=== PATIENT | male | born 1970 | race African-American/Black ===

== ENCOUNTER 2017-04-17 11:46 | Emergency (ER) | payer MEDICAID, OTHER ==
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
[2017-04-17 12:26] LABS: ABSOLUTE BASOPHILS # (AUTO) 0.1 10^3/uL (0.0-0.2); ABSOLUTE EOSINOPHILS # (AUTO) 0.2 10^3/uL (0.0-0.6); ABSOLUTE LYMPHOCYTES (AUTO) 2.5 10^3/uL (0.5-4.7); ABSOLUTE MONOCYTES (AUTO) 0.9 10^3/uL (0.1-1.4); ABSOLUTE NEUT (AUTO) 6.4 10^3/uL (1.7-8.2); BASOPHILS % (AUTO) 0.9 % (0-2); EOSINOPHILS % (AUTO) 2.3 % (0-6); HEMATOCRIT 43.9 % (37.9-51.0); HEMOGLOBIN 14.8 g/dL (13.5-17.0); HGB HCT DIFFERENCE 0.5; LYMPHOCYTES % (AUTO) 24.9 % (13-45); MEAN CORPUSCULAR HEMOGLOBIN 27.3 pg (27.0-33.4); MEAN CORPUSCULAR HGB CONC 33.6 g/dL (32.0-36.0); MEAN CORPUSCULAR VOLUME 81 fl (80-97); MONOCYTES % (AUTO) 9.3 % (3-13); RED BLOOD COUNT 5.41 10^6/uL (4.35-5.55); RED CELL DISTRIBUTION WIDTH 15.1 % (11.5-14.0); SEGMENTED NEUTROPHILS % (AUTO) 62.6 % (42-78); WHITE BLOOD COUNT 10.2 10^3/uL (4.0-10.5)
[2017-04-17 12:33] LABS: APPEARANCE,URINE CLEAR; BILIRUBIN,URINE NEGATIVE (NEGATIVE); GLUCOSE, URINE NEGATIVE (NEGATIVE); KETONES,URINE NEGATIVE (NEGATIVE); LEUKOCYTE ESTERASE,URINE NEGATIVE (NEGATIVE); NITRITE,URINE NEGATIVE (NEGATIVE); PROTEIN,URINE NEGATIVE (NEGATIVE); URINE SPECIFIC GRAVITY 1.011
[2017-04-17 12:46] LABS: ALANINE AMINOTRANSFERASE 36 U/L (21-72); ALBUMIN 3.9 g/dL (3.5-5.0); ALKALINE PHOSPHATASE 76 U/L (38-126); ANION GAP 12 (5-19); ASPARTATE AMINO TRANSFERASE 27 U/L (17-59); BILIRUBIN,DIRECT 0.3 mg/dL (0.0-0.4); BILIRUBIN,TOTAL 0.6 mg/dL (0.2-1.3); BLOOD UREA NITROGEN 9 mg/dL (7-20); CALCIUM 9.4 mg/dL (8.4-10.2); CARBON DIOXIDE 31 mmol/L (22-30); CHLORIDE 101 mmol/L (98-107); CREATININE RESULT 0.87 mg/dL (0.52-1.25); GLUCOSE 116 mg/dL (75-110); POTASSIUM 3.8 mmol/L (3.6-5.0); TOTAL PROTEIN 7.4 g/dL (6.3-8.2)
[2017-04-17] MEDS ORDERED: LIDOCAINE 2% VISCOUS SOLN 20 ML UDCUP PO ONE (13:08)
[2017-04-17] MEDS ORDERED: MAG HYDROX/AL HYDROX/SIMETH SUSP 30 ML UDCUP PO ONE (13:08)
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
[2017-04-17 14:25] VITALS: BP 151/100
== END 2017-04-17 14:25 | disposition home or self-care (01) ==
LOC: ER 11:46
DX: K59.00 Constipation, unspecified (principal); R10.13 Epigastric pain; R14.2 Eructation; R10.12 Left upper quadrant pain; I10 Essential (primary) hypertension; Z87.19 Personal history of other diseases of the digestive system
CPT/HCPCS: 99284; 36415; 83690; 85025; 80053; 81001; J3490

== ENCOUNTER 2017-08-11 09:48 | Emergency (ER) | payer SELFPAY ==
[2017-08-11] MEDS ORDERED: ACETAMINOPHEN 325 MG TABLET PO ONE (11:46)
[2017-08-11 12:00] LABS: A TYPE INFLUENZA AG NEGATIVE (NEGATIVE); B INFLUENZA AG NEGATIVE (NEGATIVE)
[2017-08-11] MEDS ORDERED: NORMAL SALINE 1000 ML 1,000 ML IV ONE (12:06)
--- NOTE | 2017-08-11 12:06 | RADIOLOGY REPORT (SQ) ---
EXAM DESCRIPTION: CHEST PA/LAT COMPLETED DATE/TIME: 08/11/2017 11:38 am REASON FOR STUDY: cough congestion COMPARISON: Chest films 11/01/2012, 06/29/2011 EXAM PARAMETERS: NUMBER OF VIEWS: two views TECHNIQUE: Digital Frontal and Lateral radiographic views of the chest acquired. RADIATION DOSE: NA LIMITATIONS: none FINDINGS: LUNGS AND PLEURA: No opacities, masses or pneumothorax. No pleural effusion. MEDIASTINUM AND HILAR STRUCTURES: No masses or contour abnormalities. HEART AND VASCULAR STRUCTURES: Heart normal size. No evidence for failure. BONES: No acute findings. HARDWARE: None in the chest. OTHER: No other significant finding. IMPRESSION: NO SIGNIFICANT RADIOGRAPHIC FINDING IN THE CHEST. TECHNICAL DOCUMENTATION: JOB ID: [id number] [employer]- All Rights Reserved
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
[2017-08-11 12:49] LABS: ABSOLUTE BASOPHILS # (AUTO) 0.1 10^3/uL (0.0-0.2); ABSOLUTE EOSINOPHILS # (AUTO) 0.3 10^3/uL (0.0-0.6); ABSOLUTE MONOCYTES (AUTO) 1.3 10^3/uL (0.1-1.4); ABSOLUTE NEUT (AUTO) 5.7 10^3/uL (1.7-8.2); BASOPHILS % (AUTO) 0.7 % (0-2); EOSINOPHILS % (AUTO) 3.7 % (0-6); HEMOGLOBIN 14.4 g/dL (13.5-17.0); LYMPHOCYTES % (AUTO) 11.8 % (13-45); MEAN CORPUSCULAR HGB CONC 33.6 g/dL (32.0-36.0); MEAN CORPUSCULAR VOLUME 80 fl (80-97); MONOCYTES % (AUTO) 15.3 % (3-13); PLATELET COUNT 465 10^3/uL (150-450); RED BLOOD COUNT 5.35 10^6/uL (4.35-5.55); RED CELL DISTRIBUTION WIDTH 15.4 % (11.5-14.0); SEGMENTED NEUTROPHILS % (AUTO) 68.5 % (42-78); TOTAL CELLS COUNTED % (AUTO) 100 %; WHITE BLOOD COUNT 8.3 10^3/uL (4.0-10.5)
[2017-08-11 13:12] LABS: ALANINE AMINOTRANSFERASE 47 U/L (21-72); ALBUMIN 4.3 g/dL (3.5-5.0); ALKALINE PHOSPHATASE 82 U/L (38-126); ANION GAP 12 (5-19); ASPARTATE AMINO TRANSFERASE 41 U/L (17-59); BILIRUBIN,DIRECT 0.3 mg/dL (0.0-0.4); BILIRUBIN,TOTAL 0.5 mg/dL (0.2-1.3); BLOOD UREA NITROGEN 10 mg/dL (7-20); CALCIUM 9.6 mg/dL (8.4-10.2); CARBON DIOXIDE 33 mmol/L (22-30); CHLORIDE 99 mmol/L (98-107); GLUCOSE 133 mg/dL (75-110); POTASSIUM 3.3 mmol/L (3.6-5.0); TOTAL PROTEIN 7.8 g/dL (6.3-8.2)
[2017-08-11 13:52] LABS: APPEARANCE,URINE CLEAR; BILIRUBIN,URINE NEGATIVE (NEGATIVE); COLOR,URINE YELLOW; GLUCOSE, URINE NEGATIVE (NEGATIVE); KETONES,URINE NEGATIVE (NEGATIVE); LEUKOCYTE ESTERASE,URINE NEGATIVE (NEGATIVE); NITRITE,URINE NEGATIVE (NEGATIVE); PROTEIN,URINE 30 mg/dL (NEGATIVE)
[2017-08-11] MEDS ORDERED: BENZONATATE 100 MG CAPSULE PO ONE (13:54)
[2017-08-11 15:39] VITALS: BP 125/96
== END 2017-08-11 15:39 | disposition home or self-care (01) ==
LOC: ER 09:48
DX: B34.9 Viral infection, unspecified (principal); R05 Cough; R50.9 Fever, unspecified; M79.1 Myalgia; R07.0 Pain in throat; R09.82 Postnasal drip; R06.02 Shortness of breath; J34.89 Other specified disorders of nose and nasal sinuses; I10 Essential (primary) hypertension; E10.9 Type 1 diabetes mellitus without complications
CPT/HCPCS: 99283; 96360; 36415; 87040; 85025; 80053; 81001; 83605; 87804; 71046; J7030

== ENCOUNTER 2019-04-26 01:53 | Emergency (ER) | payer BC ==
[2019-04-26] MEDS ORDERED: ASPIRIN 81 MG TABLET, CHEWABLE PO ONE (01:56)
[2019-04-26 02:37] LABS: ABSOLUTE BASOPHILS # (AUTO) 0.1 10^3/uL (0.0-0.2); ABSOLUTE EOSINOPHILS # (AUTO) 0.4 10^3/uL (0.0-0.6); ABSOLUTE LYMPHOCYTES (AUTO) 3.1 10^3/uL (0.5-4.7); ABSOLUTE MONOCYTES (AUTO) 0.9 10^3/uL (0.1-1.4); ABSOLUTE NEUT (AUTO) 5.2 10^3/uL (1.7-8.2); BASOPHILS % (AUTO) 0.8 % (0-2); EOSINOPHILS % (AUTO) 3.7 % (0-6); HEMATOCRIT 43.6 % (37.9-51.0); HEMOGLOBIN 14.6 g/dL (13.5-17.0); LYMPHOCYTES % (AUTO) 32.3 % (13-45); MEAN CORPUSCULAR HEMOGLOBIN 27.6 pg (27.0-33.4); MEAN CORPUSCULAR HGB CONC 33.5 g/dL (32.0-36.0); MEAN CORPUSCULAR VOLUME 83 fl (80-97); MONOCYTES % (AUTO) 9.5 % (3-13); PLATELET COUNT 486 10^3/uL (150-450); RED BLOOD COUNT 5.29 10^6/uL (4.35-5.55); RED CELL DISTRIBUTION WIDTH 14.9 % (11.5-14.0); SEGMENTED NEUTROPHILS % (AUTO) 53.7 % (42-78); TOTAL CELLS COUNTED % (AUTO) 100 %; WHITE BLOOD COUNT 9.7 10^3/uL (4.0-10.5)
[2019-04-26 02:50] LABS: ALBUMIN 4.1 g/dL (3.5-5.0); ALKALINE PHOSPHATASE 94 U/L (38-126); ANION GAP 9 (5-19); ASPARTATE AMINO TRANSFERASE 31 U/L (17-59); BILIRUBIN,DIRECT 0.2 mg/dL (0.0-0.4); BILIRUBIN,TOTAL 0.2 mg/dL (0.2-1.3); BLOOD UREA NITROGEN 10 mg/dL (7-20); CALCIUM 9.5 mg/dL (8.4-10.2); CARBON DIOXIDE 29 mmol/L (22-30); CHLORIDE 102 mmol/L (98-107); CREATINE KINASE 287 U/L (55-170); GLUCOSE 108 mg/dL (75-110); POTASSIUM 3.2 mmol/L (3.6-5.0); TOTAL PROTEIN 7.5 g/dL (6.3-8.2)
[2019-04-26 03:02] LABS: CREATINE KINASE MB 2.24 ng/mL (<4.55); TROPONIN I < 0.012 ng/mL
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
[2019-04-26 03:04] LABS: APPEARANCE,URINE CLEAR; BILIRUBIN,URINE NEGATIVE (NEGATIVE); COLOR,URINE YELLOW; GLUCOSE, URINE NEGATIVE (NEGATIVE); KETONES,URINE NEGATIVE (NEGATIVE); LEUKOCYTE ESTERASE,URINE NEGATIVE (NEGATIVE); NITRITE,URINE NEGATIVE (NEGATIVE); PROTEIN,URINE NEGATIVE (NEGATIVE); UROBILINOGEN,URINE NEGATIVE mg/dL (<2.0)
--- NOTE | 2019-04-26 04:30 | RADIOLOGY REPORT (SQ) ---
EXAM DESCRIPTION: XR CHEST 2 VIEWS COMPLETED DATE/TME: 04/26/2019 00:00 CLINICAL HISTORY: 48 years, Male, CP COMPARISON: 08/11/2017 chest NUMBER OF VIEWS: 2 TECHNIQUE: 2 view chest LIMITATIONS: None. FINDINGS: Heart size normal. Lungs clear. No pneumothorax IMPRESSION: Negative chest copyright 2010 [email or web address]- All Rights Reserved
[2019-04-26 10:54] VITALS: BP 137/89
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
[2019-04-26] MEDS ORDERED: INFLUENZA QUAD (6MOS+) 2019-20 VAC 0.5 ML SYR IM ONE (12:45)
--- NOTE | 2019-04-26 20:53 | EKG REPORT ---
SEVERITY:- NORMAL ECG - SINUS RHYTHM : Confirmed by: Faith Anne MD 26-Apr-2019 20:52:46
--- NOTE | 2019-04-26 20:54 | EKG REPORT ---
SEVERITY:- ABNORMAL ECG - SINUS RHYTHM DIFFUSE ST-T CHAGES.CONSIDER ISCHEMIA : Confirmed by: Faith Anne MD 26-Apr-2019 20:53:52
[2019-04-27] MEDS ORDERED: INFLUENZA QUAD (6MOS+) 2019-20 VAC 0.5 ML SYR IM ONE (08:00)
== END 2019-04-26 13:27 | disposition home or self-care (01) ==
LOC: ER 01:53 → EH 06:33 → UNDOADMIN 06:33 → EH 10:10 → 3W 10:10 → UNDODISIN 13:27 → ER 13:27
DX: R07.89 Other chest pain (principal); I10 Essential (primary) hypertension; E10.9 Type 1 diabetes mellitus without complications
CPT/HCPCS: 36415; 71046; 80053; 81001; 82550; 82553; 84484; 85025; 87086; 90686; 93005; 93010

== ENCOUNTER 2019-10-17 14:38 | Emergency (ER) | payer BC ==
[2019-10-17] MEDS ORDERED: ASPIRIN 81 MG TABLET, CHEWABLE PO ONE (14:58)
[2019-10-17] MEDS ORDERED: SIMETHICONE 80 MG TAB.CHEW PO ONE (14:59)
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
--- NOTE | 2019-10-17 15:21 | RADIOLOGY REPORT (SQ) ---
EXAM DESCRIPTION: CHEST 2 VIEWS COMPLETED DATE/TIME: 10/17/2019 3:12 pm REASON FOR STUDY: cp COMPARISON: 04/26/2019 TECHNIQUE: Frontal and lateral radiographic views of the chest acquired. NUMBER OF VIEWS: Two view. LIMITATIONS: None. FINDINGS: LUNGS AND PLEURA: No pneumothorax. Small amount of linear subsegmental atelectasis in the left lung base. No consolidation or pleural effusion. MEDIASTINUM AND HILAR STRUCTURES: Stable. HEART AND VASCULAR STRUCTURES: Stable. BONES: No acute findings. HARDWARE: None in the chest. OTHER: No other significant finding. IMPRESSION: Small amount of linear subsegmental atelectasis in the left lung base. No consolidatio n or pleural effusion. TECHNICAL DOCUMENTATION: JOB ID: [id number] [id number] 2010 [email or web address]- All Rights Reserved Reading location - IP/workstation name: [email or web address]
[2019-10-17 15:41] LABS: ALBUMIN 3.9 g/dL (3.5-5.0); ALKALINE PHOSPHATASE 85 U/L (38-126); ANION GAP 6 (5-19); ASPARTATE AMINO TRANSFERASE 25 U/L (17-59); BILIRUBIN,DIRECT 0.3 mg/dL (0.0-0.4); BILIRUBIN,TOTAL 0.3 mg/dL (0.2-1.3); BLOOD UREA NITROGEN 10 mg/dL (7-20); CALCIUM 9.4 mg/dL (8.4-10.2); CARBON DIOXIDE 36 mmol/L (22-30); CHLORIDE 97 mmol/L (98-107); GLUCOSE 116 mg/dL (75-110); POTASSIUM 3.4 mmol/L (3.6-5.0); TOTAL PROTEIN 7.9 g/dL (6.3-8.2)
[2019-10-17 15:44] LABS: ABSOLUTE BASOPHILS # (AUTO) 0.1 10^3/uL (0.0-0.2); ABSOLUTE EOSINOPHILS # (AUTO) 0.4 10^3/uL (0.0-0.6); ABSOLUTE LYMPHOCYTES (AUTO) 2.6 10^3/uL (0.5-4.7); ABSOLUTE MONOCYTES (AUTO) 0.7 10^3/uL (0.1-1.4); ABSOLUTE NEUT (AUTO) 3.6 10^3/uL (1.7-8.2); BASOPHILS % (AUTO) 1.1 % (0-2); EOSINOPHILS % (AUTO) 5.4 % (0-6); HEMOGLOBIN 14.6 g/dL (13.5-17.0); LYMPHOCYTES % (AUTO) 34.8 % (13-45); MEAN CORPUSCULAR HEMOGLOBIN 27.5 pg (27.0-33.4); MEAN CORPUSCULAR VOLUME 81 fl (80-97); MONOCYTES % (AUTO) 9.4 % (3-13); PLATELET COUNT 526 10^3/uL (150-450); RED BLOOD COUNT 5.33 10^6/uL (4.35-5.55); RED CELL DISTRIBUTION WIDTH 14.3 % (11.5-14.0); SEGMENTED NEUTROPHILS % (AUTO) 49.3 % (42-78); TOTAL CELLS COUNTED % (AUTO) 100 %; WHITE BLOOD COUNT 7.4 10^3/uL (4.0-10.5)
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
[2019-10-17 17:06] VITALS: BP 163/104
== END 2019-10-17 17:06 | disposition home or self-care (01) ==
LOC: ER 14:38
DX: R07.9 Chest pain, unspecified (principal); R10.9 Unspecified abdominal pain; I10 Essential (primary) hypertension; R10.13 Epigastric pain; R06.02 Shortness of breath; E78.00 Pure hypercholesterolemia, unspecified; E10.9 Type 1 diabetes mellitus without complications
CPT/HCPCS: 36415; 71046; 80053; 83735; 84484; 85025; 99284

== ENCOUNTER → 2020-03-13 | Outpatient (CLI) | payer BC ==
[2020-03-13 15:03] LABS: ABSOLUTE EOSINOPHILS # (AUTO) 0.1 10^3/uL (0.0-0.6); ABSOLUTE LYMPHOCYTES (AUTO) 2.7 10^3/uL (0.5-4.7); ABSOLUTE MONOCYTES (AUTO) 0.7 10^3/uL (0.1-1.4); ABSOLUTE NEUT (AUTO) 4.8 10^3/uL (1.7-8.2); BASOPHILS % (AUTO) 0.3 % (0-2); EOSINOPHILS % (AUTO) 1.8 % (0-6); HEMATOCRIT 43.4 % (37.9-51.0); HEMOGLOBIN 14.7 g/dL (13.5-17.0); MEAN CORPUSCULAR HEMOGLOBIN 27.5 pg (27.0-33.4); MEAN CORPUSCULAR HGB CONC 33.9 g/dL (32.0-36.0); MEAN CORPUSCULAR VOLUME 81 fl (80-97); MONOCYTES % (AUTO) 8.6 % (3-13); PLATELET COUNT 563 10^3/uL (150-450); RED BLOOD COUNT 5.34 10^6/uL (4.35-5.55); RED CELL DISTRIBUTION WIDTH 15.4 % (11.5-14.0); SEGMENTED NEUTROPHILS % (AUTO) 57.3 % (42-78); TOTAL CELLS COUNTED % (AUTO) 100 %; WHITE BLOOD COUNT 8.4 10^3/uL (4.0-10.5)
[2020-03-13 15:15] LABS: APPEARANCE,URINE CLEAR; BILIRUBIN,URINE NEGATIVE (NEGATIVE); COLOR,URINE YELLOW; GLUCOSE, URINE NEGATIVE (NEGATIVE); KETONES,URINE NEGATIVE (NEGATIVE); LEUKOCYTE ESTERASE,URINE NEGATIVE (NEGATIVE); NITRITE,URINE NEGATIVE (NEGATIVE); PROTEIN,URINE NEGATIVE (NEGATIVE); URINE SPECIFIC GRAVITY 1.014
[2020-03-13 15:29] LABS: ANION GAP 9 (5-19); BLOOD UREA NITROGEN 12 mg/dL (7-20); CALCIUM 9.2 mg/dL (8.4-10.2); CARBON DIOXIDE 31 mmol/L (22-30); CHLORIDE 98 mmol/L (98-107); GLUCOSE 129 mg/dL (75-110); POTASSIUM 3.4 mmol/L (3.6-5.0)
--- NOTE | 2020-03-13 16:13 | RADIOLOGY REPORT (SQ) ---
EXAM DESCRIPTION: CHEST PA/LATERAL IMAGES COMPLETED DATE/TIME: 03/13/2020 2:24 pm REASON FOR STUDY: PRE-OP COMPARISON: 10/17/2019 EXAM PARAMETERS: NUMBER OF VIEWS: two views TECHNIQUE: Digital Frontal and Lateral radiographic views of the chest acquired. RADIATION DOSE: NA LIMITATIONS: none FINDINGS: LUNGS AND PLEURA: No opacities, masses or pneumothorax. No pleural effusion. MEDIASTINUM AND HILAR STRUCTURES: No masses or contour abnormalities. HEART AND VASCULAR STRUCTURES: Heart normal size. No evidence for failure. BONES: No acute findings. HARDWARE: None in the chest. OTHER: No other significant finding. IMPRESSION: NO SIGNIFICANT RADIOGRAPHIC FINDING IN THE CHEST. TECHNICAL DOCUMENTATION: JOB ID: [id number] 2010 [employer]- All Rights Reserved Reading location - IP/workstation name: [email or web address]
--- NOTE | 2020-03-13 19:31 | EKG REPORT ---
SEVERITY:- NORMAL ECG - SINUS RHYTHM LVH : Confirmed by: Charles Pike 13-Mar-2020 19:30:38
== END ==
LOC: OD 13:45
PROVIDERS: ATTEND Orthopaedic Surgery
DX: Z01.812 Encounter for preprocedural laboratory examination (principal); Z01.810 Encounter for preprocedural cardiovascular examination; Z01.811 Encounter for preprocedural respiratory examination; M17.11 Unilateral primary osteoarthritis, right knee; E11.9 Type 2 diabetes mellitus without complications
CPT/HCPCS: 36415; 71046; 80048; 81001; 83036; 85025; 93005; 93010

== ENCOUNTER 2020-03-26 10:29 | Day surgery (SDC) | payer BC ==
[~2020-03-26 10:29] MED LIST: BUPIVACAINE INJ/PF LIPOSOME/PF 266 MG/20 ML SDV INJ PRN; CEFAZOLIN 1 GM/D5W RTU 1 GM/50 ML RTUPB IV ONE; CEFAZOLIN INJ 1 GM VIAL IV PRN; DIPHENHYDRAMINE HCL 50 MG/ML VIAL IV PRN; EPHEDRINE SULFATE INJ 50 MG/1 ML AMPULE ONE; FENTANYL CITRATE INJ/PF 100 MCG/2 ML AMPUL IV PRN; FENTANYL CITRATE INJ/PF 100 MCG/2 ML AMPUL ONE; IBUPROFEN 800 MG in NORMAL SALINE 250 ML IV PRN; MAG HYDROX/AL HYDROX/SIMETH SUSP 30 ML UDCUP PO PRN; MEPERIDINE HCL/PF INJ 25 MG/1 ML DISP.SYRIN IV PRN; MIDAZOLAM 2 MG/2 ML INJ ONE; MORPHINE SULFATE 10 MG/ML INJ IV PRN; ONDANSETRON HCL INJ/PF 4 MG/2 ML SDV ONE; OXYCODONE HCL IR 5 MG TABLET PO PRN; OXYCODONE HCL SR 10 MG TABLET PO ONE; OXYCODONE HCL SR 10 MG TABLET PO PRN; PANTOPRAZOLE SODIUM 20 MG TABLET.DR PO ONE; PANTOPRAZOLE SODIUM 20 MG TABLET.DR PO PRN; PROMETHAZINE HCL INJ 25 MG/1 ML VIAL IV PRN; PROPOFOL INJ 200 MG/20 ML VIAL IV ONE; RINGERS SOLUTION,LACTATED 1,000 ML IV PRN; ROPIVACAINE HCL 0.2% INJ/PF (2 MG/ML) 20 ML SDV ONE; TRANEXAMIC ACID INJ/PF 1,000 MG/10 ML SDV ONE; VANCOMYCIN HCL 1,000 MG in DEXTROSE 5%-WATER 250 ML IV PRN
--- NOTE | 2020-03-26 10:35 | Operative Report ---
Operative Report DATE OF SURGERY: 03/26/20 PREOPERATIVE DIAGNOSIS: Right knee arthritis OPERATION: Right knee arthroplasty SURGEON: MARYJANE SCHULTZ ANESTHESIA: Spinal TISSUE REMOVED OR ALTERED: Bone to pathology ESTIMATED BLOOD LOSS: 75 PROCEDURE: Implants used: Femur: [place] triathlon size 6 CR uncemented femur Tibia: 6 uncemented tibia Tibial liner: 9 meter CS insert Patella: 38 oval patella Procedure with the patient supine on the operating table the right the limb is prepped and draped in a sterile fashion. The limb was elevated for exsanguination and the tourniquet inflated to 280 torr. A standard midline median parapatellar approach the knee is taken. Access is gained to the femoral canal through the intercondylar notch. Intramedullary alignment instrumentation used to resect 10 mm of distal femur in 5 of valgus. Sizing guide indicated a size 6 femur. Appropriate cutting jig is then used to fashion anterior posterior and chamfer cuts. A trial reduction femurs performed and this is judged to be adequate. Attention was next turned to the tibia. Using an extra medullary alignment system 9 millimeters was resected off the lateral tibial plateau. This is sized to a size 6 tibia. A trial reduction was now performed with a X femur and a 6 tibia using a 9 millimeters spacer. It is full extension and central patellofemoral tracking. The articular surface the patella was next resected using an oscillating saw. All trial implants were removed. Above implants are impacted into position. The tourniquet was deflated hemostasis obtained the wound is then closed in layers using interrupted Vicryl followed by jasmyne. A sterile compressive dressing was applied and the patient returned to recovery room in satisfactory condition.
[2020-03-26] MEDS ORDERED: PROPOFOL INJ 200 MG/20 ML VIAL IV ONE (10:57)
--- NOTE | 2020-03-26 11:43 | RADIOLOGY REPORT (SQ) ---
EXAM DESCRIPTION: KNEE RIGHT 2 VIEWS IMAGES COMPLETED DATE/TIME: 03/26/2020 11:26 am REASON FOR STUDY: Post OP -Long Cassette in PACU M17.11 UNILATERAL PRIMARY OSTEOARTHRITIS, RIGHT KN EE COMPARISON: None. NUMBER OF VIEWS: Two view(s). TECHNIQUE: Digital radiographic images of the right knee post-procedure. LIMITATIONS: None. FINDINGS: BONES: No worrisome or unexpected findings post-procedure. DEVICE: Total knee arthroplasty. SOFT TISSUES: No worrisome findings. Expected postoperative soft tissue changes. IMPRESSION: SATISFACTORY POSTOPERATIVE RIGHT KNEE. TECHNICAL DOCUMENTATION: JOB ID: [id number] 2010 [employer]- All Rights Reserved Reading location - IP/workstation name: [email or web address]
[2020-03-26] MEDS ORDERED: DEXTROSE 50%-WATER SYRINGE 25 GM/50 ML DOSE IV PRN (12:30)
[2020-03-26] MEDS ORDERED: DEXTROSE 40% GEL 15 GM TUBE X 2 PO PRN (12:30)
[2020-03-26] MEDS ORDERED: DEXTROSE 40% GEL 15 GM TUBE PO PRN (12:30)
[2020-03-26] MEDS ORDERED: DEXTROSE 50%-WATER SYRINGE 12.5 GM/25 ML DOSE IV PRN (12:30)
[2020-03-26] MEDS ORDERED: GLUCAGON,HUMAN RECOMB 1 MG INJ IM PRN (12:30)
[2020-03-26] MEDS ORDERED: TRANEXAMIC ACID INJ/PF 1,000 MG/10 ML SDV IV ONE (12:45)
[2020-03-26] MEDS: ONDANSETRON 4 MG TAB.RAPDIS PO PRN (13:38)
[2020-03-26] MEDS: IBUPROFEN 800 MG in NORMAL SALINE 250 ML IV SCH ×2 (15:06→23:14)
[2020-03-26] MEDS: INSULIN LISPRO 100 UNIT/ML 3 ML VIAL SUBCUT SCH (17:09)
[2020-03-26] MEDS: METFORMIN HCL 500 MG TABLET PO SCH (17:33)
[2020-03-26] MEDS: SENNOSIDES/DOCUSATE 8.6-50 MG 1 EACH TABLET PO SCH (17:34)
[2020-03-26] MEDS ORDERED: ATORVASTATIN CALCIUM 10 MG TABLET PO SCH (22:00)
[2020-03-26] MEDS ORDERED: (PENDING PHARMACY ID) (Lisinopril/Hydrochlorothiazide [Lisinopril-Hctz 20-12.5 Mg Tab] 1 E PO SCH (22:00)
[2020-03-26] MEDS ORDERED: (PENDING PHARMACY ID) (Pravastatin Sodium [Pravastatin Sodium] 40 MG) PO SCH (22:00)
[2020-03-26] MEDS ORDERED: VANCOMYCIN HCL 1,000 MG in DEXTROSE 5%-WATER 250 ML IV ONE (22:30)
[2020-03-26] MEDS ORDERED: ZOLPIDEM TARTRATE 5 MG TABLET PO ONE (22:30)
[2020-03-26] MEDS: HYDROCHLOROTHIAZIDE 12.5 MG TABLET PO SCH (23:14)
[2020-03-26] MEDS: PREGABALIN 75 MG CAPSULE PO SCH (23:15)
[2020-03-26] MEDS: LISINOPRIL 10 MG TABLET PO SCH (23:15)
[2020-03-26] MEDS: OXYCODONE HCL SR 10 MG TABLET PO SCH (23:16)
[2020-03-27] MEDS: INSULIN LISPRO 100 UNIT/ML 3 ML VIAL SUBCUT SCH ×3 (00:46→11:18)
[2020-03-27] MEDS: IBUPROFEN 800 MG in NORMAL SALINE 250 ML IV SCH (05:53)
[2020-03-27] MEDS ORDERED: PANTOPRAZOLE SODIUM 40 MG TABLET.DR PO SCH (06:00)
[2020-03-27 06:06] LABS: HEMATOCRIT 37.9 % (37.9-51.0); HEMOGLOBIN 12.7 g/dL (13.5-17.0); MEAN CORPUSCULAR HEMOGLOBIN 27.3 pg (27.0-33.4); MEAN CORPUSCULAR HGB CONC 33.5 g/dL (32.0-36.0); MEAN CORPUSCULAR VOLUME 81 fl (80-97); PLATELET COUNT 428 10^3/uL (150-450); RED BLOOD COUNT 4.65 10^6/uL (4.35-5.55); RED CELL DISTRIBUTION WIDTH 14.7 % (11.5-14.0); WHITE BLOOD COUNT 11.2 10^3/uL (4.0-10.5)
[2020-03-27 06:29] LABS: ANION GAP 6 (5-19); BLOOD UREA NITROGEN 8 mg/dL (7-20); CALCIUM 8.5 mg/dL (8.4-10.2); CARBON DIOXIDE 34 mmol/L (22-30); CHLORIDE 97 mmol/L (98-107); GLUCOSE 107 mg/dL (75-110)
--- NOTE | 2020-03-27 06:34 | PDOC DISCHARGE SUMMARY ---
Impression - Admit/DC Date/PCP Admission Date/Primary Care Provider: 03/26/20 07:48 CIRILO OCASIO-Maryanne Discharge Date: 03/27/20 - Discharge Diagnosis (1) Arthritis of right knee Is this a current diagnosis for this admission?: Yes - Additional Information Resuscitation Status: Full Code Discharge Activity: Balance Activity w/Rest, No tub bath Referrals: MARYJANE SCHULTZ MD [ACTIVE STAFF] - 04/10/20 8:45 am Home Medications: Amlodipine Besylate [Norvasc 10 mg Tablet] 10 mg PO DAILY 03/22/20 Lansoprazole [Prevacid 15 Mg Odt Tablet] 15 mg PO DAILY 03/22/20 Lisinopril/Hydrochlorothiazide [Lisinopril-Hctz 20-12.5 mg Tab] 1 each PO Q12 03/22/20 Metformin HCl 500 mg PO BID 03/22/20 Pravastatin Sodium 40 mg PO QHS 03/22/20 Oxycodone HCl [Oxy-Ir 5 mg Tablet] 5 mg PO QIDP PRN 03/26/20 History of Present Illiness History of Present Illness: BRETT SIDDIQI is a 49 year old male Patient is a 49-year-old black male with progressive right knee pain and function disability second osteoarthritis. Patient admitted for elective right knee arthroplasty. Hospital Course Hospital Course: Patient is admitted through the operating where he undergoes uncomplicated right knee arthroplasty. Is returned to the floor in satisfactory addition. He makes some progress with physical therapy on the day of surgery. Compressive dressing is removed on the first postoperative morning. Underlying OpSite dressing is clean dry and intact. Physical Exam Vital Signs: Temp Pulse Resp BP Pulse Ox 37.1 C 92 16 114/53 L 96 03/27/20 00:57 03/26/20 23:12 03/26/20 23:12 03/26/20 23:12 03/26/20 23:12 Intake & Output 03/25/20 03/26/20 03/27/20 06:59 06:59 06:59 Intake Total 7579 Output Total 375 Balance 7204 Weight 133.6 kg General appearance: PRESENT: no acute distress Head exam: PRESENT: normocephalic Respiratory exam: PRESENT: unlabored Cardiovascular exam: PRESENT: RRR Pulses: PRESENT: +1 pedal pulses bilateral Vascular exam: PRESENT: normal capillary refill GI/Abdominal exam: PRESENT: soft Rectal exam: PRESENT: deferred Musculoskeletal exam: PRESENT: other - Right knee OpSite dressing is clean dry and intact. Minimal pedal edema. Distal neurovascular examination is intact. Results Laboratory Results: WBC 11.2 10^3/uL (4.0-10.5) H 03/27/20 05:47 RBC 4.65 10^6/uL (4.35-5.55) 03/27/20 05:47 Hgb 12.7 g/dL (13.5-17.0) L 03/27/20 05:47 Hct 37.9 % (37.9-51.0) 03/27/20 05:47 MCV 81 fl (80-97) 03/27/20 05:47 MCH 27.3 pg (27.0-33.4) 03/27/20 05:47 MCHC 33.5 g/dL (32.0-36.0) 03/27/20 05:47 RDW 14.7 % (11.5-14.0) H 03/27/20 05:47 Plt Count 428 10^3/uL (150-450) 03/27/20 05:47 Potassium 3.3 mmol/L (3.6-5.0) L 03/26/20 08:49 POC Glucose 120 mg/dL (70-110) H 03/26/20 22:18 COVID-19 Source NASOPHARYNGEAL 03/22/20 08:19 COVID-19 (JOSE LUIS) NOT DETECTED 03/22/20 08:19 Impressions: Knee X-Ray 03/26/20 10:32 IMPRESSION: SATISFACTORY POSTOPERATIVE RIGHT KNEE. Plan Plan of Treatment: Patient to be discharged home in a weightbearing as tolerated amatory basis. Social work for DME and home health services. Follow-up with Dr. Schultz and [facility] for surgery in 2 weeks for staple removal. Time Spent: Less than 30 Minutes Stroke Is this a Stroke Patient?: No Stroke Pt being discharged on Anti-thrombolytic therapy?: Yes Acute Heart Failure - Is this a Heart Failure Patient?: No
[2020-03-27] MEDS ORDERED: POTASSIUM CHLORIDE 10 MEQ TABLET.ER PO ONE (07:00)
[2020-03-27] MEDS: ONDANSETRON 4 MG TAB.RAPDIS PO PRN (08:27)
[2020-03-27 09:41] VITALS: BP 102/61
[2020-03-27] MEDS ORDERED: PRENATAL VITAMIN W DHA CAPSULE PO SCH (10:00)
[2020-03-27] MEDS ORDERED: AMLODIPINE BESYLATE 10 MG TABLET PO SCH (10:00)
[2020-03-27] MEDS ORDERED: LANSOPRAZOLE 15 MG PO SCH (10:00)
[2020-03-27] MEDS ORDERED: ASPIRIN 81 MG TABLET, ENT COATED PO SCH (10:00)
[2020-03-27] MEDS: PREGABALIN 75 MG CAPSULE PO SCH (11:14)
[2020-03-27] MEDS: OXYCODONE HCL SR 10 MG TABLET PO SCH (11:14)
[2020-03-27] MEDS: SENNOSIDES/DOCUSATE 8.6-50 MG 1 EACH TABLET PO SCH (11:14)
[2020-03-27] MEDS: METFORMIN HCL 500 MG TABLET PO SCH (11:16)
[2020-03-27] MEDS: LISINOPRIL 10 MG TABLET PO SCH (11:16)
[2020-03-27] MEDS: HYDROCHLOROTHIAZIDE 12.5 MG TABLET PO SCH (11:16)
== END 2020-03-27 11:41 | disposition home or self-care (01) ==
LOC: OROUT 10:29 → 4W 11:53 → INOR 11:53 → UNDODISIN 03-27 11:41 → OROUT 03-27 11:41
PROVIDERS: ATTEND Orthopaedic Surgery
DX: M17.11 Unilateral primary osteoarthritis, right knee (principal); E11.9 Type 2 diabetes mellitus without complications; I10 Essential (primary) hypertension; K21.9 Gastro-esophageal reflux disease without esophagitis; E78.00 Pure hypercholesterolemia, unspecified; E66.9 Obesity, unspecified; Z79.84 Long term (current) use of oral hypoglycemic drugs; Z79.899 Other long term (current) drug therapy; Z03.818 Encounter for observation for suspected exposure to other biological agents ruled out
CPT/HCPCS: 36415 ×2; 82962 ×2; 84132; 85027; 80048; 88305 ×2; 88311; 73560; 94799; 97530 ×2; 97110 ×2; 97116; 97163; 97535 ×2; 97166; 01402; 27447; C1776 ×4; U0003; J2250; J0690; S0119 ×2; J3490 ×5; J2405; J7060 ×2; J7050 ×2; J2704; J3370 ×2; J1741 ×2; J2795; C9803; 87635; J3010

== ENCOUNTER 2020-07-08 12:45 | Emergency (ER) | payer BC ==
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
--- NOTE | 2020-07-08 15:57 | RADIOLOGY REPORT (SQ) ---
EXAM DESCRIPTION: CHEST SINGLE VIEW IMAGES COMPLETED DATE/TIME: 07/08/2020 3:09 pm REASON FOR STUDY: Short of breath, cough congestion COMPARISON: Chest radiographs 03/13/2020. EXAM PARAMETERS: NUMBER OF VIEWS: One view. TECHNIQUE: Single frontal radiographic view of the chest acquired. RADIATION DOSE: NA LIMITATIONS: None. FINDINGS: LUNGS AND PLEURA: No opacities, masses or pneumothorax. No pleural effusion. MEDIASTINUM AND HILAR STRUCTURES: No masses. Contour normal. HEART AND VASCULAR STRUCTURES: Heart normal in size. Normal vasculature. BONES: No acute findings. HARDWARE: None in the chest. OTHER: No other significant finding. IMPRESSION: No acute pulmonary findings. TECHNICAL DOCUMENTATION: JOB ID: [id number] 2010 [employer]- All Rights Reserved Reading location - IP/workstation name: [email or web address]
[2020-07-08 16:27] VITALS: BP 145/96
== END 2020-07-08 16:13 | disposition home or self-care (01) ==
LOC: ER 12:45
DX: U07.1 COVID-19 (principal); J06.9 Acute upper respiratory infection, unspecified; R43.8 Other disturbances of smell and taste; E78.00 Pure hypercholesterolemia, unspecified; I10 Essential (primary) hypertension; E11.9 Type 2 diabetes mellitus without complications
CPT/HCPCS: 99284; 71045; U0003; C9803; 87635

== ENCOUNTER 2020-07-12 22:59 | Emergency (ER) | payer BC ==
[2020-07-13 00:02] LABS: VENOUS BLOOD BASE EXCESS 6.9 mmol/L; VENOUS BLOOD HCO3 30.7 mmol/L (20-32); VENOUS BLOOD PCO2 40.7 mmHg (35-63); VENOUS BLOOD PH 7.5 (7.30-7.42)
[2020-07-13 00:21] LABS: ALBUMIN 3.8 g/dL (3.5-5.0); ALKALINE PHOSPHATASE 75 U/L (38-126); ANION GAP 7 (5-19); ASPARTATE AMINO TRANSFERASE 63 U/L (17-59); BILIRUBIN,DIRECT 0.2 mg/dL (0.0-0.4); BILIRUBIN,TOTAL 0.3 mg/dL (0.2-1.3); BLOOD UREA NITROGEN 9 mg/dL (7-20); CARBON DIOXIDE 33 mmol/L (22-30); CHLORIDE 94 mmol/L (98-107); GLUCOSE 115 mg/dL (75-110); TOTAL PROTEIN 7.6 g/dL (6.3-8.2)
[2020-07-13 00:23] LABS: POTASSIUM 2.8 mmol/L (3.6-5.0)
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
[2020-07-13 00:28] LABS: ABSOLUTE LYMPHOCYTES (AUTO) 1.8 10^3/uL (0.5-4.7); ABSOLUTE MONOCYTES (AUTO) 0.4 10^3/uL (0.1-1.4); ABSOLUTE NEUT (AUTO) 2.2 10^3/uL (1.7-8.2); BASOPHILS % (AUTO) 0.3 % (0-2); EOSINOPHILS % (AUTO) 0.3 % (0-6); HEMATOCRIT 44.4 % (37.9-51.0); LYMPHOCYTES % (AUTO) 40.1 % (13-45); MEAN CORPUSCULAR HEMOGLOBIN 26.9 pg (27.0-33.4); MEAN CORPUSCULAR HGB CONC 33.8 g/dL (32.0-36.0); MEAN CORPUSCULAR VOLUME 80 fl (80-97); PLATELET COUNT 351 10^3/uL (150-450); RED BLOOD COUNT 5.58 10^6/uL (4.35-5.55); RED CELL DISTRIBUTION WIDTH 15.5 % (11.5-14.0); SEGMENTED NEUTROPHILS % (AUTO) 50.3 % (42-78); TOTAL CELLS COUNTED % (AUTO) 100 %; WHITE BLOOD COUNT 4.4 10^3/uL (4.0-10.5)
[2020-07-13] MEDS ORDERED: POTASSIUM CHLORIDE 20 MEQ PACKET PO ONE (00:28)
[2020-07-13] MEDS ORDERED: NORMAL SALINE 1000 ML 1,000 ML IV ONE (00:28)
[2020-07-13] MEDS ORDERED: LOPERAMIDE HCL 2 MG CAPSULE PO ONE (00:29)
--- NOTE | 2020-07-13 01:08 | RADIOLOGY REPORT (SQ) ---
EXAM DESCRIPTION: Site: CHEST SINGLE VIEW RP: XR CHEST 1 VIEW CLINICAL HISTORY: 49 years Male; COVID SOB; COMPARISON: 07/08/2020 FINDINGS: Lungs: There are new patchy groundglass densities in the right upper lobe and left lower lobe. No pneumothorax or pleural effusion. Mediastinum: Mediastinum is within normal limits for this positioning. Bones: Bony structures are unremarkable. IMPRESSION: 1. Development of bilateral groundglass densities, suspicious for an atypical viral pneumonia.
[2020-07-13] MEDS ORDERED: DEXAMETHASONE 4 MG TABLET PO ONE (01:36)
[2020-07-13] MEDS ORDERED: AZITHROMYCIN 250 MG TABLET PO ONE (01:37)
[2020-07-13 02:35] VITALS: BP 145/79
== END 2020-07-13 02:35 | disposition home or self-care (01) ==
LOC: ER 22:59
DX: U07.1 COVID-19 (principal); J12.89 Other viral pneumonia; R06.02 Shortness of breath; R09.02 Hypoxemia; I10 Essential (primary) hypertension; E11.9 Type 2 diabetes mellitus without complications; E87.6 Hypokalemia; E86.0 Dehydration; R19.7 Diarrhea, unspecified; E78.5 Hyperlipidemia, unspecified; E78.00 Pure hypercholesterolemia, unspecified; Z79.899 Other long term (current) drug therapy; Z79.84 Long term (current) use of oral hypoglycemic drugs
CPT/HCPCS: 99284; 96360; 96361; 36415; 85025; 80053; 82803; 71045; J8540; J7030; J3490

== ENCOUNTER 2020-07-16 05:56 | Inpatient (IN) | payer BC ==
[2020-07-16] MEDS ORDERED: ACETAMINOPHEN 325 MG TABLET PO ONE (06:05)
[2020-07-16] MEDS ORDERED: ACETAMINOPHEN 325 MG TABLET ONE (06:06)
[2020-07-16 06:28] LABS: ALBUMIN 3.6 g/dL (3.5-5.0); ALKALINE PHOSPHATASE 65 U/L (38-126); ANION GAP 10 (5-19); ASPARTATE AMINO TRANSFERASE 58 U/L (17-59); BILIRUBIN,DIRECT 0.2 mg/dL (0.0-0.4); BILIRUBIN,TOTAL 0.5 mg/dL (0.2-1.3); BLOOD UREA NITROGEN 13 mg/dL (7-20); CALCIUM 8.8 mg/dL (8.4-10.2); CARBON DIOXIDE 28 mmol/L (22-30); CHLORIDE 101 mmol/L (98-107); GLUCOSE 116 mg/dL (75-110); POTASSIUM 3.3 mmol/L (3.6-5.0); TOTAL PROTEIN 7.1 g/dL (6.3-8.2)
[2020-07-16 06:33] LABS: ABSOLUTE LYMPHOCYTES (AUTO) 1.4 10^3/uL (0.5-4.7); ABSOLUTE MONOCYTES (AUTO) 0.8 10^3/uL (0.1-1.4); ABSOLUTE NEUT (AUTO) 8.5 10^3/uL (1.7-8.2); BASOPHILS % (AUTO) 0.1 % (0-2); HEMATOCRIT 44.3 % (37.9-51.0); HEMOGLOBIN 14.7 g/dL (13.5-17.0); LYMPHOCYTES % (AUTO) 13.4 % (13-45); MEAN CORPUSCULAR HEMOGLOBIN 26.3 pg (27.0-33.4); MEAN CORPUSCULAR HGB CONC 33.3 g/dL (32.0-36.0); MEAN CORPUSCULAR VOLUME 79 fl (80-97); MONOCYTES % (AUTO) 7.3 % (3-13); PLATELET COUNT 490 10^3/uL (150-450); RED BLOOD COUNT 5.59 10^6/uL (4.35-5.55); RED CELL DISTRIBUTION WIDTH 15.1 % (11.5-14.0); SEGMENTED NEUTROPHILS % (AUTO) 79.2 % (42-78); TOTAL CELLS COUNTED % (AUTO) 100 %; WHITE BLOOD COUNT 10.7 10^3/uL (4.0-10.5)
--- NOTE | 2020-07-16 07:09 | RADIOLOGY REPORT (SQ) ---
EXAM DESCRIPTION: XR CHEST 1 VIEW COMPLETED DATE/TME: 07/16/2020 06:33 CLINICAL HISTORY: 49 years Male, SOB COMPARISON: 3 days prior. NUMBER OF VIEWS/TECHNIQUE: 1/AP FINDINGS: Moderate to severe mixed airspace and interstitial opacity extensively of both lung ortiz. Interval worsening. Normal cardiac silhouette size. No pneumothorax. Stable bony thorax. Limitation: Leads/hardware/artifact. IMPRESSION: Moderate to severe mixed airspace and interstitial opacity extensively of both lung ortiz. Interval worsening.
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
--- NOTE | 2020-07-16 07:53 | EKG REPORT ---
SEVERITY:- ABNORMAL ECG - SINUS RHYTHM VENTRICULAR PREMATURE COMPLEX NONSPECIFIC REPOL ABNORMALITY, DIFFUSE LEADS : Confirmed by: Salomón Barroso MD 16-Jul-2020 07:53:31
[2020-07-16] MEDS ORDERED: PIPERACILLIN/TAZOBACTAM 3.375 GM VIAL IV ONE (08:10)
[2020-07-16] MEDS ORDERED: DEXAMETHASONE SOD PHOS INJ 10 MG/1 ML VIAL IV ONE (08:11)
[2020-07-16] MEDS ORDERED: AZITHROMYCIN INJ 500 MG VIAL IV ONE (08:11)
[2020-07-16] MEDS ORDERED: NORMAL SALINE 1000 ML 1,000 ML IV ONE (08:52)
[2020-07-16] MEDS ORDERED: POTASSI CL 20 MEQ/50 ML RIDER 20 MEQ/50 ML RTUPB IV ONE (08:53)
[2020-07-16 09:46] LABS: ARTERIAL BLOOD BASE EXCESS 5.9 mmol/L; ARTERIAL BLOOD HCO3 28.9 mmol/L (20-24); ARTERIAL BLOOD O2 SATURATION 90.4 % (94-98); ARTERIAL BLOOD PCO2 36.4 mmHg (35-45); ARTERIAL BLOOD PH 7.52 (7.35-7.45); ARTERIAL BLOOD PO2 52.3 mmHg (80-100)
[2020-07-16 09:47] LABS: ARTERIAL BLOOD FIO2 45%
[2020-07-16] MEDS ORDERED: IPRATROPIUM/ALBUTEROL 0.5-2.5 MG/3 ML AMPUL NEB PRN (11:22)
[2020-07-16] MEDS ORDERED: ONDANSETRON HCL INJ/PF 4 MG/2 ML SDV IV PRN (11:22)
[2020-07-16] MEDS ORDERED: DEXTROSE 40% GEL 15 GM TUBE PO PRN ×2 (11:32)
[2020-07-16] MEDS ORDERED: GLUCAGON,HUMAN RECOMB 1 MG INJ IM PRN (11:32)
[2020-07-16] MEDS ORDERED: DEXTROSE 50%-WATER 25 GM/50 ML DISP.SYRIN IV PRN ×2 (11:32)
--- NOTE | 2020-07-16 12:41 | PDOC H&P ---
History of Present Illness Admission Date/PCP: 07/16/20 10:44 DAVID OCASIO Patient complains of: shortness of breath History of Present Illness: BRETT HUNT is a 49 year old male, PMH of DM, HTN, HLD, DORA, who came in the ED via EMS due to shortness of breath. His symptoms started about 10 days prior to admission when he developed cough, and shortness of breath. He consulted [place] ED, chest x-ray done was negative he was tested for Covid then and it was positive. He came back to the ED about 5 days after the previous visit due to worsening shortness of breath. Repeat chest x-ray showed development of bilateral groundglass densities suspicious for an atypical viral pneumonia. Patient was not requiring any oxygen support hence he was discharged on antibiotics and oral dexamethasone. He came today due to worsening cough and shortness of breath. Repeat chest x-ray showed progression of pneumonia. Per EMS he was saturating 88% on room air. In the ED blood pressure 138/88, heart rate 91, respiratory rate 23, O2 sat 93% on high flow nasal cannula 45 L, 50% FiO2. WBC count 10.7 hemoglobin 14.7, platelet count 490. CMP showed sodium 138, potassium 3.3. He was started on high flow nasal cannula and was given Zosyn and azithromycin. Hospitalist service was called for further evaluation and management. Past Medical History Cardiac Medical History: Reports: Hyperlipidema, Hypertension Denies: Atrial Fibrillation, Congestive Heart Failure, Coronary Artery Disease, Myocardial Infarction, Peripheral Vascular Disease, Pulmonary Embolism, Heart Murmur Pulmonary Medical History: Reports: Sleep Apnea Denies: Asthma, Bronchitis, Chronic Obstructive Pulmonary Disease (COPD), Pneumonia, Respiratory Failure, Tuberculosis Neurological Medical History: Denies: Seizures Endocrine Medical History: Reports: Diabetes Mellitus Type 2 Denies: Hyperthyroidism, Hypothyroidism Renal/ Medical History: Denies: End Stage Renal Disease Malignancy Medical History: Denies: Leukemia, Lung Cancer GI Medical History: Reports: Gastroesophageal Reflux Disease Denies: Crohn's Disease, Hiatal Hernia Musculoskeltal Medical History: Reports: Arthritis Denies: Fibromyalgia Skin Medical History: Reports: Psoriasis Psychiatric Medical History: Reports: Bipolar Disorder Denies: Dementia, Depression, Post Traumatic Stress Disorder Hematology: Denies: Anemia, Hemophilia, Sickle Cell Disease Infectious Medical History: Denies: HIV Past Surgical History Past Surgical History: Reports: Orthopedic Surgery - Right knee, Other - Knee surgery is scheduled. Denies: Appendectomy, Cholecystectomy, Colostomy, Coronary Artery Bypass Graft, Gastric Bypass Surgery, Herniorrhaphy, Pacemaker, Tonsillectomy Social History Lives with: Family Smoking Status: Never Smoker Frequency of Alcohol Use: Occasional Hx Recreational Drug Use: Yes - quit 29 years ago Drugs: None Hx Prescription Drug Abuse: No - Advance Directive Resuscitation Status: Full Code Surrogate healthcare decision maker:: Confirmed full CODE STATUS with the patient, he also named his mother Ayesha Hunt as his healthcare power of associate attorney. Family History Family History: Arthritis, CVA, DM, Hyperlipidemia, Hypertension Parental Family History Reviewed: Yes Children Family History Reviewed: Yes Sibling(s) Family History Reviewed.: Yes Medication/Allergy Home Medications: Amlodipine Besylate [Norvasc 10 mg Tablet] 10 mg PO DAILY 03/22/20 Lansoprazole [Prevacid 15 Mg Odt Tablet] 15 mg PO DAILY 03/22/20 Lisinopril/Hydrochlorothiazide [Lisinopril-Hctz 20-12.5 mg Tab] 1 each PO Q12 03/22/20 Metformin HCl 500 mg PO BID 03/22/20 Pravastatin Sodium 40 mg PO DAILY 03/22/20 Azithromycin 250 mg PO QAM 4 Days #4 tablet 07/13/20 Dexamethasone [Decadron] 12 mg PO QAM 3 Days #9 tablet 07/13/20 Loperamide HCl [Loperamide] 2 mg PO TID PRN #15 tablet 07/13/20 Potassium Chloride 20 meq PO QAM 3 Days #3 tablet.er 07/13/20 Aspirin [Ecotrin 81 mg EC Tablet] 81 mg PO DAILY 07/16/20 Allergies/Adverse Reactions: No Known Allergies Allergy (Verified 10/17/19 14:51) Review of Systems Constitutional: PRESENT: fatigue, fever(s), headache(s), weakness Eyes: ABSENT: visual disturbances Ears: ABSENT: hearing changes Nose, Mouth, and Throat: ABSENT: mouth pain, sore throat Breasts: ABSENT: other Cardiovascular: ABSENT: edema, orthropnea, palpitations Respiratory: ABSENT: dyspnea Gastrointestinal: PRESENT: diarrhea. ABSENT: hematemesis, hematochezia Genitourinary: ABSENT: dysuria, hematuria Integumentary: ABSENT: diaphoresis, erythema Neurological: ABSENT: abnormal movements, abnormal speech, focal weakness Physical Exam Vital Signs: Temp Pulse Resp BP Pulse Ox 98.8 F 99 23 H 138/88 H 95 07/16/20 08:02 07/16/20 06:02 07/16/20 10:02 07/16/20 10:02 07/16/20 10:02 Intake & Output 07/15/20 07/16/20 07/17/20 06:59 06:59 06:59 Intake Total 1050 Output Total 250 Balance 800 Weight 132.7 kg General appearance: PRESENT: cooperative, mild distress, obese Head exam: PRESENT: atraumatic, normocephalic Eye exam: PRESENT: EOMI, PERRLA Mouth exam: PRESENT: moist Neck exam: PRESENT: full ROM Respiratory exam: PRESENT: rales, symmetrical, unlabored Cardiovascular exam: PRESENT: RRR, +S1, +S2 Pulses: PRESENT: +2 pedal pulses bilateral GI/Abdominal exam: PRESENT: normal bowel sounds, soft. ABSENT: rebound, tenderness Extremities exam: PRESENT: full ROM Musculoskeletal exam: PRESENT: full ROM Neurological exam: PRESENT: alert, awake, oriented to person, oriented to place, oriented to time, oriented to situation Psychiatric exam: PRESENT: normal mood Skin exam: PRESENT: normal color Results Laboratory Results: 07/16/20 06:02 07/16/20 06:02 07/16/20 07/16/20 07/16/20 06:02 06:02 06:02 WBC 10.7 H RBC 5.59 H Hgb 14.7 Hct 44.3 MCV 79 L MCH 26.3 L MCHC 33.3 RDW 15.1 H Plt Count 490 H Seg Neutrophils % 79.2 H Carbonic Acid HCO3/H2CO3 Ratio ABG pH ABG pCO2 ABG pO2 ABG HCO3 ABG O2 Saturation ABG Base Excess FiO2 Sodium 138.5 Potassium 3.3 L Chloride 101 Carbon Dioxide 28 Anion Gap 10 BUN 13 Creatinine 0.59 Est GFR ( Amer) > 60 Glucose 116 H Calcium 8.8 Magnesium 2.1 Total Bilirubin 0.5 AST 58 Alkaline Phosphatase 65 Total Protein 7.1 Albumin 3.6 07/16/20 09:30 WBC RBC Hgb Hct MCV MCH MCHC RDW Plt Count Seg Neutrophils % Carbonic Acid 1.10 HCO3/H2CO3 Ratio 26:1 ABG pH 7.52 H ABG pCO2 36.4 ABG pO2 52.3 L ABG HCO3 28.9 H ABG O2 Saturation 90.4 L ABG Base Excess 5.9 FiO2 45% Sodium Potassium Chloride Carbon Dioxide Anion Gap BUN Creatinine Est GFR ( Amer) Glucose Calcium Magnesium Total Bilirubin AST Alkaline Phosphatase Total Protein Albumin Impressions: Chest X-Ray 07/16/20 06:04 IMPRESSION: Moderate to severe mixed airspace and interstitial opacity extensively of both lung ortiz. Interval worsening. Assessment and Plan - Diagnosis (1) Acute respiratory failure with hypoxia Is this a current diagnosis for this admission?: Yes Plan: -Per EMS patient was saturating 88% on room air -IMProved to 95% on high flow nasal cannula 45 L 50% FiO2 -Chest x-ray showed moderate to severe mixed airspace and interstitial opacities extensively of both lung ortiz with interval worsening from previous chest x-ray. -Covid positive -Continue O2 support via high flow nasal cannula. titrate down as needed (2) Pneumonia due to COVID-19 virus Is this a current diagnosis for this admission?: Yes Plan: -Tested positive for Covid 10 days prior -X-ray as above - Ferritin, CRP and d-dimer pending - started on dexamethasone 6 mg Iv daily - ordered convalescent plasma - started on Ivermectin 150 mcg/kg x 2 dose 48 hrs apart - O2 support a needed - started Vitamin C, D, Zinc, melatonin - On lovenox 40 mg daily - empiric abx started - awaiting blood culture (3) Diarrhea Qualifiers: Diarrhea type: unspecified type Qualified Code(s): R19.7 - Diarrhea, unspecified Is this a current diagnosis for this admission?: Yes Plan: - 2/2 COVID - will continue to monitor for now. Will hold off on IV fluids unless he becomes dehydrated. (4) Hypertension Qualifiers: Hypertension type: essential hypertension Qualified Code(s): I10 - Essential (primary) hypertension Is this a current diagnosis for this admission?: Yes Plan: - resumed amlodipine and Lisinopril/HCTZ (5) Hyperlipidemia Qualifiers: Hyperlipidemia type: unspecified Qualified Code(s): E78.5 - Hyperlipidemia, unspecified Is this a current diagnosis for this admission?: Yes Plan: - resumed statin (6) Type 2 diabetes mellitus Qualifiers: Diabetes mellitus correction insulin use: without termite control representative use Diabetes mellitus complication status: without complication Qualified Code(s): E11.9 - Type 2 diabetes mellitus without complications Is this a current diagnosis for this admission?: Yes Plan: - hold metformin - will start SSI, accucheck - hypoglycemia protocol (7) Obesity (BMI 30-39.9) Is this a current diagnosis for this admission?: Yes Plan: - BMI 38.6 - poor prognostic factor in terms of COVID - advised diet and lifestyle modification - Time Time Spent with patient: 25-34 minutes Medications reviewed and adjusted accordingly: Yes Anticipated Discharge Disposition: Home, Self Care Anticipated Discharge Timeframe: TBD - Inpatient Certification Based on my medical assessment, after consideration of the patient's comorbidities, presenting symptoms, or acuity I expect that the services needed warrant INPATIENT care.: Yes I certify that my determination is in accordance with my understanding of Medicare's requirements for reasonable and necessary INPATIENT services [42 CFR 412.3e].: Yes Medical Necessity: Risk of Complication if Not Cared For in Hospital
[2020-07-16] MEDS ORDERED: POTASSIUM CHLORIDE 20 MEQ PACKET PO ONE (13:00)
[2020-07-16] MEDS ORDERED: IVERMECTIN 3 MG TABLET PO ONE (13:00)
[2020-07-16 13:06] LABS: C-REACTIVE PROTEIN 59.6 mg/L (<10.0)
[2020-07-16] MEDS: INSULIN LISPRO 100 UNIT/ML 3 ML VIAL SUBCUT SCH ×2 (17:48→22:15)
[2020-07-16] MEDS: HYDROCHLOROTHIAZIDE 12.5 MG TABLET PO SCH (18:52)
[2020-07-16] MEDS: ASCORBIC ACID 500 MG TABLET PO SCH (18:53)
[2020-07-16] MEDS: LISINOPRIL 10 MG TABLET PO SCH (18:53)
[2020-07-16] MEDS ORDERED: (PENDING PHARMACY ID) (Lisinopril/Hydrochlorothiazide [Lisinopril-Hctz 20-12.5 Mg Tab] 1 E PO SCH (22:00)
[2020-07-17] MEDS ORDERED: LORAZEPAM INJ 2 MG/1 ML VIAL IV ONE (04:00)
[2020-07-17] MEDS: LISINOPRIL 10 MG TABLET PO SCH ×2 (05:43→17:31)
[2020-07-17] MEDS: PANTOPRAZOLE SODIUM 20 MG TABLET.DR PO SCH (05:43)
[2020-07-17] MEDS: HYDROCHLOROTHIAZIDE 12.5 MG TABLET PO SCH ×2 (05:43→17:31)
[2020-07-17 06:46] LABS: ABSOLUTE LYMPHOCYTES (AUTO) 1.2 10^3/uL (0.5-4.7); ABSOLUTE MONOCYTES (AUTO) 0.5 10^3/uL (0.1-1.4); BASOPHILS % (AUTO) 0.1 % (0-2); HEMATOCRIT 44.4 % (37.9-51.0); HEMOGLOBIN 14.9 g/dL (13.5-17.0); LYMPHOCYTES % (AUTO) 11.4 % (13-45); MEAN CORPUSCULAR HEMOGLOBIN 26.4 pg (27.0-33.4); MEAN CORPUSCULAR HGB CONC 33.4 g/dL (32.0-36.0); MEAN CORPUSCULAR VOLUME 79 fl (80-97); MONOCYTES % (AUTO) 4.8 % (3-13); PLATELET COUNT 491 10^3/uL (150-450); RED BLOOD COUNT 5.62 10^6/uL (4.35-5.55); SEGMENTED NEUTROPHILS % (AUTO) 83.7 % (42-78); TOTAL CELLS COUNTED % (AUTO) 100 %; WHITE BLOOD COUNT 10.7 10^3/uL (4.0-10.5)
[2020-07-17 07:25] LABS: ALBUMIN 3.3 g/dL (3.5-5.0); ALKALINE PHOSPHATASE 72 U/L (38-126); ANION GAP 13 (5-19); ASPARTATE AMINO TRANSFERASE 52 U/L (17-59); BILIRUBIN,DIRECT 0.3 mg/dL (0.0-0.4); BILIRUBIN,TOTAL 0.6 mg/dL (0.2-1.3); BLOOD UREA NITROGEN 12 mg/dL (7-20); CALCIUM 8.4 mg/dL (8.4-10.2); CARBON DIOXIDE 28 mmol/L (22-30); CHLORIDE 98 mmol/L (98-107); GLUCOSE 92 mg/dL (75-110); POTASSIUM 3.4 mmol/L (3.6-5.0); TOTAL PROTEIN 6.5 g/dL (6.3-8.2)
[2020-07-17] MEDS ORDERED: (PENDING PHARMACY ID) (Potassium Chloride [Potassium Chloride] 20 MEQ Tablet.Er) PO SCH (08:00)
[2020-07-17] MEDS: INSULIN LISPRO 100 UNIT/ML 3 ML VIAL SUBCUT SCH ×4 (08:47→23:14)
[2020-07-17] MEDS: ASCORBIC ACID 500 MG TABLET PO SCH ×2 (09:21→17:31)
[2020-07-17] MEDS: ACETAMINOPHEN 325 MG TABLET PO PRN (09:22)
[2020-07-17] MEDS: CHOLECALCIFEROL (D3) 1,000 UNIT (25 MCG) TABLET PO SCH (09:22)
[2020-07-17] MEDS: AMLODIPINE BESYLATE 10 MG TABLET PO SCH (09:22)
[2020-07-17] MEDS: ASPIRIN 81 MG TABLET, ENT COATED PO SCH (09:22)
[2020-07-17] MEDS: DEXAMETHASONE SOD PHOS INJ 10 MG/1 ML VIAL IV SCH (09:23)
[2020-07-17] MEDS: ENOXAPARIN SODIUM INJ 40 MG/0.4 ML DISP.SYRIN SUBCUT SCH (09:23)
[2020-07-17] MEDS: POTASSIUM CHLORIDE 10 MEQ TABLET.ER PO SCH (09:23)
[2020-07-17] MEDS: ZINC SULFATE 220 MG CAPSULE PO SCH (09:24)
[2020-07-17] MEDS ORDERED: LANSOPRAZOLE 15 MG PO SCH (10:00)
[2020-07-17] MEDS ORDERED: (PENDING PHARMACY ID) (Pravastatin Sodium [Pravastatin Sodium] 40 MG Tablet) PO SCH (10:00)
[2020-07-17] MEDS: MORPHINE SULFATE 10 MG/ML INJ IV PRN ×4 (10:12→23:13)
[2020-07-17 10:42] LABS: APPEARANCE,URINE CLEAR; BILIRUBIN,URINE NEGATIVE (NEGATIVE); COLOR,URINE YELLOW; GLUCOSE, URINE NEGATIVE (NEGATIVE); KETONES,URINE 20 mg/dL (NEGATIVE); LEUKOCYTE ESTERASE,URINE NEGATIVE (NEGATIVE); NITRITE,URINE NEGATIVE (NEGATIVE); PROTEIN,URINE NEGATIVE (NEGATIVE); URINE SPECIFIC GRAVITY 1.015; UROBILINOGEN,URINE NEGATIVE mg/dL (<2.0)
[2020-07-17] MEDS ORDERED: IVERMECTIN 3 MG TABLET PO ONE (15:00)
--- NOTE | 2020-07-17 15:44 | PDOC PROGRESS REPORT ---
Subjective Date:: 07/17/20 Subjective:: BRETT SIDDIQI is a 49 year old male, PMH of DM, HTN, HLD, DORA, who came in the E D via EMS due to shortness of breath. His symptoms started about 10 days prior to admission when he developed cough, and shortness of breath. He consulted [place] [facility], chest x-ray done was negative he was tested for Covid then and it was positive. He came back to the ED about 5 days after the previous visit due to worsening shortness of breath. Repeat chest x-ray showed development of bilateral groundglass densities suspicious for an atypical viral pneumonia. Patient was not requiring any oxygen support hence he was discharged on antibiotics and oral dexamethasone. He came today due to worsening cough and shortness of breath. Repeat chest x-ray showed progression of pneumonia. Per EMS he was saturating 88% on room air. In the ED blood pressure 138/88, heart rate 91, respiratory rate 23, O2 sat 93% on high flow nasal cannula 45 L, 50% FiO2. WBC count 10.7 hemoglobin 14.7, platelet count 490. CMP showed sodium 138, potassium 3.3. He was started on high flow nasal cannula and was given Zosyn and azithromycin. Hospitalist service was called for further evaluation and management. D2 hospital stay 07/17/20. The patient was seen and examined at bedside. He is still on 50L, 100% FIO2 HFNC saturating 95%. He reports that he is less SOB but still has dyspnea on exertion. He feels overall anxious with his dyspnea, I have started him on low dose morphine. I was able to update his mom over the speaker phone when I was in the room with him. Reason For Visit: ACUTE HYPOXIC RESP FAILURE 2/2 COVID 19 PNEUMONIA Physical Exam Vital Signs: Temp Pulse Resp BP Pulse Ox 99.0 F 97 19 125/74 94 07/17/20 11:57 07/17/20 14:00 07/17/20 11:57 07/17/20 11:57 07/17/20 11:57 Intake & Output 07/16/20 07/17/20 07/18/20 06:59 06:59 06:59 Intake Total 2 Output Total 1900 Balance 142 Weight 132.7 kg 128.6 kg General appearance: PRESENT: other - moderate distress Head exam: PRESENT: atraumatic, normocephalic Eye exam: PRESENT: EOMI, PERRLA Mouth exam: PRESENT: moist Neck exam: PRESENT: full ROM Respiratory exam: PRESENT: rhonchi, symmetrical. ABSENT: wheezes Cardiovascular exam: PRESENT: RRR, +S1, +S2 Pulses: PRESENT: +2 pedal pulses bilateral GI/Abdominal exam: PRESENT: normal bowel sounds, soft. ABSENT: rebound, tenderness Extremities exam: PRESENT: full ROM Musculoskeletal exam: PRESENT: full ROM Neurological exam: PRESENT: alert, awake, oriented to person, oriented to time, oriented to situation Psychiatric exam: PRESENT: normal mood Skin exam: PRESENT: normal color Results Laboratory Results: 07/17/20 05:21 07/17/20 05:21 07/17/20 07/17/20 07/17/20 05:21 05:21 10:27 WBC 10.7 H RBC 5.62 H Hgb 14.9 Hct 44.4 MCV 79 L MCH 26.4 L MCHC 33.4 RDW 15.0 H Plt Count 491 H Seg Neutrophils % 83.7 H Sodium 139.0 Potassium 3.4 L Chloride 98 Carbon Dioxide 28 Anion Gap 13 BUN 12 Creatinine 0.64 Est GFR ( Amer) > 60 Glucose 92 Calcium 8.4 Total Bilirubin 0.6 AST 52 Alkaline Phosphatase 72 Total Protein 6.5 Albumin 3.3 L Urine Color YELLOW Urine Appearance CLEAR Urine pH 6.0 Ur Specific [place] 1.015 Urine Protein NEGATIVE Urine Glucose (UA) NEGATIVE Urine Ketones 20 H Urine Blood SMALL H Urine Nitrite NEGATIVE Ur Leukocyte Esterase NEGATIVE Urine WBC (Auto) 1 Urine RBC (Auto) 0 07/16/20 07:06 Blood Blood Culture (PCR) - Final Impressions: Chest X-Ray 07/16/20 06:04 IMPRESSION: Moderate to severe mixed airspace and interstitial opacity extensively of both lung ortiz. Interval worsening. Assessment and Plan - Diagnosis (1) Acute respiratory failure with hypoxia Is this a current diagnosis for this admission?: Yes Plan: -Per EMS patient was saturating 88% on room air -IMProved to 95% on high flow nasal cannula 45 L 100% FiO2 -Chest x-ray showed moderate to severe mixed airspace and interstitial opacities extensively of both lung ortiz with interval worsening from previous chest x- ray. -Covid positive -Continue O2 support via high flow nasal cannula. titrate down as needed (2) Pneumonia due to COVID-19 virus Is this a current diagnosis for this admission?: Yes Plan: -Tested positive for Covid 10 days prior -X-ray as above - Ferritin, CRP and d-dimer pending - started on dexamethasone 6 mg Iv daily - ordered convalescent plasma - started on Ivermectin 150 mcg/kg x 2 dose 48 hrs apart - O2 support a needed - started Vitamin C, D, Zinc, melatonin - On lovenox 40 mg daily - empiric abx started - blood culture negative x 24 hrs. Will stop abx tomorrow if still negative (3) Diarrhea Qualifiers: Diarrhea type: unspecified type Qualified Code(s): R19.7 - Diarrhea, unspecified Is this a current diagnosis for this admission?: Yes Plan: - 2/2 COVID - will continue to monitor for now. Will hold off on IV fluids unless he becomes dehydrated. (4) Hypertension Qualifiers: Hypertension type: essential hypertension Qualified Code(s): I10 - Essential (primary) hypertension Is this a current diagnosis for this admission?: Yes Plan: - resumed amlodipine and Lisinopril/HCTZ (5) Hyperlipidemia Qualifiers: Hyperlipidemia type: unspecified Qualified Code(s): E78.5 - Hyperlipidemia, unspecified Is this a current diagnosis for this admission?: Yes Plan: - resumed statin (6) Type 2 diabetes mellitus Qualifiers: Diabetes mellitus longterm insulin use: without longterm use Diabetes mellitus complication status: without complication Qualified Code(s): E11.9 - Type 2 diabetes mellitus without complications Is this a current diagnosis for this admission?: Yes Plan: - hold metformin - will start SSI, accucheck - hypoglycemia protocol (7) Obesity (BMI 30-39.9) Is this a current diagnosis for this admission?: Yes Plan: - BMI 38.6 - poor prognostic factor in terms of COVID - advised diet and lifestyle modification - Time Time Spent with patient: 25-34 minutes Medications reviewed and adjusted accordingly: Yes Anticipated Discharge Disposition: Home, Self Care Anticipated Discharge Timeframe: tbd
[2020-07-17] MEDS: ATORVASTATIN CALCIUM 10 MG TABLET PO SCH (23:13)
[2020-07-18] MEDS: MORPHINE SULFATE 10 MG/ML INJ IV PRN ×5 (04:05→23:56)
[2020-07-18] MEDS: PANTOPRAZOLE SODIUM 20 MG TABLET.DR PO SCH (06:14)
[2020-07-18] MEDS: LISINOPRIL 10 MG TABLET PO SCH ×2 (06:14→18:18)
[2020-07-18] MEDS: HYDROCHLOROTHIAZIDE 12.5 MG TABLET PO SCH ×2 (06:15→18:19)
[2020-07-18 06:33] LABS: ABSOLUTE LYMPHOCYTES (AUTO) 1.4 10^3/uL (0.5-4.7); ABSOLUTE MONOCYTES (AUTO) 0.6 10^3/uL (0.1-1.4); BASOPHILS % (AUTO) 0.2 % (0-2); HEMATOCRIT 45.8 % (37.9-51.0); HEMOGLOBIN 15.4 g/dL (13.5-17.0); LYMPHOCYTES % (AUTO) 13.9 % (13-45); MEAN CORPUSCULAR HEMOGLOBIN 26.4 pg (27.0-33.4); MEAN CORPUSCULAR HGB CONC 33.6 g/dL (32.0-36.0); MEAN CORPUSCULAR VOLUME 79 fl (80-97); MONOCYTES % (AUTO) 5.7 % (3-13); PLATELET COUNT 580 10^3/uL (150-450); RED BLOOD COUNT 5.81 10^6/uL (4.35-5.55); RED CELL DISTRIBUTION WIDTH 14.8 % (11.5-14.0); SEGMENTED NEUTROPHILS % (AUTO) 80.2 % (42-78); TOTAL CELLS COUNTED % (AUTO) 100 %
[2020-07-18 06:54] LABS: ALBUMIN 3.1 g/dL (3.5-5.0); ALKALINE PHOSPHATASE 77 U/L (38-126); ANION GAP 6 (5-19); ASPARTATE AMINO TRANSFERASE 51 U/L (17-59); BILIRUBIN,DIRECT 0.3 mg/dL (0.0-0.4); BILIRUBIN,TOTAL 0.6 mg/dL (0.2-1.3); BLOOD UREA NITROGEN 16 mg/dL (7-20); CALCIUM 8.7 mg/dL (8.4-10.2); CARBON DIOXIDE 32 mmol/L (22-30); CHLORIDE 97 mmol/L (98-107); GLUCOSE 95 mg/dL (75-110); POTASSIUM 3.7 mmol/L (3.6-5.0); TOTAL PROTEIN 6.6 g/dL (6.3-8.2)
[2020-07-18] MEDS: INSULIN LISPRO 100 UNIT/ML 3 ML VIAL SUBCUT SCH ×4 (09:04→22:01)
[2020-07-18] MEDS: POTASSIUM CHLORIDE 10 MEQ TABLET.ER PO SCH (09:16)
[2020-07-18] MEDS: AMLODIPINE BESYLATE 10 MG TABLET PO SCH (09:16)
[2020-07-18] MEDS: CHOLECALCIFEROL (D3) 1,000 UNIT (25 MCG) TABLET PO SCH (09:16)
[2020-07-18] MEDS: ASCORBIC ACID 500 MG TABLET PO SCH ×2 (09:16→18:19)
[2020-07-18] MEDS: ASPIRIN 81 MG TABLET, ENT COATED PO SCH (09:16)
[2020-07-18] MEDS: ZINC SULFATE 220 MG CAPSULE PO SCH (09:16)
[2020-07-18] MEDS: DEXAMETHASONE SOD PHOS INJ 10 MG/1 ML VIAL IV SCH (09:16)
[2020-07-18] MEDS: ENOXAPARIN SODIUM INJ 40 MG/0.4 ML DISP.SYRIN SUBCUT SCH (09:17)
[2020-07-18] MEDS ORDERED: REMDESIVIR 200 MG in NORMAL SALINE 250 ML IV ONE (12:00)
--- NOTE | 2020-07-18 14:28 | PDOC PROGRESS REPORT ---
Subjective Date:: 07/18/20 Subjective:: BRETT SIDDIQI is a 49 year old male, PMH of DM, HTN, HLD, DORA, who came in the E D via EMS due to shortness of breath. His symptoms started about 10 days prior to admission when he developed cough, and shortness of breath. He consulted [place] [facility], chest x-ray done was negative he was tested for Covid then and it was positive. He came back to the ED about 5 days after the previous visit due to worsening shortness of breath. Repeat chest x-ray showed development of bilateral groundglass densities suspicious for an atypical viral pneumonia. Patient was not requiring any oxygen support hence he was discharged on antibiotics and oral dexamethasone. He came today due to worsening cough and shortness of breath. Repeat chest x-ray showed progression of pneumonia. Per EMS he was saturating 88% on room air. In the ED blood pressure 138/88, heart rate 91, respiratory rate 23, O2 sat 93% on high flow nasal cannula 45 L, 50% FiO2. WBC count 10.7 hemoglobin 14.7, platelet count 490. CMP showed sodium 138, potassium 3.3. He was started on high flow nasal cannula and was given Zosyn and azithromycin. Hospitalist service was called for further evaluation and management. D2 hospital stay 07/17/20. The patient was seen and examined at bedside. He is still on 50L, 100% FIO2 HFNC saturating 95%. He reports that he is less SOB but still has dyspnea on exertion. He feels overall anxious with his dyspnea, I have started him on low dose morphine. I was able to update his mom over the speaker phone when I was in the room with him. D3 hospital stay 07/18/20. The patient was seen and examined at bedside. He reports that he is less SOB. He is saturating 95% on 100% FIO2 of HFNC. Morphine has helped with his dyspnea related anxiety. I have asked guido to titrate h is fio2 down if he can tolerate it. He was started on remdesivir today. Reason For Visit: ACUTE HYPOXIC RESP FAILURE 2/2 COVID 19 PNEUMONIA Physical Exam Vital Signs: Temp Pulse Resp BP Pulse Ox 99.2 F 70 20 137/85 H 96 07/18/20 11:40 07/18/20 13:00 07/18/20 13:00 07/18/20 11:40 07/18/20 13:00 Intake & Output 07/17/20 07/18/20 07/19/20 06:59 06:59 06:59 Intake Total 2042 1350 300 Output Total 1900 1425 400 Balance 142 -75 -100 Weight 128.6 kg 130 kg General appearance: PRESENT: cooperative, mild distress Head exam: PRESENT: atraumatic, normocephalic Eye exam: PRESENT: EOMI, PERRLA Mouth exam: PRESENT: moist Neck exam: PRESENT: full ROM Respiratory exam: PRESENT: rhonchi, symmetrical, unlabored Cardiovascular exam: PRESENT: RRR, +S1, +S2 Pulses: PRESENT: +2 pedal pulses bilateral GI/Abdominal exam: PRESENT: normal bowel sounds, soft. ABSENT: rebound, tenderness Extremities exam: PRESENT: full ROM Musculoskeletal exam: PRESENT: full ROM Neurological exam: PRESENT: alert, awake, oriented to person, oriented to place, oriented to time Psychiatric exam: PRESENT: normal mood Skin exam: PRESENT: normal color Results Laboratory Results: 07/18/20 05:36 07/18/20 05:36 07/18/20 07/18/20 05:36 05:36 WBC 10.0 RBC 5.81 H Hgb 15.4 Hct 45.8 MCV 79 L MCH 26.4 L MCHC 33.6 RDW 14.8 H Plt Count 580 H Seg Neutrophils % 80.2 H Sodium 135.3 L Potassium 3.7 Chloride 97 L Carbon Dioxide 32 H Anion Gap 6 BUN 16 Creatinine 0.64 Est GFR ( Amer) > 60 Glucose 95 Calcium 8.7 Total Bilirubin 0.6 AST 51 Alkaline Phosphatase 77 Total Protein 6.6 Albumin 3.1 L 07/16/20 07:06 Blood Blood Culture (PCR) - Final Impressions: Chest X-Ray 07/16/20 06:04 IMPRESSION: Moderate to severe mixed airspace and interstitial opacity extensively of both lung ortiz. Interval worsening. Assessment and Plan - Diagnosis (1) Acute respiratory failure with hypoxia Is this a current diagnosis for this admission?: Yes Plan: -Per EMS patient was saturating 88% on room air -IMProved to 95% on high flow nasal cannula 45 L 100% FiO2 -Chest x-ray showed moderate to severe mixed airspace and interstitial opacities extensively of both lung ortiz with interval worsening from previous chest x- ray. -Covid positive -Continue O2 support via high flow nasal cannula. titrate down as needed to maintain sats >90% (2) Pneumonia due to COVID-19 virus Is this a current diagnosis for this admission?: Yes Plan: -Tested positive for Covid 10 days prior -X-ray as above - Ferritin, CRP and d-dimer pending - started on dexamethasone 6 mg Iv daily - received convalescent plasma - completed Ivermectin 150 mcg/kg x 2 dose 48 hrs apart - started on remdesivir - O2 support a needed - started Vitamin C, D, Zinc, melatonin - On lovenox 40 mg daily - received empiric abx. Blood culture negative. Will stop abx today (3) Diarrhea Qualifiers: Diarrhea type: unspecified type Qualified Code(s): R19.7 - Diarrhea, unspecified Is this a current diagnosis for this admission?: Yes Plan: - 2/2 COVID - resolved (4) Hypertension Qualifiers: Hypertension type: essential hypertension Qualified Code(s): I10 - Essential (primary) hypertension Is this a current diagnosis for this admission?: Yes Plan: - resumed amlodipine and Lisinopril/HCTZ (5) Hyperlipidemia Qualifiers: Hyperlipidemia type: unspecified Qualified Code(s): E78.5 - Hyperlipidemia, unspecified Is this a current diagnosis for this admission?: Yes Plan: - resumed statin (6) Type 2 diabetes mellitus Qualifiers: Diabetes mellitus nursing home insulin use: without nursing home use Diabetes mellitus complication status: without complication Qualified Code(s): E11.9 - Type 2 diabetes mellitus without complications Is this a current diagnosis for this admission?: Yes Plan: - hold metformin - will start SSI, accucheck - hypoglycemia protocol (7) Obesity (BMI 30-39.9) Is this a current diagnosis for this admission?: Yes Plan: - BMI 38.6 - poor prognostic factor in terms of COVID - advised diet and lifestyle modification - Time Time Spent with patient: 25-34 minutes Medications reviewed and adjusted accordingly: Yes Anticipated Discharge Disposition: Home, Self Care Anticipated Discharge Timeframe: TBD
[2020-07-18] MEDS: ATORVASTATIN CALCIUM 10 MG TABLET PO SCH (22:01)
[2020-07-19] MEDS: MORPHINE SULFATE 10 MG/ML INJ IV PRN ×3 (04:18→11:00)
[2020-07-19 06:18] LABS: HEMATOCRIT 45.3 % (37.9-51.0); HEMOGLOBIN 15.5 g/dL (13.5-17.0); MEAN CORPUSCULAR HEMOGLOBIN 26.6 pg (27.0-33.4); MEAN CORPUSCULAR HGB CONC 34.1 g/dL (32.0-36.0); MEAN CORPUSCULAR VOLUME 78 fl (80-97); PLATELET COUNT 702 10^3/uL (150-450); RED BLOOD COUNT 5.81 10^6/uL (4.35-5.55); RED CELL DISTRIBUTION WIDTH 15.1 % (11.5-14.0); WHITE BLOOD COUNT 9.8 10^3/uL (4.0-10.5)
[2020-07-19 06:40] LABS: ALKALINE PHOSPHATASE 94 U/L (38-126); ANION GAP 7 (5-19); ASPARTATE AMINO TRANSFERASE 59 U/L (17-59); BILIRUBIN,DIRECT 0.2 mg/dL (0.0-0.4); BILIRUBIN,TOTAL 0.5 mg/dL (0.2-1.3); BLOOD UREA NITROGEN 19 mg/dL (7-20); CALCIUM 8.7 mg/dL (8.4-10.2); CARBON DIOXIDE 32 mmol/L (22-30); CHLORIDE 97 mmol/L (98-107); GLUCOSE 96 mg/dL (75-110); POTASSIUM 3.7 mmol/L (3.6-5.0); TOTAL PROTEIN 6.5 g/dL (6.3-8.2)
[2020-07-19] MEDS: LISINOPRIL 10 MG TABLET PO SCH ×2 (06:40→17:44)
[2020-07-19] MEDS: HYDROCHLOROTHIAZIDE 12.5 MG TABLET PO SCH ×2 (06:40→17:43)
[2020-07-19] MEDS: PANTOPRAZOLE SODIUM 20 MG TABLET.DR PO SCH (06:40)
[2020-07-19 07:03] LABS: ABSOLUTE LYMPHOCYTES# (MANUAL) 1.4 10^3/uL (0.5-4.7); ABSOLUTE MONOCYTES # (MANUAL) 0.6 10^3/uL (0.1-1.4); BAND NEUTROPHILS % (MANUAL) 3 % (3-5); BASOPHILS % (MANUAL) 0 % (0-2); EOSINOPHILS % (MANUAL) 0 % (0-6); LYMPHOCYTES % (MANUAL) 14 % (13-45); MONOCYTES % (MANUAL) 6 % (3-13); SEGMENTED NEUTROPHILS % (MAN) 77 % (42-78); TOTAL CELLS COUNTED 100
[2020-07-19 07:05] LABS: HYPOCHROMASIA SLIGHT; POLYCHROMASIA SLIGHT; TOXIC GRANULATION 1+; TOXIC VACUOLATION PRESENT
[2020-07-19 07:06] LABS: ANISOCYTOSIS SLIGHT; PLATELET COMMENT INCREASED; PLATELET LARGE PRESENT; ROULEAUX SLIGHT; SCHISTOCYTES SLIGHT; TEAR DROP CELLS SLIGHT
[2020-07-19] MEDS: INSULIN LISPRO 100 UNIT/ML 3 ML VIAL SUBCUT SCH ×4 (08:32→21:25)
[2020-07-19] MEDS: DEXAMETHASONE SOD PHOS INJ 10 MG/1 ML VIAL IV SCH (10:58)
[2020-07-19] MEDS: CHOLECALCIFEROL (D3) 1,000 UNIT (25 MCG) TABLET PO SCH (11:01)
[2020-07-19] MEDS: ASPIRIN 81 MG TABLET, ENT COATED PO SCH (11:01)
[2020-07-19] MEDS: AMLODIPINE BESYLATE 10 MG TABLET PO SCH (11:01)
[2020-07-19] MEDS: ASCORBIC ACID 500 MG TABLET PO SCH ×2 (11:01→18:20)
[2020-07-19] MEDS: POTASSIUM CHLORIDE 10 MEQ TABLET.ER PO SCH (11:01)
[2020-07-19] MEDS: ZINC SULFATE 220 MG CAPSULE PO SCH (11:01)
[2020-07-19] MEDS: ENOXAPARIN SODIUM INJ 40 MG/0.4 ML DISP.SYRIN SUBCUT SCH (11:02)
[2020-07-19] MEDS: REMDESIVIR 100 MG in NORMAL SALINE 250 ML IV SCH (11:02)
--- NOTE | 2020-07-19 13:38 | PDOC PROGRESS REPORT ---
Subjective Date:: 07/19/20 Subjective:: BRETT SIDDIQI is a 49 year old male, PMH of DM, HTN, HLD, DORA, who came in the E D via EMS due to shortness of breath. His symptoms started about 10 days prior to admission when he developed cough, and shortness of breath. He consulted [place] [facility], chest x-ray done was negative he was tested for Covid then and it was positive. He came back to the ED about 5 days after the previous visit due to worsening shortness of breath. Repeat chest x-ray showed development of bilateral groundglass densities suspicious for an atypical viral pneumonia. Patient was not requiring any oxygen support hence he was discharged on antibiotics and oral dexamethasone. He came today due to worsening cough and shortness of breath. Repeat chest x-ray showed progression of pneumonia. Per EMS he was saturating 88% on room air. In the ED blood pressure 138/88, heart rate 91, respiratory rate 23, O2 sat 93% on high flow nasal cannula 45 L, 50% FiO2. WBC count 10.7 hemoglobin 14.7, platelet count 490. CMP showed sodium 138, potassium 3.3. He was started on high flow nasal cannula and was given Zosyn and azithromycin. Hospitalist service was called for further evaluation and management. D2 hospital stay 07/17/20. The patient was seen and examined at bedside. He is still on 50L, 100% FIO2 HFNC saturating 95%. He reports that he is less SOB but still has dyspnea on exertion. He feels overall anxious with his dyspnea, I have started him on low dose morphine. I was able to update his mom over the speaker phone when I was in the room with him. D3 hospital stay 07/18/20. The patient was seen and examined at bedside. He reports that he is less SOB. He is saturating 95% on 100% FIO2 of HFNC. Morphine has helped with his dyspnea related anxiety. I have asked guido to titrate h is fio2 down if he can tolerate it. He was started on remdesivir today. D4 hospital stay 07/19/20. The patient was seen and examined at bedside. Overall feels better, no new complains. He is dwon to 95% FIO2 on HFNC. Patient has apparently been asking for morphine every 4 hrs to help with his anxiety. Morphine was ordered PRN for dyspnea but i am worried he might be developing a craving for it. I have decreased his PRN morphine to q6 PRN and have started him on buspar to help with anxiety. Reason For Visit: ACUTE HYPOXIC RESP FAILURE 2/2 COVID 19 PNEUMONIA Physical Exam Vital Signs: Temp Pulse Resp BP Pulse Ox 98.8 F 99 24 H 161/85 H 84 L 07/19/20 11:39 07/19/20 11:39 07/19/20 11:39 07/19/20 11:39 07/19/20 13:11 Intake & Output 07/18/20 07/19/20 07/20/20 06:59 06:59 06:59 Intake Total 1350 1130 Output Total 1425 975 Balance -75 155 Weight 130 kg 128.7 kg General appearance: PRESENT: mild distress, obese Head exam: PRESENT: atraumatic, normocephalic Eye exam: PRESENT: EOMI, PERRLA Mouth exam: PRESENT: moist Neck exam: PRESENT: full ROM Respiratory exam: PRESENT: rhonchi, symmetrical. ABSENT: wheezes Cardiovascular exam: PRESENT: RRR, +S1, +S2 GI/Abdominal exam: PRESENT: normal bowel sounds, soft. ABSENT: rebound, tenderness Extremities exam: PRESENT: full ROM Musculoskeletal exam: PRESENT: full ROM Neurological exam: PRESENT: alert, awake, oriented to person, oriented to place, oriented to time, oriented to situation Psychiatric exam: PRESENT: normal mood Skin exam: PRESENT: normal color Results Laboratory Results: 07/19/20 05:44 07/19/20 05:44 07/19/20 07/19/20 05:44 05:44 WBC 9.8 RBC 5.81 H Hgb 15.5 Hct 45.3 MCV 78 L MCH 26.6 L MCHC 34.1 RDW 15.1 H Plt Count 702 H Seg Neutrophils % Not Reportable Sodium 136.3 L Potassium 3.7 Chloride 97 L Carbon Dioxide 32 H Anion Gap 7 BUN 19 Creatinine 0.64 Est GFR ( Amer) > 60 Glucose 96 Calcium 8.7 Total Bilirubin 0.5 AST 59 Alkaline Phosphatase 94 Total Protein 6.5 Albumin 3.0 L 07/16/20 07:06 Blood Blood Culture (PCR) - Final 07/16/20 07:06 Blood Blood Culture - Final Peptoniphilus Species Corynebacterium Species Impressions: Chest X-Ray 07/16/20 06:04 IMPRESSION: Moderate to severe mixed airspace and interstitial opacity extensively of both lung ortiz. Interval worsening. Assessment and Plan - Diagnosis (1) Acute respiratory failure with hypoxia Is this a current diagnosis for this admission?: Yes Plan: -Per EMS patient was saturating 88% on room air -IMProved to 95% on high flow nasal cannula 45 L 100% FiO2 -Chest x-ray showed moderate to severe mixed airspace and interstitial opacities extensively of both lung ortiz with interval worsening from previous chest x- ray. -Covid positive -Continue O2 support via high flow nasal cannula. titrate down as needed to maintain sats >90% (2) Pneumonia due to COVID-19 virus Is this a current diagnosis for this admission?: Yes Plan: -Tested positive for Covid 10 days prior -X-ray as above - Ferritin, CRP and d-dimer pending - on dexamethasone 6 mg Iv daily - received convalescent plasma - completed Ivermectin 150 mcg/kg x 2 dose 48 hrs apart - started on remdesivir - O2 support a needed - started Vitamin C, D, Zinc, melatonin - received empiric abx. Blood culture negative. Will stop abx today (3) Diarrhea Qualifiers: Diarrhea type: unspecified type Qualified Code(s): R19.7 - Diarrhea, unspecified Is this a current diagnosis for this admission?: Yes Plan: - 2/2 COVID - resolved (4) Hypertension Qualifiers: Hypertension type: essential hypertension Qualified Code(s): I10 - Essential (primary) hypertension Is this a current diagnosis for this admission?: Yes Plan: - resumed amlodipine and Lisinopril/HCTZ (5) Hyperlipidemia Qualifiers: Hyperlipidemia type: unspecified Qualified Code(s): E78.5 - Hyperlipidemia, unspecified Is this a current diagnosis for this admission?: Yes Plan: - resumed statin (6) Type 2 diabetes mellitus Qualifiers: Diabetes mellitus long lines operator insulin use: without fdc use Diabetes mellitus complication status: without complication Qualified Code(s): E11.9 - Type 2 diabetes mellitus without complications Is this a current diagnosis for this admission?: Yes Plan: - hold metformin - will start SSI, accucheck - hypoglycemia protocol (7) Obesity (BMI 30-39.9) Is this a current diagnosis for this admission?: Yes Plan: - BMI 38.6 - poor prognostic factor in terms of COVID - advised diet and lifestyle modification - Time Time Spent with patient: 25-34 minutes Medications reviewed and adjusted accordingly: Yes Anticipated Discharge Disposition: Home, Self Care Anticipated Discharge Timeframe: TBD
[2020-07-19] MEDS ORDERED: SODIUM CHLORIDE NASAL SPRAY 44 ML NASL PRN (14:48)
[2020-07-19] MEDS: BUSPIRONE HCL 10 MG TABLET PO SCH (21:06)
[2020-07-19] MEDS: ATORVASTATIN CALCIUM 10 MG TABLET PO SCH (21:06)
[2020-07-19] MEDS ORDERED: MORPHINE SULFATE 10 MG/ML INJ ONE (21:17)
[2020-07-19] MEDS ORDERED: MORPHINE SULFATE 10 MG/ML INJ IV ONE (22:00)
[2020-07-20] MEDS: MORPHINE SULFATE 10 MG/ML INJ IV PRN ×4 (00:16→23:41)
[2020-07-20] MEDS: HYDROCHLOROTHIAZIDE 12.5 MG TABLET PO SCH ×2 (05:40→17:08)
[2020-07-20] MEDS: LISINOPRIL 10 MG TABLET PO SCH ×2 (05:41→17:08)
[2020-07-20] MEDS: PANTOPRAZOLE SODIUM 20 MG TABLET.DR PO SCH (05:41)
[2020-07-20] MEDS: ENOXAPARIN SODIUM INJ 40 MG/0.4 ML DISP.SYRIN SUBCUT SCH (10:12)
[2020-07-20] MEDS: INSULIN LISPRO 100 UNIT/ML 3 ML VIAL SUBCUT SCH ×4 (10:14→22:51)
[2020-07-20] MEDS: ASCORBIC ACID 500 MG TABLET PO SCH ×2 (10:16→17:09)
[2020-07-20] MEDS: AMLODIPINE BESYLATE 10 MG TABLET PO SCH (10:16)
[2020-07-20] MEDS: POTASSIUM CHLORIDE 10 MEQ TABLET.ER PO SCH (10:16)
[2020-07-20] MEDS: BUSPIRONE HCL 10 MG TABLET PO SCH ×2 (10:16→21:29)
[2020-07-20] MEDS: DEXAMETHASONE SOD PHOS INJ 10 MG/1 ML VIAL IV SCH (10:16)
[2020-07-20] MEDS: ASPIRIN 81 MG TABLET, ENT COATED PO SCH (10:17)
[2020-07-20] MEDS: ZINC SULFATE 220 MG CAPSULE PO SCH (10:17)
[2020-07-20] MEDS: CHOLECALCIFEROL (D3) 1,000 UNIT (25 MCG) TABLET PO SCH (10:17)
[2020-07-20] MEDS: REMDESIVIR 100 MG in NORMAL SALINE 250 ML IV SCH (11:03)
--- NOTE | 2020-07-20 14:48 | PDOC PROGRESS REPORT ---
Subjective Date:: 07/20/20 Subjective:: BRETT SIDDIQI is a 49 year old male, PMH of DM, HTN, HLD, DORA, who came in the E D via EMS due to shortness of breath. His symptoms started about 10 days prior to admission when he developed cough, and shortness of breath. He consulted [place] ED, chest x-ray done was negative he was tested for Covid then and it was positive. He came back to the ED about 5 days after the previous visit due to worsening shortness of breath. Repeat chest x-ray showed development of bilateral groundglass densities suspicious for an atypical viral pneumonia. Patient was not requiring any oxygen support hence he was discharged on antibiotics and oral dexamethasone. He came today due to worsening cough and shortness of breath. Repeat chest x-ray showed progression of pneumonia. Per EMS he was saturating 88% on room air. In the ED blood pressure 138/88, heart rate 91, respiratory rate 23, O2 sat 93% on high flow nasal cannula 45 L, 50% FiO2. WBC count 10.7 hemoglobin 14.7, platelet count 490. CMP showed sodium 138, potassium 3.3. He was started on high flow nasal cannula and was given Zosyn and azithromycin. Hospitalist service was called for further evaluation and management. D2 hospital stay 07/17/20. The patient was seen and examined at bedside. He is still on 50L, 100% FIO2 HFNC saturating 95%. He reports that he is less SOB but still has dyspnea on exertion. He feels overall anxious with his dyspnea, I have started him on low dose morphine. I was able to update his mom over the speaker phone when I was in the room with him. D3 hospital stay 07/18/20. The patient was seen and examined at bedside. He reports that he is less SOB. He is saturating 95% on 100% FIO2 of HFNC. Morphine has helped with his dyspnea related anxiety. I have asked guido to titrate h is fio2 down if he can tolerate it. He was started on remdesivir today. D4 hospital stay 07/19/20. The patient was seen and examined at bedside. Overall feels better, no new complains. He is dwon to 95% FIO2 on HFNC. Patient has apparently been asking for morphine every 4 hrs to help with his anxiety. Morphine was ordered PRN for dyspnea but i am worried he might be developing a craving for it. I have decreased his PRN morphine to q6 PRN and have started him on buspar to help with anxiety. D5 hospital stay 07/20/20 The patient was seen and examined at bedside. He was very anxious and tachypneic saturating low 80s. Saturation improved after receiving morphine. He is receiving remdesivir and dexa for COVID. He has also received 2 doses of ivermectin. Reason For Visit: ACUTE HYPOXIC RESP FAILURE 2/2 COVID 19 PNEUMONIA Physical Exam Vital Signs: Temp Pulse Resp BP Pulse Ox 98.8 F 97 38 H 125/63 87 L 07/20/20 11:51 07/20/20 11:51 07/20/20 13:10 07/20/20 11:51 07/20/20 13:10 Intake & Output 07/19/20 07/20/20 07/21/20 06:59 06:59 06:59 Intake Total 1130 1937 Output Total 975 1475 Balance 155 462 Weight 128.7 kg 127.9 kg General appearance: PRESENT: morbidly obese, other - moderate distress Head exam: PRESENT: atraumatic, normocephalic Eye exam: PRESENT: EOMI, PERRLA Mouth exam: PRESENT: moist Neck exam: PRESENT: full ROM Respiratory exam: PRESENT: rhonchi, symmetrical, tachypnea Cardiovascular exam: PRESENT: RRR, +S1, +S2 Pulses: PRESENT: +2 pedal pulses bilateral GI/Abdominal exam: PRESENT: normal bowel sounds, soft. ABSENT: rebound, tenderness Extremities exam: PRESENT: full ROM Musculoskeletal exam: PRESENT: full ROM Neurological exam: PRESENT: alert, awake, oriented to person, oriented to place, oriented to time, oriented to situation Psychiatric exam: PRESENT: normal mood Skin exam: PRESENT: normal color Results Laboratory Results: 07/19/20 05:44 07/19/20 05:44 Impressions: Chest X-Ray 07/16/20 06:04 IMPRESSION: Moderate to severe mixed airspace and interstitial opacity extensively of both lung ortiz. Interval worsening. Assessment and Plan - Diagnosis (1) Acute respiratory failure with hypoxia Is this a current diagnosis for this admission?: Yes Plan: -Per EMS patient was saturating 88% on room air -IMProved to 95% on high flow nasal cannula 45 L 100% FiO2 -Chest x-ray showed moderate to severe mixed airspace and interstitial opacities extensively of both lung ortiz with interval worsening from previous chest x- ray. -Covid positive -Continue O2 support via high flow nasal cannula. titrate down as needed to maintain sats >90% (2) Pneumonia due to COVID-19 virus Is this a current diagnosis for this admission?: Yes Plan: -Tested positive for Covid 10 days prior -X-ray as above - Ferritin, CRP and d-dimer pending - on dexamethasone 6 mg Iv daily - received convalescent plasma - completed Ivermectin 150 mcg/kg x 2 dose 48 hrs apart - started on remdesivir - O2 support a needed - started Vitamin C, D, Zinc, melatonin - received empiric abx. Blood culture negative. Abx stopped (3) Diarrhea Qualifiers: Diarrhea type: unspecified type Qualified Code(s): R19.7 - Diarrhea, unspecified Is this a current diagnosis for this admission?: Yes Plan: - 2/2 COVID - resolved (4) Hypertension Qualifiers: Hypertension type: essential hypertension Qualified Code(s): I10 - Essential (primary) hypertension Is this a current diagnosis for this admission?: Yes Plan: - resumed amlodipine and Lisinopril/HCTZ (5) Hyperlipidemia Qualifiers: Hyperlipidemia type: unspecified Qualified Code(s): E78.5 - Hyperlipidemia, unspecified Is this a current diagnosis for this admission?: Yes Plan: - resumed statin (6) Type 2 diabetes mellitus Qualifiers: Diabetes mellitus superintendent container terminal insulin use: without superintendent container terminal use Diabetes mellitus complication status: without complication Qualified Code(s): E11.9 - Type 2 diabetes mellitus without complications Is this a current diagnosis for this admission?: Yes Plan: - hold metformin - will start SSI, accucheck - hypoglycemia protocol (7) Obesity (BMI 30-39.9) Is this a current diagnosis for this admission?: Yes Plan: - BMI 38.6 - poor prognostic factor in terms of COVID - advised diet and lifestyle modification - Time Time Spent with patient: 25-34 minutes Medications reviewed and adjusted accordingly: Yes Anticipated Discharge Disposition: Home, Self Care Anticipated Discharge Timeframe: TBD
[2020-07-20] MEDS ORDERED: MORPHINE SULFATE 10 MG/ML INJ IV ONE (14:49)
[2020-07-20] MEDS: ATORVASTATIN CALCIUM 10 MG TABLET PO SCH (21:29)
[2020-07-21] MEDS: LISINOPRIL 10 MG TABLET PO SCH ×2 (05:18→18:06)
[2020-07-21] MEDS: PANTOPRAZOLE SODIUM 20 MG TABLET.DR PO SCH (05:18)
[2020-07-21] MEDS: HYDROCHLOROTHIAZIDE 12.5 MG TABLET PO SCH ×2 (05:18→18:06)
[2020-07-21] MEDS: ZINC SULFATE 220 MG CAPSULE PO SCH (09:08)
[2020-07-21] MEDS: POTASSIUM CHLORIDE 10 MEQ TABLET.ER PO SCH (09:08)
[2020-07-21] MEDS: BUSPIRONE HCL 10 MG TABLET PO SCH ×2 (09:08→22:32)
[2020-07-21] MEDS: AMLODIPINE BESYLATE 10 MG TABLET PO SCH (09:08)
[2020-07-21] MEDS: CHOLECALCIFEROL (D3) 1,000 UNIT (25 MCG) TABLET PO SCH (09:08)
[2020-07-21] MEDS: ASPIRIN 81 MG TABLET, ENT COATED PO SCH (09:08)
[2020-07-21] MEDS: MORPHINE SULFATE 10 MG/ML INJ IV PRN ×2 (09:09→18:07)
[2020-07-21] MEDS: ASCORBIC ACID 500 MG TABLET PO SCH ×2 (09:10→18:06)
[2020-07-21] MEDS: DEXAMETHASONE SOD PHOS INJ 10 MG/1 ML VIAL IV SCH (09:10)
[2020-07-21] MEDS: ENOXAPARIN SODIUM INJ 40 MG/0.4 ML DISP.SYRIN SUBCUT SCH (09:11)
[2020-07-21] MEDS: INSULIN LISPRO 100 UNIT/ML 3 ML VIAL SUBCUT SCH ×4 (09:13→22:33)
--- NOTE | 2020-07-21 10:44 | RADIOLOGY REPORT (SQ) ---
June EXAM DESCRIPTION: CHEST SINGLE VIEW IMAGES COMPLETED DATE/TIME: 07/21/2020 9:41 am REASON FOR STUDY: covid COMPARISON: 07/16/2020 EXAM PARAMETERS: NUMBER OF VIEWS: One view. TECHNIQUE: Single frontal radiographic view of the chest acquired. RADIATION DOSE: NA LIMITATIONS: None. FINDINGS: LUNGS AND PLEURA: Re- demonstration of multifocal mixed interstitial and airspace opacitie s noting slight interval increase involving the right lung base. No pleural effusion or pneumothorax . MEDIASTINUM AND HILAR STRUCTURES: No masses. Contour normal. HEART AND VASCULAR STRUCTURES: Heart normal in size. Normal vasculature. BONES: No acute findings. HARDWARE: None in the chest. OTHER: No other significant finding. IMPRESSION: Slight interval progression in the appearance of multifocal mixed interstitial and airsp kelton opacities. TECHNICAL DOCUMENTATION: JOB ID: [id number] 2010 [employer] All Rights Reserved Reading location - IP/workstation name: [email or web address]
[2020-07-21] MEDS ORDERED: FUROSEMIDE INJ/PF 40 MG/4 ML SDV IV ONE (12:02)
[2020-07-21 12:39] LABS: ALKALINE PHOSPHATASE 114 U/L (38-126); ANION GAP 5 (5-19); ASPARTATE AMINO TRANSFERASE 57 U/L (17-59); BILIRUBIN,DIRECT 0.3 mg/dL (0.0-0.4); BILIRUBIN,TOTAL 0.7 mg/dL (0.2-1.3); BLOOD UREA NITROGEN 20 mg/dL (7-20); CALCIUM 8.8 mg/dL (8.4-10.2); CARBON DIOXIDE 30 mmol/L (22-30); CHLORIDE 99 mmol/L (98-107); GLUCOSE 224 mg/dL (75-110); TOTAL PROTEIN 6.5 g/dL (6.3-8.2)
--- NOTE | 2020-07-21 12:49 | PDOC PROGRESS REPORT ---
Subjective Date:: 07/21/20 Subjective:: BRETT SIDDIQI is a 49 year old male, PMH of DM, HTN, HLD, DORA, who came in the E D via EMS due to shortness of breath. His symptoms started about 10 days prior to admission when he developed cough, and shortness of breath. He consulted [place] [facility], chest x-ray done was negative he was tested for Covid then and it was positive. He came back to the ED about 5 days after the previous visit due to worsening shortness of breath. Repeat chest x-ray showed development of bilateral groundglass densities suspicious for an atypical viral pneumonia. Patient was not requiring any oxygen support hence he was discharged on antibiotics and oral dexamethasone. He came today due to worsening cough and shortness of breath. Repeat chest x-ray showed progression of pneumonia. Per EMS he was saturating 88% on room air. In the ED blood pressure 138/88, heart rate 91, respiratory rate 23, O2 sat 93% on high flow nasal cannula 45 L, 50% FiO2. WBC count 10.7 hemoglobin 14.7, platelet count 490. CMP showed sodium 138, potassium 3.3. He was started on high flow nasal cannula and was given Zosyn and azithromycin. Hospitalist service was called for further evaluation and management. D2 hospital stay 07/17/20. The patient was seen and examined at bedside. He is still on 50L, 100% FIO2 HFNC saturating 95%. He reports that he is less SOB but still has dyspnea on exertion. He feels overall anxious with his dyspnea, I have started him on low dose morphine. I was able to update his mom over the speaker phone when I was in the room with him. D3 hospital stay 07/18/20. The patient was seen and examined at bedside. He reports that he is less SOB. He is saturating 95% on 100% FIO2 of HFNC. Morphine has helped with his dyspnea related anxiety. I have asked guido to titrate his fio2 down if he can tolerate it. He was started on remdesivir today. D4 hospital stay 07/19/20. The patient was seen and examined at bedside. Overall feels better, no new complains. He is dwon to 95% FIO2 on HFNC. Patient has apparently been asking for morphine every 4 hrs to help with his anxiety. Morphine was ordered PRN for dyspnea but i am worried he might be developing a craving for it. I have decreased his PRN morphine to q6 PRN and have started him on buspar to help with anxiety. D5 hospital stay 07/20/20 The patient was seen and examined at bedside. He was very anxious and tachypneic saturating low 80s. Saturation improved after receiving morphine. He is receiving remdesivir and dexa for COVID. He has also received 2 doses of ivermectin. D6 hospital stay 07/21/20 The patient was seen and examined at bedside. Per nurse his O2 needs has increased overnight he is now back to 100% FIO2 50L flow rate saturating 89-90%. Repeat CXR showed slight interval progression in the appearance of multifocal mixed interstitial and airspace opacities. I have told him to try and prone himself to improve his oxygenation but with his size and obesity I doubt if. he will be able to tolerate this. Reason For Visit: ACUTE HYPOXIC RESP FAILURE / COVID 19 PNEUMONIA Physical Exam Vital Signs: Temp Pulse Resp BP Pulse Ox 97.7 F 107 H 34 H 158/82 H 88 L 07/21/20 08:33 07/21/20 08:33 07/21/20 08:33 07/21/20 08:33 07/21/20 08:33 Intake & Output 07/20/20 07/21/20 07/22/20 06:59 06:59 06:59 Intake Total 1937 714 250 Output Total 1475 950 Balance 462 -236 250 Weight 127.9 kg 128.6 kg General appearance: PRESENT: no acute distress, morbidly obese, other - moderate distress Head exam: PRESENT: atraumatic, normocephalic Eye exam: PRESENT: EOMI, PERRLA Mouth exam: PRESENT: moist Neck exam: PRESENT: full ROM Respiratory exam: PRESENT: rhonchi, symmetrical, tachypnea Cardiovascular exam: PRESENT: RRR, +S1, +S2 Pulses: PRESENT: +2 pedal pulses bilateral GI/Abdominal exam: PRESENT: normal bowel sounds, soft. ABSENT: rebound, tenderness Extremities exam: PRESENT: full ROM Musculoskeletal exam: PRESENT: full ROM Neurological exam: PRESENT: alert, awake, oriented to person, oriented to place, oriented to time, oriented to situation Psychiatric exam: PRESENT: normal mood Skin exam: PRESENT: normal color Results Laboratory Results: 07/16/20 07:47 Blood Blood Culture - Final NO GROWTH IN 5 DAYS Impressions: Chest X-Ray 07/21/20 09:19 IMPRESSION: Slight interval progression in the appearance of multifocal mixed interstitial and airspace opacities. Assessment and Plan - Diagnosis (1) Acute respiratory failure with hypoxia Is this a current diagnosis for this admission?: Yes Plan: -Per EMS patient was saturating 88% on room air -IMProved to 95% on high flow nasal cannula 45 L 100% FiO2 -Chest x-ray showed moderate to severe mixed airspace and interstitial opacities extensively of both lung ortiz with interval worsening from previous chest x-r ay. - repeat CXR 07/21/20 slight interval progression in the appearance of multifocal mixed interstitial and airspace opacities. -Covid positive -Continue O2 support via high flow nasal cannula. titrate down as needed to maintain sats >90% (2) Hypertension Qualifiers: Hypertension type: essential hypertension Qualified Code(s): I10 - Essential (primary) hypertension Is this a current diagnosis for this admission?: Yes Plan: - resumed amlodipine and Lisinopril/HCTZ (3) Hyperlipidemia Qualifiers: Hyperlipidemia type: unspecified Qualified Code(s): E78.5 - Hyperlipidemia, unspecified Is this a current diagnosis for this admission?: Yes Plan: - resumed statin (4) Type 2 diabetes mellitus Qualifiers: Diabetes mellitus care home insulin use: without termite control service representative use Diabetes mellitus complication status: without complication Qualified Code(s): E11.9 - Type 2 diabetes mellitus without complications Is this a current diagnosis for this admission?: Yes Plan: - hold metformin - will start SSI, accucheck - hypoglycemia protocol (5) Obesity (BMI 30-39.9) Is this a current diagnosis for this admission?: Yes Plan: - BMI 38.6 - poor prognostic factor in terms of COVID - advised diet and lifestyle modification - Time Time Spent with patient: 25-34 minutes Medications reviewed and adjusted accordingly: Yes Anticipated Discharge Disposition: Home, Self Care Anticipated Discharge Timeframe: tbd
[2020-07-21 12:50] LABS: MEAN CORPUSCULAR HEMOGLOBIN 26.8 pg (27.0-33.4); MEAN CORPUSCULAR VOLUME 79 fl (80-97); RED BLOOD COUNT 5.98 10^6/uL (4.35-5.55)
[2020-07-21 12:51] LABS: WHITE BLOOD COUNT 11.9 10^3/uL (4.0-10.5)
[2020-07-21 12:52] LABS: PLATELET COUNT 921 10^3/uL (150-450)
[2020-07-21 12:54] LABS: ABSOLUTE LYMPHOCYTES# (MANUAL) 1.1 10^3/uL (0.5-4.7); ABSOLUTE MONOCYTES # (MANUAL) 0.8 10^3/uL (0.1-1.4); BASOPHILS % (MANUAL) 0 % (0-2); EOSINOPHILS % (MANUAL) 0 % (0-6); LYMPHOCYTES % (MANUAL) 9 % (13-45); MONOCYTES % (MANUAL) 7 % (3-13); SEGMENTED NEUTROPHILS % (MAN) 84 % (42-78); TOTAL CELLS COUNTED 100
[2020-07-21 12:55] LABS: ANISOCYTOSIS SLIGHT; HYPOCHROMASIA SLIGHT; PLATELET COMMENT INCREASED
[2020-07-21] MEDS: IPRATROPIUM/ALBUTEROL 0.5-2.5 MG/3 ML AMPUL NEB SCH ×2 (13:58→19:40)
[2020-07-21] MEDS: ATORVASTATIN CALCIUM 10 MG TABLET PO SCH (22:32)
[2020-07-22] MEDS: MORPHINE SULFATE 10 MG/ML INJ IV PRN (01:02)
[2020-07-22] MEDS: PANTOPRAZOLE SODIUM 20 MG TABLET.DR PO SCH (05:31)
[2020-07-22] MEDS: LISINOPRIL 10 MG TABLET PO SCH ×2 (05:31→17:25)
[2020-07-22] MEDS: HYDROCHLOROTHIAZIDE 12.5 MG TABLET PO SCH ×2 (05:31→17:25)
[2020-07-22] MEDS: INSULIN LISPRO 100 UNIT/ML 3 ML VIAL SUBCUT SCH ×4 (08:18→22:35)
[2020-07-22] MEDS: IPRATROPIUM/ALBUTEROL 0.5-2.5 MG/3 ML AMPUL NEB SCH ×3 (08:21→13:59)
[2020-07-22] MEDS: DEXAMETHASONE SOD PHOS INJ 10 MG/1 ML VIAL IV SCH (10:29)
[2020-07-22] MEDS: BUSPIRONE HCL 10 MG TABLET PO SCH ×2 (10:29→21:46)
[2020-07-22] MEDS: AMLODIPINE BESYLATE 10 MG TABLET PO SCH (10:30)
[2020-07-22] MEDS: ZINC SULFATE 220 MG CAPSULE PO SCH (10:30)
[2020-07-22] MEDS: ASCORBIC ACID 500 MG TABLET PO SCH ×2 (10:30→17:25)
[2020-07-22] MEDS: ENOXAPARIN SODIUM INJ 40 MG/0.4 ML DISP.SYRIN SUBCUT SCH (10:30)
[2020-07-22] MEDS: ASPIRIN 81 MG TABLET, ENT COATED PO SCH (10:30)
[2020-07-22] MEDS: POTASSIUM CHLORIDE 10 MEQ TABLET.ER PO SCH (10:30)
[2020-07-22] MEDS: CHOLECALCIFEROL (D3) 1,000 UNIT (25 MCG) TABLET PO SCH (10:30)
[2020-07-22 12:26] LABS: HEMATOCRIT 46.7 % (37.9-51.0); HEMOGLOBIN 15.9 g/dL (13.5-17.0); MEAN CORPUSCULAR HEMOGLOBIN 26.8 pg (27.0-33.4); MEAN CORPUSCULAR HGB CONC 34.1 g/dL (32.0-36.0); MEAN CORPUSCULAR VOLUME 78 fl (80-97); PLATELET COUNT 992 10^3/uL (150-450); RED BLOOD COUNT 5.95 10^6/uL (4.35-5.55); RED CELL DISTRIBUTION WIDTH 15.2 % (11.5-14.0); WHITE BLOOD COUNT 15.3 10^3/uL (4.0-10.5)
[2020-07-22 13:06] LABS: ABSOLUTE LYMPHOCYTES# (MANUAL) 2.1 10^3/uL (0.5-4.7); ABSOLUTE MONOCYTES # (MANUAL) 0.9 10^3/uL (0.1-1.4); BASOPHILS % (MANUAL) 0 % (0-2); EOSINOPHILS % (MANUAL) 0 % (0-6); LYMPHOCYTES % (MANUAL) 12 % (13-45); MONOCYTES % (MANUAL) 6 % (3-13); SEGMENTED NEUTROPHILS % (MAN) 80 % (42-78); TOTAL CELLS COUNTED 100
[2020-07-22 13:07] LABS: ANISOCYTOSIS SLIGHT; HYPOCHROMASIA SLIGHT; PLATELET COMMENT INCREASED; PLATELET LARGE PRESENT
--- NOTE | 2020-07-22 14:33 | PDOC PROGRESS REPORT ---
Subjective Date:: 07/22/20 Subjective:: BRETT SIDDIQI is a 49 year old male, PMH of DM, HTN, HLD, DORA, who came in the E D via EMS due to shortness of breath. His symptoms started about 10 days prior to admission when he developed cough, and shortness of breath. He consulted [place], chest x-ray done was negative he was tested for Covid then and it was positive. He came back to the ED about 5 days after the previous visit due to worsening shortness of breath. Repeat chest x-ray showed development of bilateral groundglass densities suspicious for an atypical viral pneumonia. Patient was not requiring any oxygen support hence he was discharged on antibiotics and oral dexamethasone. He came today due to worsening cough and shortness of breath. Repeat chest x-ray showed progression of pneumonia. Per EMS he was saturating 88% on room air. In the ED blood pressure 138/88, heart rate 91, respiratory rate 23, O2 sat 93% on high flow nasal cannula 45 L, 50% FiO2. WBC count 10.7 hemoglobin 14.7, platelet count 490. CMP showed sodium 138, potassium 3.3. He was started on high flow nasal cannula and was given Zosyn and azithromycin. Hospitalist service was called for further evaluation and management. D2 hospital stay 07/17/20. The patient was seen and examined at bedside. He is still on 50L, 100% FIO2 HFNC saturating 95%. He reports that he is less SOB but still has dyspnea on exertion. He feels overall anxious with his dyspnea, I have started him on low dose morphine. I was able to update his mom over the speaker phone when I was in the room with him. D3 hospital stay 07/18/20. The patient was seen and examined at bedside. He reports that he is less SOB. He is saturating 95% on 100% FIO2 of HFNC. Morphine has helped with his dyspnea related anxiety. I have asked guido to titrate h is fio2 down if he can tolerate it. He was started on remdesivir today. D4 hospital stay 07/19/20. The patient was seen and examined at bedside. Overall feels better, no new complains. He is dwon to 95% FIO2 on HFNC. Patient has apparently been asking for morphine every 4 hrs to help with his anxiety. Morphine was ordered PRN for dyspnea but i am worried he might be developing a craving for it. I have decreased his PRN morphine to q6 PRN and have started him on buspar to help with anxiety. D5 hospital stay 07/20/20 The patient was seen and examined at bedside. He was very anxious and tachypneic saturating low 80s. Saturation improved after receiving morphine. He is receiving remdesivir and dexa for COVID. He has also received 2 doses of ivermectin. D6 hospital stay 07/21/20 The patient was seen and examined at bedside. Per nurse his O2 needs has increased overnight he is now back to 100% FIO2 50L flow rate saturating 89-90%. Repeat CXR showed slight interval progression in the ap pearance of multifocal mixed interstitial and airspace opacities. I have told him to try and prone himself to improve his oxygenation but with his size and obesity I doubt if. he will be able to tolerate this. D7 hospital stay 07/22/20. The patient was seen and examined at bedside. He was on the chair and denies any worsening SOB. He is still on 100% FIO2 50L O2 flow. Appetite is good, no diarrhea, no chest pain. Afebrile. Medications reviewed and I noted that remdesivir was not given yesterday and today, I have not discontinued the order. I talked to pharmacy and they would resume the rem desivir to complete his treatment, Reason For Visit: ACUTE HYPOXIC RESP FAILURE 2/2 COVID 19 PNEUMONIA Physical Exam Vital Signs: Temp Pulse Resp BP Pulse Ox 97.7 F 104 H 32 H 119/72 89 L 07/22/20 11:48 07/22/20 11:48 07/22/20 11:48 07/22/20 11:48 07/22/20 11:48 Intake & Output 07/21/20 07/22/20 07/23/20 06:59 06:59 06:59 Intake Total 714 1740 Output Total 950 1600 Balance -236 140 Weight 128.6 kg 127.7 kg General appearance: PRESENT: cooperative, mild distress, morbidly obese Head exam: PRESENT: atraumatic, normocephalic Eye exam: PRESENT: EOMI, PERRLA Mouth exam: PRESENT: moist Neck exam: PRESENT: full ROM Respiratory exam: PRESENT: rales, symmetrical, unlabored Cardiovascular exam: PRESENT: RRR, +S1, +S2 Pulses: PRESENT: +2 pedal pulses bilateral GI/Abdominal exam: PRESENT: normal bowel sounds, soft. ABSENT: rebound, ten derness Extremities exam: PRESENT: full ROM Musculoskeletal exam: PRESENT: full ROM Neurological exam: PRESENT: alert, awake, oriented to person, oriented to place, oriented to time, oriented to situation Psychiatric exam: PRESENT: normal mood Skin exam: PRESENT: normal color Results Laboratory Results: 07/22/20 11:37 07/22/20 11:37 07/22/20 07/22/20 11:37 11:37 WBC 15.3 H RBC 5.95 H Hgb 15.9 Hct 46.7 MCV 78 L MCH 26.8 L MCHC 34.1 RDW 15.2 H Plt Count 992 H Seg Neutrophils % Not Reportable Sodium Cancelled Potassium Cancelled Chloride Cancelled Carbon Dioxide Cancelled Anion Gap Cancelled BUN Cancelled Creatinine Cancelled Est GFR ( Amer) Cancelled Est GFR (Non-Af Amer) Cancelled Glucose Cancelled Calcium Cancelled Ferritin Cancelled Total Bilirubin Cancelled AST Cancelled Alkaline Phosphatase Cancelled C-Reactive Protein Cancelled Total Protein Cancelled Albumin Cancelled Impressions: Chest X-Ray 07/21/20 09:19 IMPRESSION: Slight interval progression in the appearance of multifocal mixed interstitial and airspace opacities. Assessment and Plan - Diagnosis (1) Acute respiratory failure with hypoxia Is this a current diagnosis for this admission?: Yes Plan: -Per EMS patient was saturating 88% on room air -IMProved to 95% on high flow nasal cannula 45 L 100% FiO2 -Chest x-ray showed moderate to severe mixed airspace and interstitial opacities extensively of both lung ortiz with interval worsening from previous chest x-ra y. - repeat CXR 07/21/20 slight interval progression in the appearance of multifocal mixed interstitial and airspace opacities. -Covid positive -Continue O2 support via high flow nasal cannula. titrate down as needed to maintain sats >90% (2) Pneumonia due to COVID-19 virus Is this a current diagnosis for this admission?: Yes Plan: - Tested positive for Covid 10 days prior -X-ray as above - Ferritin nomral, CRP elevated and d-dimer normal - on dexamethasone 6 mg Iv daily - received convalescent plasma - completed Ivermectin 150 mcg/kg x 2 dose 48 hrs apart - on remdesivir - O2 support a needed - started Vitamin C, D, Zinc, melatonin - abx resumed due to rising WBC (3) Hypertension Qualifiers: Hypertension type: essential hypertension Qualified Code(s): I10 - Essential (primary) hypertension Is this a current diagnosis for this admission?: Yes Plan: - resumed amlodipine and Lisinopril/HCTZ (4) Hyperlipidemia Qualifiers: Hyperlipidemia type: unspecified Qualified Code(s): E78.5 - Hyperlipidemia, unspecified Is this a current diagnosis for this admission?: Yes Plan: - resumed statin (5) Type 2 diabetes mellitus Qualifiers: Diabetes mellitus residential insulin use: without truck striker use Diabetes mellitus complication status: without complication Qualified Code(s): E11.9 - Type 2 diabetes mellitus without complications Is this a current diagnosis for this admission?: Yes Plan: - hold metformin - will start SSI, accucheck - hypoglycemia protocol (6) Obesity (BMI 30-39.9) Is this a current diagnosis for this admission?: Yes Plan: - BMI 38.6 - poor prognostic factor in terms of COVID - advised diet and lifestyle modification - Time Time Spent with patient: 25-34 minutes Medications reviewed and adjusted accordingly: Yes Anticipated Discharge Disposition: Home, Self Care Anticipated Discharge Timeframe: tbd
[2020-07-22] MEDS ORDERED: AZITHROMYCIN INJ 500 MG VIAL IV SCH (15:00)
[2020-07-22] MEDS: CEFTRIAXONE 2 GM/D5W RTU 2 GM/50 ML RTUPB IV SCH (16:04)
[2020-07-22] MEDS: REMDESIVIR 100 MG in NORMAL SALINE 250 ML IV SCH (17:25)
[2020-07-22] MEDS: AZITHROMYCIN 500 MG in DEXTROSE 5%-WATER 250 ML IV SCH (20:51)
[2020-07-22] MEDS: ATORVASTATIN CALCIUM 10 MG TABLET PO SCH (21:46)
[2020-07-23] MEDS: MORPHINE SULFATE 10 MG/ML INJ IV PRN ×2 (00:59→08:46)
[2020-07-23] MEDS: PANTOPRAZOLE SODIUM 20 MG TABLET.DR PO SCH (05:57)
[2020-07-23] MEDS: HYDROCHLOROTHIAZIDE 12.5 MG TABLET PO SCH ×2 (05:57→17:45)
[2020-07-23] MEDS: LISINOPRIL 10 MG TABLET PO SCH ×2 (05:58→17:45)
[2020-07-23 06:37] LABS: ALBUMIN 2.9 g/dL (3.5-5.0); ALKALINE PHOSPHATASE 111 U/L (38-126); ANION GAP 11 (5-19); ASPARTATE AMINO TRANSFERASE 60 U/L (17-59); BILIRUBIN,DIRECT 0.2 mg/dL (0.0-0.4); BILIRUBIN,TOTAL 0.6 mg/dL (0.2-1.3); BLOOD UREA NITROGEN 20 mg/dL (7-20); C-REACTIVE PROTEIN 83.6 mg/L (<10.0); CALCIUM 8.9 mg/dL (8.4-10.2); CARBON DIOXIDE 31 mmol/L (22-30); CHLORIDE 96 mmol/L (98-107); GLUCOSE 98 mg/dL (75-110); TOTAL PROTEIN 6.5 g/dL (6.3-8.2)
[2020-07-23] MEDS: INSULIN LISPRO 100 UNIT/ML 3 ML VIAL SUBCUT SCH ×4 (08:21→22:36)
[2020-07-23] MEDS: ZINC SULFATE 220 MG CAPSULE PO SCH (09:33)
[2020-07-23] MEDS: ASPIRIN 81 MG TABLET, ENT COATED PO SCH (09:33)
[2020-07-23] MEDS: AMLODIPINE BESYLATE 10 MG TABLET PO SCH (09:33)
[2020-07-23] MEDS: BUSPIRONE HCL 10 MG TABLET PO SCH ×2 (09:33→21:13)
[2020-07-23] MEDS: POTASSIUM CHLORIDE 10 MEQ TABLET.ER PO SCH (09:33)
[2020-07-23] MEDS: ASCORBIC ACID 500 MG TABLET PO SCH ×2 (09:34→17:45)
[2020-07-23] MEDS: DEXAMETHASONE SOD PHOS INJ 10 MG/1 ML VIAL IV SCH (09:34)
[2020-07-23] MEDS: CEFTRIAXONE 2 GM/D5W RTU 2 GM/50 ML RTUPB IV SCH (09:34)
[2020-07-23] MEDS: CHOLECALCIFEROL (D3) 1,000 UNIT (25 MCG) TABLET PO SCH (09:34)
[2020-07-23] MEDS: ENOXAPARIN SODIUM INJ 40 MG/0.4 ML DISP.SYRIN SUBCUT SCH (09:34)
[2020-07-23] MEDS: REMDESIVIR 100 MG in NORMAL SALINE 250 ML IV SCH (10:54)
[2020-07-23] MEDS ORDERED: FUROSEMIDE INJ/PF 40 MG/4 ML SDV ONE (11:34)
[2020-07-23] MEDS ORDERED: FUROSEMIDE INJ/PF 40 MG/4 ML SDV IV ONE (12:30)
--- NOTE | 2020-07-23 14:35 | PDOC PROGRESS REPORT ---
Subjective Date:: 07/23/20 Subjective:: BRETT SIDDIQI is a 49 year old male, PMH of DM, HTN, HLD, DORA, who came in the E D via EMS due to shortness of breath. His symptoms started about 10 days prior to admission when he developed cough, and shortness of breath. He consulted [facility], chest x-ray done was negative he was tested for Covid then and it was positive. He came back to the ED about 5 days after the previous visit due to worsening shortness of breath. Repeat chest x-ray showed development of bilateral groundglass densities suspicious for an atypical viral pneumonia. Patient was not requiring any oxygen support hence he was discharged on antibiotics and oral dexamethasone. He came today due to worsening cough and shortness of breath. Repeat chest x-ray showed progression of pneumonia. Per EMS he was saturating 88% on room air. In the ED blood pressure 138/88, heart rate 91, respiratory rate 23, O2 sat 93% on high flow nasal cannula 45 L, 50% FiO2. WBC count 10.7 hemoglobin 14.7, platelet count 490. CMP showed sodium 138, potassium 3.3. He was started on high flow nasal cannula and was given Zosyn and azithromycin. Hospitalist service was called for further evaluation and management. D2 hospital stay 07/17/20. The patient was seen and examined at bedside. He is still on 50L, 100% FIO2 HFNC saturating 95%. He reports that he is less SOB but still has dyspnea on exertion. He feels overall anxious with his dyspnea, I have started him on low dose morphine. I was able to update his mom over the speaker phone when I was in the room with him. D3 hospital stay 07/18/20. The patient was seen and examined at bedside. He reports that he is less SOB. He is saturating 95% on 100% FIO2 of HFNC. Morphine has helped with his dyspnea related anxiety. I have asked guido to titrate h is fio2 down if he can tolerate it. He was started on remdesivir today. D4 hospital stay 07/19/20. The patient was seen and examined at bedside. Overall feels better, no new complains. He is dwon to 95% FIO2 on HFNC. Patient has apparently been asking for morphine every 4 hrs to help with his anxiety. Morphine was ordered PRN for dyspnea but i am worried he might be developing a craving for it. I have decreased his PRN morphine to q6 PRN and have started him on buspar to help with anxiety. D5 hospital stay 07/20/20 The patient was seen and examined at bedside. He was very anxious and tachypneic saturating low 80s. Saturation improved after receiving morphine. He is receiving remdesivir and dexa for COVID. He has also received 2 doses of ivermectin. D6 hospital stay 07/21/20 The patient was seen and examined at bedside. Per nurse his O2 needs has increased overnight he is now back to 100% FIO2 50L flow rate saturating 89-90%. Repeat CXR showed slight interval progression in the ap pearance of multifocal mixed interstitial and airspace opacities. I have told him to try and prone himself to improve his oxygenation but with his size and obesity I doubt if. he will be able to tolerate this. D7 hospital stay 07/22/20. The patient was seen and examined at bedside. He was on the chair and denies any worsening SOB. He is still on 100% FIO2 50L O2 flow. Appetite is good, no diarrhea, no chest pain. Afebrile. Medications reviewed and I noted that remdesivir was not given yesterday and today, I have not discontinued the order. I talked to pharmacy and they would resume the rem desivir to complete his treatment. D8 Hospital stay 07/23/20. The patient was seen and examined at bedside. He reports that his breathing is better however he seems to be desaturating at 85% on HFNC 100% FIO2 on top of a non rebreather. He was switched over to CPAP. Today is his last day of Remdesivir and he has completed ivermectin and convalescent plasma as well. I was able to update his mother Ayesha over the phone and all questions were answered. Reason For Visit: ACUTE HYPOXIC RESP FAILURE 2/2 COVID 19 PNEUMONIA Physical Exam Vital Signs: Temp Pulse Resp BP Pulse Ox 97.9 F 113 H 28 H 117/72 91 L 07/23/20 11:15 07/23/20 11:15 07/23/20 12:10 07/23/20 11:15 07/23/20 12:10 Intake & Output 07/22/20 07/23/20 07/24/20 06:59 06:59 06:59 Intake Total 1740 2154 Output Total 1600 2125 Balance 140 29 Weight 127.7 kg 128.3 kg General appearance: PRESENT: other - moderate distress Head exam: PRESENT: atraumatic, normocephalic Eye exam: PRESENT: EOMI, PERRLA Mouth exam: PRESENT: moist Neck exam: PRESENT: full ROM Respiratory exam: PRESENT: rhonchi, symmetrical, tachypnea. ABSENT: wheezes Cardiovascular exam: PRESENT: RRR, +S1, +S2 Pulses: PRESENT: +2 pedal pulses bilateral GI/Abdominal exam: PRESENT: normal bowel sounds, soft. ABSENT: rebound, tenderness Extremities exam: PRESENT: full ROM Musculoskeletal exam: PRESENT: full ROM Neurological exam: PRESENT: alert, awake, oriented to person, oriented to place, oriented to time, oriented to situation Psychiatric exam: PRESENT: normal mood Skin exam: PRESENT: normal color Results Laboratory Results: 07/22/20 11:37 07/23/20 05:47 07/22/20 07/23/20 14:20 05:47 Sodium Cancelled 137.8 Potassium Cancelled 4.0 Chloride Cancelled 96 L Carbon Dioxide Cancelled 31 H Anion Gap Cancelled 11 BUN Cancelled 20 Creatinine Cancelled 0.59 Est GFR ( Amer) Cancelled > 60 Est GFR (Non-Af Amer) Cancelled Glucose Cancelled 98 Calcium Cancelled 8.9 Ferritin Cancelled 266.00 Total Bilirubin Cancelled 0.6 AST Cancelled 60 H Alkaline Phosphatase Cancelled 111 C-Reactive Protein Cancelled 83.6 H Total Protein Cancelled 6.5 Albumin Cancelled 2.9 L Impressions: Chest X-Ray 07/21/20 09:19 IMPRESSION: Slight interval progression in the appearance of multifocal mixed interstitial and airspace opacities. Assessment and Plan - Diagnosis (1) Acute respiratory failure with hypoxia Is this a current diagnosis for this admission?: Yes Plan: -Per EMS patient was saturating 88% on room air -IMProved to 95% on high flow nasal cannula 45 L 100% FiO2 -Chest x-ray showed moderate to severe mixed airspace and interstitial opacities extensively of both lung ortiz with interval worsening from previous chest x- ray. - repeat CXR 07/21/20 slight interval progression in the appearance of multifocal mixed interstitial and airspace opacities. -Covid positive -Continue O2 support via CPAP (2) Pneumonia due to COVID-19 virus Is this a current diagnosis for this admission?: Yes Plan: - Tested positive for Covid 10 days prior -X-ray as above - Ferritin nomral, CRP elevated and d-dimer normal - on dexamethasone 6 mg Iv daily - received convalescent plasma - completed Ivermectin 150 mcg/kg x 2 dose 48 hrs apart - on remdesivir D5 - CPAP support as needed - started Vitamin C, D, Zinc, melatonin - abx resumed due to rising WBC and worsening pneumonia (3) Hypertension Qualifiers: Hypertension type: essential hypertension Qualified Code(s): I10 - Essential (primary) hypertension Is this a current diagnosis for this admission?: Yes Plan: - resumed amlodipine and Lisinopril/HCTZ (4) Hyperlipidemia Qualifiers: Hyperlipidemia type: unspecified Qualified Code(s): E78.5 - Hyperlipidemia, unspecified Is this a current diagnosis for this admission?: Yes Plan: - resumed statin (5) Type 2 diabetes mellitus Qualifiers: 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 Diabetes mellitus complication status: without complication Qualified Code(s): E11.9 - Type 2 diabetes mellitus without complications Is this a current diagnosis for this admission?: Yes Plan: - hold metformin - will start SSI, accucheck - hypoglycemia protocol (6) Obesity (BMI 30-39.9) Is this a current diagnosis for this admission?: Yes Plan: - BMI 38.6 - poor prognostic factor in terms of COVID - advised diet and lifestyle modification - Time Time Spent with patient: 25-34 minutes Medications reviewed and adjusted accordingly: Yes Anticipated Discharge Disposition: Home, Self Care Anticipated Discharge Timeframe: tbd
[2020-07-23] MEDS: AZITHROMYCIN 500 MG in DEXTROSE 5%-WATER 250 ML IV SCH (17:45)
[2020-07-23] MEDS: ATORVASTATIN CALCIUM 10 MG TABLET PO SCH (21:13)
[2020-07-23] MEDS: MELATONIN 5 MG TABLET PO SCH (21:13)
[2020-07-24] MEDS: PANTOPRAZOLE SODIUM 20 MG TABLET.DR PO SCH (06:51)
[2020-07-24] MEDS: LISINOPRIL 10 MG TABLET PO SCH ×2 (07:57→17:23)
[2020-07-24] MEDS: HYDROCHLOROTHIAZIDE 12.5 MG TABLET PO SCH ×2 (07:57→17:23)
[2020-07-24] MEDS: INSULIN LISPRO 100 UNIT/ML 3 ML VIAL SUBCUT SCH ×4 (08:44→21:32)
[2020-07-24] MEDS: BUSPIRONE HCL 10 MG TABLET PO SCH ×2 (11:16→21:34)
[2020-07-24] MEDS: DEXAMETHASONE SOD PHOS INJ 10 MG/1 ML VIAL IV SCH (11:16)
[2020-07-24] MEDS: ASCORBIC ACID 500 MG TABLET PO SCH ×2 (11:16→17:24)
[2020-07-24] MEDS: ENOXAPARIN SODIUM INJ 40 MG/0.4 ML DISP.SYRIN SUBCUT SCH (11:16)
[2020-07-24] MEDS: AMLODIPINE BESYLATE 10 MG TABLET PO SCH (11:17)
[2020-07-24] MEDS: CHOLECALCIFEROL (D3) 1,000 UNIT (25 MCG) TABLET PO SCH (11:17)
[2020-07-24] MEDS: ASPIRIN 81 MG TABLET, ENT COATED PO SCH (11:17)
[2020-07-24] MEDS: CEFTRIAXONE 2 GM/D5W RTU 2 GM/50 ML RTUPB IV SCH (11:18)
[2020-07-24] MEDS: ZINC SULFATE 220 MG CAPSULE PO SCH (11:19)
[2020-07-24] MEDS: POTASSIUM CHLORIDE 10 MEQ TABLET.ER PO SCH (11:36)
--- NOTE | 2020-07-24 11:36 | PDOC PROGRESS REPORT ---
Subjective Date:: 07/24/20 Subjective:: 49 year old male, PMH of DM, HTN, HLD, DORA, who came in the ED via EMS due to sh ortness of breath. His symptoms started about 10 days prior to admission when he developed cough, and shortness of breath. He consulted [facility], chest x- ray done was negative he was tested for Covid then and it was positive. He came back to the ED about 5 days after the previous visit due to worsening shortness of breath. Repeat chest x-ray showed development of bilateral groundglass densities suspicious for an atypical viral pneumonia. Patient was not requiring any oxygen support hence he was discharged on antibiotics and oral dexamethasone. He came today due to worsening cough and shortness of breath. Repeat chest x-ray showed progression of pneumonia. Per EMS he was saturating 8 8% on room air. In the ED blood pressure 138/88, heart rate 91, respiratory rate 23, O2 sat 93% on high flow nasal cannula 45 L, 50% FiO2. WBC count 10.7 hemoglobin 14.7, platelet count 490. CMP showed sodium 138, potassium 3.3. He was started on high flow nasal cannula and was given Zosyn and azithromycin. Hospitalist service was called for further evaluation and management. D2 hospital stay 07/17/20. The patient was seen and examined at bedside. He is still on 50L, 100% FIO2 HFNC saturating 95%. He reports that he is less SOB but still has dyspnea on exertion. He feels overall anxious with his dyspnea, I have started him on low dose morphine. I was able to update his mom over the speaker phone when I was in the room with him. D3 hospital stay 07/18/20. The patient was seen and examined at bedside. He reports that he is less SOB. He is saturating 95% on 100% FIO2 of HFNC. Morphine has helped with his dyspnea related anxiety. I have asked guido to titrate his fio2 down if he can tolerate it. He was started on remdesivir today. D4 hospital stay 07/19/20. The patient was seen and examined at bedside. Overall feels better, no new complains. He is dwon to 95% FIO2 on HFNC. Patient has apparently been asking for morphine every 4 hrs to help with his anxiety. Morphine was ordered PRN for dyspnea but i am worried he might be developing a craving for it. I have decreased his PRN morphine to q6 PRN and have started him on buspar to help with anxiety. D5 hospital stay 07/20/20 The patient was seen and examined at bedside. He was very anxious and tachypneic saturating low 80s. Saturation improved after receiving morphine. He is receiving remdesivir and dexa for COVID. He has also received 2 doses of ivermectin. D6 hospital stay 07/21/20 The patient was seen and examined at bedside. Per nurse his O2 needs has increased overnight he is now back to 100% FIO2 50L flow rate saturating 89-90%. Repeat CXR showed slight interval progression in the appearance of multifocal mixed interstitial and airspace opacities. I have told him to try and prone himself to improve his oxygenation but with his size and obesity I doubt if. he will be able to tolerate this. D7 hospital stay 07/22/20. The patient was seen and examined at bedside. He was on the chair and denies any worsening SOB. He is still on 100% FIO2 50L O2 flow. Appetite is good, no diarrhea, no chest pain. Afebrile. Medications reviewed and I noted that remdesivir was not given yesterday and today, I have not discontinued the order. I talked to pharmacy and they would resume the remdesivir to complete his treatment. D8 Hospital stay 07/23/20. The patient was seen and examined at bedside. He reports that his breathing is better however he seems to be desaturating at 85% on HFNC 100% FIO2 on top of a non rebreather. He was switched over to CPAP. Today is his last day of Remdesivir and he has completed ivermectin and convalescent plasma as well. I was able to update his mother Ayesha over the phone and all questions were answered. 07/24/2020-patient is still on CPAP. Unable to come off the CPAP. Pulse ox is 96% on 100% oxygen. Patient is receiving dexamethasone, azithromycin, Rocephin, Lovenox 40 mg subcu daily. No acute events in the last 24 hours. Afebrile. Reason For Visit: ACUTE HYPOXIC RESP FAILURE 2/2 COVID 19 PNEUMONIA Physical Exam Vital Signs: Temp Pulse Resp BP Pulse Ox 98.6 F 108 H 35 H 120/67 96 07/24/20 08:11 07/24/20 08:11 07/24/20 08:47 07/24/20 08:11 07/24/20 08:47 Intake & Output 07/23/20 07/24/20 07/25/20 06:59 06:59 06:59 Intake Total 2154 1160 Output Total 212 1725 Balance 29 -565 Weight 128.3 kg 128.3 kg 129.9 kg General appearance: PRESENT: cooperative, mild distress, well-developed Head exam: PRESENT: atraumatic Eye exam: PRESENT: PERRLA Ear exam: PRESENT: normal external ear exam Teeth exam: PRESENT: poor dentation Neck exam: ABSENT: carotid bruit, JVD, lymphadenopathy, thyromegaly Respiratory exam: PRESENT: decreased breath sounds Cardiovascular exam: PRESENT: RRR. ABSENT: diastolic murmur, rubs, systolic murmur GI/Abdominal exam: PRESENT: normal bowel sounds, soft. ABSENT: distended, guarding, mass, organolmegaly, rebound, tenderness Rectal exam: PRESENT: deferred Extremities exam: PRESENT: full ROM. ABSENT: calf tenderness, clubbing, pedal edema Neurological exam: PRESENT: alert, awake, oriented to person, oriented to place, oriented to time, oriented to situation, CN II-XII grossly intact. ABSENT: motor sensory deficit Psychiatric exam: PRESENT: appropriate affect, normal mood. ABSENT: homicidal ideation, suicidal ideation Results Laboratory Results: 07/22/20 11:37 07/23/20 05:47 Impressions: Chest X-Ray 07/21/20 09:19 IMPRESSION: Slight interval progression in the appearance of multifocal mixed interstitial and airspace opacities. Assessment and Plan - Diagnosis (1) Acute respiratory failure with hypoxia Is this a current diagnosis for this admission?: Yes Plan: -Per EMS patient was saturating 88% on room air -IMProved to 95% on high flow nasal cannula 45 L 100% FiO2 -Chest x-ray showed moderate to severe mixed airspace and interstitial opacities extensively of both lung ortiz with interval worsening from previous chest x- ray. - repeat CXR 07/21/20 slight interval progression in the appearance of multifocal mixed interstitial and airspace opacities. -Covid positive -Continue O2 support via CPAP 07/24/2020-patient is still on CPAP and 100% oxygen. Pulse ox is around 96%. Recent chest x-ray positive for multifocal airspace opacifications and COVID-19 positive. To continue azithromycin, Rocephin, dexamethasone, Lovenox 40 mg subcu daily. (2) Pneumonia due to COVID-19 virus Is this a current diagnosis for this admission?: Yes Plan: - Tested positive for Covid 10 days prior -X-ray as above - Ferritin nomral, CRP elevated and d-dimer normal - on dexamethasone 6 mg Iv daily - received convalescent plasma - completed Ivermectin 150 mcg/kg x 2 dose 48 hrs apart - on remdesivir D5 - CPAP support as needed - started Vitamin C, D, Zinc, melatonin - abx resumed due to rising WBC and worsening pneumonia 07/24/2020-WBC count is 15,000. Patient is on dexamethasone. Labs were requested for today. To continue dexamethasone 6 mg IV daily, patient received convalescent plasma, ivermectin. Received 5 days of remdesivir. To continue with zinc, vitamin C, vitamin D and IV Rocephin and Zithromax along with dexamethasone. (3) Hypertension Qualifiers: Hypertension type: essential hypertension Qualified Code(s): I10 - Ess ential (primary) hypertension Is this a current diagnosis for this admission?: No Plan: - resumed amlodipine and Lisinopril/HCTZ 07/23/2020-blood pressure today is 120/67. Stable. To continue amlodipine, lisinopril, hydrochlorothiazide. (4) Obesity (BMI 30-39.9) Is this a current diagnosis for this admission?: No Plan: - BMI 38.6 - poor prognostic factor in terms of COVID - advised diet and lifestyle modification (5) Type 2 diabetes mellitus Qualifiers: Diabetes mellitus lobsterman insulin use: without lobsterman use Diabetes mellitus complication status: without complication Qualified Code(s): E11.9 - Type 2 diabetes mellitus without complications Is this a current diagnosis for this admission?: No Plan: - hold metformin - will start SSI, accucheck - hypoglycemia protocol 07/18/2020-latest blood sugar is he. Started on diabetic diet today. To continue insulin sliding scale at this time. Hypoglycemia protocol in place. - Time Anticipated Discharge Disposition: Home, Self Care Anticipated Discharge Timeframe: within 72 hours
[2020-07-24 13:24] LABS: HEMATOCRIT 46.6 % (37.9-51.0); HEMOGLOBIN 15.8 g/dL (13.5-17.0); MEAN CORPUSCULAR HEMOGLOBIN 26.4 pg (27.0-33.4); MEAN CORPUSCULAR HGB CONC 33.9 g/dL (32.0-36.0); MEAN CORPUSCULAR VOLUME 78 fl (80-97); PLATELET COUNT 813 10^3/uL (150-450); RED BLOOD COUNT 5.98 10^6/uL (4.35-5.55); RED CELL DISTRIBUTION WIDTH 15.1 % (11.5-14.0); WHITE BLOOD COUNT 18.4 10^3/uL (4.0-10.5)
[2020-07-24 13:41] LABS: ALBUMIN 2.7 g/dL (3.5-5.0); ALKALINE PHOSPHATASE 115 U/L (38-126); ANION GAP 7 (5-19); ASPARTATE AMINO TRANSFERASE 64 U/L (17-59); BILIRUBIN,DIRECT 0.2 mg/dL (0.0-0.4); BILIRUBIN,TOTAL 0.5 mg/dL (0.2-1.3); BLOOD UREA NITROGEN 24 mg/dL (7-20); CALCIUM 8.4 mg/dL (8.4-10.2); CARBON DIOXIDE 34 mmol/L (22-30); CHLORIDE 95 mmol/L (98-107); GLUCOSE 136 mg/dL (75-110); POTASSIUM 3.7 mmol/L (3.6-5.0); TOTAL PROTEIN 6.1 g/dL (6.3-8.2)
[2020-07-24 14:03] LABS: ABSOLUTE LYMPHOCYTES# (MANUAL) 1.1 10^3/uL (0.5-4.7); BASOPHILS % (MANUAL) 0 % (0-2); EOSINOPHILS % (MANUAL) 1 % (0-6); LYMPHOCYTES % (MANUAL) 3 % (13-45); MONOCYTES % (MANUAL) 0 % (3-13); SEGMENTED NEUTROPHILS % (MAN) 93 % (42-78); TOTAL CELLS COUNTED 100
[2020-07-24 14:04] LABS: ANISOCYTOSIS SLIGHT; PLATELET COMMENT INCREASED; POLYCHROMASIA SLIGHT
[2020-07-24 14:05] LABS: HYPOCHROMASIA SLIGHT
[2020-07-24] MEDS: AZITHROMYCIN 500 MG in DEXTROSE 5%-WATER 250 ML IV SCH (19:00)
[2020-07-24] MEDS: ATORVASTATIN CALCIUM 10 MG TABLET PO SCH (21:34)
[2020-07-24] MEDS: MELATONIN 5 MG TABLET PO SCH (21:34)
[2020-07-25] MEDS: HYDROCHLOROTHIAZIDE 12.5 MG TABLET PO SCH ×2 (05:39→19:33)
[2020-07-25] MEDS: LISINOPRIL 10 MG TABLET PO SCH ×2 (05:40→19:33)
[2020-07-25] MEDS: PANTOPRAZOLE SODIUM 20 MG TABLET.DR PO SCH (05:44)
[2020-07-25 06:30] LABS: ALBUMIN 2.6 g/dL (3.5-5.0); ALKALINE PHOSPHATASE 110 U/L (38-126); ANION GAP 8 (5-19); ASPARTATE AMINO TRANSFERASE 61 U/L (17-59); BILIRUBIN,DIRECT 0.2 mg/dL (0.0-0.4); BILIRUBIN,TOTAL 0.6 mg/dL (0.2-1.3); BLOOD UREA NITROGEN 26 mg/dL (7-20); CALCIUM 8.8 mg/dL (8.4-10.2); CARBON DIOXIDE 32 mmol/L (22-30); CHLORIDE 97 mmol/L (98-107); GLUCOSE 104 mg/dL (75-110); POTASSIUM 4.6 mmol/L (3.6-5.0); TOTAL PROTEIN 5.9 g/dL (6.3-8.2)
--- NOTE | 2020-07-25 08:16 | RADIOLOGY REPORT (SQ) ---
EXAM DESCRIPTION: CHEST SINGLE VIEW IMAGES COMPLETED DATE/TIME: 07/25/2020 7:41 am REASON FOR STUDY: covid COMPARISON: 07/21/2020 EXAM PARAMETERS: NUMBER OF VIEWS: One view. TECHNIQUE: Single frontal radiographic view of the chest acquired. RADIATION DOSE: NA LIMITATIONS: None. FINDINGS: LUNGS AND PLEURA: Increasing bilateral airspace disease. MEDIASTINUM AND HILAR STRUCTURES: No masses. Contour normal. HEART AND VASCULAR STRUCTURES: Stable. BONES: No acute findings. HARDWARE: None in the chest. OTHER: No other significant finding. IMPRESSION: Increasing diffuse bilateral airspace disease. TECHNICAL DOCUMENTATION: JOB ID: [id number] [employer]- All Rights Reserved Reading location - IP/workstation name: [email or web address]
[2020-07-25] MEDS: INSULIN LISPRO 100 UNIT/ML 3 ML VIAL SUBCUT SCH ×4 (08:59→22:00)
--- NOTE | 2020-07-25 09:33 | PDOC PROGRESS REPORT ---
Subjective Date:: 07/25/20 Subjective:: 49 year old male, PMH of DM, HTN, HLD, DORA, who came in the ED via EMS due to sh ortness of breath. His symptoms started about 10 days prior to admission when he developed cough, and shortness of breath. He consulted [facility], chest x- ray done was negative he was tested for Covid then and it was positive. He came back to the ED about 5 days after the previous visit due to worsening shortness of breath. Repeat chest x-ray showed development of bilateral groundglass densities suspicious for an atypical viral pneumonia. Patient was not requiring any oxygen support hence he was discharged on antibiotics and oral dexamethasone. He came today due to worsening cough and shortness of breath. Repeat chest x-ray showed progression of pneumonia. Per EMS he was saturating 8 8% on room air. In the ED blood pressure 138/88, heart rate 91, respiratory rate 23, O2 sat 93% on high flow nasal cannula 45 L, 50% FiO2. WBC count 10.7 hemoglobin 14.7, platelet count 490. CMP showed sodium 138, potassium 3.3. He was started on high flow nasal cannula and was given Zosyn and azithromycin. Hospitalist service was called for further evaluation and management. D2 hospital stay 07/17/20. The patient was seen and examined at bedside. He is still on 50L, 100% FIO2 HFNC saturating 95%. He reports that he is less SOB but still has dyspnea on exertion. He feels overall anxious with his dyspnea, I have started him on low dose morphine. I was able to update his mom over the speaker phone when I was in the room with him. D3 hospital stay 07/18/20. The patient was seen and examined at bedside. He reports that he is less SOB. He is saturating 95% on 100% FIO2 of HFNC. Morphine has helped with his dyspnea related anxiety. I have asked guido to titrate his fio2 down if he can tolerate it. He was started on remdesivir today. D4 hospital stay 07/19/20. The patient was seen and examined at bedside. Overall feels better, no new complains. He is dwon to 95% FIO2 on HFNC. Patient has apparently been asking for morphine every 4 hrs to help with his anxiety. Morphine was ordered PRN for dyspnea but i am worried he might be developing a craving for it. I have decreased his PRN morphine to q6 PRN and have started him on buspar to help with anxiety. D5 hospital stay 07/20/20 The patient was seen and examined at bedside. He was very anxious and tachypneic saturating low 80s. Saturation improved after receiving morphine. He is receiving remdesivir and dexa for COVID. He has also received 2 doses of ivermectin. D6 hospital stay 07/21/20 The patient was seen and examined at bedside. Per nurse his O2 needs has increased overnight he is now back to 100% FIO2 50L flow rate saturating 89-90%. Repeat CXR showed slight interval progression in the appearance of multifocal mixed interstitial and airspace opacities. I have told him to try and prone himself to improve his oxygenation but with his size and obesity I doubt if. he will be able to tolerate this. D7 hospital stay 07/22/20. The patient was seen and examined at bedside. He was on the chair and denies any worsening SOB. He is still on 100% FIO2 50L O2 flow. Appetite is good, no diarrhea, no chest pain. Afebrile. Medications reviewed and I noted that remdesivir was not given yesterday and today, I have not discontinued the order. I talked to pharmacy and they would resume the remdesivir to complete his treatment. D8 Hospital stay 07/23/20. The patient was seen and examined at bedside. He reports that his breathing is better however he seems to be desaturating at 85% on HFNC 100% FIO2 on top of a non rebreather. He was switched over to CPAP. Today is his last day of Remdesivir and he has completed ivermectin and convalescent plasma as well. I was able to update his mother Ayesha over the phone and all questions were answered. 07/24/2020-patient is still on CPAP. Unable to come off the CPAP. Pulse ox is 96% on 100% oxygen. Patient is receiving dexamethasone, azithromycin, Rocephin, Lovenox 40 mg subcu daily. No acute events in the last 24 hours. Afebrile. 07/25/2020-patient is still on BiPAP. Receiving 100% oxygen saturation is around 95%. Receiving IV Rocephin, dexamethasone, IV Zithromax, Lovenox 40 mg subcu daily. Chest x-ray done today indicate of worsening bilateral i nfiltrates. Patient received plasma, ivermectin, remdesivir. To change dexamethasone to IV Solu-Medrol to see if it is going to help. Reason For Visit: ACUTE HYPOXIC RESP FAILURE 2/2 COVID 19 PNEUMONIA Physical Exam Vital Signs: Temp Pulse Resp BP Pulse Ox 97.5 F 94 34 H 104/57 L 95 07/25/20 03:34 07/25/20 03:34 07/25/20 04:38 07/25/20 03:34 07/25/20 04:38 Intake & Output 07/24/20 07/25/20 07/26/20 06:59 06:59 06:59 Intake Total 1160 1314 Output Total 1725 2075 Balance -565 -761 Weight 128.3 kg 129.9 kg General appearance: PRESENT: no acute distress, cooperative, well-developed Head exam: PRESENT: atraumatic Eye exam: PRESENT: PERRLA Mouth exam: PRESENT: moist, tongue midline Teeth exam: PRESENT: poor dentation Neck exam: ABSENT: carotid bruit, JVD, lymphadenopathy, thyromegaly Respiratory exam: PRESENT: decreased breath sounds, other - Patient is still 100% oxygen on BiPAP. Cardiovascular exam: PRESENT: RRR. ABSENT: diastolic murmur, rubs, systolic murmur GI/Abdominal exam: PRESENT: normal bowel sounds, soft. ABSENT: distended, guarding, mass, organolmegaly, rebound, tenderness Rectal exam: PRESENT: deferred Extremities exam: PRESENT: full ROM. ABSENT: calf tenderness, clubbing, pedal edema Neurological exam: PRESENT: alert, awake, oriented to person, oriented to place, oriented to time, oriented to situation, CN II-XII grossly intact. ABSENT: motor sensory deficit Psychiatric exam: PRESENT: appropriate affect, normal mood. ABSENT: homicidal ideation, suicidal ideation Results Laboratory Results: 07/24/20 12:50 07/25/20 05:33 07/24/20 07/24/20 07/25/20 12:50 12:50 05:33 WBC 18.4 H RBC 5.98 H Hgb 15.8 Hct 46.6 MCV 78 L MCH 26.4 L MCHC 33.9 RDW 15.1 H Plt Count 813 H Seg Neutrophils % Not Reportable Sodium 135.7 L 136.6 L Potassium 3.7 4.6 Chloride 95 L 97 L Carbon Dioxide 34 H 32 H Anion Gap 7 8 BUN 24 H 26 H Creatinine 0.70 0.61 Est GFR ( Amer) > 60 > 60 Glucose 136 H 104 Calcium 8.4 8.8 Magnesium 2.4 H 2.5 H Ferritin 297.00 Total Bilirubin 0.5 0.6 AST 64 H 61 H Alkaline Phosphatase 115 110 Total Protein 6.1 L 5.9 L Albumin 2.7 L 2.6 L Impressions: Chest X-Ray 07/25/20 06:00 IMPRESSION: Increasing diffuse bilateral airspace disease. Assessment and Plan - Diagnosis (1) Acute respiratory failure with hypoxia Is this a current diagnosis for this admission?: Yes Plan: -Per EMS patient was saturating 88% on room air -IMProved to 95% on high flow nasal cannula 45 L 100% FiO2 -Chest x-ray showed moderate to severe mixed airspace and interstitial opacities extensively of both lung ortiz with interval worsening from previous chest x-ra y. - repeat CXR 07/21/20 slight interval progression in the appearance of multifocal mixed interstitial and airspace opacities. -Covid positive -Continue O2 support via CPAP 07/24/2020-patient is still on CPAP and 100% oxygen. Pulse ox is around 96%. Recent chest x-ray positive for multifocal airspace opacifications and COVID-19 positive. To continue azithromycin, Rocephin, dexamethasone, Lovenox 40 mg subcu daily. 07/25/[id number]-soyb-old male admitted with COVID-19 pneumonia causing acute hypoxic restaurant failure.still on bipap at 100% plan is to do the CT chest without contrast tomorrow. Chest x-ray done today indicated above worsening bilateral infiltrates. Patient is on IV Rocephin, Zithromax. To discontinue dexamethasone and to start him on Medrol 40 mg every 8 hours. (2) Pneumonia due to COVID-19 virus Is this a current diagnosis for this admission?: Yes Plan: - Tested positive for Covid 10 days prior -X-ray as above - Ferritin nomral, CRP elevated and d-dimer normal - on dexamethasone 6 mg Iv daily - received convalescent plasma - completed Ivermectin 150 mcg/kg x 2 dose 48 hrs apart - on remdesivir D5 - CPAP support as needed - started Vitamin C, D, Zinc, melatonin - abx resumed due to rising WBC and worsening pneumonia 07/24/2020-WBC count is 15,000. Patient is on dexamethasone. Labs were requested for today. To continue dexamethasone 6 mg IV daily, patient received convalescent plasma, ivermectin. Received 5 days of remdesivir. To continue with zinc, vitamin C, vitamin D and IV Rocephin and Zithromax along with dexamethasone. 3020-patient received ivermectin, plasma, remdesivir. Presently on vitamin supplementations, IV Rocephin, Zithromax, dexamethasone. Plan is to start on Solu-Medrol 40 mg every [address] chest without contrast was requested for tomorrow. Chest x-ray this morning indicated of worsening bilateral infiltrates. (3) Hypertension Qualifiers: Hypertension type: essential hypertension Qualified Code(s): I10 - Essential (primary) hypertension Is this a current diagnosis for this admission?: No Plan: - resumed amlodipine and Lisinopril/HCTZ 07/23/2020-blood pressure today is 120/67. Stable. To continue amlodipine, lisinopril, hydrochlorothiazide. 07/25/2020-blood pressure today is 104/57. Stable. (4) Obesity (BMI 30-39.9) Is this a current diagnosis for this admission?: No (5) Type 2 diabetes mellitus Qualifiers: Diabetes mellitus ad terminal makeup operator insulin use: without ad terminal makeup operator use Diabetes mellitus complication status: without complication Qualified Code(s): E11.9 - Type 2 diabetes mellitus without complications Is this a current diagnosis for this admission?: No Plan: - hold metformin - will start SSI, accucheck - hypoglycemia protocol 07/24/2020-latest blood sugar is he. Started on diabetic diet today. To continue insulin sliding scale at this time. Hypoglycemia protocol in place. 07/25/2020-blood sugar this morning is 104. To continue with insulin sliding scale before meals and at bedtime. - Time Anticipated Discharge Disposition: Home, Self Care Anticipated Discharge Timeframe: within 72 hours
[2020-07-25] MEDS: POTASSIUM CHLORIDE 10 MEQ TABLET.ER PO SCH (09:40)
[2020-07-25] MEDS: CEFTRIAXONE 2 GM/D5W RTU 2 GM/50 ML RTUPB IV SCH (09:48)
[2020-07-25] MEDS: ASPIRIN 81 MG TABLET, ENT COATED PO SCH (09:48)
[2020-07-25] MEDS: ENOXAPARIN SODIUM INJ 40 MG/0.4 ML DISP.SYRIN SUBCUT SCH (09:48)
[2020-07-25] MEDS: CHOLECALCIFEROL (D3) 1,000 UNIT (25 MCG) TABLET PO SCH (09:48)
[2020-07-25] MEDS: BUSPIRONE HCL 10 MG TABLET PO SCH ×2 (09:48→22:00)
[2020-07-25] MEDS: ASCORBIC ACID 500 MG TABLET PO SCH ×2 (09:48→19:34)
[2020-07-25] MEDS: ZINC SULFATE 220 MG CAPSULE PO SCH (09:48)
[2020-07-25] MEDS: AMLODIPINE BESYLATE 10 MG TABLET PO SCH (09:50)
[2020-07-25] MEDS: METHYLPREDNISOLONE INJ 40 MG/1 ML SDV IV SCH ×2 (13:37→22:00)
[2020-07-25] MEDS: AZITHROMYCIN 500 MG in DEXTROSE 5%-WATER 250 ML IV SCH (19:34)
[2020-07-25] MEDS: ATORVASTATIN CALCIUM 10 MG TABLET PO SCH (22:00)
[2020-07-25] MEDS: MELATONIN 5 MG TABLET PO SCH (22:00)
[2020-07-26] MEDS: HYDROCHLOROTHIAZIDE 12.5 MG TABLET PO SCH ×2 (06:19→17:12)
[2020-07-26] MEDS: PANTOPRAZOLE SODIUM 20 MG TABLET.DR PO SCH (06:19)
[2020-07-26] MEDS: LISINOPRIL 10 MG TABLET PO SCH ×2 (06:19→17:11)
[2020-07-26] MEDS: METHYLPREDNISOLONE INJ 40 MG/1 ML SDV IV SCH ×3 (06:20→22:47)
[2020-07-26] MEDS: IPRATROPIUM/ALBUTEROL 0.5-2.5 MG/3 ML AMPUL NEB PRN (06:29)
[2020-07-26 06:50] LABS: ALBUMIN 2.7 g/dL (3.5-5.0); ALKALINE PHOSPHATASE 112 U/L (38-126); ANION GAP 6 (5-19); ASPARTATE AMINO TRANSFERASE 65 U/L (17-59); BILIRUBIN,DIRECT 0.4 mg/dL (0.0-0.4); BILIRUBIN,TOTAL 0.7 mg/dL (0.2-1.3); BLOOD UREA NITROGEN 28 mg/dL (7-20); CALCIUM 8.5 mg/dL (8.4-10.2); CARBON DIOXIDE 33 mmol/L (22-30); CHLORIDE 98 mmol/L (98-107); GLUCOSE 129 mg/dL (75-110); POTASSIUM 4.5 mmol/L (3.6-5.0); TOTAL PROTEIN 6.1 g/dL (6.3-8.2)
[2020-07-26 06:54] LABS: HEMATOCRIT 46.1 % (37.9-51.0); HEMOGLOBIN 15.6 g/dL (13.5-17.0); MEAN CORPUSCULAR HEMOGLOBIN 26.8 pg (27.0-33.4); MEAN CORPUSCULAR HGB CONC 33.9 g/dL (32.0-36.0); MEAN CORPUSCULAR VOLUME 79 fl (80-97); PLATELET COUNT 831 10^3/uL (150-450); RED BLOOD COUNT 5.83 10^6/uL (4.35-5.55); RED CELL DISTRIBUTION WIDTH 15.2 % (11.5-14.0); WHITE BLOOD COUNT 17.7 10^3/uL (4.0-10.5)
[2020-07-26 07:20] LABS: ABSOLUTE LYMPHOCYTES# (MANUAL) 1.4 10^3/uL (0.5-4.7); ABSOLUTE MONOCYTES # (MANUAL) 1.2 10^3/uL (0.1-1.4); BASOPHILS % (MANUAL) 0 % (0-2); EOSINOPHILS % (MANUAL) 0 % (0-6); LYMPHOCYTES % (MANUAL) 8 % (13-45); MONOCYTES % (MANUAL) 7 % (3-13); SEGMENTED NEUTROPHILS % (MAN) 85 % (42-78); TOTAL CELLS COUNTED 100
[2020-07-26 07:21] LABS: ANISOCYTOSIS SLIGHT; HYPOCHROMASIA SLIGHT; TOXIC GRANULATION SLIGHT; TOXIC VACUOLATION PRESENT
[2020-07-26 07:22] LABS: OVALOCYTES SLIGHT; PLATELET CLUMPS PRESENT; PLATELET COMMENT INCREASED
[2020-07-26 08:47] LABS: ARTERIAL BLOOD BASE EXCESS 6.1 mmol/L; ARTERIAL BLOOD H2CO3 1.19 mmol/L (1.05-1.35); ARTERIAL BLOOD HCO3 29.8 mmol/L (20-24); ARTERIAL BLOOD O2 SATURATION 87.6 % (94-98); ARTERIAL BLOOD PCO2 39.7 mmHg (35-45); ARTERIAL BLOOD PH 7.49 (7.35-7.45); ARTERIAL BLOOD PO2 48.9 mmHg (80-100)
[2020-07-26 08:48] LABS: ARTERIAL BLOOD FIO2 80%
[2020-07-26] MEDS: INSULIN LISPRO 100 UNIT/ML 3 ML VIAL SUBCUT SCH ×4 (09:29→22:46)
[2020-07-26] MEDS: POTASSIUM CHLORIDE 10 MEQ TABLET.ER PO SCH (09:31)
[2020-07-26] MEDS: ENOXAPARIN SODIUM INJ 40 MG/0.4 ML DISP.SYRIN SUBCUT SCH (09:31)
[2020-07-26] MEDS: CHOLECALCIFEROL (D3) 1,000 UNIT (25 MCG) TABLET PO SCH (09:31)
[2020-07-26] MEDS: CEFTRIAXONE 2 GM/D5W RTU 2 GM/50 ML RTUPB IV SCH (09:31)
[2020-07-26] MEDS: ZINC SULFATE 220 MG CAPSULE PO SCH (09:32)
[2020-07-26] MEDS: ASCORBIC ACID 500 MG TABLET PO SCH ×2 (09:32→17:06)
[2020-07-26] MEDS: AMLODIPINE BESYLATE 10 MG TABLET PO SCH (09:32)
[2020-07-26] MEDS: BUSPIRONE HCL 10 MG TABLET PO SCH ×2 (09:32→22:47)
[2020-07-26] MEDS: MORPHINE SULFATE 10 MG/ML INJ IV PRN (09:32)
[2020-07-26] MEDS: ASPIRIN 81 MG TABLET, ENT COATED PO SCH (09:32)
[2020-07-26] MEDS ORDERED: MORPHINE SULFATE 10 MG/ML INJ IV PRN (09:49)
[2020-07-26] MEDS ORDERED: LORAZEPAM INJ 2 MG/1 ML VIAL IV PRN (09:57)
--- NOTE | 2020-07-26 10:00 | PDOC PROGRESS REPORT ---
Subjective Date:: 07/26/20 Subjective:: 49 year old male, PMH of DM, HTN, HLD, DORA, who came in the ED via EMS due to sh ortness of breath. His symptoms started about 10 days prior to admission when he developed cough, and shortness of breath. He consulted [facility], chest x- ray done was negative he was tested for Covid then and it was positive. He came back to the ED about 5 days after the previous visit due to worsening shortness of breath. Repeat chest x-ray showed development of bilateral groundglass densities suspicious for an atypical viral pneumonia. Patient was not requiring any oxygen support hence he was discharged on antibiotics and oral dexamethasone. He came today due to worsening cough and shortness of breath. Repeat chest x-ray showed progression of pneumonia. Per EMS he was saturating 8 8% on room air. In the ED blood pressure 138/88, heart rate 91, respiratory rate 23, O2 sat 93% on high flow nasal cannula 45 L, 50% FiO2. WBC count 10.7 hemoglobin 14.7, platelet count 490. CMP showed sodium 138, potassium 3.3. He was started on high flow nasal cannula and was given Zosyn and azithromycin. Hospitalist service was called for further evaluation and management. D2 hospital stay 07/17/20. The patient was seen and examined at bedside. He is still on 50L, 100% FIO2 HFNC saturating 95%. He reports that he is less SOB but still has dyspnea on exertion. He feels overall anxious with his dyspnea, I have started him on low dose morphine. I was able to update his mom over the speaker phone when I was in the room with him. D3 hospital stay 07/18/20. The patient was seen and examined at bedside. He reports that he is less SOB. He is saturating 95% on 100% FIO2 of HFNC. Morphine has helped with his dyspnea related anxiety. I have asked guido to titrate his fio2 down if he can tolerate it. He was started on remdesivir today. D4 hospital stay 07/19/20. The patient was seen and examined at bedside. Overall feels better, no new complains. He is dwon to 95% FIO2 on HFNC. Patient has apparently been asking for morphine every 4 hrs to help with his anxiety. Morphine was ordered PRN for dyspnea but i am worried he might be developing a craving for it. I have decreased his PRN morphine to q6 PRN and have started him on buspar to help with anxiety. D5 hospital stay 07/20/20 The patient was seen and examined at bedside. He was very anxious and tachypneic saturating low 80s. Saturation improved after receiving morphine. He is receiving remdesivir and dexa for COVID. He has also received 2 doses of ivermectin. D6 hospital stay 07/21/20 The patient was seen and examined at bedside. Per nurse his O2 needs has increased overnight he is now back to 100% FIO2 50L flow rate saturating 89-90%. Repeat CXR showed slight interval progression in the appearance of multifocal mixed interstitial and airspace opacities. I have told him to try and prone himself to improve his oxygenation but with his size and obesity I doubt if. he will be able to tolerate this. D7 hospital stay 07/22/20. The patient was seen and examined at bedside. He was on the chair and denies any worsening SOB. He is still on 100% FIO2 50L O2 flow. Appetite is good, no diarrhea, no chest pain. Afebrile. Medications reviewed and I noted that remdesivir was not given yesterday and today, I have not discontinued the order. I talked to pharmacy and they would resume the remdesivir to complete his treatment. D8 Hospital stay 07/23/20. The patient was seen and examined at bedside. He reports that his breathing is better however he seems to be desaturating at 85% on HFNC 100% FIO2 on top of a non rebreather. He was switched over to CPAP. Today is his last day of Remdesivir and he has completed ivermectin and convalescent plasma as well. I was able to update his mother Ayesha over the phone and all questions were answered. 07/24/2020-patient is still on CPAP. Unable to come off the CPAP. Pulse ox is 96% on 100% oxygen. Patient is receiving dexamethasone, azithromycin, Rocephin, Lovenox 40 mg subcu daily. No acute events in the last 24 hours. Afebrile. 07/25/2020-patient is still on BiPAP. Receiving 100% oxygen saturation is around 95%. Receiving IV Rocephin, dexamethasone, IV Zithromax, Lovenox 40 mg subcu daily. Chest x-ray done today indicate of worsening bilateral i nfiltrates. Patient received plasma, ivermectin, remdesivir. To change dexamethasone to IV Solu-Medrol to see if it is going to help. 07/26/2020-patient is still on CPAP at 80%. ABG was done this morning pH is 7.49/PCO2 39/PO2 49/bicarb 31%/oxygen saturation is 87.6%. Plan to keep him in prone position to improve the oxygenation. Chest x-ray done yesterday indicated above increased infiltrates. Patient is receiving IV Rocephin, Zithromax, dexamethasone, IV Solu-Medrol. He received plasma, ivermectin, remdesivir. Requesting something for anxiety. Reason For Visit: ACUTE HYPOXIC RESP FAILURE / COVID 19 PNEUMONIA Physical Exam Vital Signs: Temp Pulse Resp BP Pulse Ox 98.0 F 98 18 129/76 H 88 L 07/26/20 03:53 07/26/20 08:29 07/26/20 08:29 07/26/20 08:29 07/26/20 08:29 Intake & Output 07/25/20 07/26/20 07/27/20 06:59 06:59 06:59 Intake Total 1314 737 Output Total 0785 1775 Balance -761 -1038 Weight 129.9 kg 124.2 kg General appearance: PRESENT: well-developed, other - In moderate distress. CPAP. Head exam: PRESENT: atraumatic Eye exam: PRESENT: PERRLA Mouth exam: PRESENT: moist, tongue midline Teeth exam: PRESENT: poor dentation Neck exam: ABSENT: carotid bruit, JVD, lymphadenopathy, thyromegaly Respiratory exam: PRESENT: decreased breath sounds, other - On CPAP at the time of my examination. Cardiovascular exam: PRESENT: RRR. ABSENT: diastolic murmur, rubs, systolic murmur GI/Abdominal exam: PRESENT: normal bowel sounds, soft. ABSENT: distended, guarding, mass, organolmegaly, rebound, tenderness Rectal exam: PRESENT: deferred Extremities exam: PRESENT: full ROM. ABSENT: calf tenderness, clubbing, pedal edema Neurological exam: PRESENT: alert, awake, oriented to person, oriented to place, oriented to time, oriented to situation, CN II-XII grossly intact. ABSENT: motor sensory deficit Psychiatric exam: PRESENT: appropriate affect, normal mood. ABSENT: homicidal ideation, suicidal ideation Skin exam: PRESENT: dry, intact, warm. ABSENT: cyanosis, rash Results Laboratory Results: 07/26/20 05:37 07/26/20 05:37 07/26/20 07/26/20 07/26/20 05:37 05:37 08:10 WBC 17.7 H RBC 5.83 H Hgb 15.6 Hct 46.1 MCV 79 L MCH 26.8 L MCHC 33.9 RDW 15.2 H Plt Count 831 H Seg Neutrophils % Not Reportable Carbonic Acid 1.19 HCO3/H2CO3 Ratio 25:1 ABG pH 7.49 H ABG pCO2 39.7 ABG pO2 48.9 L ABG HCO3 29.8 H ABG O2 Saturation 87.6 L ABG Base Excess 6.1 FiO2 80% Sodium 136.8 L Potassium 4.5 Chloride 98 Carbon Dioxide 33 H Anion Gap 6 BUN 28 H Creatinine 0.56 Est GFR ( Amer) > 60 Glucose 129 H Calcium 8.5 Magnesium 2.5 H Total Bilirubin 0.7 AST 65 H Alkaline Phosphatase 112 Total Protein 6.1 L Albumin 2.7 L Impressions: Chest X-Ray 07/25/20 06:00 IMPRESSION: Increasing diffuse bilateral airspace disease. Assessment and Plan - Diagnosis (1) Acute respiratory failure with hypoxia Is this a current diagnosis for this admission?: Yes Plan: -Per EMS patient was saturating 88% on room air -IMProved to 95% on high flow nasal cannula 45 L 100% FiO2 -Chest x-ray showed moderate to severe mixed airspace and interstitial opacities extensively of both lung ortiz with interval worsening from previous chest x- ray. - repeat CXR 07/21/20 slight interval progression in the appearance of multifoc al mixed interstitial and airspace opacities. -Covid positive -Continue O2 support via CPAP 07/24/2020-patient is still on CPAP and 100% oxygen. Pulse ox is around 96%. Recent chest x-ray positive for multifocal airspace opacifications and COVID-19 positive. To continue azithromycin, Rocephin, dexamethasone, Lovenox 40 mg subcu daily. 07/25/[id number]-etgo-old male admitted with COVID-19 pneumonia causing acute hypoxic respiratory failure.still on bipap at 100% plan is to do the CT chest without contrast tomorrow. Chest x-ray done today indicated above worsening bilateral infiltrates. Patient is on IV Rocephin, Zithromax. To discontinue dexamethasone and to start him on Medrol 40 mg every 8 hours. 07/26/2088-89-yllk-old male admitted with COVID-19 pneumonia and acute hypoxic respiratory failure. Patient is still on CPAP and on 80% oxygen. ABG is pH is 7.49/PCO2 30/PO2 50/bicarb is 31 with oxygen saturation of 87%. To continue IV antibiotic therapy, IV steroids and to provide oxygen supplementation. To change Lovenox to treatment dose from today. (2) Pneumonia due to COVID-19 virus Is this a current diagnosis for this admission?: Yes Plan: - Tested positive for Covid 10 days prior -X-ray as above - Ferritin nomral, CRP elevated and d-dimer normal - on dexamethasone 6 mg Iv daily - received convalescent plasma - completed Ivermectin 150 mcg/kg x 2 dose 48 hrs apart - on remdesivir D5 - CPAP support as needed - started Vitamin C, D, Zinc, melatonin - abx resumed due to rising WBC and worsening pneumonia 07/24/2020-WBC count is 15,000. Patient is on dexamethasone. Labs were requested for today. To continue dexamethasone 6 mg IV daily, patient received convalescent plasma, ivermectin. Received 5 days of remdesivir. To continue with zinc, vitamin C, vitamin D and IV Rocephin and Zithromax along with dexamethasone. 07/25/20-patient received ivermectin, plasma, remdesivir. Presently on vitamin supplementations, IV Rocephin, Zithromax, dexamethasone. Plan is to start on Solu-Medrol 40 mg every [address] chest without contrast was requested for tomorrow. Chest x-ray this morning indicated of worsening bilateral infiltrates. 07/26/2020-chest x-ray indicative of worsening infiltrates. Presently on IV Rocephin, Zithromax. Receiving IV Solu-Medrol. Tube placement treatment dose of Lovenox. Blood cultures are negative. Plan is to continue the present management at this time. (3) Hypertension Qualifiers: Hypertension type: essential hypertension Qualified Code(s): I10 - Essential (primary) hypertension Is this a current diagnosis for this admission?: No Plan: - resumed amlodipine and Lisinopril/HCTZ 07/23/2020-blood pressure today is 120/67. Stable. To continue amlodipine, lisinopril, hydrochlorothiazide. 07/25/2020-blood pressure today is 104/57. Stable. (4) Obesity (BMI 30-39.9) Is this a current diagnosis for this admission?: No Plan: - BMI 38.6 - poor prognostic factor in terms of COVID - advised diet and lifestyle modification (5) Type 2 diabetes mellitus Qualifiers: Diabetes mellitus intermediate insulin use: without intermediate use Diabetes mellitus complication status: without complication Qualified Code(s): E11.9 - Type 2 diabetes mellitus without complications Is this a current diagnosis for this admission?: No Plan: - hold metformin - will start SSI, accucheck - hypoglycemia protocol 07/24/2020-latest blood sugar is he. Started on diabetic diet today. To continue insulin sliding scale at this time. Hypoglycemia protocol in place. 07/25/2020-blood sugar this morning is 104. To continue with insulin sliding scale before meals and at bedtime. - Time Anticipated Discharge Disposition: Home, Self Care Anticipated Discharge Timeframe: within 72 hours
--- NOTE | 2020-07-26 15:05 | RADIOLOGY REPORT (SQ) ---
EXAM DESCRIPTION: CT CHEST WITHOUT IMAGES COMPLETED DATE/TIME: 07/26/2020 1:43 pm REASON FOR STUDY: covid COMPARISON: None. TECHNIQUE: CT scan performed of the chest without intravenous contrast. Images reviewed with lung, soft tissue and bone windows. Reconstructed coronal and sagittal MPR images reviewed. All images st ored on PACS. All CT scanners at this facility use dose modulation, iterative reconstruction, and/or weight based d osing when appropriate to reduce radiation dose to as low as reasonably achievable (ALARA). [facility]: Dose Right [facility]: CareDose [facility]: Dose Right [facility]: Teradose 4D [facility]: Smart [employer] RADIATION DOSE: CT Rad equipment meets quality standard of care and radiation dose reduction techniq ues were employed. CTDIvol: 19.3 mGy. DLP: 867 mGy-cm. mGy. LIMITATIONS: No technical limitations. FINDINGS: LUNGS AND PLEURA: Fairly diffuse ground-glass infiltrates. No focal dense consolidation. No pleural effusion. HILAR AND MEDIASTINAL STRUCTURES: No identified masses or abnormal nodes. No obvious aneurysm. HEART AND VASCULAR STRUCTURES: No aneurysm. No pericardial effusion. UPPER ABDOMEN: There are scattered small low-density lesions in the liver that may represent cysts. THYROID AND OTHER SOFT TISSUES: No masses. No adenopathy. BONES: No significant finding. HARDWARE: None in the chest. OTHER: No other significant findings. IMPRESSION: Extensive ground-glass infiltrates. Consistent with COVID-19 pneumonia. Findings as de scribed. TECHNICAL DOCUMENTATION: JOB ID: [id number] Quality ID # [id number]: Final reports with documentation of one or more dose reduction techniques (e.g., Au tomated exposure control, adjustment of the mA and/or kV according to patient size, use of iterative reconstruction technique) 2010 [employer]- All Rights Reserved Reading location - IP/workstation name: [email or web address]
[2020-07-26] MEDS: AZITHROMYCIN 500 MG in DEXTROSE 5%-WATER 250 ML IV SCH (17:12)
[2020-07-26] MEDS: MELATONIN 5 MG TABLET PO SCH (22:46)
[2020-07-26] MEDS: ATORVASTATIN CALCIUM 10 MG TABLET PO SCH (22:47)
[2020-07-26] MEDS: ENOXAPARIN SODIUM INJ 150 MG/1 ML DISP.SYRIN SUBCUT SCH (22:47)
[2020-07-27 05:42] LABS: HEMATOCRIT 44.3 % (37.9-51.0); HEMOGLOBIN 14.7 g/dL (13.5-17.0); MEAN CORPUSCULAR HEMOGLOBIN 26.3 pg (27.0-33.4); MEAN CORPUSCULAR HGB CONC 33.3 g/dL (32.0-36.0); MEAN CORPUSCULAR VOLUME 79 fl (80-97); PLATELET COUNT 854 10^3/uL (150-450); RED BLOOD COUNT 5.59 10^6/uL (4.35-5.55); RED CELL DISTRIBUTION WIDTH 15.1 % (11.5-14.0); WHITE BLOOD COUNT 19.8 10^3/uL (4.0-10.5)
[2020-07-27] MEDS: METHYLPREDNISOLONE INJ 40 MG/1 ML SDV IV SCH ×3 (05:51→22:26)
[2020-07-27] MEDS: PANTOPRAZOLE SODIUM 20 MG TABLET.DR PO SCH (05:52)
[2020-07-27] MEDS: HYDROCHLOROTHIAZIDE 12.5 MG TABLET PO SCH ×2 (05:52→17:25)
[2020-07-27] MEDS: LISINOPRIL 10 MG TABLET PO SCH ×2 (05:53→17:24)
[2020-07-27 06:03] LABS: ALBUMIN 2.7 g/dL (3.5-5.0); ALKALINE PHOSPHATASE 113 U/L (38-126); ASPARTATE AMINO TRANSFERASE 58 U/L (17-59); BILIRUBIN,DIRECT 0.2 mg/dL (0.0-0.4); BILIRUBIN,TOTAL 0.4 mg/dL (0.2-1.3); BLOOD UREA NITROGEN 36 mg/dL (7-20); CALCIUM 8.8 mg/dL (8.4-10.2); CARBON DIOXIDE 35 mmol/L (22-30); CHLORIDE 96 mmol/L (98-107); GLUCOSE 144 mg/dL (75-110); POTASSIUM 4.4 mmol/L (3.6-5.0); TOTAL PROTEIN 6.1 g/dL (6.3-8.2)
[2020-07-27 06:05] LABS: ABSOLUTE MONOCYTES # (MANUAL) 1.2 10^3/uL (0.1-1.4); BASOPHILS % (MANUAL) 0 % (0-2); EOSINOPHILS % (MANUAL) 0 % (0-6); LYMPHOCYTES % (MANUAL) 5 % (13-45); MONOCYTES % (MANUAL) 6 % (3-13); SEGMENTED NEUTROPHILS % (MAN) 89 % (42-78); TOTAL CELLS COUNTED 100
[2020-07-27 06:06] LABS: ANISOCYTOSIS SLIGHT; PLATELET COMMENT INCREASED; POIKILOCYTOSIS SLIGHT; TARGET CELLS SLIGHT
[2020-07-27 06:27] LABS: ANION GAP 4 (5-19)
[2020-07-27 07:20] LABS: APPEARANCE,URINE SLIGHTLY-CLOUDY; BILIRUBIN,URINE NEGATIVE (NEGATIVE); COLOR,URINE YELLOW; GLUCOSE, URINE NEGATIVE (NEGATIVE); KETONES,URINE NEGATIVE (NEGATIVE); LEUKOCYTE ESTERASE,URINE NEGATIVE (NEGATIVE); NITRITE,URINE NEGATIVE (NEGATIVE); PROTEIN,URINE NEGATIVE (NEGATIVE); URINE SPECIFIC GRAVITY 1.028; UROBILINOGEN,URINE NEGATIVE mg/dL (<2.0)
[2020-07-27] MEDS: INSULIN LISPRO 100 UNIT/ML 3 ML VIAL SUBCUT SCH ×4 (09:36→22:21)
[2020-07-27] MEDS: ZINC SULFATE 220 MG CAPSULE PO SCH (09:46)
[2020-07-27] MEDS: POTASSIUM CHLORIDE 10 MEQ TABLET.ER PO SCH (09:46)
[2020-07-27] MEDS: CEFTRIAXONE 2 GM/D5W RTU 2 GM/50 ML RTUPB IV SCH (09:46)
[2020-07-27] MEDS: BUSPIRONE HCL 10 MG TABLET PO SCH ×2 (09:46→22:26)
[2020-07-27] MEDS: AMLODIPINE BESYLATE 10 MG TABLET PO SCH (09:46)
[2020-07-27] MEDS: ASCORBIC ACID 500 MG TABLET PO SCH ×2 (09:47→17:25)
[2020-07-27] MEDS: ASPIRIN 81 MG TABLET, ENT COATED PO SCH (09:47)
[2020-07-27] MEDS: ENOXAPARIN SODIUM INJ 150 MG/1 ML DISP.SYRIN SUBCUT SCH ×2 (09:47→22:26)
[2020-07-27] MEDS: CHOLECALCIFEROL (D3) 1,000 UNIT (25 MCG) TABLET PO SCH (09:47)
--- NOTE | 2020-07-27 10:53 | PDOC PROGRESS REPORT ---
Subjective Date:: 07/27/19 Subjective:: 49 year old male, PMH of DM, HTN, HLD, DORA, who came in the ED via EMS due to sh ortness of breath. His symptoms started about 10 days prior to admission when he developed cough, and shortness of breath. He consulted [facility], chest x- ray done was negative he was tested for Covid then and it was positive. He came back to the ED about 5 days after the previous visit due to worsening shortness of breath. Repeat chest x-ray showed development of bilateral groundglass densities suspicious for an atypical viral pneumonia. Patient was not requiring any oxygen support hence he was discharged on antibiotics and oral dexamethasone. He came today due to worsening cough and shortness of breath. Repeat chest x-ray showed progression of pneumonia. Per EMS he was saturating 8 8% on room air. In the ED blood pressure 138/88, heart rate 91, respiratory rate 23, O2 sat 93% on high flow nasal cannula 45 L, 50% FiO2. WBC count 10.7 hemoglobin 14.7, platelet count 490. CMP showed sodium 138, potassium 3.3. He was started on high flow nasal cannula and was given Zosyn and azithromycin. Hospitalist service was called for further evaluation and management. D2 hospital stay 07/17/20. The patient was seen and examined at bedside. He is still on 50L, 100% FIO2 HFNC saturating 95%. He reports that he is less SOB but still has dyspnea on exertion. He feels overall anxious with his dyspnea, I have started him on low dose morphine. I was able to update his mom over the speaker phone when I was in the room with him. D3 hospital stay 07/18/20. The patient was seen and examined at bedside. He reports that he is less SOB. He is saturating 95% on 100% FIO2 of HFNC. Morphine has helped with his dyspnea related anxiety. I have asked guido to titrate his fio2 down if he can tolerate it. He was started on remdesivir today. D4 hospital stay 07/19/20. The patient was seen and examined at bedside. Overall feels better, no new complains. He is dwon to 95% FIO2 on HFNC. Patient has apparently been asking for morphine every 4 hrs to help with his anxiety. Morphine was ordered PRN for dyspnea but i am worried he might be developing a craving for it. I have decreased his PRN morphine to q6 PRN and have started him on buspar to help with anxiety. D5 hospital stay 07/20/20 The patient was seen and examined at bedside. He was very anxious and tachypneic saturating low 80s. Saturation improved after receiving morphine. He is receiving remdesivir and dexa for COVID. He has also received 2 doses of ivermectin. D6 hospital stay 07/21/20 The patient was seen and examined at bedside. Per nurse his O2 needs has increased overnight he is now back to 100% FIO2 50L flow rate saturating 89-90%. Repeat CXR showed slight interval progression in the appearance of multifocal mixed interstitial and airspace opacities. I have told him to try and prone himself to improve his oxygenation but with his size and obesity I doubt if. he will be able to tolerate this. D7 hospital stay 07/22/20. The patient was seen and examined at bedside. He was on the chair and denies any worsening SOB. He is still on 100% FIO2 50L O2 flow. Appetite is good, no diarrhea, no chest pain. Afebrile. Medications reviewed and I noted that remdesivir was not given yesterday and today, I have not discontinued the order. I talked to pharmacy and they would resume the remdesivir to complete his treatment. D8 Hospital stay 07/23/20. The patient was seen and examined at bedside. He reports that his breathing is better however he seems to be desaturating at 85% on HFNC 100% FIO2 on top of a non rebreather. He was switched over to CPAP. Today is his last day of Remdesivir and he has completed ivermectin and convalescent plasma as well. I was able to update his mother Ayesha over the phone and all questions were answered. 07/24/2020-patient is still on CPAP. Unable to come off the CPAP. Pulse ox is 96% on 100% oxygen. Patient is receiving dexamethasone, azithromycin, Rocephin, Lovenox 40 mg subcu daily. No acute events in the last 24 hours. Afebrile. 07/25/2020-patient is still on BiPAP. Receiving 100% oxygen saturation is around 95%. Receiving IV Rocephin, dexamethasone, IV Zithromax, Lovenox 40 mg subcu daily. Chest x-ray done today indicate of worsening bilateral i nfiltrates. Patient received plasma, ivermectin, remdesivir. To change dexamethasone to IV Solu-Medrol to see if it is going to help. 07/26/2020-patient is still on CPAP at 80%. ABG was done this morning pH is 7.49/PCO2 39/PO2 49/bicarb 31%/oxygen saturation is 87.6%. Plan to keep him in prone position to improve the oxygenation. Chest x-ray done yesterday indicated above increased infiltrates. Patient is receiving IV Rocephin, Zithromax, dexamethasone, IV Solu-Medrol. He received plasma, ivermectin, remdesivir. Requesting something for anxiety. 07/[id number]-wguf-old male admitted with COVID-19 pneumonia. Patient is on CPAP 12 L/min. On examination bilateral wheezing is present. CT of the chest indicate you have extensive infiltrates. Reason For Visit: ACUTE HYPOXIC RESP FAILURE 2/2 COVID 19 PNEUMONIA Physical Exam Vital Signs: Temp Pulse Resp BP Pulse Ox 98.6 F 92 30 H 122/84 96 07/27/20 08:10 07/27/20 07:45 07/27/20 09:01 07/27/20 07:45 07/27/20 09:01 Intake & Output 07/26/20 07/27/20 07/28/20 06:59 06:59 06:59 Intake Total 737 300 Output Total 1775 1325 Balance -1038 -1025 Weight 124.2 kg 127 kg General appearance: PRESENT: no acute distress, well-developed Head exam: PRESENT: atraumatic Eye exam: PRESENT: PERRLA Mouth exam: PRESENT: moist, tongue midline Teeth exam: PRESENT: poor dentation Neck exam: ABSENT: carotid bruit, JVD, lymphadenopathy, thyromegaly Respiratory exam: PRESENT: decreased breath sounds, other - Patient is on CPAP. Cardiovascular exam: PRESENT: RRR. ABSENT: diastolic murmur, rubs, systolic murmur GI/Abdominal exam: PRESENT: normal bowel sounds, soft. ABSENT: distended, gua rding, mass, organolmegaly, rebound, tenderness Rectal exam: PRESENT: deferred Extremities exam: PRESENT: full ROM. ABSENT: calf tenderness, clubbing, pedal edema Neurological exam: PRESENT: alert, awake, oriented to person, oriented to place, oriented to time, oriented to situation, CN II-XII grossly intact. ABSENT: tima r sensory deficit Psychiatric exam: PRESENT: appropriate affect, normal mood. ABSENT: homicidal ideation, suicidal ideation Skin exam: PRESENT: dry, intact, warm. ABSENT: cyanosis, rash Results Laboratory Results: 07/27/20 05:18 07/27/20 05:18 07/27/20 07/27/20 07/27/20 05:18 05:18 05:56 WBC 19.8 H RBC 5.59 H Hgb 14.7 Hct 44.3 MCV 79 L MCH 26.3 L MCHC 33.3 RDW 15.1 H Plt Count 854 H Seg Neutrophils % Not Reportable Sodium 135.4 L Potassium 4.4 Chloride 96 L Carbon Dioxide 35 H Anion Gap 4 L BUN 36 H Creatinine 0.71 Est GFR ( Amer) > 60 Glucose 144 H Calcium 8.8 Total Bilirubin 0.4 AST 58 Alkaline Phosphatase 113 Total Protein 6.1 L Albumin 2.7 L Urine Color YELLOW Urine Appearance SLIGHTLY-CLOUDY Urine pH 5.0 Ur Specific [place] 1.028 Urine Protein NEGATIVE Urine Glucose (UA) NEGATIVE Urine Ketones NEGATIVE Urine Blood NEGATIVE Urine Nitrite NEGATIVE Ur Leukocyte Esterase NEGATIVE Urine WBC (Auto) 0 Urine RBC (Auto) 0 Impressions: Chest X-Ray 07/25/20 06:00 IMPRESSION: Increasing diffuse bilateral airspace disease. Chest CT 07/26/20 06:00 IMPRESSION: Extensive ground-glass infiltrates. Consistent with COVID-19 pneumonia. Findings as described. Assessment and Plan - Diagnosis (1) Acute respiratory failure with hypoxia Is this a current diagnosis for this admission?: Yes Plan: -Per EMS patient was saturating 88% on room air -IMProved to 95% on high flow nasal cannula 45 L 100% FiO2 -Chest x-ray showed moderate to severe mixed airspace and interstitial opacities extensively of both lung ortiz with interval worsening from previous chest x- ray. - repeat CXR 07/21/20 slight interval progression in the appearance of multifocal mixed interstitial and airspace opacities. -Covid positive -Continue O2 support via CPAP 07/24/2020-patient is still on CPAP and 100% oxygen. Pulse ox is around 96%. Recent chest x-ray positive for multifocal airspace opacifications and COVID-19 positive. To continue azithromycin, Rocephin, dexamethasone, Lovenox 40 mg subcu daily. 07/25/[id number]-old male admitted with COVID-19 pneumonia causing acute hypoxic respiratory failure.still on bipap at 100% plan is to do the CT chest without contrast tomorrow. Chest x-ray done today indicated above worsening bilateral infiltrates. Patient is on IV Rocephin, Zithromax. To discontinue dexamethasone and to start him on Medrol 40 mg every 8 hours. 07/26/2079-87-atsu-old male admitted with COVID-19 pneumonia and acute hypoxic respiratory failure. Patient is still on CPAP and on 80% oxygen. ABG is pH is 7.49/PCO2 30/PO2 50/bicarb is 31 with oxygen saturation of 87%. To continue IV antibiotic therapy, IV steroids and to provide oxygen supplementation. To change Lovenox to treatment dose from today. 07/27/2014-46-itpg-old male admitted with acute hypoxic respiratory failure secondary to COVID-19 pneumonia. Patient still on CPAP at 4 L/min. Plan is to continue IV Solu-Medrol, IV antibiotic therapy, treatment dose of Lovenox. CT scan of the chest shows extensive infiltrates. To continue IV antibiotic therapy at this time. (2) Pneumonia due to COVID-19 virus Is this a current diagnosis for this admission?: Yes Plan: - Tested positive for Covid 10 days prior -X-ray as above - Ferritin nomral, CRP elevated and d-dimer normal - on dexamethasone 6 mg Iv daily - received convalescent plasma - completed Ivermectin 150 mcg/kg x 2 dose 48 hrs apart - on remdesivir D5 - CPAP support as needed - started Vitamin C, D, Zinc, melatonin - abx resumed due to rising WBC and worsening pneumonia 07/24/2020-WBC count is 15,000. Patient is on dexamethasone. Labs were requested for today. To continue dexamethasone 6 mg IV daily, patient received convalescent plasma, ivermectin. Received 5 days of remdesivir. To continue wi th zinc, vitamin C, vitamin D and IV Rocephin and Zithromax along with dexamethasone. 07/25/20-patient received ivermectin, plasma, remdesivir. Presently on vitamin supplementations, IV Rocephin, Zithromax, dexamethasone. Plan is to start on Solu-Medrol 40 mg every [address] chest without contrast was requested for tomorrow. Chest x-ray this morning indicated of worsening bilateral in filtrates. 07/26/2020-chest x-ray indicative of worsening infiltrates. Presently on IV Rocephin, Zithromax. Receiving IV Solu-Medrol. treatment dose of Lovenox. Blood cultures are negative. Plan is to continue the present management at this time. 07/27/2019-chest x-ray indicative of extensive infiltrates. Patient is on IV Rocephin, Zithromax. To continue to provide IV Solu-Medrol. Treatment dose of Lovenox. (3) Hypertension Qualifiers: Hypertension type: essential hypertension Qualified Code(s): I10 - Essential (primary) hypertension Is this a current diagnosis for this admission?: No Plan: - resumed amlodipine and Lisinopril/HCTZ 07/23/2020-blood pressure today is 120/67. Stable. To continue amlodipine, lisinopril, hydrochlorothiazide. 07/25/2020-blood pressure today is 104/57. Stable. 06/26/2020-blood pressure today is 108/76. Stable. 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 Started on diabetic diet today. To continue insulin sliding scale at this time. Hypoglycemia protocol in place. 07/25/2020-blood sugar this morning is 104. To continue with insulin sliding scale before meals and at bedtime. 07/27/2020-blood sugar this morning is 144. To continue insulin sliding scale before meals and at bedtime. Patient is on IV Solu-Medrol. - Time Anticipated Discharge Disposition: Home, Self Care Anticipated Discharge Timeframe: within 72 hours
[2020-07-27 17:16] LABS: APPEARANCE,URINE SLIGHTLY-CLOUDY; BILIRUBIN,URINE NEGATIVE (NEGATIVE); COLOR,URINE YELLOW; GLUCOSE, URINE NEGATIVE (NEGATIVE); KETONES,URINE NEGATIVE (NEGATIVE); LEUKOCYTE ESTERASE,URINE NEGATIVE (NEGATIVE); NITRITE,URINE NEGATIVE (NEGATIVE); PROTEIN,URINE NEGATIVE (NEGATIVE); URINE SPECIFIC GRAVITY 1.027; UROBILINOGEN,URINE NEGATIVE mg/dL (<2.0)
[2020-07-27] MEDS: AZITHROMYCIN 500 MG in DEXTROSE 5%-WATER 250 ML IV SCH (17:25)
[2020-07-27] MEDS: IPRATROPIUM/ALBUTEROL 0.5-2.5 MG/3 ML AMPUL NEB PRN (20:52)
[2020-07-27] MEDS: ATORVASTATIN CALCIUM 10 MG TABLET PO SCH (22:26)
[2020-07-27] MEDS: MELATONIN 5 MG TABLET PO SCH (22:26)
[2020-07-28 05:33] LABS: ABSOLUTE BASOPHILS # (AUTO) 0.1 10^3/uL (0.0-0.2); ABSOLUTE MONOCYTES (AUTO) 0.9 10^3/uL (0.1-1.4); ABSOLUTE NEUT (AUTO) 15.5 10^3/uL (1.7-8.2); BASOPHILS % (AUTO) 0.3 % (0-2); HEMATOCRIT 45.7 % (37.9-51.0); HEMOGLOBIN 15.5 g/dL (13.5-17.0); LYMPHOCYTES % (AUTO) 5.8 % (13-45); MEAN CORPUSCULAR HEMOGLOBIN 26.6 pg (27.0-33.4); MEAN CORPUSCULAR HGB CONC 33.9 g/dL (32.0-36.0); MEAN CORPUSCULAR VOLUME 79 fl (80-97); MONOCYTES % (AUTO) 5.3 % (3-13); PLATELET COUNT 835 10^3/uL (150-450); RED BLOOD COUNT 5.83 10^6/uL (4.35-5.55); SEGMENTED NEUTROPHILS % (AUTO) 88.6 % (42-78); TOTAL CELLS COUNTED % (AUTO) 100 %; WHITE BLOOD COUNT 17.5 10^3/uL (4.0-10.5)
[2020-07-28] MEDS: HYDROCHLOROTHIAZIDE 12.5 MG TABLET PO SCH ×2 (05:50→17:26)
[2020-07-28] MEDS: LISINOPRIL 10 MG TABLET PO SCH ×2 (05:51→17:26)
[2020-07-28] MEDS: PANTOPRAZOLE SODIUM 20 MG TABLET.DR PO SCH (05:51)
[2020-07-28 06:00] LABS: ALBUMIN 2.9 g/dL (3.5-5.0); ALKALINE PHOSPHATASE 108 U/L (38-126); ANION GAP 5 (5-19); ASPARTATE AMINO TRANSFERASE 63 U/L (17-59); BILIRUBIN,DIRECT 0.2 mg/dL (0.0-0.4); BILIRUBIN,TOTAL 0.5 mg/dL (0.2-1.3); BLOOD UREA NITROGEN 33 mg/dL (7-20); CALCIUM 8.6 mg/dL (8.4-10.2); CARBON DIOXIDE 34 mmol/L (22-30); CHLORIDE 98 mmol/L (98-107); GLUCOSE 159 mg/dL (75-110); POTASSIUM 4.3 mmol/L (3.6-5.0); TOTAL PROTEIN 6.4 g/dL (6.3-8.2)
[2020-07-28] MEDS: INSULIN LISPRO 100 UNIT/ML 3 ML VIAL SUBCUT SCH ×4 (08:43→22:07)
[2020-07-28] MEDS: CEFTRIAXONE 2 GM/D5W RTU 2 GM/50 ML RTUPB IV SCH (10:26)
[2020-07-28] MEDS: ENOXAPARIN SODIUM INJ 150 MG/1 ML DISP.SYRIN SUBCUT SCH ×2 (10:26→22:30)
[2020-07-28] MEDS: METHYLPREDNISOLONE INJ 40 MG/1 ML SDV IV SCH ×2 (10:27→22:30)
[2020-07-28] MEDS: POTASSIUM CHLORIDE 10 MEQ TABLET.ER PO SCH (10:27)
[2020-07-28] MEDS: ZINC SULFATE 220 MG CAPSULE PO SCH (10:27)
[2020-07-28] MEDS: ASCORBIC ACID 500 MG TABLET PO SCH ×2 (10:27→17:26)
[2020-07-28] MEDS: BUSPIRONE HCL 10 MG TABLET PO SCH ×2 (10:27→22:30)
[2020-07-28] MEDS: AMLODIPINE BESYLATE 10 MG TABLET PO SCH (10:27)
[2020-07-28] MEDS: CHOLECALCIFEROL (D3) 1,000 UNIT (25 MCG) TABLET PO SCH (10:27)
[2020-07-28] MEDS: ASPIRIN 81 MG TABLET, ENT COATED PO SCH (10:27)
[2020-07-28] MEDS: AZITHROMYCIN 500 MG in DEXTROSE 5%-WATER 250 ML IV SCH (17:26)
--- NOTE | 2020-07-28 17:38 | PDOC PROGRESS REPORT ---
Subjective Date:: 07/28/20 Subjective:: No adverse events overnight. No new complaints. He is on the high flow nasal c annula at a flow rate of 50 L/min at 100% FiO2 and his SPO2 is 92%. He looks comfortable sitting up in the chair. No fevers. He has been able to eat a little bit. He says he can sleep well enough. Reason For Visit: ACUTE HYPOXIC RESP FAILURE 2/2 COVID 19 PNEUMONIA Physical Exam Vital Signs: Temp Pulse Resp BP Pulse Ox 97.4 F 95 30 H 102/62 92 07/28/20 15:58 07/28/20 15:58 07/28/20 16:54 07/28/20 15:58 07/28/20 16:54 Intake & Output 07/27/20 07/28/20 07/29/20 06:59 06:59 06:59 Intake Total 300 524 300 Output Total 1325 1350 Balance -1025 -826 300 Weight 127 kg 124.5 kg General appearance: PRESENT: no acute distress, well-developed Respiratory exam: PRESENT: decreased breath sounds Cardiovascular exam: PRESENT: RRR. ABSENT: diastolic murmur, rubs, systolic murmur GI/Abdominal exam: PRESENT: normal bowel sounds, soft. ABSENT: distended, guarding, mass, organolmegaly, rebound, tenderness Extremities exam: PRESENT: full ROM. ABSENT: calf tenderness, clubbing, pedal edema Neurological exam: PRESENT: alert, awake, oriented to person, oriented to place, oriented to time, oriented to situation Psychiatric exam: PRESENT: appropriate affect, normal mood. Skin exam: PRESENT: dry, intact, warm. ABSENT: cyanosis, rash Results Laboratory Results: 07/28/20 04:48 07/28/20 04:48 07/28/20 07/28/20 04:48 04:48 WBC 17.5 H RBC 5.83 H Hgb 15.5 Hct 45.7 MCV 79 L MCH 26.6 L MCHC 33.9 RDW 15.0 H Plt Count 835 H Seg Neutrophils % 88.6 H Sodium 136.6 L Potassium 4.3 Chloride 98 Carbon Dioxide 34 H Anion Gap 5 BUN 33 H Creatinine 0.71 Est GFR ( Amer) > 60 Glucose 159 H Calcium 8.6 Magnesium 2.6 H Total Bilirubin 0.5 AST 63 H Alkaline Phosphatase 108 Total Protein 6.4 Albumin 2.9 L Impressions: Chest X-Ray 07/25/20 06:00 IMPRESSION: Increasing diffuse bilateral airspace disease. Chest CT 07/26/20 06:00 IMPRESSION: Extensive ground-glass infiltrates. Consistent with COVID-19 pneumonia. Findings as described. Assessment and Plan - Diagnosis (1) Acute respiratory failure with hypoxia Is this a current diagnosis for this admission?: Yes (2) Pneumonia due to COVID-19 virus Is this a current diagnosis for this admission?: Yes (3) Obesity (BMI 30-39.9) Is this a current diagnosis for this admission?: Yes (4) Type 2 diabetes mellitus Qualifiers: Diabetes mellitus [facility] insulin use: without [facility] use Diabetes mellitus complication status: without complication Qualified Code(s): E11.9 - Type 2 diabetes mellitus without complications Is this a current diagnosis for this admission?: Yes (5) Hyperlipidemia Qualifiers: Hyperlipidemia type: unspecified Qualified Code(s): E78.5 - Hyperlipidemia, unspecified Is this a current diagnosis for this admission?: Yes (6) Hypertension Qualifiers: Hypertension type: essential hypertension Qualified Code(s): I10 - Essential (primary) hypertension Is this a current diagnosis for this admission?: Yes - Plan Summary Summary: He has completed remdesivir and ivermectin. He was changed to IV Solu-Medrol just a few days ago. Today he is on the high flow nasal cannula, which is an improvement considering he has been on BiPAP or CPAP most of the time that he has been here. We will continue with IV steroids, will escalate if his respiratory status deteriorates. We will continue with recommended vitamin supplementation. Monitoring his blood sugars for worsening secondary to steroid therapy. - Time Time Spent with patient: 15-24 minutes Anticipated Discharge Disposition: Unknown Anticipated Discharge Timeframe: Unknown
[2020-07-28] MEDS: MELATONIN 5 MG TABLET PO SCH (22:30)
[2020-07-28] MEDS: ATORVASTATIN CALCIUM 10 MG TABLET PO SCH (22:30)
[2020-07-28] MEDS: IPRATROPIUM/ALBUTEROL 0.5-2.5 MG/3 ML AMPUL NEB PRN (23:28)
[2020-07-29] MEDS: IPRATROPIUM/ALBUTEROL 0.5-2.5 MG/3 ML AMPUL NEB PRN ×2 (04:17→16:24)
[2020-07-29] MEDS: HYDROCHLOROTHIAZIDE 12.5 MG TABLET PO SCH ×2 (05:32→17:23)
[2020-07-29] MEDS: LISINOPRIL 10 MG TABLET PO SCH ×2 (05:32→17:23)
[2020-07-29] MEDS: PANTOPRAZOLE SODIUM 20 MG TABLET.DR PO SCH (05:32)
[2020-07-29] MEDS: INSULIN LISPRO 100 UNIT/ML 3 ML VIAL SUBCUT SCH ×4 (08:18→21:32)
[2020-07-29] MEDS: ZINC SULFATE 220 MG CAPSULE PO SCH (11:22)
[2020-07-29] MEDS: METHYLPREDNISOLONE INJ 40 MG/1 ML SDV IV SCH ×2 (11:22→21:56)
[2020-07-29] MEDS: POTASSIUM CHLORIDE 10 MEQ TABLET.ER PO SCH (11:22)
[2020-07-29] MEDS: CHOLECALCIFEROL (D3) 1,000 UNIT (25 MCG) TABLET PO SCH (11:22)
[2020-07-29] MEDS: ASCORBIC ACID 500 MG TABLET PO SCH ×2 (11:22→17:23)
[2020-07-29] MEDS: AMLODIPINE BESYLATE 10 MG TABLET PO SCH (11:22)
[2020-07-29] MEDS: ASPIRIN 81 MG TABLET, ENT COATED PO SCH (11:23)
[2020-07-29] MEDS: ENOXAPARIN SODIUM INJ 150 MG/1 ML DISP.SYRIN SUBCUT SCH ×2 (11:23→21:56)
[2020-07-29] MEDS: BUSPIRONE HCL 10 MG TABLET PO SCH ×2 (11:23→21:56)
[2020-07-29] MEDS: CEFTRIAXONE 2 GM/D5W RTU 2 GM/50 ML RTUPB IV SCH (11:24)
--- NOTE | 2020-07-29 16:19 | PDOC PROGRESS REPORT ---
Subjective Date:: 07/29/20 Subjective:: No adverse events overnight. No new complaints. Vital signs have been stable. He was still on CPAP this morning waiting to get back on the high flow nasal cannula. He is back on the high flow now, at 50 L and 100%, with an SPO2 in the low 90s. He says he feels pretty good. His appetite has been good. He has been able to rest comfortably. Reason For Visit: ACUTE HYPOXIC RESP FAILURE 2/2 COVID 19 PNEUMONIA Physical Exam Vital Signs: Temp Pulse Resp BP Pulse Ox 97.0 F 94 28 H 108/59 L 97 07/29/20 15:29 07/29/20 15:29 07/29/20 15:29 07/29/20 15:29 07/29/20 15:29 Intake & Output 07/28/20 07/29/20 07/30/20 06:59 06:59 06:59 Intake Total 524 2014 300 Output Total 1350 1575 Balance -826 439 300 Weight 124.5 kg 125.7 kg General appearance: PRESENT: no acute distress, well-developed Respiratory exam: PRESENT: decreased breath sounds Cardiovascular exam: PRESENT: RRR. ABSENT: diastolic murmur, rubs, systolic murmur GI/Abdominal exam: PRESENT: normal bowel sounds, soft. ABSENT: distended, guarding, mass, organolmegaly, rebound, tenderness Extremities exam: PRESENT: full ROM. ABSENT: calf tenderness, clubbing, pedal edema Neurological exam: PRESENT: alert, awake, oriented to person, oriented to place, oriented to time, oriented to situation Psychiatric exam: PRESENT: appropriate affect, normal mood. Skin exam: PRESENT: dry, intact, warm. ABSENT: cyanosis, rash Results Laboratory Results: 07/28/20 04:48 07/28/20 04:48 Impressions: Chest X-Ray 07/25/20 06:00 IMPRESSION: Increasing diffuse bilateral airspace disease. Chest CT 07/26/20 06:00 IMPRESSION: Extensive ground-glass infiltrates. Consistent with COVID-19 pneumonia. Findings as described. Assessment and Plan - Diagnosis (1) Acute respiratory failure with hypoxia Is this a current diagnosis for this admission?: Yes (2) Pneumonia due to COVID-19 virus Is this a current diagnosis for this admission?: Yes (3) Obesity (BMI 30-39.9) Is this a current diagnosis for this admission?: Yes (4) Type 2 diabetes mellitus Qualifiers: Diabetes mellitus manager terminal insulin use: without manager terminal use Diabetes mellitus complication status: without complication Qualified Code(s): E11.9 - Type 2 diabetes mellitus without complications Is this a current diagnosis for this admission?: Yes (5) Hyperlipidemia Qualifiers: Hyperlipidemia type: unspecified Qualified Code(s): E78.5 - Hyperlipidemia, unspecified Is this a current diagnosis for this admission?: Yes (6) Hypertension Qualifiers: Hypertension type: essential hypertension Qualified Code(s): I10 - Essential (primary) hypertension Is this a current diagnosis for this admission?: Yes - Plan Summary Summary: He has completed remdesivir and ivermectin. He was changed to IV Solu-Medrol just a few days ago. He continues on the high flow nasal cannula. We will continue with IV steroids, will escalate if his respiratory status deteriorates. We will continue with recommended vitamin supplementation. Monitoring his blood sugars for worsening secondary to steroid therapy. - Time Time Spent with patient: 15-24 minutes Anticipated Discharge Disposition: Unknown Anticipated Discharge Timeframe: Unknown
[2020-07-29] MEDS: ATORVASTATIN CALCIUM 10 MG TABLET PO SCH (21:56)
[2020-07-29] MEDS: MELATONIN 5 MG TABLET PO SCH (21:56)
[2020-07-30 04:54] LABS: HEMATOCRIT 44.5 % (37.9-51.0); HEMOGLOBIN 14.3 g/dL (13.5-17.0); MEAN CORPUSCULAR HEMOGLOBIN 25.7 pg (27.0-33.4); MEAN CORPUSCULAR HGB CONC 32.1 g/dL (32.0-36.0); MEAN CORPUSCULAR VOLUME 80 fl (80-97); PLATELET COUNT 806 10^3/uL (150-450); RED BLOOD COUNT 5.57 10^6/uL (4.35-5.55); WHITE BLOOD COUNT 15.6 10^3/uL (4.0-10.5)
[2020-07-30] MEDS: LISINOPRIL 10 MG TABLET PO SCH ×2 (05:28→17:16)
[2020-07-30] MEDS: HYDROCHLOROTHIAZIDE 12.5 MG TABLET PO SCH ×2 (05:28→17:16)
[2020-07-30] MEDS: PANTOPRAZOLE SODIUM 20 MG TABLET.DR PO SCH (05:28)
[2020-07-30] MEDS: INSULIN LISPRO 100 UNIT/ML 3 ML VIAL SUBCUT SCH ×4 (08:49→22:34)
[2020-07-30] MEDS: ASPIRIN 81 MG TABLET, ENT COATED PO SCH (09:38)
[2020-07-30] MEDS: CHOLECALCIFEROL (D3) 1,000 UNIT (25 MCG) TABLET PO SCH (09:38)
[2020-07-30] MEDS: METHYLPREDNISOLONE INJ 125 MG/2 ML SDV IV SCH ×2 (09:38→22:34)
[2020-07-30] MEDS: ASCORBIC ACID 500 MG TABLET PO SCH ×2 (09:38→17:16)
[2020-07-30] MEDS: BUSPIRONE HCL 10 MG TABLET PO SCH ×2 (09:39→22:34)
[2020-07-30] MEDS: AMLODIPINE BESYLATE 10 MG TABLET PO SCH (09:39)
[2020-07-30] MEDS: ENOXAPARIN SODIUM INJ 150 MG/1 ML DISP.SYRIN SUBCUT SCH ×2 (09:39→22:32)
[2020-07-30] MEDS: ZINC SULFATE 220 MG CAPSULE PO SCH (09:39)
[2020-07-30] MEDS: POTASSIUM CHLORIDE 10 MEQ TABLET.ER PO SCH (09:39)
[2020-07-30 10:50] LABS: APPEARANCE,URINE CLEAR; BILIRUBIN,URINE NEGATIVE (NEGATIVE); COLOR,URINE YELLOW; GLUCOSE, URINE NEGATIVE (NEGATIVE); KETONES,URINE NEGATIVE (NEGATIVE); LEUKOCYTE ESTERASE,URINE NEGATIVE (NEGATIVE); NITRITE,URINE NEGATIVE (NEGATIVE); PROTEIN,URINE NEGATIVE (NEGATIVE); URINE SPECIFIC GRAVITY 1.027; UROBILINOGEN,URINE NEGATIVE mg/dL (<2.0)
--- NOTE | 2020-07-30 16:03 | PDOC PROGRESS REPORT ---
Subjective Date:: 07/30/20 Subjective:: No adverse events overnight. No new complaints. He has been able to sleep well on CPAP and during the day he is on the high flow nasal cannula. He still on 40 to 50 L of flow at 100% FiO2. His saturations are in the low 90s. Reason For Visit: ACUTE HYPOXIC RESP FAILURE 2/2 COVID 19 PNEUMONIA Physical Exam Vital Signs: Temp Pulse Resp BP Pulse Ox 97.8 F 96 32 H 107/66 90 L 07/30/20 11:37 07/30/20 14:00 07/30/20 12:00 07/30/20 11:37 07/30/20 12:00 Intake & Output 07/29/20 07/30/20 07/31/20 06:59 06:59 06:59 Intake Total 2013 1488 Output Total 1575 2100 Balance 439 -612 Weight 125.7 kg 126.6 kg General appearance: PRESENT: no acute distress, well-developed Respiratory exam: PRESENT: decreased breath sounds Cardiovascular exam: PRESENT: RRR. ABSENT: diastolic murmur, rubs, systolic murmur GI/Abdominal exam: PRESENT: normal bowel sounds, soft. ABSENT: distended, guarding, mass, organolmegaly, rebound, tenderness Extremities exam: PRESENT: full ROM. ABSENT: calf tenderness, clubbing, pedal edema Neurological exam: PRESENT: alert, awake, oriented to person, oriented to place, oriented to time, oriented to situation Psychiatric exam: PRESENT: appropriate affect, normal mood. Skin exam: PRESENT: dry, intact, warm. ABSENT: cyanosis, rash Results Laboratory Results: 07/30/20 04:27 07/28/20 04:48 07/30/20 07/30/20 04:27 09:25 WBC 15.6 H RBC 5.57 H Hgb 14.3 Hct 44.5 MCV 80 MCH 25.7 L MCHC 32.1 RDW 15.0 H Plt Count 806 H Urine Color YELLOW Urine Appearance CLEAR Urine pH 6.0 Ur Specific [place] 1.027 Urine Protein NEGATIVE Urine Glucose (UA) NEGATIVE Urine Ketones NEGATIVE Urine Blood NEGATIVE Urine Nitrite NEGATIVE Ur Leukocyte Esterase NEGATIVE Urine WBC (Auto) 1 Urine RBC (Auto) 1 Impressions: Chest X-Ray 07/25/20 06:00 IMPRESSION: Increasing diffuse bilateral airspace disease. Chest CT 07/26/20 06:00 IMPRESSION: Extensive ground-glass infiltrates. Consistent with COVID-19 pneumonia. Findings as described. Assessment and Plan - Diagnosis (1) Acute respiratory failure with hypoxia Is this a current diagnosis for this admission?: Yes (2) Pneumonia due to COVID-19 virus Is this a current diagnosis for this admission?: Yes (3) Obesity (BMI 30-39.9) Is this a current diagnosis for this admission?: Yes (4) Type 2 diabetes mellitus Qualifiers: Diabetes mellitus continuous churn buttermaker insulin use: without continuous churn buttermaker use Diabetes mellitus complication status: without complication Qualified Code(s): E11.9 - Type 2 diabetes mellitus without complications Is this a current diagnosis for this admission?: Yes (5) Hyperlipidemia Qualifiers: Hyperlipidemia type: unspecified Qualified Code(s): E78.5 - Hyperlipidemia, unspecified Is this a current diagnosis for this admission?: Yes (6) Hypertension Qualifiers: Hypertension type: essential hypertension Qualified Code(s): I10 - Essential (primary) hypertension Is this a current diagnosis for this admission?: Yes - Plan Summary Summary: He has completed remdesivir and ivermectin. He was changed to IV Solu-Medrol just a few days ago. He continues on the high flow nasal cannula. His oxygen requirement has been stagnant for several days, so we increased his Solu-Medrol today. We will continue with recommended vitamin supplementation. Monitoring his blood sugars for worsening secondary to steroid therapy. - Time Time Spent with patient: 15-24 minutes Anticipated Discharge Disposition: Unknown Anticipated Discharge Timeframe: Unknown
[2020-07-30] MEDS: ATORVASTATIN CALCIUM 10 MG TABLET PO SCH (22:34)
[2020-07-30] MEDS: MELATONIN 5 MG TABLET PO SCH (22:34)
[2020-07-30] MEDS ORDERED: GUAIFENESIN SYRP 200 MG/10 ML UDC PO PRN (23:31)
[2020-07-31] MEDS: PANTOPRAZOLE SODIUM 20 MG TABLET.DR PO SCH (05:24)
[2020-07-31] MEDS: HYDROCHLOROTHIAZIDE 12.5 MG TABLET PO SCH ×2 (05:24→17:36)
[2020-07-31] MEDS: LISINOPRIL 10 MG TABLET PO SCH ×2 (05:25→17:36)
[2020-07-31] MEDS: ASPIRIN 81 MG TABLET, ENT COATED PO SCH (09:38)
[2020-07-31] MEDS: METHYLPREDNISOLONE INJ 125 MG/2 ML SDV IV SCH ×2 (09:38→21:43)
[2020-07-31] MEDS: ENOXAPARIN SODIUM INJ 150 MG/1 ML DISP.SYRIN SUBCUT SCH ×2 (09:38→21:43)
[2020-07-31] MEDS: INSULIN LISPRO 100 UNIT/ML 3 ML VIAL SUBCUT SCH ×4 (09:39→21:43)
[2020-07-31] MEDS: CHOLECALCIFEROL (D3) 1,000 UNIT (25 MCG) TABLET PO SCH (09:39)
[2020-07-31] MEDS: AMLODIPINE BESYLATE 10 MG TABLET PO SCH (09:39)
[2020-07-31] MEDS: BUSPIRONE HCL 10 MG TABLET PO SCH ×2 (09:39→21:42)
[2020-07-31] MEDS: POTASSIUM CHLORIDE 10 MEQ TABLET.ER PO SCH (09:39)
[2020-07-31] MEDS: ASCORBIC ACID 500 MG TABLET PO SCH ×2 (09:39→17:36)
[2020-07-31] MEDS: ZINC SULFATE 220 MG CAPSULE PO SCH (09:40)
--- NOTE | 2020-07-31 16:16 | PDOC PROGRESS REPORT ---
Subjective Date:: 07/31/20 Subjective:: No adverse events overnight. No new complaints. Still on 40 L/min and 100% FiO 2 on the high flow nasal cannula. He is able to rest comfortably. He is able to eat and drink without difficulty. Reason For Visit: ACUTE HYPOXIC RESP FAILURE 2/2 COVID 19 PNEUMONIA Physical Exam Vital Signs: Temp Pulse Resp BP Pulse Ox 98.0 F 93 30 H 119/57 L 90 L 07/31/20 08:20 07/31/20 14:00 07/31/20 12:41 07/31/20 07:57 07/31/20 12:41 Intake & Output 07/30/20 07/31/20 08/01/20 06:59 06:59 06:59 Intake Total 1488 1601 Output Total 2100 3100 Balance -612 -1499 Weight 126.6 kg 126.8 kg General appearance: PRESENT: no acute distress, well-developed Respiratory exam: PRESENT: decreased breath sounds Cardiovascular exam: PRESENT: RRR. ABSENT: diastolic murmur, rubs, systolic mur mur GI/Abdominal exam: PRESENT: normal bowel sounds, soft. ABSENT: distended, guarding, mass, organolmegaly, rebound, tenderness Extremities exam: PRESENT: full ROM. ABSENT: calf tenderness, clubbing, pedal edema Neurological exam: PRESENT: alert, awake, oriented to person, oriented to place, oriented to time, oriented to situation Psychiatric exam: PRESENT: appropriate affect, normal mood. Skin exam: PRESENT: dry, intact, warm. ABSENT: cyanosis, rash Results Laboratory Results: 07/30/20 04:27 07/28/20 04:48 Impressions: Chest X-Ray 07/25/20 06:00 IMPRESSION: Increasing diffuse bilateral airspace disease. Chest CT 07/26/20 06:00 IMPRESSION: Extensive ground-glass infiltrates. Consistent with COVID-19 pneumonia. Findings as described. Assessment and Plan - Diagnosis (1) Acute respiratory failure with hypoxia Is this a current diagnosis for this admission?: Yes (2) Pneumonia due to COVID-19 virus Is this a current diagnosis for this admission?: Yes (3) Obesity (BMI 30-39.9) Is this a current diagnosis for this admission?: Yes (4) Type 2 diabetes mellitus Qualifiers: Diabetes mellitus long-term insulin use: without long-term use Diabetes mellitus complication status: without complication Qualified Code(s): E11.9 - Type 2 diabetes mellitus without complications Is this a current diagnosis for this admission?: Yes (5) Hyperlipidemia Qualifiers: Hyperlipidemia type: unspecified Qualified Code(s): E78.5 - Hyperlipidemia, unspecified Is this a current diagnosis for this admission?: Yes (6) Hypertension Qualifiers: Hypertension type: essential hypertension Qualified Code(s): I10 - Essenti al (primary) hypertension Is this a current diagnosis for this admission?: Yes - Plan Summary Summary: He has completed remdesivir and ivermectin. He was changed to IV Solu-Medrol just a few days ago. He continues on the high flow nasal cannula. His oxygen requirement has been stagnant for several days, so we increased his Solu-Medrol. We will watch him on this increased dose for a few days to see if he needs a further increase. We will continue with recommended vitamin supplementation. Monitoring his blood sugars for worsening secondary to steroid therapy. - Time Time Spent with patient: 15-24 minutes Anticipated Discharge Disposition: Unknown Anticipated Discharge Timeframe: Unknown
[2020-07-31] MEDS: ATORVASTATIN CALCIUM 10 MG TABLET PO SCH (21:42)
[2020-07-31] MEDS: MELATONIN 5 MG TABLET PO SCH (21:42)
[2020-08-01] MEDS: PANTOPRAZOLE SODIUM 20 MG TABLET.DR PO SCH (05:30)
[2020-08-01] MEDS: LISINOPRIL 10 MG TABLET PO SCH ×2 (05:30→17:30)
[2020-08-01] MEDS: HYDROCHLOROTHIAZIDE 12.5 MG TABLET PO SCH ×2 (05:30→17:30)
[2020-08-01 07:07] LABS: HEMATOCRIT 44.2 % (37.9-51.0); HEMOGLOBIN 14.5 g/dL (13.5-17.0); MEAN CORPUSCULAR HGB CONC 32.8 g/dL (32.0-36.0); MEAN CORPUSCULAR VOLUME 79 fl (80-97); PLATELET COUNT 728 10^3/uL (150-450); RED BLOOD COUNT 5.59 10^6/uL (4.35-5.55); RED CELL DISTRIBUTION WIDTH 14.8 % (11.5-14.0); WHITE BLOOD COUNT 15.5 10^3/uL (4.0-10.5)
[2020-08-01] MEDS: INSULIN LISPRO 100 UNIT/ML 3 ML VIAL SUBCUT SCH ×7 (09:00→21:39)
[2020-08-01] MEDS: METHYLPREDNISOLONE INJ 125 MG/2 ML SDV IV SCH ×2 (10:45→21:34)
[2020-08-01] MEDS: AMLODIPINE BESYLATE 10 MG TABLET PO SCH (10:47)
[2020-08-01] MEDS: POTASSIUM CHLORIDE 10 MEQ TABLET.ER PO SCH (10:48)
[2020-08-01] MEDS: BUSPIRONE HCL 10 MG TABLET PO SCH ×2 (10:49→21:34)
[2020-08-01] MEDS: ASPIRIN 81 MG TABLET, ENT COATED PO SCH (10:49)
[2020-08-01] MEDS: ASCORBIC ACID 500 MG TABLET PO SCH ×2 (10:49→17:29)
[2020-08-01] MEDS: CHOLECALCIFEROL (D3) 1,000 UNIT (25 MCG) TABLET PO SCH (10:49)
[2020-08-01] MEDS: ENOXAPARIN SODIUM INJ 150 MG/1 ML DISP.SYRIN SUBCUT SCH ×2 (10:50→21:34)
[2020-08-01 12:58] LABS: APPEARANCE,URINE CLEAR; BILIRUBIN,URINE NEGATIVE (NEGATIVE); COLOR,URINE YELLOW; GLUCOSE, URINE NEGATIVE (NEGATIVE); KETONES,URINE NEGATIVE (NEGATIVE); LEUKOCYTE ESTERASE,URINE NEGATIVE (NEGATIVE); NITRITE,URINE NEGATIVE (NEGATIVE); PROTEIN,URINE NEGATIVE (NEGATIVE); URINE SPECIFIC GRAVITY 1.021; UROBILINOGEN,URINE NEGATIVE mg/dL (<2.0)
[2020-08-01] MEDS: ZINC SULFATE 220 MG CAPSULE PO SCH (13:26)
--- NOTE | 2020-08-01 16:05 | PDOC PROGRESS REPORT ---
Subjective Date:: 08/01/20 Subjective:: No adverse events overnight. Vital signs been stable. He is on 35 L of flow on the high flow nasal cannula still in 100% FiO2, his SPO2 is in the mid to upper 90s. We are going to start weaning the level of oxygen support. Reason For Visit: ACUTE HYPOXIC RESP FAILURE 2/2 COVID 19 PNEUMONIA Physical Exam Vital Signs: Temp Pulse Resp BP Pulse Ox 97.4 F 96 16 111/59 L 95 08/01/20 10:56 08/01/20 14:00 08/01/20 11:43 08/01/20 10:56 08/01/20 11:43 Intake & Output 07/31/20 08/01/20 08/02/20 06:59 06:59 06:59 Intake Total 1601 1374 Output Total 3100 4800 Balance -1499 -3426 Weight 126.8 kg 128.1 kg General appearance: PRESENT: no acute distress, well-developed Respiratory exam: PRESENT: decreased breath sounds Cardiovascular exam: PRESENT: RRR. ABSENT: diastolic murmur, rubs, systolic murmur GI/Abdominal exam: PRESENT: normal bowel sounds, soft. ABSENT: distended, guarding, mass, organolmegaly, rebound, tenderness Extremities exam: PRESENT: full ROM. ABSENT: calf tenderness, clubbing, pedal edema Neurological exam: PRESENT: alert, awake, oriented to person, oriented to place, oriented to time, oriented to situation Psychiatric exam: PRESENT: appropriate affect, normal mood. Skin exam: PRESENT: dry, intact, warm. ABSENT: cyanosis, rash Results Laboratory Results: 08/01/20 06:26 07/28/20 04:48 08/01/20 08/01/20 06:26 10:58 WBC 15.5 H RBC 5.59 H Hgb 14.5 Hct 44.2 MCV 79 L MCH 26.0 L MCHC 32.8 RDW 14.8 H Plt Count 728 H Urine Color YELLOW Urine Appearance CLEAR Urine pH 6.0 Ur Specific [place] 1.021 Urine Protein NEGATIVE Urine Glucose (UA) NEGATIVE Urine Ketones NEGATIVE Urine Blood NEGATIVE Urine Nitrite NEGATIVE Ur Leukocyte Esterase NEGATIVE Urine WBC (Auto) 1 Urine RBC (Auto) 1 Impressions: Chest X-Ray 07/25/20 06:00 IMPRESSION: Increasing diffuse bilateral airspace disease. Chest CT 07/26/20 06:00 IMPRESSION: Extensive ground-glass infiltrates. Consistent with COVID-19 pneumonia. Findings as described. Assessment and Plan - Diagnosis (1) Acute respiratory failure with hypoxia Is this a current diagnosis for this admission?: Yes (2) Pneumonia due to COVID-19 virus Is this a current diagnosis for this admission?: Yes (3) Obesity (BMI 30-39.9) Is this a current diagnosis for this admission?: Yes (4) Type 2 diabetes mellitus Qualifiers: Diabetes mellitus director long term care insulin use: without director long term care use Diabetes mellitus complication status: without complication Qualified Code(s): E11.9 - Type 2 diabetes mellitus without complications Is this a current diagnosis for this admission?: Yes (5) Hyperlipidemia Qualifiers: Hyperlipidemia type: unspecified Qualified Code(s): E78.5 - Hyperlipidemia, unspecified Is this a current diagnosis for this admission?: Yes (6) Hypertension Qualifiers: Hypertension type: essential hypertension Qualified Code(s): I10 - Essential (primary) hypertension Is this a current diagnosis for this admission?: Yes - Plan Summary Summary: He has completed remdesivir and ivermectin. He was changed to IV Solu-Medrol just a few days ago. He continues on the high flow nasal cannula. His oxygen requirement has been stagnant for several days, so we increased his Solu-Medrol. We will watch him on this increased dose for a few days to see if he needs a further increase. We will continue with recommended vitamin supplementation. His saturations are better today so were going to wean his FiO2. We talked to him about the possibility of going to an LTAC and he was agreeable. - Time Time Spent with patient: 15-24 minutes Anticipated Discharge Disposition: LTAC Anticipated Discharge Timeframe: Unknown
[2020-08-01] MEDS: MELATONIN 5 MG TABLET PO SCH (21:34)
[2020-08-01] MEDS: ATORVASTATIN CALCIUM 10 MG TABLET PO SCH (21:34)
[2020-08-01] MEDS: ACETAMINOPHEN 325 MG TABLET PO PRN (22:38)
[2020-08-02] MEDS: ACETAMINOPHEN 325 MG TABLET PO PRN ×2 (04:12→22:04)
[2020-08-02] MEDS: LISINOPRIL 10 MG TABLET PO SCH ×2 (05:26→18:52)
[2020-08-02] MEDS: HYDROCHLOROTHIAZIDE 12.5 MG TABLET PO SCH ×2 (05:26→18:53)
[2020-08-02] MEDS: PANTOPRAZOLE SODIUM 20 MG TABLET.DR PO SCH (05:26)
[2020-08-02] MEDS: METHYLPREDNISOLONE INJ 125 MG/2 ML SDV IV SCH ×2 (10:08→21:49)
[2020-08-02] MEDS: ENOXAPARIN SODIUM INJ 150 MG/1 ML DISP.SYRIN SUBCUT SCH ×2 (10:09→21:50)
[2020-08-02] MEDS: ASPIRIN 81 MG TABLET, ENT COATED PO SCH (10:09)
[2020-08-02] MEDS: AMLODIPINE BESYLATE 10 MG TABLET PO SCH (10:09)
[2020-08-02] MEDS: CHOLECALCIFEROL (D3) 1,000 UNIT (25 MCG) TABLET PO SCH (10:09)
[2020-08-02] MEDS: POTASSIUM CHLORIDE 10 MEQ TABLET.ER PO SCH (10:10)
[2020-08-02] MEDS: INSULIN LISPRO 100 UNIT/ML 3 ML VIAL SUBCUT SCH ×7 (10:10→21:49)
[2020-08-02] MEDS: BUSPIRONE HCL 10 MG TABLET PO SCH ×2 (10:10→21:49)
[2020-08-02] MEDS: ASCORBIC ACID 500 MG TABLET PO SCH ×2 (10:10→18:53)
[2020-08-02] MEDS: ZINC SULFATE 220 MG CAPSULE PO SCH (10:12)
--- NOTE | 2020-08-02 17:20 | PDOC PROGRESS REPORT ---
Subjective Date:: 08/02/20 Subjective:: No adverse events overnight. No new complaints. He is on 50 L flow on the high flow nasal cannula and his FiO2 is down to 54% and he seems to be tolerating that fairly well with an SPO2 in the low 90s. Eating and drinking without difficulty. Reason For Visit: ACUTE HYPOXIC RESP FAILURE 2/2 COVID 19 PNEUMONIA Physical Exam Vital Signs: Temp Pulse Resp BP Pulse Ox 98.0 F 95 18 101/59 L 94 08/02/20 13:02 08/02/20 14:00 08/02/20 16:07 08/02/20 13:02 08/02/20 16:07 Intake & Output 08/01/20 08/02/20 08/03/20 06:59 06:59 06:59 Intake Total 1374 1880 2006 Output Total 4800 3375 1000 Balance -9139 -7401 1007 Weight 128.1 kg 128.5 kg General appearance: PRESENT: no acute distress, well-developed Respiratory exam: PRESENT: decreased breath sounds Cardiovascular exam: PRESENT: RRR. ABSENT: diastolic murmur, rubs, systolic murmur GI/Abdominal exam: PRESENT: normal bowel sounds, soft. ABSENT: distended, guarding, mass, organolmegaly, rebound, tenderness Extremities exam: PRESENT: full ROM. ABSENT: calf tenderness, clubbing, pedal edema Neurological exam: PRESENT: alert, awake, oriented to person, oriented to place, oriented to time, oriented to situation Psychiatric exam: PRESENT: appropriate affect, normal mood. Skin exam: PRESENT: dry, intact, warm. ABSENT: cyanosis, rash Results Laboratory Results: 08/01/20 06:26 07/28/20 04:48 Impressions: Chest X-Ray 07/25/20 06:00 IMPRESSION: Increasing diffuse bilateral airspace disease. Chest CT 07/26/20 06:00 IMPRESSION: Extensive ground-glass infiltrates. Consistent with COVID-19 pneumonia. Findings as described. Assessment and Plan - Diagnosis (1) Acute respiratory failure with hypoxia Is this a current diagnosis for this admission?: Yes (2) Pneumonia due to COVID-19 virus Is this a current diagnosis for this admission?: Yes (3) Obesity (BMI 30-39.9) Is this a current diagnosis for this admission?: Yes (4) Type 2 diabetes mellitus Qualifiers: Diabetes mellitus jail insulin use: without terminal clerk use Diabetes mellitus complication status: without complication Qualified Code(s): E11.9 - Type 2 diabetes mellitus without complications Is this a current diagnosis for this admission?: Yes (5) Hyperlipidemia Qualifiers: Hyperlipidemia type: unspecified Qualified Code(s): E78.5 - Hyperlipidemia, unspecified Is this a current diagnosis for this admission?: Yes (6) Hypertension Qualifiers: Hypertension type: essential hypertension Qualified Code(s): I10 - Essential (primary) hypertension Is this a current diagnosis for this admission?: Yes - Plan Summary Summary: He has completed remdesivir and ivermectin. He continues on the high flow nasal cannula. He has only been on Solu-Medrol for about 5 days. We have finally been able to reduce his level of oxygen support for the first time in several days, down to 50% FiO2 but still with a flow rate of 50 L. We will continue with recommended vitamin supplementation. We will continue to wean FiO2 as tolerated. We talked to him about the possibility of going to an LTAC and he was agreeable. If he does not continue to improve, this is probably a good choice for him. - Time Time Spent with patient: 15-24 minutes Anticipated Discharge Disposition: LTAC Anticipated Discharge Timeframe: Unknown
[2020-08-02] MEDS: ATORVASTATIN CALCIUM 10 MG TABLET PO SCH (21:49)
[2020-08-02] MEDS: MELATONIN 5 MG TABLET PO SCH (21:49)
[2020-08-03] MEDS: ACETAMINOPHEN 325 MG TABLET PO PRN ×2 (04:30→09:52)
[2020-08-03] MEDS: LISINOPRIL 10 MG TABLET PO SCH ×2 (05:41→17:23)
[2020-08-03] MEDS: PANTOPRAZOLE SODIUM 20 MG TABLET.DR PO SCH (05:41)
[2020-08-03] MEDS: HYDROCHLOROTHIAZIDE 12.5 MG TABLET PO SCH ×2 (05:41→17:24)
[2020-08-03 06:10] LABS: HEMATOCRIT 38.1 % (37.9-51.0); HEMOGLOBIN 12.5 g/dL (13.5-17.0); MEAN CORPUSCULAR VOLUME 79 fl (80-97); PLATELET COUNT 599 10^3/uL (150-450); RED BLOOD COUNT 4.83 10^6/uL (4.35-5.55); RED CELL DISTRIBUTION WIDTH 14.9 % (11.5-14.0); WHITE BLOOD COUNT 14.8 10^3/uL (4.0-10.5)
[2020-08-03] MEDS: METHYLPREDNISOLONE INJ 125 MG/2 ML SDV IV SCH ×2 (09:51→21:25)
[2020-08-03] MEDS: BUSPIRONE HCL 10 MG TABLET PO SCH ×2 (09:52→21:25)
[2020-08-03] MEDS: ASPIRIN 81 MG TABLET, ENT COATED PO SCH (09:52)
[2020-08-03] MEDS: AMLODIPINE BESYLATE 10 MG TABLET PO SCH (09:52)
[2020-08-03] MEDS: ASCORBIC ACID 500 MG TABLET PO SCH ×2 (09:52→17:23)
[2020-08-03] MEDS: CHOLECALCIFEROL (D3) 1,000 UNIT (25 MCG) TABLET PO SCH (09:52)
[2020-08-03] MEDS: POTASSIUM CHLORIDE 10 MEQ TABLET.ER PO SCH (09:53)
[2020-08-03] MEDS: INSULIN LISPRO 100 UNIT/ML 3 ML VIAL SUBCUT SCH ×7 (09:53→21:25)
[2020-08-03] MEDS: ENOXAPARIN SODIUM INJ 150 MG/1 ML DISP.SYRIN SUBCUT SCH (09:54)
[2020-08-03] MEDS: ZINC SULFATE 220 MG CAPSULE PO SCH (09:54)
--- NOTE | 2020-08-03 14:32 | PDOC PROGRESS REPORT ---
Subjective Date:: 08/03/20 - ' Subjective:: very anxious yoday. Epistaxis and very large hematoma left abdomen Reason For Visit: ACUTE HYPOXIC RESP FAILURE 2/2 COVID 19 PNEUMONIA Physical Exam Vital Signs: Temp Pulse Resp BP Pulse Ox 97.9 F 95 18 109/57 L 92 08/03/20 08:29 08/03/20 08:29 08/03/20 14:18 08/03/20 08:29 08/03/20 14:18 Intake & Output 08/02/20 08/03/20 08/04/20 06:59 06:59 06:59 Intake Total 1880 3184 Output Total 3375 3525 Balance -1495 -341 Weight 128.5 kg 127.4 kg General appearance: PRESENT: cooperative, other - moderate distress Respiratory exam: PRESENT: rales - L>R Cardiovascular exam: PRESENT: RRR, +S1, +S2 GI/Abdominal exam: PRESENT: mass - Very firm mass left side of abdomen Rectal exam: PRESENT: deferred Gentrourinary exam: ABSENT: indwelling catheter Results Laboratory Results: 08/03/20 05:40 07/28/20 04:48 08/03/20 05:40 WBC 14.8 H RBC 4.83 Hgb 12.5 L Hct 38.1 MCV 79 L MCH 26.0 L MCHC 33.0 RDW 14.9 H Plt Count 599 H Impressions: Chest X-Ray 07/25/20 06:00 IMPRESSION: Increasing diffuse bilateral airspace disease. Chest CT 07/26/20 06:00 IMPRESSION: Extensive ground-glass infiltrates. Consistent with COVID-19 pneumonia. Findings as described. Assessment and Plan - Diagnosis (1) Acute respiratory failure with hypoxia Is this a current diagnosis for this admission?: Yes (2) Pneumonia due to COVID-19 virus Is this a current diagnosis for this admission?: Yes (3) Type 2 diabetes mellitus Qualifiers: Diabetes mellitus manager long term care insulin use: without fdc use Diabetes mellitus complication status: without complication Qualified Code(s): E11.9 - Type 2 diabetes mellitus without complications Is this a current diagnosis for this admission?: Yes (4) Hyperlipidemia Qualifiers: Hyperlipidemia type: unspecified Qualified Code(s): E78.5 - Hyperlipidemia, unspecified Is this a current diagnosis for this admission?: Yes (5) Hypertension Qualifiers: Hypertension type: essential hypertension Qualified Code(s): I10 - Essential (primary) hypertension Is this a current diagnosis for this admission?: Yes (6) Obesity (BMI 30-39.9) Is this a current diagnosis for this admission?: Yes (7) Anxiety and depression Is this a current diagnosis for this admission?: Yes - Plan Summary Summary: (1) Acute respiratory failure with hypoxia (2) Pneumonia due to COVID-19 virus (3) Type 2 diabetes mellitus (4) Hyperlipidemia (5) Hypertension (6) Obesity (BMI 30-39.9) (7) Anxiety and depression 08/02/2020 He has completed remdesivir and ivermectin. He continues on the high flow nasal cannula. He has only been on Solu-Medrol for about 5 days. We have finally been able to reduce his level of oxygen support for the first time in several days, down to 50% FiO2 but still with a flow rate of 50 L. We will continue with recommended vitamin supplementation. We will continue to wean FiO2 as tolerated. We talked to him about the possibility of going to an LTAC and he was agreeable. If he does not continue to improve, this is probably a good choice for him. 08/03/2020 Respiratory failure with hypoxia due to Covid pneumonia-continue current medications. He is on high flow nasal cannula. We will continue to taper back to room air. Anxiety/depression-the patient admits that he is getting extremely anxious being cooped up in the hospital. He misses his family. He is starting to feel depressed. We will start with several doses of Valium for its extended half- life. I have also instituted sertraline. Will wean off the Valium and continue the sertraline to help with anxiety and depression. I explained that after he is home if all of these symptoms dissipate then his primary care provider at [facility] can just discontinue the sertraline. Hypertension-continue amlodipine and lisinopril Hyperlipidemia-continue atorvastatin Diabetes mellitus type 2-continue scheduled and sliding scale insulin as well as diabetic diet Obesity-BMI 38.1-continue cardiac/diabetic diet. Encourage weight loss once completely recovered from his COVID-19 pneumonia. - Time Time Spent with patient: 15-24 minutes Medications reviewed and adjusted accordingly: Yes Anticipated Discharge Disposition: Home, Self Care Anticipated Discharge Timeframe: Unknown
[2020-08-03] MEDS ORDERED: DIAZEPAM 5 MG TABLET PO ONE (14:33)
[2020-08-03] MEDS: DIAZEPAM 5 MG TABLET PO SCH (21:24)
[2020-08-03] MEDS: MELATONIN 5 MG TABLET PO SCH (21:25)
[2020-08-03] MEDS: ATORVASTATIN CALCIUM 10 MG TABLET PO SCH (21:25)
[2020-08-03 22:00] LABS: APPEARANCE,URINE CLEAR; BILIRUBIN,URINE NEGATIVE (NEGATIVE); COLOR,URINE STRAW; GLUCOSE, URINE NEGATIVE (NEGATIVE); KETONES,URINE NEGATIVE (NEGATIVE); LEUKOCYTE ESTERASE,URINE NEGATIVE (NEGATIVE); NITRITE,URINE NEGATIVE (NEGATIVE); PROTEIN,URINE NEGATIVE (NEGATIVE); URINE SPECIFIC GRAVITY 1.008; UROBILINOGEN,URINE NEGATIVE mg/dL (<2.0)
[2020-08-03] MEDS ORDERED: OXYMETAZOLINE HCL 0.05% NASAL SPRAY 15 ML BOTTLE NASL PRN (23:01)
[2020-08-03] MEDS ORDERED: PHENYLEPHRINE HCL 0.5% NASAL SPRAY 15 ML NASL PRN (23:02)
[2020-08-03] MEDS ORDERED: OXYMETAZOLINE HCL 0.05% NASAL SPRAY 15 ML BOTTLE ONE (23:22)
[2020-08-03] MEDS ORDERED: PHENYLEPHRINE HCL 0.5% NASAL SPRAY 15 ML ONE (23:23)
[2020-08-04] MEDS: ACETAMINOPHEN 325 MG TABLET PO PRN ×2 (04:07→08:17)
[2020-08-04] MEDS ORDERED: TRANEXAMIC ACID INJ/PF 1,000 MG/10 ML SDV IV STA ×2 (05:27→05:29)
[2020-08-04] MEDS ORDERED: NORMAL SALINE 250 ML IV PRN ×2 (05:36)
[2020-08-04] MEDS: HYDROCHLOROTHIAZIDE 12.5 MG TABLET PO SCH (06:26)
[2020-08-04] MEDS: LISINOPRIL 10 MG TABLET PO SCH ×2 (06:27→17:39)
[2020-08-04] MEDS ORDERED: TRANEXAMIC ACID INJ/PF 1,000 MG/10 ML SDV ONE (06:27)
[2020-08-04] MEDS: PANTOPRAZOLE SODIUM 20 MG TABLET.DR PO SCH (06:28)
[2020-08-04 06:36] LABS: HEMATOCRIT 32.8 % (37.9-51.0); MEAN CORPUSCULAR HEMOGLOBIN 26.4 pg (27.0-33.4); MEAN CORPUSCULAR HGB CONC 33.5 g/dL (32.0-36.0); MEAN CORPUSCULAR VOLUME 79 fl (80-97); PLATELET COUNT 495 10^3/uL (150-450); RED BLOOD COUNT 4.16 10^6/uL (4.35-5.55); RED CELL DISTRIBUTION WIDTH 14.8 % (11.5-14.0); WHITE BLOOD COUNT 18.1 10^3/uL (4.0-10.5)
--- NOTE | 2020-08-04 06:39 | ER Document Report ---
Doctor's Note Notes: 08/04/20 06:39 This MD went on to the medical floor at the request of Dr. Lloyd hospitalist to help with a patient's acute epistaxis. Procedure note: Patient was noted to have persistent bleeding from his left nostril. This MD used a 7.5 cm anterior posterior Rhino Rocket with airway to tamponade the epistaxis. The Rhino Rocket was saturated with TXA and inserted fully into the patient's left nasal cavity. No active bleeding was noted once the tampon was inserted and inflated. Patient tolerated procedure well.
[2020-08-04 06:45] LABS: INTERNATIONAL RATION (INR) 1.05; PROTHROMBIN TIME 13.9 SEC (11.4-15.4)
[2020-08-04 07:00] LABS: ALBUMIN 2.4 g/dL (3.5-5.0); ALKALINE PHOSPHATASE 60 U/L (38-126); ANION GAP 6 (5-19); ASPARTATE AMINO TRANSFERASE 28 U/L (17-59); BILIRUBIN,DIRECT 0.3 mg/dL (0.0-0.4); BILIRUBIN,TOTAL 0.6 mg/dL (0.2-1.3); BLOOD UREA NITROGEN 35 mg/dL (7-20); CALCIUM 8.5 mg/dL (8.4-10.2); CARBON DIOXIDE 26 mmol/L (22-30); CHLORIDE 98 mmol/L (98-107); GLUCOSE 167 mg/dL (75-110); POTASSIUM 4.9 mmol/L (3.6-5.0); TOTAL PROTEIN 5.1 g/dL (6.3-8.2)
[2020-08-04 07:11] LABS: C-REACTIVE PROTEIN < 5.0 mg/L (<10.0)
[2020-08-04] MEDS: INSULIN LISPRO 100 UNIT/ML 3 ML VIAL SUBCUT SCH ×7 (08:17→22:06)
[2020-08-04] MEDS ORDERED: OXYCODONE HCL IR 5 MG TABLET PO ONE (10:15)
[2020-08-04] MEDS: BUSPIRONE HCL 10 MG TABLET PO SCH ×2 (10:36→21:25)
[2020-08-04] MEDS: POTASSIUM CHLORIDE 10 MEQ TABLET.ER PO SCH (10:36)
[2020-08-04] MEDS: CHOLECALCIFEROL (D3) 1,000 UNIT (25 MCG) TABLET PO SCH (10:36)
[2020-08-04] MEDS: SERTRALINE HCL 50 MG TABLET PO SCH (10:36)
[2020-08-04] MEDS: AMLODIPINE BESYLATE 10 MG TABLET PO SCH (10:36)
[2020-08-04] MEDS: DIAZEPAM 5 MG TABLET PO SCH ×2 (10:37→21:25)
[2020-08-04] MEDS: ZINC SULFATE 220 MG CAPSULE PO SCH (10:37)
[2020-08-04] MEDS: ASPIRIN 81 MG TABLET, ENT COATED PO SCH (10:37)
[2020-08-04] MEDS: METHYLPREDNISOLONE INJ 125 MG/2 ML SDV IV SCH ×2 (10:37→21:26)
[2020-08-04] MEDS: ASCORBIC ACID 500 MG TABLET PO SCH ×2 (10:37→17:39)
--- NOTE | 2020-08-04 13:43 | PDOC PROGRESS REPORT ---
Subjective Date:: 08/04/20 Subjective:: Events of last night reviewed. Nasal balloon is quite uncomfortable for the pat ient. It is giving him headaches. The Valium has helped with his anxiety. His breathing seems more relaxed as well. He is now off of the high flow nasal cannula. Reason For Visit: ACUTE HYPOXIC RESP FAILURE 2/2 COVID 19 PNEUMONIA Physical Exam Vital Signs: Temp Pulse Resp BP Pulse Ox 97.3 F 97 18 125/74 99 08/04/20 12:13 08/04/20 12:13 08/04/20 12:13 08/04/20 12:13 08/04/20 12:13 Intake & Output 08/03/20 08/04/20 08/05/20 06:59 06:59 06:59 Intake Total 3184 1594 Output Total 3525 2625 Balance -341 -1031 Weight 127.4 kg 126.8 kg General appearance: PRESENT: no acute distress, cooperative, well-developed, other - Nasal balloon left nares Eye exam: PRESENT: conjunctiva pink, EOMI. ABSENT: scleral icterus Ear exam: PRESENT: normal external ear exam. ABSENT: bleeding, drainage Mouth exam: PRESENT: moist, tongue midline Respiratory exam: PRESENT: rales - Left upper lobe predominantly, symmetrical, unlabored. ABSENT: accessory muscle use, crackles, rhonchi, tachypnea, wheezes Cardiovascular exam: PRESENT: RRR, +S1, +S2. ABSENT: bradycardia, diastolic murmur, irregular rhythm, systolic murmur GI/Abdominal exam: PRESENT: distended, normal bowel sounds, other - Still with large left-sided abdominal wall hematoma. ABSENT: tenderness Rectal exam: PRESENT: deferred Gentrourinary exam: ABSENT: indwelling catheter Musculoskeletal exam: PRESENT: ambulatory, normal inspection. ABSENT: deformit y, dislocation Neurological exam: PRESENT: alert, awake, oriented to person, oriented to place, oriented to time, oriented to situation, CN II-XII grossly intact. ABSENT: alt ered Psychiatric exam: PRESENT: anxious - Significantly improved from yesterday, appropriate affect. ABSENT: agitated Focused psych exam: ABSENT: delusional, paranoid, restlessness Skin exam: PRESENT: dry, normal color, warm. ABSENT: rash Results Laboratory Results: 08/04/20 06:19 08/04/20 06:19 0108/04/20 08/04/20 21:45 06:19 06:19 WBC RBC Hgb Hct MCV MCH MCHC RDW Plt Count Sodium 129.9 L Potassium 4.9 Chloride 98 Carbon Dioxide 26 Anion Gap 6 BUN 35 H Creatinine 0.57 Est GFR ( Amer) > 60 Glucose 167 H Calcium 8.5 Ferritin 402.00 Total Bilirubin 0.6 AST 28 Alkaline Phosphatase 60 C-Reactive Protein < 5.0 Total Protein 5.1 L Albumin 2.4 L Urine Color STRAW Urine Appearance CLEAR Urine pH 6.0 Ur Specific [place] 1.008 Urine Protein NEGATIVE Urine Glucose (UA) NEGATIVE Urine Ketones NEGATIVE Urine Blood NEGATIVE Urine Nitrite NEGATIVE Ur Leukocyte Esterase NEGATIVE Urine WBC (Auto) 0 Urine RBC (Auto) 0 Blood Type A POSITIVE 08/04/20 06:19 WBC 18.1 H RBC 4.16 L Hgb 11.0 L Hct 32.8 L MCV 79 L MCH 26.4 L MCHC 33.5 RDW 14.8 H Plt Count 495 H Sodium Potassium Chloride Carbon Dioxide Anion Gap BUN Creatinine Est GFR ( Amer) Glucose Calcium Ferritin Total Bilirubin AST Alkaline Phosphatase C-Reactive Protein Total Protein Albumin Urine Color Urine Appearance Urine pH Ur Specific [place] Urine Protein Urine Glucose (UA) Urine Ketones Urine Blood Urine Nitrite Ur Leukocyte Esterase Urine WBC (Auto) Urine RBC (Auto) Blood Type Impressions: Chest X-Ray 07/25/20 06:00 IMPRESSION: Increasing diffuse bilateral airspace disease. Chest CT 07/26/20 06:00 IMPRESSION: Extensive ground-glass infiltrates. Consistent with COVID-19 pneumonia. Findings as described. Assessment and Plan - Diagnosis (1) Acute respiratory failure with hypoxia Is this a current diagnosis for this admission?: Yes (2) Pneumonia due to COVID-19 virus Is this a current diagnosis for this admission?: Yes (3) Type 2 diabetes mellitus Qualifiers: Diabetes mellitus middle or intermediate school principal insulin use: without prison use Diabetes mellitus complication status: without complication Qualified Code(s): E11.9 - Type 2 diabetes mellitus without complications Is this a current diagnosis for this admission?: Yes (4) Hyperlipidemia Qualifiers: Hyperlipidemia type: unspecified Qualified Code(s): E78.5 - Hyperlipidemia, unspecified Is this a current diagnosis for this admission?: Yes (5) Hypertension Qualifiers: Hypertension type: essential hypertension Qualified Code(s): I10 - Essential (primary) hypertension Is this a current diagnosis for this admission?: Yes (6) Obesity (BMI 30-39.9) Is this a current diagnosis for this admission?: Yes (7) Anxiety and depression Is this a current diagnosis for this admission?: Yes (8) Epistaxis Is this a current diagnosis for this admission?: Yes (9) Hematoma of abdominal wall Qualifiers: Encounter type: initial encounter Qualified Code(s): S30.1XXA - Contusion of abdominal wall, initial encounter Is this a current diagnosis for this admission?: Yes - Plan Summary Summary: (1) Acute respiratory failure with hypoxia (2) Pneumonia due to COVID-19 virus (3) Type 2 diabetes mellitus (4) Hyperlipidemia (5) Hypertension (6) Obesity (BMI 30-39.9) (7) Anxiety and depression (8) Epistaxis (9) Abdominal wall hematoma 08/02/2020 He has completed remdesivir and ivermectin. He continues on the high flow nasal cannula. He has only been on Solu-Medrol for about 5 days. We have finally been able to reduce his level of oxygen support for the first time in several days, down to 50% FiO2 but still with a flow rate of 50 L. We will continue with recommended vitamin supplementation. We will continue to wean FiO2 as tolerated. We talked to him about the possibility of going to an LTAC and he was agreeable. If he does not continue to improve, this is probably a good choice for him. 08/03/2020 Respiratory failure with hypoxia due to Covid pneumonia-continue current medications. He is on high flow nasal cannula. We will continue to taper back to room air. Anxiety/depression-the patient admits that he is getting extremely anxious being cooped up in the hospital. He misses his family. He is starting to feel depressed. We will start with several doses of Valium for its extended half- life. I have also instituted sertraline. Will wean off the Valium and continue the sertraline to help with anxiety and depression. I explained that after he is home if all of these symptoms dissipate then his primary care provider at [facility] can just discontinue the sertraline. Hypertension-continue amlodipine and lisinopril Hyperlipidemia-continue atorvastatin Diabetes mellitus type 2-continue scheduled and sliding scale insulin as well as diabetic diet Obesity-BMI 38.1-continue cardiac/diabetic diet. Encourage weight loss once completely recovered from his COVID-19 pneumonia. Epistaxis and abdominal wall hematoma-the patient has a very large hematoma on the left side of the abdominal wall. Is also been having epistaxis. I have stopped the Lovenox completely as the risks are outweighing the benefit at this time. If needed we can obtain a CT scan of the patient's abdomen to see the extent of the hematoma. His hemoglobin is down 2 g from 08/01/2020. Recheck CBC tomorrow. 08/04/2020 Respiratory failure with hypoxia from Covid pneumonia-continue current regimen. Continue to taper oxygen to room air if possible. Because of the prolonged nature of his recovery he will likely need home oxygen therapy. He finally is off of high flow nasal cannula and is currently on nonrebreather. We will continue to attempt to taper as tolerated. Diabetes mellitus type 2-increase premeal insulin to 7 units. Continue sliding scale. Hypertension-blood pressures are marginal. The patient's BUN is still elevated. I will hold the hydrochlorothiazide at this time. Anxiety and depression-the patient does have a history of bipolar disorder but has not been on any prescribed medications for a long time. The Valium 10 mg twice daily seems to be working very well and has him quite relaxed. Consider slowly decreasing the dose. With the events of this morning it is certainly understandable that he would have increased anxiety however between the benzodiazepine and analgesic medications he is quite relaxed. Epistaxis-the patient had continued nosebleeding through the night. He was given tranexamic acid 2 doses and will be getting fresh frozen plasma today. He has a nasal balloon in place. I told him it would be safest to leave it in for today and remove it tomorrow as recurrent bleeding would require reinserting the nasal balloon. He is having some discomfort with the nasal balloon and pain medications have been ordered. Abdominal wall hematoma-Lovenox has been discontinued. I will also hold his aspirin at this time. - Time Time Spent with patient: 15-24 minutes Medications reviewed and adjusted accordingly: Yes Anticipated Discharge Disposition: Home with Home Health Anticipated Discharge Timeframe: Unknown
[2020-08-04] MEDS ORDERED: BISACODYL 5 MG TABEC PO PRN (16:29)
[2020-08-04] MEDS ORDERED: SENNOSIDES/DOCUSATE 8.6-50 MG 1 EACH TABLET PO PRN (16:29)
[2020-08-04] MEDS ORDERED: INSULIN LISPRO 100 UNIT/ML 3 ML VIAL SUBCUT ONE (17:15)
[2020-08-04] MEDS: DOCUSATE SODIUM 100 MG CAPSULE PO SCH (17:39)
[2020-08-04] MEDS: MELATONIN 5 MG TABLET PO SCH (21:25)
[2020-08-04] MEDS: ATORVASTATIN CALCIUM 10 MG TABLET PO SCH (21:25)
[2020-08-04] MEDS: OXYCODONE HCL IR 5 MG TABLET PO PRN (21:26)
[2020-08-05] MEDS: ACETAMINOPHEN 325 MG TABLET PO PRN (04:30)
[2020-08-05 05:38] LABS: HEMOGLOBIN 10.3 g/dL (13.5-17.0); MEAN CORPUSCULAR HEMOGLOBIN 26.8 pg (27.0-33.4); MEAN CORPUSCULAR HGB CONC 34.1 g/dL (32.0-36.0); MEAN CORPUSCULAR VOLUME 79 fl (80-97); PLATELET COUNT 482 10^3/uL (150-450); RED BLOOD COUNT 3.82 10^6/uL (4.35-5.55); RED CELL DISTRIBUTION WIDTH 14.8 % (11.5-14.0); WHITE BLOOD COUNT 14.4 10^3/uL (4.0-10.5)
[2020-08-05] MEDS: LISINOPRIL 10 MG TABLET PO SCH ×2 (05:57→17:03)
[2020-08-05] MEDS: PANTOPRAZOLE SODIUM 20 MG TABLET.DR PO SCH (05:58)
[2020-08-05] MEDS: OXYCODONE HCL IR 5 MG TABLET PO PRN ×2 (05:58→17:02)
[2020-08-05 06:24] LABS: ANION GAP 5 (5-19); BLOOD UREA NITROGEN 27 mg/dL (7-20); CALCIUM 8.4 mg/dL (8.4-10.2); CARBON DIOXIDE 31 mmol/L (22-30); CHLORIDE 95 mmol/L (98-107); GLUCOSE 174 mg/dL (75-110)
[2020-08-05] MEDS: INSULIN LISPRO 100 UNIT/ML 3 ML VIAL SUBCUT SCH ×7 (08:19→22:21)
[2020-08-05] MEDS: FERROUS SULFATE 325 MG TABLET PO SCH ×2 (08:19→17:03)
--- NOTE | 2020-08-05 11:10 | PDOC PROGRESS REPORT ---
Subjective Date:: 08/05/20 Subjective:: We will remove the nasal balloon from the left nares this morning. The patient is relieved to hear that. He otherwise is stable. We will continue to try to wean oxygen to room air however I believe he will need home oxygen therapy due to post Covid respiratory changes. Reason For Visit: ACUTE HYPOXIC RESP FAILURE 2/2 COVID 19 PNEUMONIA Physical Exam Vital Signs: Temp Pulse Resp BP Pulse Ox 97.5 F 88 20 114/76 100 08/05/20 08:05 08/05/20 08:05 08/05/20 08:05 08/05/20 08:05 08/05/20 08:05 Intake & Output 08/04/20 08/05/20 08/06/20 06:59 06:59 06:59 Intake Total 1594 697 Output Total 2625 2250 Balance -1031 -1553 Weight 126.8 kg General appearance: PRESENT: no acute distress, cooperative, well-developed Head exam: PRESENT: atraumatic, normocephalic Eye exam: PRESENT: conjunctiva pink, EOMI. ABSENT: scleral icterus Ear exam: PRESENT: normal external ear exam. ABSENT: bleeding, drainage Mouth exam: PRESENT: moist, tongue midline Neck exam: ABSENT: carotid bruit, JVD, lymphadenopathy Respiratory exam: PRESENT: clear to auscultation lorena, symmetrical, unlabored. ABSENT: accessory muscle use, chest wall tenderness, crackles, rales, rhonchi, tachypnea, wheezes Cardiovascular exam: PRESENT: RRR, +S1, +S2. ABSENT: bradycardia, diastolic murmur, irregular rhythm, systolic murmur, tachycardia GI/Abdominal exam: PRESENT: normal bowel sounds, soft - Except for abdominal wall hematoma, other - Abdominal wall hematoma seems to be softening in the superior aspect. Still dense and firm in the inferior portion.. ABSENT: distended, guarding Rectal exam: PRESENT: deferred Gentrourinary exam: ABSENT: indwelling catheter Extremities exam: ABSENT: pedal edema Musculoskeletal exam: PRESENT: ambulatory, normal inspection. ABSENT: deformity, dislocation Neurological exam: PRESENT: alert, awake, oriented to person, oriented to place, oriented to time, oriented to situation, CN II-XII grossly intact. ABSENT: altered Psychiatric exam: PRESENT: appropriate affect. ABSENT: agitated, anxious Focused psych exam: ABSENT: delusional, paranoid, restlessness Skin exam: PRESENT: dry, normal color, warm. ABSENT: rash Results Laboratory Results: 08/05/20 05:16 08/05/20 05:16 08/04/20 08/05/20 08/05/20 06:19 05:16 05:16 WBC 14.4 H RBC 3.82 L Hgb 10.3 L Hct 30.0 L MCV 79 L MCH 26.8 L MCHC 34.1 RDW 14.8 H Plt Count 482 H Sodium 131.0 L Potassium 5.0 Chloride 95 L Carbon Dioxide 31 H Anion Gap 5 BUN 27 H Creatinine 0.57 Est GFR ( Amer) > 60 Glucose 174 H Calcium 8.4 Magnesium 2.2 Blood Type A POSITIVE Impressions: Chest X-Ray 07/25/20 06:00 IMPRESSION: Increasing diffuse bilateral airspace disease. Chest CT 07/26/20 06:00 IMPRESSION: Extensive ground-glass infiltrates. Consistent with COVID-19 pneumonia. Findings as described. Assessment and Plan - Diagnosis (1) Acute respiratory failure with hypoxia Is this a current diagnosis for this admission?: Yes (2) Pneumonia due to COVID-19 virus Is this a current diagnosis for this admission?: Yes (3) Type 2 diabetes mellitus Qualifiers: Diabetes mellitus [facility] insulin use: without line puller use Diabetes mellitus complication status: without complication Qualified Code(s): E11.9 - Type 2 diabetes mellitus without complications Is this a current diagnosis for this admission?: Yes (4) Hyperlipidemia Qualifiers: Hyperlipidemia type: unspecified Qualified Code(s): E78.5 - Hyperlipidemia, unspecified Is this a current diagnosis for this admission?: Yes (5) Hypertension Qualifiers: Hypertension type: essential hypertension Qualified Code(s): I10 - Essential (primary) hypertension Is this a current diagnosis for this admission?: Yes (6) Obesity (BMI 30-39.9) Is this a current diagnosis for this admission?: Yes (7) Anxiety and depression Is this a current diagnosis for this admission?: Yes (8) Epistaxis Is this a current diagnosis for this admission?: Yes (9) Hematoma of abdominal wall Qualifiers: Encounter type: initial encounter Qualified Code(s): S30.1XXA - Contusion of abdominal wall, initial encounter Is this a current diagnosis for this admission?: Yes - Plan Summary Summary: (1) Acute respiratory failure with hypoxia (2) Pneumonia due to COVID-19 virus (3) Type 2 diabetes mellitus (4) Hyperlipidemia (5) Hypertension (6) Obesity (BMI 30-39.9) (7) Anxiety and depression (8) Epistaxis (9) Abdominal wall hematoma 08/02/2020 He has completed remdesivir and ivermectin. He continues on the high flow nasal cannula. He has only been on Solu-Medrol for about 5 days. We have finally been able to reduce his level of oxygen support for the first time in several days, down to 50% FiO2 but still with a flow rate of 50 L. We will continue with recommended vitamin supplementation. We will continue to wean FiO2 as tolerated. We talked to him about the possibility of going to an LTAC and he was agreeable. If he does not continue to improve, this is probably a good choice for him. 08/03/2020 Respiratory failure with hypoxia due to Covid pneumonia-continue current medications. He is on high flow nasal cannula. We will continue to taper back to room air. Anxiety/depression-the patient admits that he is getting extremely anxious being cooped up in the hospital. He misses his family. He is starting to feel depressed. We will start with several doses of Valium for its extended half- life. I have also instituted sertraline. Will wean off the Valium and continue the sertraline to help with anxiety and depression. I explained that after he is home if all of these symptoms dissipate then his primary care provider at [facility] can just discontinue the sertraline. Hypertension-continue amlodipine and lisinopril Hyperlipidemia-continue atorvastatin Diabetes mellitus type 2-continue scheduled and sliding scale insulin as well as diabetic diet Obesity-BMI 38.1-continue cardiac/diabetic diet. Encourage weight loss once completely recovered from his COVID-19 pneumonia. Epistaxis and abdominal wall hematoma-the patient has a very large hematoma on the left side of the abdominal wall. Is also been having epistaxis. I have stopped the Lovenox completely as the risks are outweighing the benefit at this time. If needed we can obtain a CT scan of the patient's abdomen to see the extent of the hematoma. His hemoglobin is down 2 g from 08/01/2020. Recheck CBC tomorrow. 08/04/2020 Respiratory failure with hypoxia from Covid pneumonia-continue current regimen. Continue to taper oxygen to room air if possible. Because of the prolonged nature of his recovery he will likely need home oxygen therapy. He finally is off of high flow nasal cannula and is currently on nonrebreather. We will continue to attempt to taper as tolerated. Diabetes mellitus type 2-increase premeal insulin to 7 units. Continue sliding scale. Hypertension-blood pressures are marginal. The patient's BUN is still elevated. I will hold the hydrochlorothiazide at this time. Anxiety and depression-the patient does have a history of bipolar disorder but has not been on any prescribed medications for a long time. The Valium 10 mg twice daily seems to be working very well and has him quite relaxed. Consider slowly decreasing the dose. With the events of this morning it is certainly understandable that he would have increased anxiety however between the benzodiazepine and analgesic medications he is quite relaxed. Epistaxis-the patient had continued nosebleeding through the night. He was given tranexamic acid 2 doses and will be getting fresh frozen plasma today. He has a nasal balloon in place. I told him it would be safest to leave it in for today and remove it tomorrow as recurrent bleeding would require reinserting the nasal balloon. He is having some discomfort with the nasal balloon and pain medications have been ordered. Abdominal wall hematoma-Lovenox has been discontinued. I will also hold his aspirin at this time. 08/05/2020 Respiratory failure with Covid pneumonia-no changes at this time with the exception of holding the Lovenox. Continue taper oxygen to room air if possible. He will likely need oxygen at home. I feel he will be safe for discharge once we get his oxygen requirement to 4 L/min or less. Diabetes [id number] seem to be improving with the increase of the preprandial Humalog dosing. Continue to monitor and utilize sliding scale as needed. Hypertension-blood pressure is improved today. I will continue to hold the hydrochlorothiazide for another day and reassess. Anxiety/depression-the Valium seems to working very well. We will continue the sertraline as well. Epistaxis-the nasal balloon was removed from the left nares today. Monitor for any additional bleeding. Abdominal wall hematoma-continue to hold Lovenox. Continue to hold aspirin at this time. I will order warm compresses to help soften the hematoma. I did have a chance to speak to the patient's mother during the visit. I updated her. Reported that the patient's slowly improving but that he would likely need home oxygen therapy. I am hopeful for discharge sometime later this week. All of her questions were answered to her satisfaction. All of the patient's questions were answered as well. - Time Time Spent with patient: 25-34 minutes Medications reviewed and adjusted accordingly: Yes Anticipated Discharge Disposition: Home with Home Health Anticipated Discharge Timeframe: Unknown
[2020-08-05] MEDS: ZINC SULFATE 220 MG CAPSULE PO SCH (11:45)
[2020-08-05] MEDS: AMLODIPINE BESYLATE 10 MG TABLET PO SCH (11:45)
[2020-08-05] MEDS: SERTRALINE HCL 50 MG TABLET PO SCH (11:45)
[2020-08-05] MEDS: POTASSIUM CHLORIDE 10 MEQ TABLET.ER PO SCH (11:45)
[2020-08-05] MEDS: CHOLECALCIFEROL (D3) 1,000 UNIT (25 MCG) TABLET PO SCH (11:45)
[2020-08-05] MEDS: ASCORBIC ACID 500 MG TABLET PO SCH ×2 (11:45→17:03)
[2020-08-05] MEDS: DIAZEPAM 5 MG TABLET PO SCH ×2 (11:45→22:06)
[2020-08-05] MEDS: DOCUSATE SODIUM 100 MG CAPSULE PO SCH ×2 (11:45→17:03)
[2020-08-05] MEDS: BUSPIRONE HCL 10 MG TABLET PO SCH ×2 (11:46→22:05)
[2020-08-05] MEDS: METHYLPREDNISOLONE INJ 125 MG/2 ML SDV IV SCH ×2 (11:46→22:05)
[2020-08-05] MEDS: MELATONIN 5 MG TABLET PO SCH (22:05)
[2020-08-05] MEDS: ATORVASTATIN CALCIUM 10 MG TABLET PO SCH (22:05)
[2020-08-06] MEDS ORDERED: PHENOL/SODIUM PHENOLATE 100 SPRAY/177 ML BOTTLE ONE (00:45)
[2020-08-06] MEDS ORDERED: PHENOL/SODIUM PHENOLATE 100 SPRAY/177 ML BOTTLE PO PRN (00:45)
[2020-08-06] MEDS: OXYCODONE HCL IR 5 MG TABLET PO PRN ×3 (02:30→22:55)
[2020-08-06] MEDS: LISINOPRIL 10 MG TABLET PO SCH ×2 (05:37→17:08)
[2020-08-06] MEDS: PANTOPRAZOLE SODIUM 20 MG TABLET.DR PO SCH (05:41)
[2020-08-06] MEDS ORDERED: LISINOPRIL 10 MG TABLET PO SCH (06:00)
[2020-08-06 06:26] LABS: HEMATOCRIT 30.3 % (37.9-51.0); HEMOGLOBIN 10.1 g/dL (13.5-17.0); MEAN CORPUSCULAR HEMOGLOBIN 26.2 pg (27.0-33.4); MEAN CORPUSCULAR HGB CONC 33.2 g/dL (32.0-36.0); MEAN CORPUSCULAR VOLUME 79 fl (80-97); PLATELET COUNT 458 10^3/uL (150-450); RED BLOOD COUNT 3.84 10^6/uL (4.35-5.55); RED CELL DISTRIBUTION WIDTH 14.9 % (11.5-14.0); WHITE BLOOD COUNT 17.5 10^3/uL (4.0-10.5)
[2020-08-06 07:00] LABS: BLOOD UREA NITROGEN 30 mg/dL (7-20); CALCIUM 8.5 mg/dL (8.4-10.2); GLUCOSE 165 mg/dL (75-110); POTASSIUM 5.3 mmol/L (3.6-5.0)
[2020-08-06 07:06] LABS: CARBON DIOXIDE 32 mmol/L (22-30); CHLORIDE 96 mmol/L (98-107)
[2020-08-06 07:08] LABS: ANION GAP 4 (5-19)
[2020-08-06] MEDS: INSULIN LISPRO 100 UNIT/ML 3 ML VIAL SUBCUT SCH ×7 (08:37→22:29)
[2020-08-06] MEDS: FERROUS SULFATE 325 MG TABLET PO SCH ×2 (08:37→17:07)
[2020-08-06] MEDS: POTASSIUM CHLORIDE 10 MEQ TABLET.ER PO SCH (09:39)
[2020-08-06] MEDS: METHYLPREDNISOLONE INJ 125 MG/2 ML SDV IV SCH (09:42)
[2020-08-06] MEDS: CHOLECALCIFEROL (D3) 1,000 UNIT (25 MCG) TABLET PO SCH (09:42)
[2020-08-06] MEDS: DOCUSATE SODIUM 100 MG CAPSULE PO SCH ×2 (09:42→17:07)
[2020-08-06] MEDS: DIAZEPAM 5 MG TABLET PO SCH ×2 (09:42→22:43)
[2020-08-06] MEDS: ZINC SULFATE 220 MG CAPSULE PO SCH (09:42)
[2020-08-06] MEDS: BUSPIRONE HCL 10 MG TABLET PO SCH ×2 (09:42→22:43)
[2020-08-06] MEDS: AMLODIPINE BESYLATE 10 MG TABLET PO SCH (09:42)
[2020-08-06] MEDS: SERTRALINE HCL 50 MG TABLET PO SCH (09:42)
[2020-08-06] MEDS: VITAMIN B COMPLEX TABLET PO SCH (09:43)
[2020-08-06] MEDS: ASCORBIC ACID 500 MG TABLET PO SCH ×2 (09:43→17:06)
--- NOTE | 2020-08-06 12:57 | PDOC PROGRESS REPORT ---
Subjective Date:: 08/06/20 Subjective:: Complaining of sore throat. He is otherwise wanting to know when he can go home. No evidence of further epistaxis. Reason For Visit: ACUTE HYPOXIC RESP FAILURE 2/2 COVID 19 PNEUMONIA Physical Exam Vital Signs: Temp Pulse Resp BP Pulse Ox 98.1 F 92 17 112/67 97 08/06/20 10:00 08/06/20 08:27 08/06/20 08:27 08/06/20 08:27 08/06/20 12:30 Intake & Output 08/05/20 08/06/20 08/07/20 06:59 06:59 06:59 Intake Total 697 1915 Output Total 2250 1675 Balance -1553 240 General appearance: PRESENT: cooperative, mild distress, well-developed, other - No epistaxis Head exam: PRESENT: atraumatic, normocephalic Ear exam: PRESENT: normal external ear exam. ABSENT: bleeding, drainage Respiratory exam: PRESENT: rales - faint, symmetrical, unlabored. ABSENT: rhonchi, tachypnea, wheezes Cardiovascular exam: PRESENT: RRR, +S1, +S2. ABSENT: bradycardia, diastolic murmur, irregular rhythm, systolic murmur GI/Abdominal exam: PRESENT: normal bowel sounds, soft, other - Set the large left-sided abdominal wall hematoma.. ABSENT: tenderness Rectal exam: PRESENT: deferred Gentrourinary exam: ABSENT: indwelling catheter Extremities exam: ABSENT: pedal edema Musculoskeletal exam: PRESENT: ambulatory, normal inspection. ABSENT: deformity, dislocation Neurological exam: PRESENT: alert, awake, oriented to person, oriented to place, oriented to time, oriented to situation, CN II-XII grossly intact. ABSENT: altered Psychiatric exam: PRESENT: appropriate affect. ABSENT: agitated, anxious Focused psych exam: ABSENT: delusional, paranoid, restlessness Results Laboratory Results: 08/06/20 06:10 08/06/20 06:10 08/06/20 08/06/20 06:10 06:10 WBC 17.5 H RBC 3.84 L Hgb 10.1 L Hct 30.3 L MCV 79 L MCH 26.2 L MCHC 33.2 RDW 14.9 H Plt Count 458 H Sodium 131.8 L Potassium 5.3 H Chloride 96 L Carbon Dioxide 32 H Anion Gap 4 L BUN 30 H Creatinine 0.55 Est GFR ( Amer) > 60 Glucose 165 H Calcium 8.5 Magnesium 2.3 Impressions: Chest X-Ray 07/25/20 06:00 IMPRESSION: Increasing diffuse bilateral airspace disease. Chest CT 07/26/20 06:00 IMPRESSION: Extensive ground-glass infiltrates. Consistent with COVID-19 pneumonia. Findings as described. Assessment and Plan - Diagnosis (1) Acute respiratory failure with hypoxia Is this a current diagnosis for this admission?: Yes (2) Pneumonia due to COVID-19 virus Is this a current diagnosis for this admission?: Yes (3) Type 2 diabetes mellitus Qualifiers: Diabetes mellitus [facility] insulin use: without chcf use Diabetes mellitus complication status: without complication Qualified Code(s): E11.9 - Type 2 diabetes mellitus without complications Is this a current diagnosis for this admission?: Yes (4) Hyperlipidemia Qualifiers: Hyperlipidemia type: unspecified Qualified Code(s): E78.5 - Hyperlipidemia, unspecified Is this a current diagnosis for this admission?: Yes (5) Hypertension Qualifiers: Hypertension type: essential hypertension Qualified Code(s): I10 - Essential (primary) hypertension Is this a current diagnosis for this admission?: Yes (6) Obesity (BMI 30-39.9) Is this a current diagnosis for this admission?: Yes (7) Anxiety and depression Is this a current diagnosis for this admission?: Yes (8) Epistaxis Is this a current diagnosis for this admission?: Yes (9) Hematoma of abdominal wall Qualifiers: Encounter type: initial encounter Qualified Code(s): S30.1XXA - Contusion of abdominal wall, initial encounter Is this a current diagnosis for this admission?: Yes (10) Anemia due to blood loss Is this a current diagnosis for this admission?: Yes (11) Hyperkalemia Is this a current diagnosis for this admission?: Yes - Plan Summary Summary: (1) Acute respiratory failure with hypoxia (2) Pneumonia due to COVID-19 virus (3) Type 2 diabetes mellitus (4) Hyperlipidemia (5) Hypertension (6) Obesity (BMI 30-39.9) (7) Anxiety and depression (8) Epistaxis (9) Abdominal wall hematoma (10) Anemia due to blood loss (11) hyperkalemia 08/02/2020 He has completed remdesivir and ivermectin. He continues on the high flow nasal cannula. He has only been on Solu-Medrol for about 5 days. We have finally been able to reduce his level of oxygen support for the first time in several days, down to 50% FiO2 but still with a flow rate of 50 L. We will continue with recommended vitamin supplementation. We will continue to wean FiO2 as to lerated. We talked to him about the possibility of going to an LTAC and he was agreeable. If he does not continue to improve, this is probably a good choice for him. 08/03/2020 Respiratory failure with hypoxia due to Covid pneumonia-continue current medications. He is on high flow nasal cannula. We will continue to taper back to room air. Anxiety/depression-the patient admits that he is getting extremely anxious being cooped up in the hospital. He misses his family. He is starting to feel de pressed. We will start with several doses of Valium for its extended half-life. I have also instituted sertraline. Will wean off the Valium and continue the sertraline to help with anxiety and depression. I explained that after he is home if all of these symptoms dissipate then his primary care provider at [facility] can just discontinue the sertraline. Hypertension-continue amlodipine and lisinopril Hyperlipidemia-continue atorvastatin Diabetes mellitus type 2-continue scheduled and sliding scale insulin as well as diabetic diet Obesity-BMI 38.1-continue cardiac/diabetic diet. Encourage weight loss once completely recovered from his COVID-19 pneumonia. Epistaxis and abdominal wall hematoma-the patient has a very large hematoma on the left side of the abdominal wall. Is also been having epistaxis. I have stopped the Lovenox completely as the risks are outweighing the benefit at this time. If needed we can obtain a CT scan of the patient's abdomen to see the extent of the hematoma. His hemoglobin is down 2 g from 08/01/2020. Recheck CBC tomorrow. 08/04/2020 Respiratory failure with hypoxia from Covid pneumonia-continue current regimen. Continue to taper oxygen to room air if possible. Because of the prolonged nature of his recovery he will likely need home oxygen therapy. He finally is off of high flow nasal cannula and is currently on nonrebreather. We will continue to attempt to taper as tolerated. Diabetes mellitus type 2-increase premeal insulin to 7 units. Continue sliding scale. Hypertension-blood pressures are marginal. The patient's BUN is still elevated. I will hold the hydrochlorothiazide at this time. Anxiety and depression-the patient does have a history of bipolar disorder but has not been on any prescribed medications for a long time. The Valium 10 mg twice daily seems to be working very well and has him quite relaxed. Consider slowly decreasing the dose. With the events of this morning it is certainly understandable that he would have increased anxiety however between the benzodiazepine and analgesic medications he is quite relaxed. Epistaxis-the patient had continued nosebleeding through the night. He was given tranexamic acid 2 doses and will be getting fresh frozen plasma today. He has a nasal balloon in place. I told him it would be safest to leave it in for today and remove it tomorrow as recurrent bleeding would require reinserting the nasal balloon. He is having some discomfort with the nasal balloon and pain me dications have been ordered. Abdominal wall hematoma-Lovenox has been discontinued. I will also hold his aspirin at this time. 08/05/2020 Respiratory failure with Covid pneumonia-no changes at this time with the exception of holding the Lovenox. Continue taper oxygen to room air if possible. He will likely need oxygen at home. I feel he will be safe for discharge once we get his oxygen requirement to 4 L/min or less. Diabetes [id number] seem to be improving with the increase of the p reprandial Humalog dosing. Continue to monitor and utilize sliding scale as needed. Hypertension-blood pressure is improved today. I will continue to hold the hydrochlorothiazide for another day and reassess. Anxiety/depression-the Valium seems to working very well. We will continue the sertraline as well. Epistaxis-the nasal balloon was removed from the left nares today. Monitor for any additional bleeding. Abdominal wall hematoma-continue to hold Lovenox. Continue to hold aspirin at this time. I will order warm compresses to help soften the hematoma. Anemia-due to the formation of the hematoma in the epistaxis the patient has lost several grams of hemoglobin. I have started him on iron therapy and a multivitamin. I did have a chance to speak to the patient's mother during the visit. I updated her. Reported that the patient's slowly improving but that he would likely need home oxygen therapy. I am hopeful for discharge sometime later this week. All of her questions were answered to her satisfaction. All of the patient's questions were answered as well. 08/06/2020 Respiratory failure with Covid pneumonia-the patient is now consistently on nasal cannula. He was at 6 L/min today and at rest was maintaining oxygen saturations greater than 90%. The nurse did do a mild exertion trial with the patient walking to the door and he reported that he immediately dropped into the 70s. I explained to the patient that that is not a safe discharge even with oxygen so we will be continuing to treat and wait for further improvement. Hyperkalemia-patient potassium was elevated today. I will hold his potassium and decrease the dose starting Thursday. Hypertension-blood pressure continues to improve. Anxiety depression-continue current medication regimen Anemia-due to the hematoma and epistaxis. Hemoglobin is 10.1 but is likely at its gloria and should begin to improve. Diabetes-continue sliding scale coverage as well as scheduled dosing of insulin. Epistaxis-no further episodes of epistaxis. Will consider restarting Lovenox if there is no further bleeding. - Time Time Spent with patient: 15-24 minutes Medications reviewed and adjusted accordingly: Yes Anticipated Discharge Disposition: Home with Home Health Anticipated Discharge Timeframe: Unknown
[2020-08-06] MEDS: BENZOCAINE/MENTHOL SORE THROAT LOZENGE BUCCAL PRN ×4 (13:26→22:43)
[2020-08-06] MEDS: MELATONIN 5 MG TABLET PO SCH (22:43)
[2020-08-06] MEDS: ATORVASTATIN CALCIUM 10 MG TABLET PO SCH (22:43)
[2020-08-06] MEDS: METHYLPREDNISOLONE INJ 40 MG/1 ML SDV IV SCH (22:43)
[2020-08-07] MEDS: PANTOPRAZOLE SODIUM 20 MG TABLET.DR PO SCH (05:44)
[2020-08-07] MEDS: LISINOPRIL 10 MG TABLET PO SCH ×2 (05:44→17:37)
[2020-08-07] MEDS: BENZOCAINE/MENTHOL SORE THROAT LOZENGE BUCCAL PRN ×4 (05:50→21:42)
[2020-08-07 06:41] LABS: APPEARANCE,URINE CLEAR; BILIRUBIN,URINE NEGATIVE (NEGATIVE); COLOR,URINE YELLOW; GLUCOSE, URINE 50 mg/dL (NEGATIVE); KETONES,URINE NEGATIVE (NEGATIVE); LEUKOCYTE ESTERASE,URINE NEGATIVE (NEGATIVE); NITRITE,URINE NEGATIVE (NEGATIVE); PROTEIN,URINE NEGATIVE (NEGATIVE); URINE SPECIFIC GRAVITY 1.014; UROBILINOGEN,URINE NEGATIVE mg/dL (<2.0)
[2020-08-07 07:06] LABS: HEMATOCRIT 29.3 % (37.9-51.0); MEAN CORPUSCULAR HEMOGLOBIN 26.8 pg (27.0-33.4); MEAN CORPUSCULAR VOLUME 79 fl (80-97); RED BLOOD COUNT 3.72 10^6/uL (4.35-5.55); RED CELL DISTRIBUTION WIDTH 14.7 % (11.5-14.0); WHITE BLOOD COUNT 18.5 10^3/uL (4.0-10.5)
[2020-08-07 07:33] LABS: BLOOD UREA NITROGEN 24 mg/dL (7-20); CALCIUM 8.3 mg/dL (8.4-10.2); GLUCOSE 144 mg/dL (75-110); POTASSIUM 4.8 mmol/L (3.6-5.0)
[2020-08-07 07:39] LABS: CARBON DIOXIDE 33 mmol/L (22-30); CHLORIDE 96 mmol/L (98-107)
[2020-08-07 07:42] LABS: ANION GAP 4 (5-19)
[2020-08-07 08:20] LABS: ABSOLUTE LYMPHOCYTES# (MANUAL) 1.7 10^3/uL (0.5-4.7); ABSOLUTE MONOCYTES # (MANUAL) 1.3 10^3/uL (0.1-1.4); BASOPHILS % (MANUAL) 0 % (0-2); EOSINOPHILS % (MANUAL) 0 % (0-6); LYMPHOCYTES % (MANUAL) 7 % (13-45); METAMYELOCYTES % (MANUAL) 2 % (0-1); MONOCYTES % (MANUAL) 7 % (3-13); SEGMENTED NEUTROPHILS % (MAN) 82 % (42-78); TOTAL CELLS COUNTED 100
[2020-08-07 08:21] LABS: PLATELET CLUMPS PRESENT; PLATELET COMMENT INCREASED; RBC MORPHOLOGY COMMENT NORMO-CYTIC/CHROMIC
[2020-08-07 08:23] LABS: PLATELET COUNT 453 10^3/uL (150-450)
[2020-08-07] MEDS: INSULIN LISPRO 100 UNIT/ML 3 ML VIAL SUBCUT SCH ×7 (08:59→21:41)
[2020-08-07] MEDS: FERROUS SULFATE 325 MG TABLET PO SCH ×2 (08:59→17:37)
[2020-08-07] MEDS: ASCORBIC ACID 500 MG TABLET PO SCH ×2 (09:56→17:37)
[2020-08-07] MEDS: METHYLPREDNISOLONE INJ 40 MG/1 ML SDV IV SCH ×2 (09:56→21:41)
[2020-08-07] MEDS: AMLODIPINE BESYLATE 10 MG TABLET PO SCH (09:57)
[2020-08-07] MEDS: SERTRALINE HCL 50 MG TABLET PO SCH (09:57)
[2020-08-07] MEDS: POTASSIUM CHLORIDE 10 MEQ TABLET.ER PO SCH (09:57)
[2020-08-07] MEDS: ASPIRIN 81 MG TABLET, ENT COATED PO SCH (09:57)
[2020-08-07] MEDS: BUSPIRONE HCL 10 MG TABLET PO SCH ×2 (09:57→21:42)
[2020-08-07] MEDS: CHOLECALCIFEROL (D3) 1,000 UNIT (25 MCG) TABLET PO SCH (09:57)
[2020-08-07] MEDS: DIAZEPAM 5 MG TABLET PO SCH ×2 (09:57→21:42)
[2020-08-07] MEDS: ZINC SULFATE 220 MG CAPSULE PO SCH (09:58)
[2020-08-07] MEDS: OXYCODONE HCL IR 5 MG TABLET PO PRN ×2 (09:58→21:42)
[2020-08-07] MEDS: DOCUSATE SODIUM 100 MG CAPSULE PO SCH ×2 (09:58→17:37)
[2020-08-07] MEDS: VITAMIN B COMPLEX TABLET PO SCH (10:10)
--- NOTE | 2020-08-07 17:23 | PDOC PROGRESS REPORT ---
Subjective Date:: 08/07/20 Subjective:: BRETT SIDDIQI is a 49 year old male, PMH of DM, HTN, HLD, DORA, who came in the E D via EMS due to shortness of breath. His symptoms started about 10 days prior to admission when he developed cough, and shortness of breath. He consulted [facility], chest x-ray done was negative he was tested for Covid then and it was positive. He came back to the ED about 5 days after the previous visit due to worsening shortness of breath. Repeat chest x-ray showed development of bilateral groundglass densities suspicious for an atypical viral pneumonia. Patient was not requiring any oxygen support hence he was discharged on antibiotics and oral dexamethasone. He came today due to worsening cough and shortness of breath. Repeat chest x-ray showed progression of pneumonia. Per EMS he was saturating 88% on room air. In the ED blood pressure 138/88, heart rate 91, respiratory rate 23, O2 sat 93% on high flow nasal cannula 45 L, 50% FiO2. WBC count 10.7 hemoglobin 14.7, platelet count 490. CMP showed sodium 138, potassium 3.3. He was started on high flow nasal cannula and was given Zosyn and azithromycin. Hospitalist service was called for further evaluation and management. Care assumed today. He is on Day 22 of admission for COVID 19 pneumonia. O2 needs has significantly decreased to 6L of nasal cannula. He has completed all treatments for COVID. Stay complicated by an episode of significant epistaxis which has since resolved. Otherwise he is stable, no new complains. Reason For Visit: ACUTE HYPOXIC RESP FAILURE 2/2 COVID 19 PNEUMONIA Physical Exam Vital Signs: Temp Pulse Resp BP Pulse Ox 98.1 F 99 20 105/66 93 08/07/20 08:12 08/07/20 14:00 08/07/20 08:12 08/07/20 08:12 08/07/20 08:12 Intake & Output 08/06/20 08/07/20 08/08/20 06:59 06:59 06:59 Intake Total 1915 1254 Output Total 9511 1865 Balance 240 -581 Weight 126.8 kg General appearance: PRESENT: cooperative, mild distress, obese Head exam: PRESENT: atraumatic, normocephalic Eye exam: PRESENT: EOMI, PERRLA Mouth exam: PRESENT: moist Neck exam: PRESENT: full ROM Respiratory exam: PRESENT: clear to auscultation lorena, symmetrical, unlabored Cardiovascular exam: PRESENT: RRR, +S1, +S2 Pulses: PRESENT: +2 pedal pulses bilateral GI/Abdominal exam: PRESENT: normal bowel sounds, soft. ABSENT: rebound, tenderness Extremities exam: PRESENT: full ROM Musculoskeletal exam: PRESENT: full ROM Neurological exam: PRESENT: alert, awake, oriented to person, oriented to place, oriented to time, oriented to situation Psychiatric exam: PRESENT: normal mood Skin exam: PRESENT: normal color Results Laboratory Results: 08/07/20 06:21 08/07/20 06:21 08/07/20 08/07/20 08/07/20 05:15 06:21 06:21 WBC 18.5 H RBC 3.72 L Hgb 10.0 L Hct 29.3 L MCV 79 L MCH 26.8 L MCHC 34.0 RDW 14.7 H Plt Count 453 H Seg Neutrophils % Not Reportable Sodium 132.7 L Potassium 4.8 Chloride 96 L Carbon Dioxide 33 H Anion Gap 4 L BUN 24 H Creatinine 0.55 Est GFR ( Amer) > 60 Glucose 144 H Calcium 8.3 L Magnesium 2.3 Urine Color YELLOW Urine Appearance CLEAR Urine pH 7.0 Ur Specific [place] 1.014 Urine Protein NEGATIVE Urine Glucose (UA) 50 H Urine Ketones NEGATIVE Urine Blood NEGATIVE Urine Nitrite NEGATIVE Ur Leukocyte Esterase NEGATIVE Urine WBC (Auto) 1 Impressions: Chest X-Ray 07/25/20 06:00 IMPRESSION: Increasing diffuse bilateral airspace disease. Chest CT 07/26/20 06:00 IMPRESSION: Extensive ground-glass infiltrates. Consistent with COVID-19 pneumonia. Findings as described. Assessment and Plan - Diagnosis (1) Acute respiratory failure with hypoxia Is this a current diagnosis for this admission?: Yes Plan: . (2) Pneumonia due to COVID-19 virus Is this a current diagnosis for this admission?: Yes (3) Hypertension Qualifiers: Hypertension type: essential hypertension Qualified Code(s): I10 - Esse ntial (primary) hypertension Is this a current diagnosis for this admission?: Yes (4) Hyperlipidemia Qualifiers: Hyperlipidemia type: unspecified Qualified Code(s): E78.5 - Hyperlipidemia, unspecified Is this a current diagnosis for this admission?: Yes (5) Type 2 diabetes mellitus Qualifiers: Diabetes mellitus mcfp insulin use: without emt intermediate use Diabetes mellitus complication status: without complication Qualified Code(s): E11.9 - Type 2 diabetes mellitus without complications Is this a current diagnosis for this admission?: Yes (6) Obesity (BMI 30-39.9) Is this a current diagnosis for this admission?: Yes (7) Anemia due to blood loss Is this a current diagnosis for this admission?: Yes (8) Anxiety and depression Is this a current diagnosis for this admission?: Yes (9) Epistaxis Is this a current diagnosis for this admission?: Yes (10) Hyperkalemia Is this a current diagnosis for this admission?: Yes - Plan Summary Summary: (1) Acute respiratory failure with hypoxia (2) Pneumonia due to COVID-19 virus (3) Type 2 diabetes mellitus (4) Hyperlipidemia (5) Hypertension (6) Obesity (BMI 30-39.9) (7) Anxiety and depression (8) Epistaxis (9) Abdominal wall hematoma (10) Anemia due to blood loss (11) hyperkalemia 08/02/2020 He has completed remdesivir and ivermectin. He continues on the high flow nasal cannula. He has only been on Solu-Medrol for about 5 days. We have finally been able to reduce his level of oxygen support for the first time in several days, down to 50% FiO2 but still with a flow rate of 50 L. We will continue with recommended vitamin supplementation. We will continue to wean FiO2 as tolerated. We talked to him about the possibility of going to an LTAC and he was agreeable. If he does not continue to improve, this is probably a good ch oice for him. 08/03/2020 Respiratory failure with hypoxia due to Covid pneumonia-continue current medi cations. He is on high flow nasal cannula. We will continue to taper back to room air. Anxiety/depression-the patient admits that he is getting extremely anxious being cooped up in the hospital. He misses his family. He is starting to feel depressed. We will start with several doses of Valium for its extended half- life. I have also instituted sertraline. Will wean off the Valium and continue the sertraline to help with anxiety and depression. I explained that after he is home if all of these symptoms dissipate then his primary care provider at [facility] can just discontinue the sertraline. Hypertension-continue amlodipine and lisinopril Hyperlipidemia-continue atorvastatin Diabetes mellitus type 2-continue scheduled and sliding scale insulin as well as diabetic diet Obesity-BMI 38.1-continue cardiac/diabetic diet. Encourage weight loss once completely recovered from his COVID-19 pneumonia. Epistaxis and abdominal wall hematoma-the patient has a very large hematoma on the left side of the abdominal wall. Is also been having epistaxis. I have stopped the Lovenox completely as the risks are outweighing the benefit at this time. If needed we can obtain a CT scan of the patient's abdomen to see the extent of the hematoma. His hemoglobin is down 2 g from 08/01/2020. Recheck CBC tomorrow. 08/04/2020 Respiratory failure with hypoxia from Covid pneumonia-continue current regimen. Continue to taper oxygen to room air if possible. Because of the prolonged nature of his recovery he will likely need home oxygen therapy. He finally is off of high flow nasal cannula and is currently on nonrebreather. We will continue to attempt to taper as tolerated. Diabetes mellitus type 2-increase premeal insulin to 7 units. Continue sliding scale. Hypertension-blood pressures are marginal. The patient's BUN is still elevated. I will hold the hydrochlorothiazide at this time. Anxiety and depression-the patient does have a history of bipolar disorder but has not been on any prescribed medications for a long time. The Valium 10 mg twice daily seems to be working very well and has him quite relaxed. Consider slowly decreasing the dose. With the events of this morning it is certainly understandable that he would have increased anxiety however between the benzodiazepine and analgesic medications he is quite relaxed. Epistaxis-the patient had continued nosebleeding through the night. He was given tranexamic acid 2 doses and will be getting fresh frozen plasma today. He has a nasal balloon in place. I told him it would be safest to leave it in for today and remove it tomorrow as recurrent bleeding would require reinserting the nasal balloon. He is having some discomfort with the nasal balloon and pain medications have been ordered. Abdominal wall hematoma-Lovenox has been discontinued. I will also hold his aspirin at this time. 08/05/2020 Respiratory failure with Covid pneumonia-no changes at this time with the exception of holding the Lovenox. Continue taper oxygen to room air if possible. He will likely need oxygen at home. I feel he will be safe for discharge once we get his oxygen requirement to 4 L/min or less. Diabetes oemkdudd-Mzwz-[id number] seem to be improving with the increase of the preprandial Humalog dosing. Continue to monitor and utilize sliding scale as needed. Hypertension-blood pressure is improved today. I will continue to hold the hydrochlorothiazide for another day and reassess. Anxiety/depression-the Valium seems to working very well. We will continue the sertraline as well. Epistaxis-the nasal balloon was removed from the left nares today. Monitor for any additional bleeding. Abdominal wall hematoma-continue to hold Lovenox. Continue to hold aspirin at this time. I will order warm compresses to help soften the hematoma. Anemia-due to the formation of the hematoma in the epistaxis the patient has lost several grams of hemoglobin. I have started him on iron therapy and a multivitamin. I did have a chance to speak to the patient's mother during the visit. I updated her. Reported that the patient's slowly improving but that he would likely need home oxygen therapy. I am hopeful for discharge sometime later this week. All of her questions were answered to her satisfaction. All of the patient's questions were answered as well. 08/06/2020 Respiratory failure with Covid pneumonia-the patient is now consistently on nasal cannula. He was at 6 L/min today and at rest was maintaining oxygen saturations greater than 90%. The nurse did do a mild exertion trial with the patient walking to the door and he reported that he immediately dropped into the 70s. I explained to the patient that that is not a safe discharge even with oxygen so we will be continuing to treat and wait for further improvement. Hyperkalemia-patient potassium was elevated today. I will hold his potassium and decrease the dose starting Thursday. Hypertension-blood pressure continues to improve. Anxiety depression-continue current medication regimen Anemia-due to the hematoma and epistaxis. Hemoglobin is 10.1 but is likely at its gloria and should begin to improve. Diabetes-continue sliding scale coverage as well as scheduled dosing of insulin. Epistaxis-no further episodes of epistaxis. Will consider restarting Lovenox if there is no further bleeding. 08/07/20 Patient was seen and examined at bedside. On 6L NC saturating 93%, no new complains. eager to go home. No complains of epistaxis. I have restarted him on DVT proph heparin sq q12 hrs. We will watch out for recurrence of epistaxis. Otherwise once we have gotten him to a more reasonable O2 level in the [place] he can be discharged with home O2. His potassium and hgb are holding stable today. - Time Time Spent with patient: 15-24 minutes Medications reviewed and adjusted accordingly: Yes Anticipated Discharge Disposition: Home with Home Health Anticipated Discharge Timeframe: within 48 hours
[2020-08-07] MEDS: MELATONIN 5 MG TABLET PO SCH (21:42)
[2020-08-07] MEDS: ATORVASTATIN CALCIUM 10 MG TABLET PO SCH (21:42)
[2020-08-07] MEDS: HEPARIN SOD (PORCINE) 5,000 UNIT/ML 1 ML VIAL SUBCUT SCH (21:43)
[2020-08-08] MEDS: PANTOPRAZOLE SODIUM 20 MG TABLET.DR PO SCH (05:18)
[2020-08-08] MEDS: LISINOPRIL 10 MG TABLET PO SCH ×2 (05:18→17:15)
[2020-08-08 06:26] LABS: HEMATOCRIT 29.3 % (37.9-51.0); HEMOGLOBIN 9.8 g/dL (13.5-17.0); MEAN CORPUSCULAR HEMOGLOBIN 26.2 pg (27.0-33.4); MEAN CORPUSCULAR HGB CONC 33.3 g/dL (32.0-36.0); MEAN CORPUSCULAR VOLUME 79 fl (80-97); PLATELET COUNT 450 10^3/uL (150-450); RED BLOOD COUNT 3.73 10^6/uL (4.35-5.55); RED CELL DISTRIBUTION WIDTH 14.6 % (11.5-14.0); WHITE BLOOD COUNT 18.6 10^3/uL (4.0-10.5)
[2020-08-08] MEDS: INSULIN LISPRO 100 UNIT/ML 3 ML VIAL SUBCUT SCH ×7 (08:09→22:33)
[2020-08-08] MEDS: METHYLPREDNISOLONE INJ 40 MG/1 ML SDV IV SCH ×2 (09:11→22:34)
[2020-08-08] MEDS: VITAMIN B COMPLEX TABLET PO SCH (09:12)
[2020-08-08] MEDS: SERTRALINE HCL 50 MG TABLET PO SCH (09:12)
[2020-08-08] MEDS: ASCORBIC ACID 500 MG TABLET PO SCH ×2 (09:12→17:14)
[2020-08-08] MEDS: POTASSIUM CHLORIDE 10 MEQ TABLET.ER PO SCH (09:12)
[2020-08-08] MEDS: ASPIRIN 81 MG TABLET, ENT COATED PO SCH (09:12)
[2020-08-08] MEDS: CHOLECALCIFEROL (D3) 1,000 UNIT (25 MCG) TABLET PO SCH (09:12)
[2020-08-08] MEDS: FERROUS SULFATE 325 MG TABLET PO SCH ×2 (09:12→17:15)
[2020-08-08] MEDS: ZINC SULFATE 220 MG CAPSULE PO SCH (09:12)
[2020-08-08] MEDS: DOCUSATE SODIUM 100 MG CAPSULE PO SCH ×2 (09:12→17:15)
[2020-08-08] MEDS: BUSPIRONE HCL 10 MG TABLET PO SCH ×2 (09:12→22:32)
[2020-08-08] MEDS: AMLODIPINE BESYLATE 10 MG TABLET PO SCH (09:12)
[2020-08-08] MEDS: DIAZEPAM 5 MG TABLET PO SCH ×2 (09:13→22:35)
[2020-08-08] MEDS: HEPARIN SOD (PORCINE) 5,000 UNIT/ML 1 ML VIAL SUBCUT SCH ×2 (09:13→22:32)
[2020-08-08] MEDS: BENZOCAINE/MENTHOL SORE THROAT LOZENGE BUCCAL PRN ×3 (09:32→22:35)
[2020-08-08] MEDS: OXYCODONE HCL IR 5 MG TABLET PO PRN (09:32)
--- NOTE | 2020-08-08 17:57 | PDOC PROGRESS REPORT ---
Subjective Date:: 08/08/20 Subjective:: Doing much better. Currently on a trial off of oxygen completely. I explained that if he stays off of oxygen tonight he may be able to go home tomorrow. Reason For Visit: ACUTE HYPOXIC RESP FAILURE 2/2 COVID 19 PNEUMONIA Physical Exam Vital Signs: Temp Pulse Resp BP Pulse Ox 98.5 F 93 16 110/63 97 08/08/20 15:42 08/08/20 15:42 08/08/20 15:42 08/08/20 15:42 08/08/20 15:42 Intake & Output 08/07/20 08/08/20 08/09/20 06:59 06:59 06:59 Intake Total 1254 994 734 Output Total 1835 3050 350 Balance -581 -2056 384 Weight 126.8 kg General appearance: PRESENT: no acute distress, cooperative, well-developed Head exam: PRESENT: atraumatic, normocephalic Eye exam: PRESENT: conjunctiva pink, EOMI. ABSENT: scleral icterus Ear exam: PRESENT: normal external ear exam. ABSENT: bleeding, drainage Respiratory exam: PRESENT: clear to auscultation lorena, symmetrical, unlabored. ABSENT: rales, rhonchi, tachypnea, wheezes Cardiovascular exam: PRESENT: RRR, +S1, +S2 GI/Abdominal exam: PRESENT: other - hematoma. ABSENT: tenderness Rectal exam: PRESENT: deferred Musculoskeletal exam: PRESENT: ambulatory. ABSENT: deformity, dislocation Neurological exam: PRESENT: alert, awake, oriented to person, oriented to place, oriented to time, oriented to situation, CN II-XII grossly intact. ABSENT: alte red Psychiatric exam: PRESENT: appropriate affect. ABSENT: agitated, anxious Focused psych exam: ABSENT: delusional, paranoid, restlessness Results Laboratory Results: 08/08/20 05:34 08/07/20 06:21 08/08/20 05:34 WBC 18.6 H RBC 3.73 L Hgb 9.8 L Hct 29.3 L MCV 79 L MCH 26.2 L MCHC 33.3 RDW 14.6 H Plt Count 450 Impressions: Chest X-Ray 07/25/20 06:00 IMPRESSION: Increasing diffuse bilateral airspace disease. Chest CT 07/26/20 06:00 IMPRESSION: Extensive ground-glass infiltrates. Consistent with COVID-19 pneumonia. Findings as described. Assessment and Plan - Diagnosis (1) Acute respiratory failure with hypoxia Is this a current diagnosis for this admission?: Yes (2) Pneumonia due to COVID-19 virus Is this a current diagnosis for this admission?: Yes (3) Type 2 diabetes mellitus Qualifiers: Diabetes mellitus intermediate insulin use: without superintendent container terminal use Diabetes mellitus complication status: without complication Qualified Code(s): E11.9 - Type 2 diabetes mellitus without complications Is this a current diagnosis for this admission?: Yes (4) Hyperlipidemia Qualifiers: Hyperlipidemia type: unspecified Qualified Code(s): E78.5 - Hyperlipidemia, unspecified Is this a current diagnosis for this admission?: Yes (5) Hypertension Qualifiers: Hypertension type: essential hypertension Qualified Code(s): I10 - Essential (primary) hypertension Is this a current diagnosis for this admission?: Yes (6) Obesity (BMI 30-39.9) Is this a current diagnosis for this admission?: Yes (7) Anxiety and depression Is this a current diagnosis for this admission?: Yes (8) Epistaxis Is this a current diagnosis for this admission?: Yes (9) Hematoma of abdominal wall Qualifiers: Encounter type: initial encounter Qualified Code(s): S30.1XXA - Contusion of abdominal wall, initial encounter Is this a current diagnosis for this admission?: Yes (10) Anemia due to blood loss Is this a current diagnosis for this admission?: Yes (11) Hyperkalemia Is this a current diagnosis for this admission?: Yes - Plan Summary Summary: (1) Acute respiratory failure with hypoxia (2) Pneumonia due to COVID-19 virus (3) Type 2 diabetes mellitus (4) Hyperlipidemia (5) Hypertension (6) Obesity (BMI 30-39.9) (7) Anxiety and depression (8) Epistaxis (9) Abdominal wall hematoma (10) Anemia due to blood loss (11) hyperkalemia 08/02/2020 He has completed remdesivir and ivermectin. He continues on the high flow nasal cannula. He has only been on Solu-Medrol for about 5 days. We have finally been able to reduce his level of oxygen support for the first time in several days, down to 50% FiO2 but still with a flow rate of 50 L. We will continue with recommended vitamin supplementation. We will continue to wean FiO2 as tolerated. We talked to him about the possibility of going to an LTAC and he w as agreeable. If he does not continue to improve, this is probably a good choice for him. 08/03/2020 Respiratory failure with hypoxia due to Covid pneumonia-continue current medications. He is on high flow nasal cannula. We will continue to taper back to room air. Anxiety/depression-the patient admits that he is getting extremely anxious being cooped up in the hospital. He misses his family. He is starting to feel depressed. We will start with several doses of Valium for its extended half-li . I have also instituted sertraline. Will wean off the Valium and continue the sertraline to help with anxiety and depression. I explained that after he is home if all of these symptoms dissipate then his primary care provider at [facility] can just discontinue the sertraline. Hypertension-continue amlodipine and lisinopril Hyperlipidemia-continue atorvastatin Diabetes mellitus type 2-continue scheduled and sliding scale insulin as well as diabetic diet Obesity-BMI 38.1-continue cardiac/diabetic diet. Encourage weight loss once completely recovered from his COVID-19 pneumonia. Epistaxis and abdominal wall hematoma-the patient has a very large hematoma on the left side of the abdominal wall. Is also been having epistaxis. I have stopped the Lovenox completely as the risks are outweighing the benefit at this time. If needed we can obtain a CT scan of the patient's abdomen to see the extent of the hematoma. His hemoglobin is down 2 g from 08/01/2020. Recheck CBC tomorrow. 08/04/2020 Respiratory failure with hypoxia from Covid pneumonia-continue current regimen. Continue to taper oxygen to room air if possible. Because of the prolonged nature of his recovery he will likely need home oxygen therapy. He finally is off of high flow nasal cannula and is currently on nonrebreather. We will continue to attempt to taper as tolerated. Diabetes mellitus type 2-increase premeal insulin to 7 units. Continue sliding scale. Hypertension-blood pressures are marginal. The patient's BUN is still elevated. I will hold the hydrochlorothiazide at this time. Anxiety and depression-the patient does have a history of bipolar disorder but has not been on any prescribed medications for a long time. The Valium 10 mg twice daily seems to be working very well and has him quite relaxed. Consider slowly decreasing the dose. With the events of this morning it is certainly understandable that he would have increased anxiety however between the benzodiazepine and analgesic medications he is quite relaxed. Epistaxis-the patient had continued nosebleeding through the night. He was given tranexamic acid 2 doses and will be getting fresh frozen plasma today. He has a nasal balloon in place. I told him it would be safest to leave it in for today and remove it tomorrow as recurrent bleeding would require reinserting the nasal balloon. He is having some discomfort with the nasal balloon and pain medications have been ordered. Abdominal wall hematoma-Lovenox has been discontinued. I will also hold his aspirin at this time. 08/05/2020 Respiratory failure with Covid pneumonia-no changes at this time with the exception of holding the Lovenox. Continue taper oxygen to room air if possible. He will likely need oxygen at home. I feel he will be safe for discharge once we get his oxygen requirement to 4 L/min or less. Diabetes blszgahm-Xhbh-Nmrfw seem to be improving with the increase of the preprandial Humalog dosing. Continue to monitor and utilize sliding scale as needed. Hypertension-blood pressure is improved today. I will continue to hold the hydrochlorothiazide for another day and reassess. Anxiety/depression-the Valium seems to working very well. We will continue the sertraline as well. Epistaxis-the nasal balloon was removed from the left nares today. Monitor for any additional bleeding. Abdominal wall hematoma-continue to hold Lovenox. Continue to hold aspirin at this time. I will order warm compresses to help soften the hematoma. Anemia-due to the formation of the hematoma in the epistaxis the patient has lost several grams of hemoglobin. I have started him on iron therapy and a multivitamin. I did have a chance to speak to the patient's mother during the visit. I updated her. Reported that the patient's slowly improving but that he would likely need home oxygen therapy. I am hopeful for discharge sometime later this week. All of her questions were answered to her satisfaction. All of the patient's questions were answered as well. 08/06/2020 Respiratory failure with Covid pneumonia-the patient is now consistently on nasal cannula. He was at 6 L/min today and at rest was maintaining oxygen saturations greater than 90%. The nurse did do a mild exertion trial with the patient walking to the door and he reported that he immediately dropped into the 70s. I explained to the patient that that is not a safe discharge even with oxygen so we will be continuing to treat and wait for further improvement. Hyperkalemia-patient potassium was elevated today. I will hold his potassium and decrease the dose starting Thursday. Hypertension-blood pressure continues to improve. Anxiety depression-continue current medication regimen Anemia-due to the hematoma and epistaxis. Hemoglobin is 10.1 but is likely at its gloria and should begin to improve. Diabetes-continue sliding scale coverage as well as scheduled dosing of insulin. Epistaxis-no further episodes of epistaxis. Will consider restarting Lovenox if there is no further bleeding. 08/07/20 Patient was seen and examined at bedside. On 6L NC saturating 93%, no new comp lains. eager to go home. No complains of epistaxis. I have restarted him on DVT proph heparin sq q12 hrs. We will watch out for recurrence of epistaxis. Otherwise once we have gotten him to a more reasonable O2 level in the [place] he can be discharged with home O2. His potassium and hgb are holding stable today. 08/08/2020 Respiratory failure with Covid pneumonia-the patient is in fact on room air this morning. He is extremely comfortable. We will see if he tolerates room air overnight and if he does consider discharge tomorrow. We will decrease steroids again. Hyperkalemia-potassium normal. Continue to monitor. Hypertension-excellent blood pressure control on current regimen. Continue enrico e. Anemia-stable. It will take some time to regenerate white cells loss to the hematoma and epistaxis. Epistaxis-resolved Diabetes-much better glucose control. - Time Time Spent with patient: 25-34 minutes Medications reviewed and adjusted accordingly: Yes Anticipated Discharge Disposition: Home, Self Care Anticipated Discharge Timeframe: within 48 hours
[2020-08-08] MEDS: ATORVASTATIN CALCIUM 10 MG TABLET PO SCH (22:34)
[2020-08-08] MEDS: MELATONIN 5 MG TABLET PO SCH (22:34)
[2020-08-09] MEDS: PANTOPRAZOLE SODIUM 20 MG TABLET.DR PO SCH (05:10)
[2020-08-09] MEDS: LISINOPRIL 10 MG TABLET PO SCH (05:10)
[2020-08-09] MEDS: INSULIN LISPRO 100 UNIT/ML 3 ML VIAL SUBCUT SCH ×4 (09:45→12:02)
[2020-08-09] MEDS: HEPARIN SOD (PORCINE) 5,000 UNIT/ML 1 ML VIAL SUBCUT SCH (09:45)
[2020-08-09] MEDS: BUSPIRONE HCL 10 MG TABLET PO SCH (09:46)
[2020-08-09] MEDS: DIAZEPAM 5 MG TABLET PO SCH (09:46)
[2020-08-09] MEDS: AMLODIPINE BESYLATE 10 MG TABLET PO SCH (09:46)
[2020-08-09] MEDS: DOCUSATE SODIUM 100 MG CAPSULE PO SCH (09:46)
[2020-08-09] MEDS: ZINC SULFATE 220 MG CAPSULE PO SCH (09:46)
[2020-08-09] MEDS: ASPIRIN 81 MG TABLET, ENT COATED PO SCH (09:46)
[2020-08-09] MEDS: POTASSIUM CHLORIDE 10 MEQ TABLET.ER PO SCH (09:46)
[2020-08-09] MEDS: FERROUS SULFATE 325 MG TABLET PO SCH (09:46)
[2020-08-09] MEDS: ASCORBIC ACID 500 MG TABLET PO SCH (09:46)
[2020-08-09] MEDS: SERTRALINE HCL 50 MG TABLET PO SCH (09:47)
[2020-08-09] MEDS: CHOLECALCIFEROL (D3) 1,000 UNIT (25 MCG) TABLET PO SCH (09:47)
[2020-08-09] MEDS: VITAMIN B COMPLEX TABLET PO SCH (09:47)
[2020-08-09] MEDS: METHYLPREDNISOLONE INJ 40 MG/1 ML SDV IV SCH (09:47)
[2020-08-09] MEDS: OXYCODONE HCL IR 5 MG TABLET PO PRN (10:45)
[2020-08-09 10:59] VITALS: BP 122/66
--- NOTE | 2020-08-15 19:00 | PDOC DISCHARGE SUMMARY ---
Impression - Admit/DC Date/PCP Admission Date/Primary Care Provider: 07/16/20 10:44 DEREK VERNON, CIRILO-Maryanne Discharge Date: 08/09/20 - Discharge Diagnosis (1) Acute respiratory failure with hypoxia Is this a current diagnosis for this admission?: Yes (2) Pneumonia due to COVID-19 virus Is this a current diagnosis for this admission?: Yes (3) Hypertension Is this a current diagnosis for this admission?: Yes (4) Hyperlipidemia Is this a current diagnosis for this admission?: Yes (5) Type 2 diabetes mellitus Is this a current diagnosis for this admission?: Yes (6) Obesity (BMI 30-39.9) Is this a current diagnosis for this admission?: Yes (7) Anemia due to blood loss Is this a current diagnosis for this admission?: Yes (8) Anxiety and depression Is this a current diagnosis for this admission?: Yes (9) Epistaxis Is this a current diagnosis for this admission?: Yes (10) Hyperkalemia Is this a current diagnosis for this admission?: Yes - Assessment Summary: (1) Acute respiratory failure with hypoxia (2) Pneumonia due to COVID-19 virus (3) Type 2 diabetes mellitus (4) Hyperlipidemia (5) Hypertension (6) Obesity (BMI 30-39.9) (7) Anxiety and depression (8) Epistaxis (9) Abdominal wall hematoma (10) Anemia due to blood loss (11) hyperkalemia 08/02/2020 He has completed remdesivir and ivermectin. He continues on the high flow nasal cannula. He has only been on Solu-Medrol for about 5 days. We have finally been able to reduce his level of oxygen support for the first time in several days, down to 50% FiO2 but still with a flow rate of 50 L. We will continue with recommended vitamin supplementation. We will continue to wean FiO2 as tolerated. We talked to him about the possibility of going to an LTAC and he was agreeable. If he does not continue to improve, this is probably a good choice for him. 08/03/2020 Respiratory failure with hypoxia due to Covid pneumonia-continue current medications. He is on high flow nasal cannula. We will continue to taper back to room air. Anxiety/depression-the patient admits that he is getting extremely anxious being cooped up in the hospital. He misses his family. He is starting to feel depressed. We will start with several doses of Valium for its extended half- life. I have also instituted sertraline. Will wean off the Valium and continue the sertraline to help with anxiety and depression. I explained that after he is home if all of these symptoms dissipate then his primary care provider at [facility] can just discontinue the sertraline. Hypertension-continue amlodipine and lisinopril Hyperlipidemia-continue atorvastatin Diabetes mellitus type 2-continue scheduled and sliding scale insulin as well as diabetic diet Obesity-BMI 38.1-continue cardiac/diabetic diet. Encourage weight loss once completely recovered from his COVID-19 pneumonia. Epistaxis and abdominal wall hematoma-the patient has a very large hematoma on the left side of the abdominal wall. Is also been having epistaxis. I have stopped the Lovenox completely as the risks are outweighing the benefit at this time. If needed we can obtain a CT scan of the patient's abdomen to see the extent of the hematoma. His hemoglobin is down 2 g from 08/01/2020. Recheck CBC tomorrow. 08/04/2020 Respiratory failure with hypoxia from Covid pneumonia-continue current regimen. Continue to taper oxygen to room air if possible. Because of the prolonged nature of his recovery he will likely need home oxygen therapy. He finally is off of high flow nasal cannula and is currently on nonrebreather. We will continue to attempt to taper as tolerated. Diabetes mellitus type 2-increase premeal insulin to 7 units. Continue sliding scale. Hypertension-blood pressures are marginal. The patient's BUN is still elevated. I will hold the hydrochlorothiazide at this time. Anxiety and depression-the patient does have a history of bipolar disorder but has not been on any prescribed medications for a long time. The Valium 10 mg twice daily seems to be working very well and has him quite relaxed. Consider slowly decreasing the dose. With the events of this morning it is certainly understandable that he would have increased anxiety however between the benzodiazepine and analgesic medications he is quite relaxed. Epistaxis-the patient had continued nosebleeding through the night. He was given tranexamic acid 2 doses and will be getting fresh frozen plasma today. He has a nasal balloon in place. I told him it would be safest to leave it in for today and remove it tomorrow as recurrent bleeding would require reinserting the nasal balloon. He is having some discomfort with the nasal balloon and pain medications have been ordered. Abdominal wall hematoma-Lovenox has been discontinued. I will also hold his aspirin at this time. 08/05/2020 Respiratory failure with Covid pneumonia-no changes at this time with the exception of holding the Lovenox. Continue taper oxygen to room air if possible. He will likely need oxygen at home. I feel he will be safe for discharge once we get his oxygen requirement to 4 L/min or less. Diabetes eyqtpepk-Hljf-Tqvsz seem to be improving with the increase of the preprandial Humalog dosing. Continue to monitor and utilize sliding scale as needed. Hypertension-blood pressure is improved today. I will continue to hold the hydrochlorothiazide for another day and reassess. Anxiety/depression-the Valium seems to working very well. We will continue the sertraline as well. Epistaxis-the nasal balloon was removed from the left nares today. Monitor for any additional bleeding. Abdominal wall hematoma-continue to hold Lovenox. Continue to hold aspirin at this time. I will order warm compresses to help soften the hematoma. Anemia-due to the formation of the hematoma in the epistaxis the patient has lost several grams of hemoglobin. I have started him on iron therapy and a multivitamin. I did have a chance to speak to the patient's mother during the visit. I updated her. Reported that the patient's slowly improving but that he would likely need home oxygen therapy. I am hopeful for discharge sometime later this week. All of her questions were answered to her satisfaction. All of the patient's questions were answered as well. 08/06/2020 Respiratory failure with Covid pneumonia-the patient is now consistently on nasal cannula. He was at 6 L/min today and at rest was maintaining oxygen saturations greater than 90%. The nurse did do a mild exertion trial with the patient walking to the door and he reported that he immediately dropped into the 70s. I explained to the patient that that is not a safe discharge even with oxygen so we will be continuing to treat and wait for further improvement. Hyperkalemia-patient potassium was elevated today. I will hold his potassium a nd decrease the dose starting Thursday. Hypertension-blood pressure continues to improve. Anxiety depression-continue current medication regimen Anemia-due to the hematoma and epistaxis. Hemoglobin is 10.1 but is likely at its gloria and should begin to improve. Diabetes-continue sliding scale coverage as well as scheduled dosing of insulin. Epistaxis-no further episodes of epistaxis. Will consider restarting Lovenox if there is no further bleeding. 08/07/20 Patient was seen and examined at bedside. On 6L NC saturating 93%, no new complains. eager to go home. No complains of epistaxis. I have restarted him on DVT proph heparin sq q12 hrs. We will watch out for recurrence of epistaxis. Otherwise once we have gotten him to a more reasonable O2 level in the NC he can be discharged with home O2. His potassium and hgb are holding stable today. 08/08/2020 Respiratory failure with Covid pneumonia-the patient is in fact on room air this morning. He is extremely comfortable. We will see if he tolerates room air overnight and if he does consider discharge tomorrow. We will decrease steroids again. Hyperkalemia-potassium normal. Continue to monitor. Hypertension-excellent blood pressure control on current regimen. Continue same. Anemia-stable. It will take some time to regenerate white cells loss to the hematoma and epistaxis. Epistaxis-resolved Diabetes-much better glucose control. - Additional Information Resuscitation Status: Full Code Discharge Diet: Regular Discharge Activity: Activity As Tolerated Referrals: DEREK VERNON FNP-C [Primary Care Provider] - 09/03/20 2:15 pm Prescriptions: Buspirone HCl [Buspar 10 mg Tablet] 10 mg PO Q12 30 Days #60 tablet Prednisone [Deltasone 5 mg Tablet] 20 mg PO DAILY 21 Days #49 tablet Ferrous Sulfate [Feosol 325 mg Tablet] 325 mg PO BIDPCBS 30 Days #60 tablet Sertraline HCl [Zoloft 50 mg Tablet] 50 mg PO DAILY 30 Days #30 tablet Home Medications: Amlodipine Besylate [Norvasc 10 mg Tablet] 10 mg PO DAILY 03/22/20 Lansoprazole [Prevacid 15 mg Odt Tablet] 15 mg PO DAILY 03/22/20 Lisinopril/Hydrochlorothiazide [Lisinopril-Hctz 20-12.5 mg Tab] 1 each PO Q12 03/22/20 Metformin HCl 500 mg PO BID 03/22/20 Pravastatin Sodium 40 mg PO DAILY 03/22/20 Potassium Chloride 20 meq PO QAM 3 Days #3 tablet.er 07/13/20 Aspirin [Ecotrin 81 mg EC Tablet] 81 mg PO DAILY 07/16/20 Buspirone HCl [Buspar 10 mg Tablet] 10 mg PO Q12 30 Days #60 tablet 08/09/20 Ferrous Sulfate [Feosol 325 mg Tablet] 325 mg PO BIDPCBS 30 Days #60 tablet 08/09/20 Prednisone [Deltasone 5 mg Tablet] 20 mg PO DAILY 21 Days #49 tablet 08/09/20 Sertraline HCl [Zoloft 50 mg Tablet] 50 mg PO DAILY 30 Days #30 tablet 08/09/20 Dexamethasone [Decadron] 12 mg PO QAM 08/15/20 Loperamide HCl [Loperamide] 2 mg PO TIDP PRN 08/15/20 History of Present Illiness History of Present Illness: BRETT SIDDIQI is a 49 year old male, PMH of DM, HTN, HLD, DORA, who came in the ED via EMS due to shortness of breath. His symptoms started about 10 days prior to admission when he developed cough, and shortness of breath. He consulted [place] ED, chest x-ray done was negative he was tested for Covid then and it was positive. He came back to the ED about 5 days after the previous visit due to worsening shortness of breath. Repeat chest x-ray showed development of bilateral groundglass densities suspicious for an atypical viral pneumonia. Patient was not requiring any oxygen support hence he was discharged on antibiotics and oral dexamethasone. He came today due to worsening cough and shortness of breath. Repeat chest x-ray showed progression of pneumonia. Per EMS he was saturating 88% on room air. In the ED blood pressure 138/88, heart rate 91, respiratory rate 23, O2 sat 93% on high flow nasal cannula 45 L, 50% FiO2. WBC count 10.7 hemoglobin 14.7, platelet count 490. CMP showed sodium 138, potassium 3.3. He was started on high flow nasal cannula and was given Zosyn and azithromycin. Hospitalist service was called for further evaluation and management. Hospital Course Hospital Course: Patient was admitted in [facility] for COVID pneumonia. He was started on IV steroids, Ivermectin, remdesivir, zinc, melatonin, vitmain D. He was out on HFNC 100% FIo2. He was also given morphine for dyspnea related anxiety. He was initially doing well until about the 5ht day of hospital stay when he desaturated and had to be put on CPAP. He was eventually weaned off CPAP again to HFNC. At around the 3rd week of hospital stay, patient developed significant epistaxis. Nasal packing was done and it eventually resolved but his hemoglobin did drop slightly. He continued to improve and was eventually weaned off NC. he was discharged on the on room air. Physical Exam Vital Signs: Temp Pulse Resp BP Pulse Ox 98.5 F 100 16 122/66 96 08/09/20 10:58 08/09/20 10:58 08/09/20 10:58 08/09/20 10:58 08/09/20 10:58 General appearance: PRESENT: no acute distress, cooperative, morbidly obese Head exam: PRESENT: atraumatic, normocephalic Eye exam: PRESENT: EOMI, PERRLA Mouth exam: PRESENT: moist Neck exam: PRESENT: full ROM Respiratory exam: PRESENT: clear to auscultation lorena, symmetrical, unlabored Cardiovascular exam: PRESENT: RRR, +S1, +S2 Pulses: PRESENT: +2 pedal pulses bilateral GI/Abdominal exam: PRESENT: normal bowel sounds, soft. ABSENT: rebound, tenderness Extremities exam: PRESENT: full ROM Musculoskeletal exam: PRESENT: full ROM Neurological exam: PRESENT: alert, awake, oriented to person, oriented to place, oriented to time, oriented to situation Psychiatric exam: PRESENT: normal mood Skin exam: PRESENT: normal color Results Laboratory Results: WBC 18.6 10^3/uL (4.0-10.5) H 08/08/20 05:34 RBC 3.73 10^6/uL (4.35-5.55) L 08/08/20 05:34 Hgb 9.8 g/dL (13.5-17.0) L 08/08/20 05:34 Hct 29.3 % (37.9-51.0) L 08/08/20 05:34 MCV 79 fl (80-97) L 08/08/20 05:34 MCH 26.2 pg (27.0-33.4) L 08/08/20 05:34 MCHC 33.3 g/dL (32.0-36.0) 08/08/20 05:34 RDW 14.6 % (11.5-14.0) H 08/08/20 05:34 Plt Count 450 10^3/uL (150-450) 08/08/20 05:34 Lymph % (Auto) Not Reportable 08/07/20 06:21 [place] % (Auto) Not Reportable 08/07/20 06:21 Eos % (Auto) Not Reportable 08/07/20 06:21 Baso % (Auto) Not Reportable 08/07/20 06:21 Absolute Neuts (auto) Not Reportable 08/07/20 06:21 Absolute Lymphs (auto) Not Reportable 08/07/20 06:21 Absolute Monos (auto) Not Reportable 08/07/20 06:21 Absolute Eos (auto) Not Reportable 08/07/20 06:21 Absolute Basos (auto) Not Reportable 08/07/20 06:21 Total Counted 100 08/07/20 06:21 Seg Neutrophils % Not Reportable 08/07/20 06:21 Seg Neuts % (Manual) 82 % (42-78) H 08/07/20 06:21 Band Neutrophils % 3 % (3-5) 07/19/20 05:44 Lymphocytes % (Manual) 7 % (13-45) L 08/07/20 06:21 Atypical Lymphs % 2 % (0) 08/07/20 06:21 Monocytes % (Manual) 7 % (3-13) 08/07/20 06:21 Eosinophils % (Manual) 0 % (0-6) 08/07/20 06:21 Basophils % (Manual) 0 % (0-2) 08/07/20 06:21 Metamyelocytes % 2 % (0-1) H 08/07/20 06:21 Abs Neuts (Manual) 15.5 10^3/uL (1.7-8.2) H 08/07/20 06:21 Abs Lymphs (Manual) 1.7 10^3/uL (0.5-4.7) 08/07/20 06:21 Abs Monocytes (Manual) 1.3 10^3/uL (0.1-1.4) 08/07/20 06:21 Absolute Eos (Manual) 0.0 10^3/uL (0.0-0.6) 08/07/20 06:21 Abs Basophils (Manual) 0.0 10^3/uL (0.0-0.2) 08/07/20 06:21 Toxic Granulation SLIGHT 07/26/20 05:37 Toxic Vacuolation PRESENT 07/26/20 05:37 Clumped Platelets PRESENT 08/07/20 06:21 Large Platelets PRESENT 07/22/20 11:37 Platelet Comment INCREASED 08/07/20 06:21 Polychromasia SLIGHT 07/24/20 12:50 Hypochromasia SLIGHT 07/26/20 05:37 Poikilocytosis SLIGHT 07/27/20 05:18 Anisocytosis SLIGHT 07/27/20 05:18 Microcytosis SLIGHT 07/27/20 05:18 Target Cells SLIGHT 07/27/20 05:18 Tear Drop Cells SLIGHT 07/19/20 05:44 Ovalocytes SLIGHT 07/26/20 05:37 Rouleaux SLIGHT 07/19/20 05:44 Schistocytes SLIGHT 07/19/20 05:44 RBC Morph Comment NORMO-CYTIC/CHROMIC 08/07/20 06:21 PT 13.9 SEC (11.4-15.4) 08/04/20 06:19 INR 1.05 08/04/20 06:19 D-Dimer 0.53 ug/mL (0.00-0.50) H 08/06/20 06:10 Carbonic Acid 1.19 mmol/L (1.05-1.35) 07/26/20 08:10 HCO3/H2CO3 Ratio 25:1 07/26/20 08:10 ABG pH 7.49 (7.35-7.45) H 07/26/20 08:10 ABG pCO2 39.7 mmHg (35-45) 07/26/20 08:10 ABG pO2 48.9 mmHg (80-100) L 07/26/20 08:10 ABG HCO3 29.8 mmol/L (20-24) H 07/26/20 08:10 ABG Total CO2 31.0 mmol/L (23-27) H 07/26/20 08:10 ABG O2 Saturation 87.6 % (94-98) L 07/26/20 08:10 ABG Base Excess 6.1 mmol/L 07/26/20 08:10 FiO2 80% 07/26/20 08:10 Sodium 132.7 mmol/L (137-145) L 08/07/20 06:21 Potassium 4.8 mmol/L (3.6-5.0) 08/07/20 06:21 Chloride 96 mmol/L (98-107) L 08/07/20 06:21 Carbon Dioxide 33 mmol/L (22-30) H 08/07/20 06:21 Anion Gap 4 (5-19) L 08/07/20 06:21 BUN 24 mg/dL (7-20) H 08/07/20 06:21 Creatinine 0.55 mg/dL (0.52-1.25) 08/07/20 06:21 Est GFR ( Amer) > 60 (>60) 08/07/20 06:21 Est GFR (Non-Af Amer) Cancelled 07/22/20 14:20 Est GFR (MDRD) Non-Af > 60 (>60) 08/07/20 06:21 Glucose 144 mg/dL (75-110) H 08/07/20 06:21 POC Glucose 142 mg/dL (70-110) H 08/08/20 08:06 Calcium 8.3 mg/dL (8.4-10.2) L 08/07/20 06:21 Magnesium 2.3 mg/dL (1.6-2.3) 08/07/20 06:21 Ferritin 402.00 ng/mL (17.9-464.0) 08/04/20 06:19 Total Bilirubin 0.6 mg/dL (0.2-1.3) 08/04/20 06:19 Direct Bilirubin 0.3 mg/dL (0.0-0.4) 08/04/20 06:19 Neonat Total Bilirubin Not Reportable 08/04/20 06:19 Neonat Direct Bilirubin Not Reportable 08/04/20 06:19 Neonat Indirect Bili Not Reportable 08/04/20 06:19 AST 28 U/L (17-59) 08/04/20 06:19 ALT 63 U/L (<50) H 08/04/20 06:19 Alkaline Phosphatase 60 U/L (38-126) 08/04/20 06:19 C-Reactive Protein < 5.0 mg/L (<10.0) 08/04/20 06:19 Total Protein 5.1 g/dL (6.3-8.2) L 08/04/20 06:19 Albumin 2.4 g/dL (3.5-5.0) L 08/04/20 06:19 EGFR Cancelled 07/22/20 14:20 Urine Color YELLOW 08/07/20 05:15 Urine Appearance CLEAR 08/07/20 05:15 Urine pH 7.0 (5.0-9.0) 08/07/20 05:15 Ur Specific Taylor 1.014 08/07/20 05:15 Urine Protein NEGATIVE mg/dL (NEGATIVE) 08/07/20 05:15 Urine Glucose (UA) 50 mg/dL (NEGATIVE) H 08/07/20 05:15 Urine Ketones NEGATIVE mg/dL (NEGATIVE) 08/07/20 05:15 Urine Blood NEGATIVE (NEGATIVE) 08/07/20 05:15 Urine Nitrite NEGATIVE (NEGATIVE) 08/07/20 05:15 Urine Bilirubin NEGATIVE (NEGATIVE) 08/07/20 05:15 Urine Urobilinogen NEGATIVE mg/dL (<2.0) 08/07/20 05:15 Ur Leukocyte Esterase NEGATIVE (NEGATIVE) 08/07/20 05:15 Urine WBC (Auto) 1 /HPF 08/07/20 05:15 Urine RBC (Auto) 0 /HPF 08/03/20 21:45 U Hyaline Cast (Auto) 6 /LPF 07/27/20 16:30 Urine Bacteria (Auto) TRACE /HPF 07/27/20 16:30 Squamous Epi Cells Auto <1 /HPF 07/30/20 09:25 Urine Mucus (Auto) RARE /LPF 08/01/20 10:58 Urine Ascorbic Acid 40 (NEGATIVE) H 08/07/20 05:15 Blood Type A POSITIVE 08/04/20 06:19 Impressions: Chest X-Ray 07/16/20 06:04 IMPRESSION: Moderate to severe mixed airspace and interstitial opacity extensively of both lung ortiz. Interval worsening. Chest X-Ray 07/21/20 09:19 IMPRESSION: Slight interval progression in the appearance of multifocal mixed interstitial and airspace opacities. Chest X-Ray 07/25/20 06:00 IMPRESSION: Increasing diffuse bilateral airspace disease. Chest CT 07/26/20 06:00 IMPRESSION: Extensive ground-glass infiltrates. Consistent with COVID-19 pneumonia. Findings as described. Plan Plan of Treatment: - follow up with PCP Time Spent: Less than 30 Minutes Stroke Is this a Stroke Patient?: No Acute Heart Failure Is this a Heart Failure Patient?: No
== END 2020-08-09 11:54 | disposition home health service (06) | DRG 177 ==
LOC: ER 05:56 → EH 10:44 → 3W 18:43
PROVIDERS: ADMIT Internal Medicine; ATTEND Internal Medicine
PROC: XW13325 Transfusion of Convalescent Plasma (Nonautologous) into Peripheral Vein, Percutaneous Approach, New Technology Group 5 (ICD-10-PCS; 2020-07-16)
PROC: XW033E5 Introduction of Remdesivir Anti-infective into Peripheral Vein, Percutaneous Approach, New Technology Group 5 (ICD-10-PCS; principal; 2020-07-18)
PROC: 5A09357 Assistance with Respiratory Ventilation, Less than 24 Consecutive Hours, Continuous Positive Airway Pressure (ICD-10-PCS; 2020-08-02)
PROC: 30233K1 Transfusion of Nonautologous Frozen Plasma into Peripheral Vein, Percutaneous Approach (ICD-10-PCS; 2020-08-04)
PROC: 2Y41X5Z Packing of Nasal Region using Packing Material (ICD-10-PCS; 2020-08-04)
DX: U07.1 COVID-19 (principal); J12.82 Pneumonia due to coronavirus disease 2019; J96.01 Acute respiratory failure with hypoxia; I10 Essential (primary) hypertension; E78.5 Hyperlipidemia, unspecified; E11.9 Type 2 diabetes mellitus without complications; Z68.39 Body mass index [BMI] 39.0-39.9, adult; D50.0 Iron deficiency anemia secondary to blood loss (chronic); F41.8 Other specified anxiety disorders; R04.0 Epistaxis; E87.5 Hyperkalemia; S30.1XXA Contusion of abdominal wall, initial encounter; E66.01 Morbid (severe) obesity due to excess calories; G47.33 Obstructive sleep apnea (adult) (pediatric); K21.9 Gastro-esophageal reflux disease without esophagitis; M19.90 Unspecified osteoarthritis, unspecified site; F31.9 Bipolar disorder, unspecified; L40.9 Psoriasis, unspecified; Z83.3 Family history of diabetes mellitus; Z82.49 Family history of ischemic heart disease and other diseases of the circulatory system; Z82.61 Family history of arthritis
CPT/HCPCS: 36415; 36430; 36600; 71045; 71250; 80048; 80053; 81001; 82728; 82803; 82962; 83735; 85025; 85027; 85379; 85610; 86140; 86900; 86901; 87040; 87077; 87150; 93005; 93010; 94660; 94799; 96361; 96365; 96367; 96375; 99285; J0456; J0696; J1100; J1644; J1650; J1815; J1940; J2060; J2270; J2543; J2920; J2930; J3480; J3490; J7030; J7050; J7060; P9017

== ENCOUNTER 2020-08-09 17:29 | Observation (INO) | payer BC ==
[2020-08-09 18:15] LABS: HEMATOCRIT 31.9 % (37.9-51.0); HEMOGLOBIN 10.7 g/dL (13.5-17.0); MEAN CORPUSCULAR HEMOGLOBIN 26.6 pg (27.0-33.4); MEAN CORPUSCULAR HGB CONC 33.5 g/dL (32.0-36.0); MEAN CORPUSCULAR VOLUME 79 fl (80-97); PLATELET COUNT 456 10^3/uL (150-450); RED BLOOD COUNT 4.01 10^6/uL (4.35-5.55); WHITE BLOOD COUNT 18.4 10^3/uL (4.0-10.5)
[2020-08-09 18:19] LABS: VENOUS BLOOD BASE EXCESS 4.9 mmol/L; VENOUS BLOOD PCO2 41.2 mmHg (35-63); VENOUS BLOOD PH 7.47 (7.30-7.42)
[2020-08-09 18:26] LABS: ALBUMIN 2.8 g/dL (3.5-5.0); ALKALINE PHOSPHATASE 85 U/L (38-126); ANION GAP 6 (5-19); ASPARTATE AMINO TRANSFERASE 30 U/L (17-59); BILIRUBIN,DIRECT 0.2 mg/dL (0.0-0.4); BILIRUBIN,TOTAL 0.6 mg/dL (0.2-1.3); BLOOD UREA NITROGEN 19 mg/dL (7-20); CALCIUM 8.5 mg/dL (8.4-10.2); CARBON DIOXIDE 31 mmol/L (22-30); CHLORIDE 99 mmol/L (98-107); GLUCOSE 128 mg/dL (75-110); POTASSIUM 4.6 mmol/L (3.6-5.0); TOTAL PROTEIN 5.6 g/dL (6.3-8.2)
[2020-08-09 18:45] LABS: ABSOLUTE LYMPHOCYTES# (MANUAL) 2.4 10^3/uL (0.5-4.7); ABSOLUTE MONOCYTES # (MANUAL) 0.9 10^3/uL (0.1-1.4); BASOPHILS % (MANUAL) 0 % (0-2); EOSINOPHILS % (MANUAL) 0 % (0-6); LYMPHOCYTES % (MANUAL) 12 % (13-45); MONOCYTES % (MANUAL) 5 % (3-13); SEGMENTED NEUTROPHILS % (MAN) 82 % (42-78); TOTAL CELLS COUNTED 100
--- NOTE | 2020-08-09 18:45 | RADIOLOGY REPORT (SQ) ---
EXAM DESCRIPTION: CHEST SINGLE VIEW IMAGES COMPLETED DATE/TIME: 08/09/2020 6:12 pm REASON FOR STUDY: sob COMPARISON: 07/25/2020 EXAM PARAMETERS: NUMBER OF VIEWS: One view. TECHNIQUE: Single frontal radiographic view of the chest acquired. RADIATION DOSE: NA LIMITATIONS: None. FINDINGS: LUNGS AND PLEURA: Residual bilateral infiltrates are present. There is significant improv ement since the earlier study. MEDIASTINUM AND HILAR STRUCTURES: No masses. Contour normal. HEART AND VASCULAR STRUCTURES: Heart normal in size. Normal vasculature. BONES: No acute findings. HARDWARE: None in the chest. OTHER: No other significant finding. IMPRESSION: Residual bilateral infiltrates with significant improvement. TECHNICAL DOCUMENTATION: JOB ID: [id number] 2010 [employer]- All Rights Reserved Reading location - IP/workstation name: [email or web address]
[2020-08-09 18:47] LABS: ANISOCYTOSIS SLIGHT
[2020-08-09 18:48] LABS: PLATELET COMMENT INCREASED
--- NOTE | 2020-08-09 19:57 | EKG REPORT ---
SEVERITY:- BORDERLINE ECG - SINUS TACHYCARDIA BORDERLINE T ABNORMALITIES, INFERIOR LEADS : Confirmed by: Faith Anne MD 09-Aug-2020 19:56:22
[2020-08-09] MEDS ORDERED: ACETAMINOPHEN 325 MG TABLET PO PRN (20:08)
[2020-08-09] MEDS ORDERED: ONDANSETRON HCL INJ/PF 4 MG/2 ML SDV IV PRN (20:08)
--- NOTE | 2020-08-09 20:20 | PDOC H&P ---
History of Present Illness Admission Date/PCP: DAVID OCASIO Patient complains of: Low oxygen saturation History of Present Illness: BRETT SIDDIQI is a 49 year old male with a history of diabetes, hypertension, hyperlipidemia and obstructive sleep apnea who was discharged from hospital this morning after a prolonged stay where he was treated for COVID-19 infection with hypoxia now presents back to the ED few hours after being discharged reporting a low oxygen saturation on pulse oximetry at home. Patient states that he was feeling well and was trying to get up stairs but he felt tired and when he checked his oxygen saturation the reading was 76%. He denies any worsening of shortness of breath, and he states that he has not had any fever for the past few days. He denies any chest pain, shortness of breath, palpitation, dizziness, nausea, vomiting, abdominal pain or diarrhea. Currently at the ED patient is requiring 4 L of intranasal oxygen to saturate 93 to 94%. Past Medical History Cardiac Medical History: Reports: Hyperlipidema, Hypertension Denies: Atrial Fibrillation, Congestive Heart Failure, Coronary Artery Disease, Myocardial Infarction, Peripheral Vascular Disease, Pulmonary Embolism, Heart Murmur Pulmonary Medical History: Reports: Sleep Apnea Denies: Asthma, Bronchitis, Chronic Obstructive Pulmonary Disease (COPD), Pneumonia, Respiratory Failure, Tuberculosis Neurological Medical History: Denies: Seizures Endocrine Medical History: Reports: Diabetes Mellitus Type 1, Diabetes Mellitus Type 2 Denies: Hyperthyroidism, Hypothyroidism Renal/ Medical History: Denies: End Stage Renal Disease Malignancy Medical History: Denies: Leukemia, Lung Cancer GI Medical History: Reports: Gastroesophageal Reflux Disease Denies: Crohn's Disease, Hiatal Hernia Musculoskeltal Medical History: Reports: Arthritis Denies: Fibromyalgia Skin Medical History: Reports: Psoriasis Psychiatric Medical History: Reports: Bipolar Disorder Denies: Dementia, Depression, Post Traumatic Stress Disorder Hematology: Denies: Anemia, Hemophilia, Sickle Cell Disease Infectious Medical History: Denies: HIV Past Surgical History Past Surgical History: Reports: Orthopedic Surgery - Right knee, Other - Knee surgery is scheduled. Denies: Appendectomy, Cholecystectomy, Colostomy, Coronary Artery Bypass Graft, Gastric Bypass Surgery, Herniorrhaphy, Pacemaker, Tonsillectomy Social History Information Source: Patient Lives with: Family Smoking Status: Unknown if Ever Smoked Frequency of Alcohol Use: Occasional Hx Recreational Drug Use: No Drugs: None Hx Prescription Drug Abuse: No - Advance Directive Resuscitation Status: Full Code Family History Family History: Arthritis, CVA, DM, Hyperlipidemia, Hypertension Parental Family History Reviewed: Yes Children Family History Reviewed: Yes Sibling(s) Family History Reviewed.: Yes Medication/Allergy Home Medications: Amlodipine Besylate [Norvasc 10 mg Tablet] 10 mg PO DAILY 03/22/20 Lansoprazole [Prevacid 15 mg Odt Tablet] 15 mg PO DAILY 03/22/20 Lisinopril/Hydrochlorothiazide [Lisinopril-Hctz 20-12.5 mg Tab] 1 each PO Q12 0 03/22/20 Metformin HCl 500 mg PO BID 03/22/20 Pravastatin Sodium 40 mg PO DAILY 03/22/20 Potassium Chloride 20 meq PO QAM 3 Days #3 tablet.er 07/13/20 Aspirin [Ecotrin 81 mg EC Tablet] 81 mg PO DAILY 07/16/20 Ascorbic Acid [Vitamin C 500 mg Tablet] 500 mg PO BID 30 Days #60 tablet 08/09/20 Benzocaine/Menthol [Chloraseptic Sore Throat Lozenge] 1 each BUCCAL Q1HP PRN 2 Days #15 lozenge 08/09/20 Buspirone HCl [Buspar 10 mg Tablet] 10 mg PO Q12 30 Days #60 tablet 08/09/20 Cholecalciferol (Vitamin D3) [Vitamin D3 1000 Unit Tablet] 2,000 unit PO DAILY 30 Days #30 tablet 08/09/20 Ferrous Sulfate [Feosol 325 mg Tablet] 325 mg PO BIDPCBS 30 Days #60 tablet 08/09/20 Prednisone [Deltasone 5 mg Tablet] 20 mg PO DAILY 21 Days #49 tablet 08/09/20 Sertraline HCl [Zoloft 50 mg Tablet] 50 mg PO DAILY 30 Days #30 tablet 08/09/20 Sodium Chloride [Mif[place]in Nasal [place] 44 ml Bottle] 1 spray NASL PRN PRN 7 Days #2 bottle 08/09/20 Vitamin B Complex [Vitamin B Complex Tablet] 1 tab PO DAILY 30 Days #30 tablet 08/09/20 Zinc Sulfate [Zinc-220 Capsule] 220 mg PO DAILY 30 Days #30 capsule 08/09/20 Allergies/Adverse Reactions: No Known Allergies Allergy (Verified 10/17/19 14:51) Review of Systems Constitutional: PRESENT: as per HPI Eyes: ABSENT: visual disturbances Ears: ABSENT: hearing changes Nose, Mouth, and Throat: ABSENT: mouth pain, sore throat Cardiovascular: PRESENT: dyspnea on exertion. ABSENT: chest pain, edema, orthropnea, palpitations Respiratory: PRESENT: as per HPI Gastrointestinal: ABSENT: abdominal pain, constipation, diarrhea, hematemesis, hematochezia, nausea, vomiting Genitourinary: ABSENT: dysuria, hematuria Musculoskeletal: ABSENT: joint swelling Integumentary: ABSENT: rash, wounds Neurological: ABSENT: abnormal gait, abnormal speech, confusion, dizziness, focal weakness, syncope Psychiatric: ABSENT: anxiety, depression, homidical ideation, suicidal ideation Endocrine: ABSENT: cold intolerance, heat intolerance, polydipsia, polyuria Hematologic/Lymphatic: ABSENT: easy bleeding, easy bruising Physical Exam Vital Signs: Temp Pulse Resp BP Pulse Ox 97.7 F 17 135/80 H 95 08/09/20 18:20 08/09/20 19:01 08/09/20 19:01 08/09/20 19:01 Intake & Output 08/08/20 08/09/20 08/10/20 06:59 06:59 06:59 Weight 127 kg Additional comments: GENERAL APPEARANCE: Alert and oriented x3, currently on 4 L intranasal oxygen HEENT: Normocephalic and atraumatic. No scleral icterus. Moist oral mucosa NECK: Supple. No lymphadenopathy or tenderness. No JVD CHEST: Symmetric. Nontender to palpation. LUNGS: Not in distress, clear with good air entry bilaterally. No wheezing or crackles HEART: Regular rate and rhythm with normal S1 and S2. No murmurs, gallops, or rubs. ABDOMEN: Flat, soft, active bowel sounds, no direct or rebound tenderness. No organomegaly detected. EXTREMITIES: No cyanosis, clubbing, or edema. MUSCULOSKELETAL: No deformity, atrophy or swelling noted PSYCHIATRIC: Recent and remote memory is intact. Appropriate mood and affect. SKIN: Warm, dry, and well perfused. No lesions or rashes are noted. NEUROLOGIC: No focal sensory or motor deficits are noted. Results Laboratory Results: 08/09/20 17:48 08/09/20 17:48 08/09/20 08/09/20 08/09/20 17:48 17:48 17:48 WBC 18.4 H RBC 4.01 L Hgb 10.7 L Hct 31.9 L MCV 79 L MCH 26.6 L MCHC 33.5 RDW 15.0 H Plt Count 456 H Seg Neutrophils % Not Reportable VBG pH VBG pCO2 VBG HCO3 VBG Base Excess Sodium 136.3 L Potassium 4.6 Chloride 99 Carbon Dioxide 31 H Anion Gap 6 BUN 19 Creatinine 0.55 Est GFR ( Amer) > 60 Glucose 128 H Lactic Acid 1.4 Calcium 8.5 Total Bilirubin 0.6 AST 30 Alkaline Phosphatase 85 Total Protein 5.6 L Albumin 2.8 L 08/09/20 17:48 WBC RBC Hgb Hct MCV MCH MCHC RDW Plt Count Seg Neutrophils % VBG pH 7.47 H VBG pCO2 41.2 VBG HCO3 29.0 VBG Base Excess 4.9 Sodium Potassium Chloride Carbon Dioxide Anion Gap BUN Creatinine Est GFR ( Amer) Glucose Lactic Acid Calcium Total Bilirubin AST Alkaline Phosphatase Total Protein Albumin Impressions: Chest X-Ray 08/09/20 17:57 IMPRESSION: Residual bilateral infiltrates with significant improvement. Assessment and Plan - Diagnosis (1) Respiratory failure with hypoxia Qualifiers: Chronicity: acute Qualified Code(s): J96.01 - Acute respiratory failure with hypoxia Is this a current diagnosis for this admission?: Yes Plan: Was discharged this morning after a prolonged hospital stay for hypoxia due to COVID-19 He was off oxygen for about 48 hours prior to discharge Now presents with hypoxia with oxygen saturation in the mid 70s at home Currently requiring 4 L intranasal oxygen to saturate 93 to 94% Patient would likely require oxygen at home Completed treatment with remdesivir and also received ivermectin Continue prednisone, vitamin C, vitamin D, zinc Continue closely monitoring respiratory parameters Home oxygen evaluation in the morning Avail incentive spirometry at bedside Continue close monitoring of respiratory parameters (2) Pneumonia due to COVID-19 virus Is this a current diagnosis for this admission?: Yes Plan: Patient was diagnosed with COVID-19 about 4 weeks back had completed treatment Was discharged this morning but came back with hypoxia Continue managing hypoxic respiratory failure due to COVID-19 as stated above (3) Type 2 diabetes mellitus Qualifiers: Diabetes mellitus custodial insulin use: without ferry terminal supervisor use Diabetes mellitus complication status: without complication Qualified Code(s): E11.9 - Type 2 diabetes mellitus without complications Is this a current diagnosis for this admission?: Yes Plan: On Metformin at home Placed him on sliding scale insulin with hypoglycemia protocol while inpatient (4) Hypertension Qualifiers: Hypertension type: essential hypertension Qualified Code(s): I10 - Essential (primary) hypertension Is this a current diagnosis for this admission?: Yes Plan: BP within acceptable range Continue lisinopril/hydrochlorothiazide and amlodipine (5) Hyperlipidemia Qualifiers: Hyperlipidemia type: unspecified Qualified Code(s): E78.5 - Hyperlipidemia, unspecified Is this a current diagnosis for this admission?: Yes Plan: Continue atorvastatin (6) Anxiety and depression Is this a current diagnosis for this admission?: Yes Plan: Continue sertraline and buspirone (7) Obesity (BMI 30-39.9) Is this a current diagnosis for this admission?: Yes Plan: Encourage regular exercise and dietary modification to attain optimal weight - Time Time Spent with patient: 35 or more minutes Total Critical Time (Minutes): 35 Medications reviewed and adjusted accordingly: Yes Anticipated Discharge Disposition: Home, Self Care Anticipated Discharge Timeframe: within 48 hours - Inpatient Certification Based on my medical assessment, after consideration of the patient's comorbidities, presenting symptoms, or acuity I expect that the services needed warrant INPATIENT care.: Yes I certify that my determination is in accordance with my understanding of Medicare's requirements for reasonable and necessary INPATIENT services [42 CFR 412.3e].: Yes Medical Necessity: Significant Comorbidiites Make Outpatient Treatment Too Risky, Need Close Monitoring Due to Risk of Patient Decompensation, Risk of Complication if Not Cared For in Hospital Post Hospital Care: D/C or Transfer Summary
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
[2020-08-09] MEDS: FAMOTIDINE 20 MG TABLET PO SCH (22:18)
[2020-08-09] MEDS ORDERED: DEXTROSE 50%-WATER SYRINGE 12.5 GM/25 ML DOSE IV PRN (23:30)
[2020-08-09] MEDS ORDERED: DEXTROSE 50%-WATER SYRINGE 25 GM/50 ML DOSE IV PRN (23:30)
[2020-08-09] MEDS ORDERED: GLUCAGON,HUMAN RECOMB 1 MG INJ IM PRN (23:30)
[2020-08-09] MEDS ORDERED: DEXTROSE 40% GEL 15 GM TUBE X 2 PO PRN (23:30)
[2020-08-09] MEDS ORDERED: DEXTROSE 40% GEL 15 GM TUBE PO PRN (23:30)
[2020-08-09] MEDS ORDERED: ASCORBIC ACID 500 MG TABLET PO ONE (23:45)
[2020-08-09] MEDS ORDERED: BUSPIRONE HCL 10 MG TABLET PO ONE (23:45)
[2020-08-10 02:28] LABS: APPEARANCE,URINE SLIGHTLY-CLOUDY; BILIRUBIN,URINE NEGATIVE (NEGATIVE); COLOR,URINE AMBER; GLUCOSE, URINE NEGATIVE (NEGATIVE); KETONES,URINE NEGATIVE (NEGATIVE); LEUKOCYTE ESTERASE,URINE NEGATIVE (NEGATIVE); NITRITE,URINE NEGATIVE (NEGATIVE); PROTEIN,URINE NEGATIVE (NEGATIVE); URINE SPECIFIC GRAVITY 1.025
[2020-08-10 07:27] LABS: ABSOLUTE BASOPHILS # (AUTO) 0.1 10^3/uL (0.0-0.2); ABSOLUTE EOSINOPHILS # (AUTO) 0.1 10^3/uL (0.0-0.6); ABSOLUTE LYMPHOCYTES (AUTO) 2.1 10^3/uL (0.5-4.7); BASOPHILS % (AUTO) 0.5 % (0-2); EOSINOPHILS % (AUTO) 1.1 % (0-6); HEMOGLOBIN 9.8 g/dL (13.5-17.0); LYMPHOCYTES % (AUTO) 15.7 % (13-45); MEAN CORPUSCULAR HEMOGLOBIN 26.8 pg (27.0-33.4); MEAN CORPUSCULAR HGB CONC 33.9 g/dL (32.0-36.0); MEAN CORPUSCULAR VOLUME 79 fl (80-97); MONOCYTES % (AUTO) 7.8 % (3-13); PLATELET COUNT 401 10^3/uL (150-450); RED BLOOD COUNT 3.66 10^6/uL (4.35-5.55); RED CELL DISTRIBUTION WIDTH 15.2 % (11.5-14.0); SEGMENTED NEUTROPHILS % (AUTO) 74.9 % (42-78); TOTAL CELLS COUNTED % (AUTO) 100 %; WHITE BLOOD COUNT 13.4 10^3/uL (4.0-10.5)
[2020-08-10 07:51] LABS: ALBUMIN 2.4 g/dL (3.5-5.0); ALKALINE PHOSPHATASE 74 U/L (38-126); ASPARTATE AMINO TRANSFERASE 26 U/L (17-59); BILIRUBIN,DIRECT 0.1 mg/dL (0.0-0.4); BILIRUBIN,TOTAL 0.6 mg/dL (0.2-1.3); BLOOD UREA NITROGEN 14 mg/dL (7-20); CALCIUM 8.1 mg/dL (8.4-10.2); CHLORIDE 102 mmol/L (98-107); GLUCOSE 102 mg/dL (75-110); POTASSIUM 3.7 mmol/L (3.6-5.0); TOTAL PROTEIN 4.9 g/dL (6.3-8.2)
[2020-08-10 07:56] LABS: CARBON DIOXIDE 33 mmol/L (22-30)
[2020-08-10 08:01] LABS: ANION GAP 1 (5-19)
[2020-08-10] MEDS: INSULIN REG, HUMAN 100 UNIT/ML 3 ML VIAL (PYX) SUBCUT SCH ×3 (09:50→18:16)
[2020-08-10] MEDS: ASCORBIC ACID 500 MG TABLET PO SCH ×2 (09:57→18:58)
[2020-08-10] MEDS: FAMOTIDINE 20 MG TABLET PO SCH (09:58)
[2020-08-10] MEDS ORDERED: ZINC SULFATE 220 MG CAPSULE PO SCH (10:00)
[2020-08-10] MEDS ORDERED: CHOLECALCIFEROL (D3) 1,000 UNIT (25 MCG) TABLET PO SCH (10:00)
[2020-08-10] MEDS ORDERED: BUSPIRONE HCL 10 MG TABLET PO SCH (10:00)
[2020-08-10] MEDS ORDERED: PREDNISONE 20 MG TABLET PO SCH (10:00)
[2020-08-10] MEDS ORDERED: SERTRALINE HCL 50 MG TABLET PO SCH (10:00)
[2020-08-10] MEDS ORDERED: ENOXAPARIN SODIUM INJ 40 MG/0.4 ML DISP.SYRIN SUBCUT SCH (10:00)
--- NOTE | 2020-08-10 18:03 | PDOC DISCHARGE SUMMARY ---
Impression - Admit/DC Date/PCP Admission Date/Primary Care Provider: 08/09/20 20:49 DAVID OCASIO Discharge Date: 08/10/20 - Discharge Diagnosis (1) Respiratory failure with hypoxia Is this a current diagnosis for this admission?: Yes (2) Pneumonia due to COVID-19 virus Is this a current diagnosis for this admission?: Yes (3) Anxiety and depression Is this a current diagnosis for this admission?: Yes (4) Hyperlipidemia Is this a current diagnosis for this admission?: Yes (5) Hypertension Is this a current diagnosis for this admission?: Yes (6) Obesity (BMI 30-39.9) Is this a current diagnosis for this admission?: Yes (7) Type 2 diabetes mellitus Is this a current diagnosis for this admission?: Yes - Assessment Summary: Patient was discharged yesterday. When he was having difficulty weaning the initial thought was discharged on home oxygen. He was then on room air at rest. Unfortunately with exertion he desaturates very easily and in fact will have to discharge home on oxygen for post Covid respiratory failure with hypoxia - Additional Information Resuscitation Status: Full Code Discharge Diet: Cardiac, Diabetic Discharge Activity: Balance Activity w/Rest, Slowly Increase Activity Referrals: DEREK VERNON FNP-C [Primary Care Provider] - 08/22/20 10:30 am Home Medications: Amlodipine Besylate [Norvasc 10 mg Tablet] 10 mg PO DAILY 03/22/20 Lansoprazole [Prevacid 15 mg Odt Tablet] 15 mg PO DAILY 03/22/20 Lisinopril/Hydrochlorothiazide [Lisinopril-Hctz 20-12.5 mg Tab] 1 each PO Q12 03/22/20 Metformin HCl 500 mg PO BID 03/22/20 Pravastatin Sodium 40 mg PO DAILY 03/22/20 Potassium Chloride 20 meq PO QAM 3 Days #3 tablet.er 07/13/20 Aspirin [Ecotrin 81 mg EC Tablet] 81 mg PO DAILY 07/16/20 Ascorbic Acid [Vitamin C 500 mg Tablet] 500 mg PO BID 30 Days #60 tablet 08/09/20 Benzocaine/Menthol [Chloraseptic Sore Throat Lozenge] 1 each BUCCAL Q1HP PRN 2 Days #15 lozenge 08/09/20 Buspirone HCl [Buspar 10 mg Tablet] 10 mg PO Q12 30 Days #60 tablet 08/09/20 Cholecalciferol (Vitamin D3) [Vitamin D3 1000 Unit Tablet] 2,000 unit PO DAILY 30 Days #30 tablet 08/09/20 Ferrous Sulfate [Feosol 325 mg Tablet] 325 mg PO BIDPCBS 30 Days #60 tablet 08/09/20 Prednisone [Deltasone 5 mg Tablet] 20 mg PO DAILY 21 Days #49 tablet 08/09/20 Sertraline HCl [Zoloft 50 mg Tablet] 50 mg PO DAILY 30 Days #30 tablet 08/09/20 Sodium Chloride [Osprey Nasal [place] 44 ml Bottle] 1 spray NASL PRN PRN 7 Days #2 bottle 08/09/20 Vitamin B Complex [Vitamin B Complex Tablet] 1 tab PO DAILY 30 Days #30 tablet 08/09/20 Zinc Sulfate [Zinc-220 Capsule] 220 mg PO DAILY 30 Days #30 capsule 08/09/20 History of Present Illiness History of Present Illness: BRETT SIDDIQI is a 49 year old male who was discharged yesterday. See previous hospitalization notes for full details of Covid pneumonia hospitalization. He was stable once back on oxygen. He will be discharged home on oxygen therapy. Hospital Course Hospital Course: Unremarkable. Qualified for home oxygen. Home oxygen was able to be obtained today therefore discharged home. Physical Exam Vital Signs: Temp Pulse Resp BP Pulse Ox 97.8 F 97 21 H 131/88 H 92 08/10/20 15:35 08/10/20 15:35 08/10/20 15:35 08/10/20 15:35 08/10/20 15:35 Intake & Output 08/09/20 08/10/20 08/11/20 06:59 06:59 06:59 Intake Total 260 Output Total 930 950 Balance -670 -950 Weight 124 kg General appearance: PRESENT: no acute distress Ear exam: PRESENT: normal external ear exam. ABSENT: bleeding, drainage Throat exam: PRESENT: other - Hoarse voice Respiratory exam: PRESENT: clear to auscultation lorena, symmetrical, unlabored. ABSENT: prolonged expiratory phas, rales, rhonchi, tachypnea, wheezes Cardiovascular exam: PRESENT: RRR, +S1, +S2. ABSENT: bradycardia, diastolic murmur, irregular rhythm, systolic murmur, tachycardia GI/Abdominal exam: PRESENT: soft, other - Still with large hematoma left side abdominal wall Rectal exam: PRESENT: deferred Gentrourinary exam: ABSENT: indwelling catheter Extremities exam: ABSENT: pedal edema Neurological exam: PRESENT: alert, awake, oriented to person, oriented to place, oriented to time, oriented to situation, CN II-XII grossly intact. ABSENT: altered Psychiatric exam: PRESENT: appropriate affect. ABSENT: agitated, anxious Focused psych exam: ABSENT: delusional, paranoid, restlessness Results Laboratory Results: WBC 13.4 10^3/uL (4.0-10.5) H 08/10/20 07:04 RBC 3.66 10^6/uL (4.35-5.55) L 08/10/20 07:04 Hgb 9.8 g/dL (13.5-17.0) L 08/10/20 07:04 Hct 29.0 % (37.9-51.0) L 08/10/20 07:04 MCV 79 fl (80-97) L 08/10/20 07:04 MCH 26.8 pg (27.0-33.4) L 08/10/20 07:04 MCHC 33.9 g/dL (32.0-36.0) 08/10/20 07:04 RDW 15.2 % (11.5-14.0) H 08/10/20 07:04 Plt Count 401 10^3/uL (150-450) 08/10/20 07:04 Lymph % (Auto) 15.7 % (13-45) 08/10/20 07:04 [place] % (Auto) 7.8 % (3-13) 08/10/20 07:04 Eos % (Auto) 1.1 % (0-6) 08/10/20 07:04 Baso % (Auto) 0.5 % (0-2) 08/10/20 07:04 Absolute Neuts (auto) 10.0 10^3/uL (1.7-8.2) H 08/10/20 07:04 Absolute Lymphs (auto) 2.1 10^3/uL (0.5-4.7) 08/10/20 07:04 Absolute Monos (auto) 1.0 10^3/uL (0.1-1.4) 08/10/20 07:04 Absolute Eos (auto) 0.1 10^3/uL (0.0-0.6) 08/10/20 07:04 Absolute Basos (auto) 0.1 10^3/uL (0.0-0.2) 08/10/20 07:04 Total Counted 100 08/09/20 17:48 Seg Neutrophils % 74.9 % (42-78) 08/10/20 07:04 Seg Neuts % (Manual) 82 % (42-78) H 08/09/20 17:48 Lymphocytes % (Manual) 12 % (13-45) L 08/09/20 17:48 Atypical Lymphs % 1 % (0) 08/09/20 17:48 Monocytes % (Manual) 5 % (3-13) 08/09/20 17:48 Eosinophils % (Manual) 0 % (0-6) 08/09/20 17:48 Basophils % (Manual) 0 % (0-2) 08/09/20 17:48 Abs Neuts (Manual) 15.1 10^3/uL (1.7-8.2) H 08/09/20 17:48 Abs Lymphs (Manual) 2.4 10^3/uL (0.5-4.7) 08/09/20 17:48 Abs Monocytes (Manual) 0.9 10^3/uL (0.1-1.4) 08/09/20 17:48 Absolute Eos (Manual) 0.0 10^3/uL (0.0-0.6) 08/09/20 17:48 Abs Basophils (Manual) 0.0 10^3/uL (0.0-0.2) 08/09/20 17:48 Platelet Comment INCREASED 08/09/20 17:48 Anisocytosis SLIGHT 08/09/20 17:48 Microcytosis SLIGHT 08/09/20 17:48 VBG pH 7.47 (7.30-7.42) H 08/09/20 17:48 VBG pCO2 41.2 mmHg (35-63) 08/09/20 17:48 VBG HCO3 29.0 mmol/L (20-32) 08/09/20 17:48 VBG Base Excess 4.9 mmol/L 08/09/20 17:48 Sodium 136.3 mmol/L (137-145) L 08/10/20 07:04 Potassium 3.7 mmol/L (3.6-5.0) 08/10/20 07:04 Chloride 102 mmol/L (98-107) 08/10/20 07:04 Carbon Dioxide 33 mmol/L (22-30) H 08/10/20 07:04 Anion Gap 1 (5-19) L 08/10/20 07:04 BUN 14 mg/dL (7-20) 08/10/20 07:04 Creatinine 0.57 mg/dL (0.52-1.25) 08/10/20 07:04 Est GFR ( Amer) > 60 (>60) 08/10/20 07:04 Est GFR (MDRD) Non-Af > 60 (>60) 08/10/20 07:04 Glucose 102 mg/dL (75-110) 08/10/20 07:04 POC Glucose 120 mg/dL (70-110) H 08/10/20 15:39 Lactic Acid 1.4 mmol/L (0.7-2.1) 08/09/20 17:48 Calcium 8.1 mg/dL (8.4-10.2) L 08/10/20 07:04 Total Bilirubin 0.6 mg/dL (0.2-1.3) 08/10/20 07:04 Direct Bilirubin 0.1 mg/dL (0.0-0.4) 08/10/20 07:04 Neonat Total Bilirubin Not Reportable 08/10/20 07:04 Neonat Direct Bilirubin Not Reportable 08/10/20 07:04 Neonat Indirect Bili Not Reportable 08/10/20 07:04 AST 26 U/L (17-59) 08/10/20 07:04 ALT 49 U/L (<50) 08/10/20 07:04 Alkaline Phosphatase 74 U/L (38-126) 08/10/20 07:04 Total Protein 4.9 g/dL (6.3-8.2) L 08/10/20 07:04 Albumin 2.4 g/dL (3.5-5.0) L 08/10/20 07:04 Urine Color MILLER 08/09/20 22:15 Urine Appearance SLIGHTLY-CLOUDY 08/09/20 22:15 Urine pH 7.0 (5.0-9.0) 08/09/20 22:15 Ur Specific [place] 1.025 08/09/20 22:15 Urine Protein NEGATIVE mg/dL (NEGATIVE) 08/09/20 22:15 Urine Glucose (UA) NEGATIVE mg/dL (NEGATIVE) 08/09/20 22:15 Urine Ketones NEGATIVE mg/dL (NEGATIVE) 08/09/20 22:15 Urine Blood NEGATIVE (NEGATIVE) 08/09/20 22:15 Urine Nitrite NEGATIVE (NEGATIVE) 08/09/20 22:15 Urine Bilirubin NEGATIVE (NEGATIVE) 08/09/20 22:15 Urine Urobilinogen 4.0 mg/dL (<2.0) H 08/09/20 22:15 Ur Leukocyte Esterase NEGATIVE (NEGATIVE) 08/09/20 22:15 Urine WBC (Auto) 2 /HPF 08/09/20 22:15 Urine RBC (Auto) 1 /HPF 08/09/20 22:15 Urine Mucus (Auto) FEW /LPF 08/09/20 22:15 Urine Ascorbic Acid 40 (NEGATIVE) H 08/09/20 22:15 Impressions: Chest X-Ray 08/09/20 17:57 IMPRESSION: Residual bilateral infiltrates with significant improvement. Plan Health Concerns: Prolonged hypoxia as result of Covid pneumonia Plan of Treatment: Continue all medications as ordered at the time of discharge yesterday. Continue home oxygen at 4 L nasal cannula. Maintain oxygen saturation of greater than 90%. Goals: Eventually complete resolution of Covid pneumonia and hypoxic respiratory failure Time Spent: Greater than 30 Minutes Stroke Is this a Stroke Patient?: No Acute Heart Failure Is this a Heart Failure Patient?: No
[2020-08-10 18:52] VITALS: BP 114/60
== END 2020-08-10 20:02 | disposition home or self-care (01) ==
LOC: ER 17:29 → EH 20:49 → 4S 22:40
PROVIDERS: ADMIT Student in an Organized Health Care Education/Training Program; ATTEND Hospitalist
DX: U07.1 COVID-19 (principal); J96.01 Acute respiratory failure with hypoxia; J12.82 Pneumonia due to coronavirus disease 2019; J96.91 Respiratory failure, unspecified with hypoxia; I10 Essential (primary) hypertension; E78.5 Hyperlipidemia, unspecified; Z82.49 Family history of ischemic heart disease and other diseases of the circulatory system; F41.9 Anxiety disorder, unspecified; F32.9 Major depressive disorder, single episode, unspecified; E66.9 Obesity, unspecified; Z68.39 Body mass index [BMI] 39.0-39.9, adult; E11.9 Type 2 diabetes mellitus without complications; K21.9 Gastro-esophageal reflux disease without esophagitis; R00.0 Tachycardia, unspecified; Z79.899 Other long term (current) drug therapy; Z79.82 Long term (current) use of aspirin; Z79.84 Long term (current) use of oral hypoglycemic drugs; S30.1XXA Contusion of abdominal wall, initial encounter; X58.XXXA Exposure to other specified factors, initial encounter
CPT/HCPCS: 93005; 99285; 36415 ×2; 82962; 83605; 85025 ×2; 80053 ×2; 81001; 82803; 71045; 94799; 93010; G0378 ×3; J1650; J7512; J3490 ×3

== ENCOUNTER 2020-08-15 05:17 | Inpatient (IN) | payer BC ==
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
[2020-08-15 06:09] LABS: HEMATOCRIT 32.6 % (37.9-51.0); HEMOGLOBIN 10.8 g/dL (13.5-17.0); MEAN CORPUSCULAR HEMOGLOBIN 26.7 pg (27.0-33.4); MEAN CORPUSCULAR HGB CONC 33.2 g/dL (32.0-36.0); MEAN CORPUSCULAR VOLUME 80 fl (80-97); PLATELET COUNT 392 10^3/uL (150-450); RED BLOOD COUNT 4.06 10^6/uL (4.35-5.55); RED CELL DISTRIBUTION WIDTH 15.7 % (11.5-14.0); WHITE BLOOD COUNT 22.6 10^3/uL (4.0-10.5)
[2020-08-15 06:13] LABS: VENOUS BLOOD BASE EXCESS 2.4 mmol/L; VENOUS BLOOD HCO3 27.1 mmol/L (20-32); VENOUS BLOOD PCO2 42.1 mmHg (35-63); VENOUS BLOOD PH 7.43 (7.30-7.42)
[2020-08-15 06:26] LABS: ALBUMIN 2.8 g/dL (3.5-5.0); ASPARTATE AMINO TRANSFERASE 29 U/L (17-59); BILIRUBIN,DIRECT 0.2 mg/dL (0.0-0.4); BILIRUBIN,TOTAL 0.7 mg/dL (0.2-1.3); BLOOD UREA NITROGEN 9 mg/dL (7-20); CALCIUM 8.2 mg/dL (8.4-10.2); CARBON DIOXIDE 29 mmol/L (22-30); CHLORIDE 99 mmol/L (98-107); GLUCOSE 125 mg/dL (75-110); POTASSIUM 3.3 mmol/L (3.6-5.0); TOTAL PROTEIN 5.9 g/dL (6.3-8.2)
[2020-08-15 06:33] LABS: ALKALINE PHOSPHATASE 98 U/L (38-126); ANION GAP 5 (5-19)
[2020-08-15 06:37] LABS: NT PRO BNP 64 pg/mL (<125)
--- NOTE | 2020-08-15 06:37 | RADIOLOGY REPORT (SQ) ---
EXAM DESCRIPTION: XR CHEST 1 VIEW COMPLETED DATE/TME: 08/15/2020 05:56 CLINICAL HISTORY: 49 years, Male, hypoxia, difficulty breathing Comparison: August 09, 2020 FINDINGS: Interstitial and alveolar opacities throughout the lungs have increased the previous exam. Cardiac silhouette approaches the upper limits of normal for size similar to previous study. Lung volumes are diminished. No definite pleural abnormalities. IMPRESSION: Increased bilateral interstitial and alveolar opacities concerning for pneumonia.
[2020-08-15 06:38] LABS: TROPONIN I < 0.012 ng/mL
[2020-08-15] MEDS ORDERED: CEFEPIME 2 GM/D5W RTU 2 GM/50 ML RTUPB IV ONE (06:43)
[2020-08-15 06:44] LABS: ABSOLUTE MONOCYTES # (MANUAL) 1.1 10^3/uL (0.1-1.4); BASOPHILS % (MANUAL) 0 % (0-2); EOSINOPHILS % (MANUAL) 0 % (0-6); LYMPHOCYTES % (MANUAL) 9 % (13-45); MONOCYTES % (MANUAL) 5 % (3-13); SEGMENTED NEUTROPHILS % (MAN) 86 % (42-78); TOTAL CELLS COUNTED 100
[2020-08-15 06:45] LABS: ANISOCYTOSIS 1+; PLATELET COMMENT ADEQUATE; POLYCHROMASIA SLIGHT; TOXIC GRANULATION 1+
--- NOTE | 2020-08-15 07:19 | EKG REPORT ---
SEVERITY:- ABNORMAL ECG - SINUS TACHYCARDIA CONSIDER POSTERIOR INFARCT REPOL ABNRM SUGGESTS ISCHEMIA, DIFFUSE LEADS BORDERLINE PROLONGED QT INTERVAL : Confirmed by: Salomón Barroso MD 15-Aug-2020 07:18:50
[2020-08-15] MEDS ORDERED: VANCOMYCIN HCL INJ 1000 MG VIAL IV ONE (07:24)
[2020-08-15] MEDS ORDERED: DEXAMETHASONE SOD PHOS INJ 10 MG/1 ML VIAL IV ONE (07:52)
[2020-08-15] MEDS ORDERED: VANCOMYCIN HCL INJ 1000 MG VIAL ONE (09:41)
[2020-08-15] MEDS ORDERED: OXYCODONE-ACETAMINOPHEN 5-325 MG TABLET PO PRN (11:10)
[2020-08-15] MEDS ORDERED: ACETAMINOPHEN 325 MG TABLET PO PRN (11:10)
[2020-08-15] MEDS ORDERED: NORMAL SALINE 1000 ML 1,000 ML IV PRN (11:10)
[2020-08-15] MEDS ORDERED: ONDANSETRON HCL INJ/PF 4 MG/2 ML SDV IV PRN (11:10)
[2020-08-15] MEDS ORDERED: PROMETHAZINE HCL INJ 25 MG/1 ML VIAL IV PRN (11:10)
[2020-08-15] MEDS ORDERED: PROMETHAZINE HCL 25 MG TABLET PO PRN (11:10)
[2020-08-15] MEDS ORDERED: IPRATROPIUM/ALBUTEROL 0.5-2.5 MG/3 ML AMPUL NEB PRN (11:10)
[2020-08-15] MEDS ORDERED: ONDANSETRON 4 MG TAB.RAPDIS PO PRN (11:10)
[2020-08-15] MEDS ORDERED: DEXTROSE 40% GEL 15 GM TUBE PO PRN ×2 (11:14)
[2020-08-15] MEDS ORDERED: DEXTROSE 50%-WATER 25 GM/50 ML DISP.SYRIN IV PRN ×2 (11:14)
[2020-08-15] MEDS ORDERED: GLUCAGON,HUMAN RECOMB 1 MG INJ IM PRN (11:14)
[2020-08-15] MEDS ORDERED: LABETALOL HCL INJ 20 MG/4 ML DISP.SYRIN IV PRN (11:14)
[2020-08-15] MEDS ORDERED: VANCOMYCIN HCL 0 MG in DEXTROSE 5%-WATER 250 ML IV NR (11:15)
--- NOTE | 2020-08-15 12:37 | PDOC H&P ---
History of Present Illness Admission Date/PCP: 08/15/20 10:56 DEREK VERNON, CIRILO-C History of Present Illness: BRETT SIDDIQI is a 49 year old male with past medical history of diabetes, hypertension, hyperlipidemia, DORA, recently diagnosed with COVID-19 have had a complicated hospital course, initially admitted on 07/16/2020 had a prolonged hospitalization, again admitted on 08/09/2020 for worsening shortness of breath and discharged on 08/10/2020 home with supplemental oxygen, patient stating he was doing fine on 4 L nasal cannula however yesterday night he noticed sudden onset worsening shortness of breath and presented to ED. Patient is also complaining of persistent productive cough otherwise denies any fever, chest pain, chills, nausea, vomiting, diarrhea, constipation or any urinary symptoms. In ED he was noted to be saturating in the high 80s and noted to be tachypneic, was started on BiPAP with improvement of hypoxia, noted to have leukocytosis on CBC and chest x-ray positive for increased bilateral interstitial and alveolar opacities concerning for pneumonia. Patient was also tested for COVID-19 which came back negative. Hospital was consulted for admission for possible healthcare associated pneumonia. Past Medical History Cardiac Medical History: Reports: Hyperlipidema, Hypertension Denies: Atrial Fibrillation, Congestive Heart Failure, Coronary Artery Disease, Myocardial Infarction, Peripheral Vascular Disease, Pulmonary Embolism, Heart Murmur Pulmonary Medical History: Reports: Sleep Apnea Denies: Asthma, Bronchitis, Chronic Obstructive Pulmonary Disease (COPD), Pneumonia, Respiratory Failure, Tuberculosis Neurological Medical History: Denies: Seizures Endocrine Medical History: Reports: Diabetes Mellitus Type 1, Diabetes Mellitus Type 2 Denies: Hyperthyroidism, Hypothyroidism Renal/ Medical History: Denies: End Stage Renal Disease Malignancy Medical History: Denies: Leukemia, Lung Cancer GI Medical History: Reports: Gastroesophageal Reflux Disease Denies: Crohn's Disease, Hiatal Hernia Musculoskeltal Medical History: Reports: Arthritis Denies: Fibromyalgia Skin Medical History: Reports: Psoriasis Psychiatric Medical History: Reports: Bipolar Disorder Denies: Dementia, Depression, Post Traumatic Stress Disorder Hematology: Denies: Anemia, Hemophilia, Sickle Cell Disease Infectious Medical History: Denies: HIV Past Surgical History Past Surgical History: Reports: Orthopedic Surgery - Right knee, Other - Knee surgery is scheduled. Denies: Appendectomy, Cholecystectomy, Colostomy, Coronary Artery Bypass Graft, Gastric Bypass Surgery, Herniorrhaphy, Pacemaker, Tonsillectomy Social History Lives with: Family Smoking Status: Never Smoker Electronic Cigarette use?: No Frequency of Alcohol Use: Occasional Hx Recreational Drug Use: No Drugs: None Hx Prescription Drug Abuse: No Family History Family History: Arthritis, CVA, DM, Hyperlipidemia, Hypertension Parental Family History Reviewed: Yes Children Family History Reviewed: Yes Sibling(s) Family History Reviewed.: Yes Medication/Allergy Home Medications: Amlodipine Besylate [Norvasc 10 mg Tablet] 10 mg PO DAILY 03/22/20 Lansoprazole [Prevacid 15 mg Odt Tablet] 15 mg PO DAILY 03/22/20 Lisinopril/Hydrochlorothiazide [Lisinopril-Hctz 20-12.5 mg Tab] 1 each PO Q12 03/22/20 Metformin HCl 500 mg PO BID 03/22/20 Pravastatin Sodium 40 mg PO DAILY 03/22/20 Potassium Chloride 20 meq PO QAM 3 Days #3 tablet.er 07/13/20 Aspirin [Ecotrin 81 mg EC Tablet] 81 mg PO DAILY 07/16/20 Buspirone HCl [Buspar 10 mg Tablet] 10 mg PO Q12 30 Days #60 tablet 08/09/20 Ferrous Sulfate [Feosol 325 mg Tablet] 325 mg PO BIDPCBS 30 Days #60 tablet 08/09/20 Prednisone [Deltasone 5 mg Tablet] 20 mg PO DAILY 21 Days #49 tablet 08/09/20 Sertraline HCl [Zoloft 50 mg Tablet] 50 mg PO DAILY 30 Days #30 tablet 08/09/20 Dexamethasone [Decadron] 12 mg PO QAM 08/15/20 Loperamide HCl [Loperamide] 2 mg PO TIDP PRN 08/15/20 Allergies/Adverse Reactions: No Known Allergies Allergy (Verified 10/17/19 14:51) Review of Systems Review of Systems: as per hpi Physical Exam Vital Signs: Temp Pulse Resp BP Pulse Ox 24 H 127/89 H 95 08/15/20 09:46 08/15/20 08:30 08/15/20 09:46 Intake & Output 08/14/20 08/15/20 08/16/20 06:59 06:59 06:59 Intake Total 50 Balance 50 Weight 127.006 kg General appearance: PRESENT: no acute distress, mild distress, obese, well- developed, well-nourished Head exam: PRESENT: atraumatic, normocephalic Respiratory exam: PRESENT: accessory muscle use, crackles, decreased breath sounds, symmetrical, tachypnea. ABSENT: rales, rhonchi, wheezes Cardiovascular exam: PRESENT: RRR. ABSENT: diastolic murmur, rubs, systolic murmur GI/Abdominal exam: PRESENT: normal bowel sounds, soft. ABSENT: distended, guarding, mass, organolmegaly, rebound, tenderness Neurological exam: PRESENT: alert, awake, oriented to person, oriented to place, oriented to time, oriented to situation, CN II-XII grossly intact. ABSENT: motor sensory deficit Results Laboratory Results: 08/15/20 05:40 08/15/20 05:40 08/15/20 08/15/20 08/15/20 05:40 05:40 05:40 WBC 22.6 H RBC 4.06 L Hgb 10.8 L Hct 32.6 L MCV 80 MCH 26.7 L MCHC 33.2 RDW 15.7 H Plt Count 392 Seg Neutrophils % Not Reportable VBG pH 7.43 H VBG pCO2 42.1 VBG HCO3 27.1 VBG Base Excess 2.4 Sodium 133.3 L Potassium 3.3 L Chloride 99 Carbon Dioxide 29 Anion Gap 5 BUN 9 Creatinine 0.48 L Est GFR ( Amer) > 60 Glucose 125 H Calcium 8.2 L Magnesium Total Bilirubin 0.7 AST 29 Alkaline Phosphatase 98 Total Protein 5.9 L Albumin 2.8 L 08/15/20 05:40 WBC RBC Hgb Hct MCV MCH MCHC RDW Plt Count Seg Neutrophils % VBG pH VBG pCO2 VBG HCO3 VBG Base Excess Sodium Potassium Chloride Carbon Dioxide Anion Gap BUN Creatinine Est GFR ( Amer) Glucose Calcium Magnesium 1.8 Total Bilirubin AST Alkaline Phosphatase Total Protein Albumin 08/15/20 05:40 Troponin I < 0.012 NT-Pro-B Natriuret Pep 64 Impressions: Chest X-Ray 08/15/20 05:31 IMPRESSION: Increased bilateral interstitial and alveolar opacities concerning for pneumonia. Assessment and Plan - Diagnosis (1) Pneumonia Qualifiers: Laterality: bilateral Is this a current diagnosis for this admission?: Yes Plan: Likely healthcare associated pneumonia given history of recent hospitalization and COVID-19 infection. On admission noted to be hypoxic on room air, elevated WBC and chest x-ray pos itive for bilateral pneumonia. COVID-19 negative. Admit to medical floor, broad-spectrum empiric IV antibiotics, blood culture, sputum culture, pulmonary toileting as needed DuoNebs, as needed BiPAP. (2) Acute respiratory failure with hypoxia Is this a current diagnosis for this admission?: Yes Plan: Due to #1. Plan as per #1. (3) Anxiety and depression Is this a current diagnosis for this admission?: Yes Plan: Denies any suicidal or homicidal ideation. Resume home meds. Outpatient PCP and psychiatry follow-up. (4) Hypertension Qualifiers: Is this a current diagnosis for this admission?: Yes Plan: Appears euvolemic. Normotensive. Resume home meds. Adjust meds as needed. Outpatient PCP follow-up. (5) Type 2 diabetes mellitus Qualifiers: Is this a current diagnosis for this admission?: Yes Plan: Diabetic diet, sliding scale insulin, Accu-Chek, hypoglycemia protocol, adjust insulin dosage as needed. Resume home meds upon discharge. Outpatient PCP follow-up. (6) Obstructive sleep apnea Is this a current diagnosis for this admission?: Yes Plan: Has CPAP at home. Nocturnal CPAP. Patient may benefit from weight loss. (7) Obesity Is this a current diagnosis for this admission?: Yes Plan: BMI 38.0. Diet and lifestyle modification recommended. - Time Time Spent with patient: 35 or more minutes Anticipated Discharge Disposition: Home, Self Care Anticipated Discharge Timeframe: within 72 hours
[2020-08-15] MEDS: IPRATROPIUM/ALBUTEROL 0.5-2.5 MG/3 ML AMPUL NEB SCH ×2 (14:17→20:34)
[2020-08-15] MEDS: HEPARIN SOD (PORCINE) 5,000 UNIT/ML 1 ML VIAL SUBCUT SCH ×2 (14:58→22:17)
[2020-08-15] MEDS: SERTRALINE HCL 50 MG TABLET PO SCH (14:58)
[2020-08-15] MEDS: AMLODIPINE BESYLATE 10 MG TABLET PO SCH (14:58)
[2020-08-15] MEDS: ASPIRIN 81 MG TABLET, ENT COATED PO SCH (14:58)
[2020-08-15] MEDS: DOCUSATE SODIUM 100 MG/10 ML UDC PO SCH (18:08)
[2020-08-15] MEDS: CEFEPIME HCL 2 GM in DEXTROSE 5%-WATER 50 ML IV SCH (18:08)
[2020-08-15] MEDS: FERROUS SULFATE 325 MG TABLET PO SCH (18:08)
[2020-08-15] MEDS: INSULIN LISPRO 100 UNIT/ML 3 ML VIAL SUBCUT SCH ×2 (18:11→22:14)
[2020-08-15] MEDS ORDERED: CEFEPIME 2 GM/D5W RTU 2 GM/50 ML RTUPB IV SCH (22:00)
[2020-08-15] MEDS: BUSPIRONE HCL 10 MG TABLET PO SCH (22:17)
[2020-08-15] MEDS: FAMOTIDINE 20 MG TABLET PO SCH (22:17)
[2020-08-15] MEDS: VANCOMYCIN HCL 1,500 MG in DEXTROSE 5%-WATER 250 ML IV SCH (22:18)
[2020-08-16] MEDS: CEFEPIME HCL 2 GM in DEXTROSE 5%-WATER 50 ML IV SCH ×2 (05:49→18:51)
[2020-08-16] MEDS: HEPARIN SOD (PORCINE) 5,000 UNIT/ML 1 ML VIAL SUBCUT SCH ×3 (05:52→22:08)
[2020-08-16] MEDS: VANCOMYCIN HCL 1,500 MG in DEXTROSE 5%-WATER 250 ML IV SCH ×3 (05:52→22:15)
[2020-08-16 07:27] LABS: HEMATOCRIT 28.2 % (37.9-51.0); HEMOGLOBIN 9.3 g/dL (13.5-17.0); MEAN CORPUSCULAR HEMOGLOBIN 26.4 pg (27.0-33.4); MEAN CORPUSCULAR HGB CONC 33.1 g/dL (32.0-36.0); MEAN CORPUSCULAR VOLUME 80 fl (80-97); PLATELET COUNT 326 10^3/uL (150-450); RED BLOOD COUNT 3.54 10^6/uL (4.35-5.55); RED CELL DISTRIBUTION WIDTH 15.7 % (11.5-14.0); WHITE BLOOD COUNT 12.8 10^3/uL (4.0-10.5)
[2020-08-16] MEDS: INSULIN LISPRO 100 UNIT/ML 3 ML VIAL SUBCUT SCH ×4 (07:40→22:09)
[2020-08-16 07:51] LABS: ALBUMIN 2.4 g/dL (3.5-5.0); ALKALINE PHOSPHATASE 79 U/L (38-126); ASPARTATE AMINO TRANSFERASE 22 U/L (17-59); BILIRUBIN,DIRECT 0.2 mg/dL (0.0-0.4); BILIRUBIN,TOTAL 0.7 mg/dL (0.2-1.3); BLOOD UREA NITROGEN 6 mg/dL (7-20); GLUCOSE 105 mg/dL (75-110); POTASSIUM 3.1 mmol/L (3.6-5.0); TOTAL PROTEIN 5.1 g/dL (6.3-8.2)
[2020-08-16 07:56] LABS: CARBON DIOXIDE 34 mmol/L (22-30); CHLORIDE 103 mmol/L (98-107)
[2020-08-16 08:18] LABS: ANION GAP 1 (5-19)
[2020-08-16] MEDS ORDERED: GUAIFENESIN/CODEINE PHOS 100-10 MG/ 5 ML UDC PO PRN (10:13)
[2020-08-16] MEDS: IPRATROPIUM/ALBUTEROL 0.5-2.5 MG/3 ML AMPUL NEB SCH ×4 (10:33→20:35)
[2020-08-16] MEDS ORDERED: GUAIFENESIN/CODEINE PHOS 100-10 MG/ 5 ML UDC PO ONE (11:00)
[2020-08-16] MEDS ORDERED: POTASSIUM CHLORIDE 10 MEQ TABLET.ER PO ONE (11:00)
[2020-08-16] MEDS: FAMOTIDINE 20 MG TABLET PO SCH ×2 (11:11→22:16)
[2020-08-16] MEDS: FERROUS SULFATE 325 MG TABLET PO SCH ×2 (11:11→18:52)
[2020-08-16] MEDS: AMLODIPINE BESYLATE 10 MG TABLET PO SCH (11:11)
[2020-08-16] MEDS: BUSPIRONE HCL 10 MG TABLET PO SCH ×2 (11:11→22:09)
[2020-08-16] MEDS: ASPIRIN 81 MG TABLET, ENT COATED PO SCH (11:11)
[2020-08-16] MEDS: DOCUSATE SODIUM 100 MG/10 ML UDC PO SCH ×2 (11:11→18:52)
[2020-08-16] MEDS: SERTRALINE HCL 50 MG TABLET PO SCH (11:12)
--- NOTE | 2020-08-16 11:13 | PDOC PROGRESS REPORT ---
Subjective Date:: 08/16/20 Subjective:: BRETT SIDDIQI is a 49 year old male with past medical history of diabetes, hypertension, hyperlipidemia, DORA, recently diagnosed with COVID-19 have had a complicated hospital course, initially admitted on 07/16/2020 had a prolonged hospitalization, again admitted on 08/09/2020 for worsening shortness of breath and discharged on 08/10/2020 home with supplemental oxygen, patient stating he was doing fine on 4 L nasal cannula however yesterday night he noticed sudden onset worsening shortness of breath and presented to ED. Patient is also complaining of persistent productive cough otherwise denies any fever, chest pain, chills, nausea, vomiting, diarrhea, constipation or any urinary symptoms. In ED he was noted to be saturating in the high 80s and noted to be tachypneic, was started on BiPAP with improvement of hypoxia, noted to have leukocytosis on CBC and chest x-ray positive for increased bilateral interstitial and alveolar opacities concerning for pneumonia. Patient was also tested for COVID-19 which came back negative. Hospital was consulted for admission for possible healthcare associated pneumonia. 08/16/2020. No acute events overnight, patient reporting significant improvement of his symptoms however still on 10 L nasal cannula however saturating WNL. Will complaining of persistent nonproductive cough otherwise denies any fever, chills, nausea, vomiting, chest pain, constipation or any urinary symptoms. Reason For Visit: PNEUMONIA Physical Exam Vital Signs: Temp Pulse Resp BP Pulse Ox 98.6 F 108 H 24 H 141/80 H 90 L 08/16/20 08:04 08/16/20 10:36 08/16/20 10:36 08/16/20 08:04 08/16/20 10:36 Intake & Output 08/15/20 08/16/20 08/17/20 06:59 06:59 06:59 Intake Total 2040 550 Output Total 800 700 Balance 1240 -150 Weight 127.006 kg 114.5 kg General appearance: PRESENT: no acute distress, obese, well-developed, well- nourished Head exam: PRESENT: atraumatic, normocephalic Neck exam: ABSENT: carotid bruit, JVD, lymphadenopathy, thyromegaly Respiratory exam: PRESENT: decreased breath sounds, symmetrical, other - Shallow breathing. ABSENT: rales, rhonchi, wheezes GI/Abdominal exam: PRESENT: normal bowel sounds, soft. ABSENT: distended, guarding, mass, organolmegaly, rebound, tenderness Neurological exam: PRESENT: alert, awake, oriented to person, oriented to place, oriented to time, oriented to situation, CN II-XII grossly intact. ABSENT: motor sensory deficit Results Laboratory Results: 08/16/20 06:19 08/16/20 06:19 08/15/20 08/16/20 08/16/20 05:40 06:19 06:19 WBC 22.6 H 12.8 H RBC 4.06 L 3.54 L Hgb 10.8 L 9.3 L Hct 32.6 L 28.2 L MCV 80 80 MCH 26.7 L 26.4 L MCHC 33.2 33.1 RDW 15.7 H 15.7 H Plt Count 392 326 Sodium 137.5 Potassium 3.1 L Chloride 103 Carbon Dioxide 34 H Anion Gap 1 L BUN 6 L Creatinine 0.47 L Est GFR ( Amer) > 60 Glucose 105 Calcium 8.0 L Magnesium 1.9 Total Bilirubin 0.7 AST 22 Alkaline Phosphatase 79 Total Protein 5.1 L Albumin 2.4 L 08/15/20 05:40 Troponin I < 0.012 NT-Pro-B Natriuret Pep 64 Impressions: Chest X-Ray 08/15/20 05:31 IMPRESSION: Increased bilateral interstitial and alveolar opacities concerning for pneumonia. Assessment and Plan - Diagnosis (1) Pneumonia Qualifiers: Laterality: bilateral Is this a current diagnosis for this admission?: Yes Plan: Improving. WBC trending down. Afebrile. SPO2 WNL on 10 L through nonrebreather. Likely healthcare associated pneumonia given history of recent hospitalization and COVID-19 infection. On admission noted to be hypoxic on room air, elevated WBC and chest x-ray p ositive for bilateral pneumonia. COVID-19 negative. Day 2 IV antibiotics. Day 2 IV cefepime. Day 2 IV vancomycin. Continue broad-spectrum empiric IV antibiotics, blood culture, sputum culture, p ulmonary toileting as needed DuoNebs, as needed BiPAP. Follow-up sputum and blood culture. (2) Acute respiratory failure with hypoxia Is this a current diagnosis for this admission?: Yes Plan: Due to #1. Plan as per #1. (3) Anxiety and depression Is this a current diagnosis for this admission?: Yes Plan: Denies any suicidal or homicidal ideation. Resume home meds. Outpatient PCP and psychiatry follow-up. (4) Hypertension Qualifiers: Is this a current diagnosis for this admission?: Yes Plan: Appears euvolemic. Normotensive. Resume home meds. Adjust meds as needed. Outpatient PCP follow-up. (5) Type 2 diabetes mellitus Qualifiers: Is this a current diagnosis for this admission?: Yes Plan: Diabetic diet, sliding scale insulin, Accu-Chek, hypoglycemia protocol, adjust insulin dosage as needed. Resume home meds upon discharge. Outpatient PCP follow-up. (6) Obstructive sleep apnea Is this a current diagnosis for this admission?: Yes Plan: Has CPAP at home. Nocturnal CPAP. Patient may benefit from weight loss. (7) Obesity Is this a current diagnosis for this admission?: Yes Plan: BMI 38.0. Diet and lifestyle modification recommended. - Time Time Spent with patient: 35 or more minutes Anticipated Discharge Disposition: Home, Self Care Anticipated Discharge Timeframe: within 72 hours
[2020-08-16] MEDS: GUAIFENESIN 600 MG TABLET.SA PO SCH ×2 (11:19→22:09)
[2020-08-16] MEDS: METHYLPREDNISOLONE INJ 40 MG/1 ML SDV IV SCH ×2 (11:20→22:08)
[2020-08-16] MEDS: TEMAZEPAM 7.5 MG CAPSULE PO PRN (22:15)
[2020-08-16 22:21] LABS: VANCOMYCIN,TROUGH 14.2 ug/mL (5.0-20.0)
[2020-08-17] MEDS: SODIUM CHLORIDE NASAL SPRAY 44 ML NASL SCH ×3 (00:25→11:59)
[2020-08-17] MEDS: VANCOMYCIN HCL 1,500 MG in DEXTROSE 5%-WATER 250 ML IV SCH ×3 (05:25→22:26)
[2020-08-17] MEDS: CEFEPIME HCL 2 GM in DEXTROSE 5%-WATER 50 ML IV SCH ×2 (05:25→18:58)
[2020-08-17] MEDS: HEPARIN SOD (PORCINE) 5,000 UNIT/ML 1 ML VIAL SUBCUT SCH ×3 (05:26→22:26)
[2020-08-17 06:30] LABS: ABSOLUTE BASOPHILS # (AUTO) 0.1 10^3/uL (0.0-0.2); ABSOLUTE LYMPHOCYTES (AUTO) 0.7 10^3/uL (0.5-4.7); ABSOLUTE MONOCYTES (AUTO) 0.4 10^3/uL (0.1-1.4); ABSOLUTE NEUT (AUTO) 8.4 10^3/uL (1.7-8.2); BASOPHILS % (AUTO) 1.3 % (0-2); EOSINOPHILS % (AUTO) 0.1 % (0-6); HEMATOCRIT 28.1 % (37.9-51.0); HEMOGLOBIN 9.4 g/dL (13.5-17.0); LYMPHOCYTES % (AUTO) 7.1 % (13-45); MEAN CORPUSCULAR HEMOGLOBIN 26.8 pg (27.0-33.4); MEAN CORPUSCULAR HGB CONC 33.4 g/dL (32.0-36.0); MEAN CORPUSCULAR VOLUME 80 fl (80-97); MONOCYTES % (AUTO) 4.4 % (3-13); PLATELET COUNT 334 10^3/uL (150-450); RED BLOOD COUNT 3.51 10^6/uL (4.35-5.55); RED CELL DISTRIBUTION WIDTH 16.1 % (11.5-14.0); SEGMENTED NEUTROPHILS % (AUTO) 87.1 % (42-78); TOTAL CELLS COUNTED % (AUTO) 100 %; WHITE BLOOD COUNT 9.7 10^3/uL (4.0-10.5)
[2020-08-17 06:42] LABS: ALBUMIN 2.5 g/dL (3.5-5.0); ALKALINE PHOSPHATASE 81 U/L (38-126); ASPARTATE AMINO TRANSFERASE 20 U/L (17-59); BILIRUBIN,DIRECT 0.2 mg/dL (0.0-0.4); BILIRUBIN,TOTAL 0.5 mg/dL (0.2-1.3); BLOOD UREA NITROGEN 10 mg/dL (7-20); CALCIUM 8.4 mg/dL (8.4-10.2); CARBON DIOXIDE 35 mmol/L (22-30); CHLORIDE 104 mmol/L (98-107); GLUCOSE 141 mg/dL (75-110); TOTAL PROTEIN 5.3 g/dL (6.3-8.2)
[2020-08-17 07:10] LABS: ANION GAP -2 (5-19); POTASSIUM 4.1 mmol/L (3.6-5.0)
[2020-08-17] MEDS: IPRATROPIUM/ALBUTEROL 0.5-2.5 MG/3 ML AMPUL NEB SCH ×3 (08:23→19:29)
[2020-08-17] MEDS: INSULIN LISPRO 100 UNIT/ML 3 ML VIAL SUBCUT SCH ×4 (08:37→22:36)
[2020-08-17] MEDS: AMLODIPINE BESYLATE 10 MG TABLET PO SCH (11:58)
[2020-08-17] MEDS: FERROUS SULFATE 325 MG TABLET PO SCH ×2 (11:58→18:59)
[2020-08-17] MEDS: ASPIRIN 81 MG TABLET, ENT COATED PO SCH (11:58)
[2020-08-17] MEDS: BUSPIRONE HCL 10 MG TABLET PO SCH ×2 (11:58→22:26)
[2020-08-17] MEDS: METHYLPREDNISOLONE INJ 40 MG/1 ML SDV IV SCH ×2 (11:59→22:26)
[2020-08-17] MEDS: DOCUSATE SODIUM 100 MG/10 ML UDC PO SCH ×2 (11:59→18:59)
[2020-08-17] MEDS: FAMOTIDINE 20 MG TABLET PO SCH ×2 (11:59→22:26)
[2020-08-17] MEDS: SERTRALINE HCL 50 MG TABLET PO SCH (11:59)
[2020-08-17] MEDS: GUAIFENESIN 600 MG TABLET.SA PO SCH ×2 (11:59→22:26)
--- NOTE | 2020-08-17 12:26 | PDOC PROGRESS REPORT ---
Subjective Date:: 08/17/20 Subjective:: BRETT SIDDIQI is a 49 year old male with past medical history of diabetes, hypertension, hyperlipidemia, DORA, recently diagnosed with COVID-19 have had a complicated hospital course, initially admitted on 07/16/2020 had a prolonged hospitalization, again admitted on 08/09/2020 for worsening shortness of breath and discharged on 08/10/2020 home with supplemental oxygen, patient stating he was doing fine on 4 L nasal cannula however yesterday night he noticed sudden onset worsening shortness of breath and presented to ED. Patient is also complaining of persistent productive cough otherwise denies any fever, chest pain, chills, nausea, vomiting, diarrhea, constipation or any urinary symptoms. In ED he was noted to be saturating in the high 80s and noted to be tachypneic, was started on BiPAP with improvement of hypoxia, noted to have leukocytosis on CBC and chest x-ray positive for increased bilateral interstitial and alveolar opacities concerning for pneumonia. Patient was also tested for COVID-19 which came back negative. Hospital was consulted for admission for possible healthcare associated pneumonia. 08/16/2020. No acute events overnight, patient reporting significant improvement of his symptoms however still on 10 L nasal cannula however saturating WNL. Will complaining of persistent nonproductive cough otherwise denies any fever, chills, nausea, vomiting, chest pain, constipation or any urinary symptoms. 08/17/2020. No acute events overnight, oxygen demand is improving however patient is very weak and easily gets fatigued upon exertion, stating that his cough is improving and morning when he can go home, denies any fever, chills, chest pain, diarrhea, constipation. Reason For Visit: PNEUMONIA Physical Exam Vital Signs: Temp Pulse Resp BP Pulse Ox 97.9 F 86 18 124/77 93 08/17/20 09:07 08/17/20 08:23 08/17/20 08:23 08/17/20 07:26 08/17/20 08:24 Intake & Output 08/16/20 08/17/20 08/18/20 06:59 06:59 06:59 Intake Total 2040 3050 Output Total 800 2000 Balance 1240 1050 Weight 114.5 kg 114.9 kg Results Laboratory Results: 08/17/20 05:49 08/17/20 05:49 08/17/20 08/17/20 05:49 05:49 WBC 9.7 RBC 3.51 L Hgb 9.4 L Hct 28.1 L MCV 80 MCH 26.8 L MCHC 33.4 RDW 16.1 H Plt Count 334 Seg Neutrophils % 87.1 H Sodium 137.4 Potassium 4.1 D Chloride 104 Carbon Dioxide 35 H Anion Gap -2 L BUN 10 Creatinine 0.50 L Est GFR ( Amer) > 60 Glucose 141 H Calcium 8.4 Total Bilirubin 0.5 AST 20 Alkaline Phosphatase 81 Total Protein 5.3 L Albumin 2.5 L 08/15/20 05:40 Troponin I < 0.012 NT-Pro-B Natriuret Pep 64 Impressions: Chest X-Ray 08/15/20 05:31 IMPRESSION: Increased bilateral interstitial and alveolar opacities concerning for pneumonia. Assessment and Plan - Diagnosis (1) Pneumonia Qualifiers: Laterality: bilateral Is this a current diagnosis for this admission?: Yes Plan: Improving. WBC WNL. Afebrile. SPO2 WNL on 5 L nasal cannula. Likely healthcare associated pneumonia given history of recent hospitalization and COVID-19 infection. On admission noted to be hypoxic on room air, elevated WBC and chest x-ray positive for bilateral pneumonia. COVID-19 negative. Day 3 IV antibiotics. Day 3 IV cefepime. Day 3 IV vancomycin. Continue broad-spectrum empiric IV antibiotics, blood culture, sputum culture, aggressive pulmonary toileting as needed DuoNebs, as needed BiPAP. Follow-up sputum and blood culture. (2) Acute respiratory failure with hypoxia Is this a current diagnosis for this admission?: Yes Plan: Due to #1. Plan as per #1. (3) Anxiety and depression Is this a current diagnosis for this admission?: Yes Plan: Denies any suicidal or homicidal ideation. Resume home meds. Outpatient PCP and psychiatry follow-up. (4) Hypertension Qualifiers: Is this a current diagnosis for this admission?: Yes Plan: Appears euvolemic. Normotensive. Resume home meds. Adjust meds as needed. Outpatient PCP follow-up. (5) Type 2 diabetes mellitus Qualifiers: Is this a current diagnosis for this admission?: Yes Plan: Diabetic diet, sliding scale insulin, Accu-Chek, hypoglycemia protocol, adjust insulin dosage as needed. Resume home meds upon discharge. Outpatient PCP follow-up. (6) Obstructive sleep apnea Is this a current diagnosis for this admission?: Yes Plan: Has CPAP at home. Nocturnal CPAP. Patient may benefit from weight loss. (7) Obesity Is this a current diagnosis for this admission?: Yes Plan: BMI 38.0. Diet and lifestyle modification recommended. (8) Physical deconditioning Is this a current diagnosis for this admission?: Yes Plan: Likely due to Covid pneumonia and prolonged hospitalization. Patient was diagnosed with COVID-19 over a month ago and has been hospitalized for recurrent pneumonia. Patient complains of fatigue and easily getting winded upon exertion. Patient prefers to stay in bed is not very physically active. Patient highly encouraged to try to be active. PT consulted. - Time Time Spent with patient: 35 or more minutes Anticipated Discharge Disposition: Home with Home Health Anticipated Discharge Timeframe: within 24 hours
[2020-08-17] MEDS: TEMAZEPAM 7.5 MG CAPSULE PO PRN (22:28)
[2020-08-18] MEDS: SODIUM CHLORIDE NASAL SPRAY 44 ML NASL SCH ×6 (03:52→23:09)
[2020-08-18 06:10] LABS: ALBUMIN 2.5 g/dL (3.5-5.0); ALKALINE PHOSPHATASE 65 U/L (38-126); ASPARTATE AMINO TRANSFERASE 27 U/L (17-59); BILIRUBIN,DIRECT 0.3 mg/dL (0.0-0.4); BILIRUBIN,TOTAL 0.6 mg/dL (0.2-1.3); BLOOD UREA NITROGEN 11 mg/dL (7-20); CALCIUM 8.6 mg/dL (8.4-10.2); CHLORIDE 103 mmol/L (98-107); GLUCOSE 142 mg/dL (75-110); POTASSIUM 4.4 mmol/L (3.6-5.0); TOTAL PROTEIN 5.4 g/dL (6.3-8.2)
[2020-08-18] MEDS: CEFEPIME HCL 2 GM in DEXTROSE 5%-WATER 50 ML IV SCH ×2 (06:13→17:08)
[2020-08-18] MEDS: HEPARIN SOD (PORCINE) 5,000 UNIT/ML 1 ML VIAL SUBCUT SCH ×3 (06:13→21:32)
[2020-08-18 06:15] LABS: CARBON DIOXIDE 30 mmol/L (22-30)
[2020-08-18 06:19] LABS: ANION GAP 3 (5-19)
[2020-08-18 06:26] LABS: HEMATOCRIT 28.3 % (37.9-51.0); HEMOGLOBIN 9.3 g/dL (13.5-17.0); MEAN CORPUSCULAR HEMOGLOBIN 26.2 pg (27.0-33.4); MEAN CORPUSCULAR HGB CONC 32.9 g/dL (32.0-36.0); MEAN CORPUSCULAR VOLUME 80 fl (80-97); PLATELET COUNT 325 10^3/uL (150-450); RED BLOOD COUNT 3.56 10^6/uL (4.35-5.55); RED CELL DISTRIBUTION WIDTH 16.3 % (11.5-14.0); WHITE BLOOD COUNT 12.4 10^3/uL (4.0-10.5)
[2020-08-18] MEDS: VANCOMYCIN HCL 1,500 MG in DEXTROSE 5%-WATER 250 ML IV SCH ×3 (07:19→21:32)
[2020-08-18] MEDS: IPRATROPIUM/ALBUTEROL 0.5-2.5 MG/3 ML AMPUL NEB SCH ×3 (07:49→19:27)
[2020-08-18] MEDS: INSULIN LISPRO 100 UNIT/ML 3 ML VIAL SUBCUT SCH ×4 (07:56→21:17)
[2020-08-18 08:31] LABS: ARTERIAL BLOOD BASE EXCESS 5.3 mmol/L; ARTERIAL BLOOD H2CO3 1.38 mmol/L (1.05-1.35); ARTERIAL BLOOD HCO3 30.2 mmol/L (20-24); ARTERIAL BLOOD O2 SATURATION 87.4 % (94-98); ARTERIAL BLOOD PCO2 45.9 mmHg (35-45); ARTERIAL BLOOD PH 7.44 (7.35-7.45); ARTERIAL BLOOD PO2 51.5 mmHg (80-100); ARTERIAL BLOOD TOTAL CO2 31.6 mmol/L (23-27)
[2020-08-18 08:32] LABS: ARTERIAL BLOOD FIO2 5L
[2020-08-18] MEDS: METHYLPREDNISOLONE INJ 40 MG/1 ML SDV IV SCH (10:01)
[2020-08-18] MEDS: ASPIRIN 81 MG TABLET, ENT COATED PO SCH (10:01)
[2020-08-18] MEDS: GUAIFENESIN 600 MG TABLET.SA PO SCH ×2 (10:01→21:32)
[2020-08-18] MEDS: SERTRALINE HCL 50 MG TABLET PO SCH (10:01)
[2020-08-18] MEDS: BUSPIRONE HCL 10 MG TABLET PO SCH ×2 (10:01→21:32)
[2020-08-18] MEDS: FAMOTIDINE 20 MG TABLET PO SCH ×2 (10:01→21:32)
[2020-08-18] MEDS: FERROUS SULFATE 325 MG TABLET PO SCH ×2 (10:01→17:08)
[2020-08-18] MEDS: AMLODIPINE BESYLATE 10 MG TABLET PO SCH (10:01)
[2020-08-18] MEDS: DOCUSATE SODIUM 100 MG/10 ML UDC PO SCH ×2 (10:02→17:06)
--- NOTE | 2020-08-18 12:38 | PDOC PROGRESS REPORT ---
Subjective Date:: 08/18/20 Subjective:: BRETT SIDDIQI is a 49 year old male with past medical history of diabetes, hypertension, hyperlipidemia, DORA, recently diagnosed with COVID-19 have had a complicated hospital course, initially admitted on 07/16/2020 had a prolonged hospitalization, again admitted on 08/09/2020 for worsening shortness of breath and discharged on 08/10/2020 home with supplemental oxygen, patient stating he was doing fine on 4 L nasal cannula however yesterday night he noticed sudden onset worsening shortness of breath and presented to ED. Patient is also complaining of persistent productive cough otherwise denies any fever, chest pain, chills, nausea, vomiting, diarrhea, constipation or any urinary symptoms. In ED he was noted to be saturating in the high 80s and noted to be tachypneic, was started on BiPAP with improvement of hypoxia, noted to have leukocytosis on CBC and chest x-ray positive for increased bilateral interstitial and alveolar opacities concerning for pneumonia. Patient was also tested for COVID-19 which came back negative. Hospital was consulted for admission for possible healthcare associated pneumonia. 08/16/2020. No acute events overnight, patient reporting significant improvement of his symptoms however still on 10 L nasal cannula however saturating WNL. Will complaining of persistent nonproductive cough otherwise denies any fever, chills, nausea, vomiting, chest pain, constipation or any urinary symptoms. 08/17/2020. No acute events overnight, oxygen demand is improving however patient is very weak and easily gets fatigued upon exertion, stating that his cough is improving and morning when he can go home, denies any fever, chills, chest pain, diarrhea, constipation. 08/18/2020. No acute events overnight, patient very anxious to discharged home but unfortunately his oxygen and demand is a still very high and on ABG from this morning patient has hypoxemia, he also she is very weak and desaturates with minimal exertion. I have encouraged patient to stay in the hospital for another 1 to 2 to continue his respiratory treatments and antibiotics. I have also encouraged the patient to be more active and ambulate. He is denying any chest pain, fever, chills, nausea, vomiting. Reason For Visit: PNEUMONIA Physical Exam Vital Signs: Temp Pulse Resp BP Pulse Ox 97.7 F 99 18 140/80 H 90 L 08/18/20 07:42 08/18/20 07:49 08/18/20 07:49 08/18/20 04:03 08/18/20 07:49 Intake & Output 08/17/20 08/18/20 08/19/20 06:59 06:59 06:59 Intake Total 3050 1460 490 Output Total 1999 3300 375 Balance 1050 -1840 115 Weight 114.9 kg 115 kg 115 kg General appearance: PRESENT: mild distress, obese Head exam: PRESENT: atraumatic, normocephalic Respiratory exam: PRESENT: decreased breath sounds - Diminished air entry bilaterally. ABSENT: rales, rhonchi, wheezes Cardiovascular exam: PRESENT: RRR. ABSENT: diastolic murmur, rubs, systolic murmur GI/Abdominal exam: PRESENT: normal bowel sounds, soft. ABSENT: distended, guarding, mass, organolmegaly, rebound, tenderness Neurological exam: PRESENT: alert, awake, oriented to person, oriented to place, oriented to time, oriented to situation, CN II-XII grossly intact. ABSENT: motor sensory deficit Results Laboratory Results: 08/18/20 05:38 08/18/20 05:38 08/18/20 08/18/20 08/18/20 05:38 05:38 08:20 WBC 12.4 H RBC 3.56 L Hgb 9.3 L Hct 28.3 L MCV 80 MCH 26.2 L MCHC 32.9 RDW 16.3 H Plt Count 325 Carbonic Acid 1.38 H HCO3/H2CO3 Ratio 21:1 ABG pH 7.44 ABG pCO2 45.9 H ABG pO2 51.5 L ABG HCO3 30.2 H ABG O2 Saturation 87.4 L ABG Base Excess 5.3 FiO2 5L Sodium 135.7 L Potassium 4.4 Chloride 103 Carbon Dioxide 30 Anion Gap 3 L BUN 11 Creatinine 0.41 L Est GFR ( Amer) > 60 Glucose 142 H Calcium 8.6 Total Bilirubin 0.6 AST 27 Alkaline Phosphatase 65 Total Protein 5.4 L Albumin 2.5 L 08/15/20 05:40 Troponin I < 0.012 NT-Pro-B Natriuret Pep 64 Impressions: Chest X-Ray 08/15/20 05:31 IMPRESSION: Increased bilateral interstitial and alveolar opacities concerning for pneumonia. Assessment and Plan - Diagnosis (1) Pneumonia Qualifiers: Laterality: bilateral Is this a current diagnosis for this admission?: Yes Plan: Mild improvement. ABG shows hypoxemia. WBC trending up. Oxygen demand unchanged. Desaturates with minimal exertion. Likely healthcare associated pneumonia given history of recent hospitalization and COVID-19 infection. On admission noted to be hypoxic on room air, elevated WBC and chest x-ray positive for bilateral pneumonia. COVID-19 negative. Day 4 IV antibiotics. Day 4 IV cefepime. Day 4 IV vancomycin. Continue broad-spectrum empiric IV antibiotics, blood culture, sputum culture, aggressive pulmonary toileting as needed DuoNebs, as needed BiPAP. Follow-up sputum and blood culture. (2) Acute respiratory failure with hypoxia Is this a current diagnosis for this admission?: Yes Plan: Due to #1. Plan as per #1. (3) Anxiety and depression Is this a current diagnosis for this admission?: Yes Plan: Denies any suicidal or homicidal ideation. Resume home meds. Outpatient PCP and psychiatry follow-up. (4) Hypertension Qualifiers: Is this a current diagnosis for this admission?: Yes Plan: Appears euvolemic. Normotensive. Resume home meds. Adjust meds as needed. Outpatient PCP follow-up. (5) Type 2 diabetes mellitus Qualifiers: Is this a current diagnosis for this admission?: Yes Plan: Diabetic diet, sliding scale insulin, Accu-Chek, hypoglycemia protocol, adjust insulin dosage as needed. Resume home meds upon discharge. Outpatient PCP follow-up. (6) Obstructive sleep apnea Is this a current diagnosis for this admission?: Yes Plan: Has CPAP at home. Nocturnal CPAP. Patient may benefit from weight loss. (7) Obesity Is this a current diagnosis for this admission?: Yes Plan: BMI 38.0. Diet and lifestyle modification recommended. (8) Physical deconditioning Is this a current diagnosis for this admission?: Yes Plan: Likely due to Covid pneumonia and prolonged hospitalization. Patient was diagnosed with COVID-19 over a month ago and has been hospitalized for recurrent pneumonia. Patient complains of fatigue and easily getting winded upon exertion. Patient prefers to stay in bed is not very physically active. Patient highly encouraged to try to be active. PT on board. Will discharge home with home PT. - Time Time Spent with patient: 35 or more minutes Anticipated Discharge Disposition: Home with Home Health Anticipated Discharge Timeframe: within 72 hours
[2020-08-18] MEDS: FLUTICASONE NASAL SPRAY 50 MCG/SPRY 120 SPRAY/16 GM NASL SCH ×2 (17:08→23:22)
[2020-08-18] MEDS: METHYLPREDNISOLONE INJ 125 MG/2 ML SDV IV SCH (21:31)
[2020-08-18] MEDS ORDERED: METHYLPREDNISOLONE INJ 40 MG/1 ML SDV IV SCH (22:00)
[2020-08-19] MEDS: TEMAZEPAM 7.5 MG CAPSULE PO PRN (00:26)
[2020-08-19] MEDS: SODIUM CHLORIDE NASAL SPRAY 44 ML NASL SCH ×4 (05:00→22:59)
[2020-08-19] MEDS: CEFEPIME HCL 2 GM in DEXTROSE 5%-WATER 50 ML IV SCH ×2 (05:33→17:15)
[2020-08-19] MEDS: HEPARIN SOD (PORCINE) 5,000 UNIT/ML 1 ML VIAL SUBCUT SCH ×3 (05:33→21:49)
[2020-08-19 05:48] LABS: HEMATOCRIT 28.7 % (37.9-51.0); HEMOGLOBIN 9.1 g/dL (13.5-17.0); MEAN CORPUSCULAR HEMOGLOBIN 25.6 pg (27.0-33.4); MEAN CORPUSCULAR HGB CONC 31.7 g/dL (32.0-36.0); MEAN CORPUSCULAR VOLUME 81 fl (80-97); PLATELET COUNT 359 10^3/uL (150-450); RED BLOOD COUNT 3.55 10^6/uL (4.35-5.55); WHITE BLOOD COUNT 8.1 10^3/uL (4.0-10.5)
[2020-08-19 06:11] LABS: ALBUMIN 2.6 g/dL (3.5-5.0); ALKALINE PHOSPHATASE 64 U/L (38-126); ASPARTATE AMINO TRANSFERASE 24 U/L (17-59); BILIRUBIN,DIRECT 0.2 mg/dL (0.0-0.4); BILIRUBIN,TOTAL 0.5 mg/dL (0.2-1.3); BLOOD UREA NITROGEN 13 mg/dL (7-20); CALCIUM 8.4 mg/dL (8.4-10.2); CARBON DIOXIDE 31 mmol/L (22-30); CHLORIDE 103 mmol/L (98-107); GLUCOSE 157 mg/dL (75-110); POTASSIUM 4.4 mmol/L (3.6-5.0); TOTAL PROTEIN 5.4 g/dL (6.3-8.2)
[2020-08-19 06:15] LABS: ANION GAP 1 (5-19)
[2020-08-19 06:27] LABS: ARTERIAL BLOOD BASE EXCESS 6.2 mmol/L; ARTERIAL BLOOD H2CO3 1.55 mmol/L (1.05-1.35); ARTERIAL BLOOD HCO3 31.8 mmol/L (20-24); ARTERIAL BLOOD O2 SATURATION 89.2 % (94-98); ARTERIAL BLOOD PCO2 51.6 mmHg (35-45); ARTERIAL BLOOD PH 7.41 (7.35-7.45); ARTERIAL BLOOD PO2 56.5 mmHg (80-100); ARTERIAL BLOOD TOTAL CO2 33.4 mmol/L (23-27)
[2020-08-19 06:28] LABS: ARTERIAL BLOOD FIO2 35%
[2020-08-19] MEDS: VANCOMYCIN HCL 1,500 MG in DEXTROSE 5%-WATER 250 ML IV SCH ×3 (06:45→21:50)
[2020-08-19] MEDS ORDERED: LORAZEPAM INJ 2 MG/1 ML VIAL IV PRN (07:29)
[2020-08-19] MEDS: IPRATROPIUM/ALBUTEROL 0.5-2.5 MG/3 ML AMPUL NEB SCH ×3 (08:02→19:49)
[2020-08-19] MEDS: INSULIN LISPRO 100 UNIT/ML 3 ML VIAL SUBCUT SCH ×4 (08:13→21:42)
[2020-08-19] MEDS: FAMOTIDINE 20 MG TABLET PO SCH ×2 (10:00→21:50)
[2020-08-19] MEDS ORDERED: ALBUMIN HUMAN 12.5 GM/50 ML RTUINJ IV SCH (10:00)
[2020-08-19] MEDS: SERTRALINE HCL 50 MG TABLET PO SCH (10:00)
[2020-08-19] MEDS: GUAIFENESIN 600 MG TABLET.SA PO SCH ×2 (10:00→21:50)
[2020-08-19] MEDS: BUSPIRONE HCL 10 MG TABLET PO SCH ×2 (10:00→21:50)
[2020-08-19] MEDS: AMLODIPINE BESYLATE 10 MG TABLET PO SCH (10:00)
[2020-08-19] MEDS: METHYLPREDNISOLONE INJ 125 MG/2 ML SDV IV SCH ×2 (10:00→21:49)
[2020-08-19] MEDS: DOCUSATE SODIUM 100 MG/10 ML UDC PO SCH ×2 (10:01→17:15)
[2020-08-19] MEDS: ASPIRIN 81 MG TABLET, ENT COATED PO SCH (10:01)
[2020-08-19] MEDS: FERROUS SULFATE 325 MG TABLET PO SCH ×2 (10:01→17:15)
[2020-08-19] MEDS: FLUTICASONE NASAL SPRAY 50 MCG/SPRY 120 SPRAY/16 GM NASL SCH ×2 (10:01→21:49)
--- NOTE | 2020-08-19 12:38 | PDOC PROGRESS REPORT ---
Subjective Date:: 08/19/20 Subjective:: BRETT SIDDIQI is a 49 year old male with past medical history of diabetes, hypertension, hyperlipidemia, DORA, recently diagnosed with COVID-19 have had a complicated hospital course, initially admitted on 07/16/2020 had a prolonged hospitalization, again admitted on 08/09/2020 for worsening shortness of breath and discharged on 08/10/2020 home with supplemental oxygen, patient stating he was doing fine on 4 L nasal cannula however yesterday night he noticed sudden onset worsening shortness of breath and presented to ED. Patient is also complaining of persistent productive cough otherwise denies any fever, chest pain, chills, nausea, vomiting, diarrhea, constipation or any urinary symptoms. In ED he was noted to be saturating in the high 80s and noted to be tachypneic, was started on BiPAP with improvement of hypoxia, noted to have leukocytosis on CBC and chest x-ray positive for increased bilateral interstitial and alveolar opacities concerning for pneumonia. Patient was also tested for COVID-19 which came back negative. Hospital was consulted for admission for possible healthcare associated pneumonia. 08/16/2020. No acute events overnight, patient reporting significant improvement of his symptoms however still on 10 L nasal cannula however saturating WNL. Will complaining of persistent nonproductive cough otherwise denies any fever, chills, nausea, vomiting, chest pain, constipation or any urinary symptoms. 08/17/2020. No acute events overnight, oxygen demand is improving however patient is very weak and easily gets fatigued upon exertion, stating that his cough is improving and morning when he can go home, denies any fever, chills, chest pain, diarrhea, constipation. 08/18/2020. No acute events overnight, patient very anxious to discharged home but unfortunately his oxygen and demand is a still very high and on ABG from this morning patient has hypoxemia, he also she is very weak and desaturates with minimal exertion. I have encouraged patient to stay in the hospital for another 1 to 2 to continue his respiratory treatments and antibiotics. I have also encouraged the patient to be more active and ambulate. He is denying any chest pain, fever, chills, nausea, vomiting. 08/19/2020. No acute events overnight. Patient has moderate improvement of his symptoms however still gets short of breath on exertion, ABG still shows significant hypoxemia, patient very anxious to leave home I have explained to him that if he is discharged. Denies any fever, chills, nausea, vomiting. P.o. tolerant. Reason For Visit: PNEUMONIA Physical Exam Vital Signs: Temp Pulse Resp BP Pulse Ox 97.8 F 101 H 18 120/79 92 08/19/20 08:30 08/19/20 08:02 08/19/20 08:02 08/19/20 07:49 08/19/20 08:02 Intake & Output 08/18/20 08/19/20 08/20/20 06:59 06:59 06:59 Intake Total 1460 3210 250 Output Total 3300 3225 Balance -1840 -15 250 Weight 115 kg 117.6 kg General appearance: PRESENT: no acute distress, obese, well-developed, well- nourished Head exam: PRESENT: atraumatic, normocephalic Respiratory exam: PRESENT: decreased breath sounds. ABSENT: rales, rhonchi, wheezes Cardiovascular exam: PRESENT: RRR. ABSENT: diastolic murmur, rubs, systolic murmur GI/Abdominal exam: PRESENT: normal bowel sounds, soft. ABSENT: distended, guarding, mass, organolmegaly, rebound, tenderness Neurological exam: PRESENT: alert, awake, oriented to person, oriented to place, oriented to time, oriented to situation, CN II-XII grossly intact. ABSENT: motor sensory deficit Results Laboratory Results: 08/19/20 05:08 08/19/20 05:08 08/19/20 08/19/20 08/19/20 05:08 05:08 06:10 WBC 8.1 RBC 3.55 L Hgb 9.1 L Hct 28.7 L MCV 81 MCH 25.6 L MCHC 31.7 L RDW 16.0 H Plt Count 359 Carbonic Acid 1.55 H HCO3/H2CO3 Ratio 20:1 ABG pH 7.41 ABG pCO2 51.6 H ABG pO2 56.5 L ABG HCO3 31.8 H ABG O2 Saturation 89.2 L ABG Base Excess 6.2 FiO2 35% Sodium 135.0 L Potassium 4.4 Chloride 103 Carbon Dioxide 31 H Anion Gap 1 L BUN 13 Creatinine 0.44 L Est GFR ( Amer) > 60 Glucose 157 H Calcium 8.4 Magnesium 2.0 Total Bilirubin 0.5 AST 24 Alkaline Phosphatase 64 Total Protein 5.4 L Albumin 2.6 L 08/15/20 05:40 Troponin I < 0.012 NT-Pro-B Natriuret Pep 64 Impressions: Chest X-Ray 08/15/20 05:31 IMPRESSION: Increased bilateral interstitial and alveolar opacities concerning for pneumonia. Assessment and Plan - Diagnosis (1) Pneumonia Qualifiers: Laterality: bilateral Is this a current diagnosis for this admission?: Yes Plan: Mild improvement. ABG still shows hypoxemia. WBC trending down. Oxygen demand unchanged. Desaturates with minimal exertion. Likely healthcare associated pneumonia given history of recent hospitalization and COVID-19 infection. On admission noted to be hypoxic on room air, elevated WBC and chest x-ray positive for bilateral pneumonia. COVID-19 negative. Day 5 IV antibiotics. Day 5 IV cefepime. Day 5 IV vancomycin. Continue broad-spectrum empiric IV antibiotics, blood culture, sputum culture, aggressive pulmonary toileting as needed DuoNebs, as needed BiPAP. Follow-up sputum and blood culture. (2) Acute respiratory failure with hypoxia Is this a current diagnosis for this admission?: Yes Plan: Due to #1. Plan as per #1. (3) Anxiety and depression Is this a current diagnosis for this admission?: Yes Plan: Denies any suicidal or homicidal ideation. Resume home meds. Outpatient PCP and psychiatry follow-up. (4) Hypertension Qualifiers: Is this a current diagnosis for this admission?: Yes Plan: Appears euvolemic. Normotensive. Resume home meds. Adjust meds as needed. Outpatient PCP follow-up. (5) Type 2 diabetes mellitus Qualifiers: Is this a current diagnosis for this admission?: Yes Plan: Diabetic diet, sliding scale insulin, Accu-Chek, hypoglycemia protocol, adjust insulin dosage as needed. Resume home meds upon discharge. Outpatient PCP follow-up. (6) Obstructive sleep apnea Is this a current diagnosis for this admission?: Yes Plan: Has CPAP at home. Nocturnal CPAP. Patient may benefit from weight loss. (7) Obesity Is this a current diagnosis for this admission?: Yes Plan: BMI 38.0. Diet and lifestyle modification recommended. (8) Physical deconditioning Is this a current diagnosis for this admission?: Yes Plan: Likely due to Covid pneumonia and prolonged hospitalization. Patient was diagnosed with COVID-19 over a month ago and has been hospitalized for recurrent pneumonia. Patient complains of fatigue and easily getting winded upon exertion. Patient prefers to stay in bed is not very physically active. Patient highly encouraged to try to be active. PT on board. Will discharge home with home PT. - Time Time Spent with patient: 35 or more minutes Anticipated Discharge Disposition: Home with Home Health Anticipated Discharge Timeframe: within 24 hours
[2020-08-20] MEDS: TEMAZEPAM 7.5 MG CAPSULE PO PRN
[2020-08-20] MEDS: CEFEPIME HCL 2 GM in DEXTROSE 5%-WATER 50 ML IV SCH (05:29)
[2020-08-20] MEDS: SODIUM CHLORIDE NASAL SPRAY 44 ML NASL SCH (05:29)
[2020-08-20] MEDS: HEPARIN SOD (PORCINE) 5,000 UNIT/ML 1 ML VIAL SUBCUT SCH (06:24)
[2020-08-20] MEDS: VANCOMYCIN HCL 1,500 MG in DEXTROSE 5%-WATER 250 ML IV SCH (06:25)
[2020-08-20 06:37] LABS: ARTERIAL BLOOD BASE EXCESS 3.9 mmol/L; ARTERIAL BLOOD O2 SATURATION 97.4 % (94-98); ARTERIAL BLOOD PCO2 46.5 mmHg (35-45); ARTERIAL BLOOD PH 7.41 (7.35-7.45); ARTERIAL BLOOD PO2 97.4 mmHg (80-100); ARTERIAL BLOOD TOTAL CO2 30.4 mmol/L (23-27)
[2020-08-20 06:38] LABS: ARTERIAL BLOOD FIO2 35%
[2020-08-20] MEDS: INSULIN LISPRO 100 UNIT/ML 3 ML VIAL SUBCUT SCH (08:05)
[2020-08-20] MEDS: IPRATROPIUM/ALBUTEROL 0.5-2.5 MG/3 ML AMPUL NEB SCH (08:16)
[2020-08-20] MEDS: METHYLPREDNISOLONE INJ 125 MG/2 ML SDV IV SCH (09:40)
[2020-08-20] MEDS: FERROUS SULFATE 325 MG TABLET PO SCH (09:40)
[2020-08-20] MEDS: DOCUSATE SODIUM 100 MG/10 ML UDC PO SCH (09:40)
[2020-08-20] MEDS: BUSPIRONE HCL 10 MG TABLET PO SCH (09:40)
[2020-08-20] MEDS: GUAIFENESIN 600 MG TABLET.SA PO SCH (09:40)
[2020-08-20] MEDS: ASPIRIN 81 MG TABLET, ENT COATED PO SCH (09:40)
[2020-08-20] MEDS: FAMOTIDINE 20 MG TABLET PO SCH (09:41)
[2020-08-20] MEDS: AMLODIPINE BESYLATE 10 MG TABLET PO SCH (09:41)
[2020-08-20] MEDS: FLUTICASONE NASAL SPRAY 50 MCG/SPRY 120 SPRAY/16 GM NASL SCH (09:41)
[2020-08-20] MEDS: SERTRALINE HCL 50 MG TABLET PO SCH (09:41)
[2020-08-20 09:43] VITALS: BP 113/84
--- NOTE | 2020-08-20 12:06 | PDOC DISCHARGE SUMMARY ---
Impression - Admit/DC Date/PCP Admission Date/Primary Care Provider: 08/15/20 10:56 DAVID OCASIO Discharge Date: 08/20/20 - Discharge Diagnosis (1) Pneumonia Is this a current diagnosis for this admission?: Yes (2) Acute respiratory failure with hypoxia Is this a current diagnosis for this admission?: Yes (3) Anxiety and depression Is this a current diagnosis for this admission?: Yes (4) Hypertension Is this a current diagnosis for this admission?: Yes (5) Type 2 diabetes mellitus Is this a current diagnosis for this admission?: Yes (6) Obstructive sleep apnea Is this a current diagnosis for this admission?: Yes (7) Obesity Is this a current diagnosis for this admission?: Yes (8) Physical deconditioning Is this a current diagnosis for this admission?: Yes - Additional Information Resuscitation Status: Full Code Discharge Diet: As Tolerated Discharge Activity: Activity As Tolerated, Balance Activity w/Rest Referrals: DEREK VERNON FNP-C [Primary Care Provider] - 08/22/20 10:45 am () Prescriptions: Prednisone [Deltasone 20 mg Tablet] 20 mg PO DAILY 5 Days #5 tablet Ipratropium/Albuterol Sulfate [Duoneb 3 ml Ampul] 3 ml NEB RTQ6HP PRN 30 Days #3 vial.neb PRN Reason: Fluticasone Propionate [Flonase Nasal [place] 50 Mcg/[place] 16 gm] 1 spray NASL Q12 30 Days #1 spray.pump Levofloxacin [Levaquin 500 mg Tablet] 500 mg PO DAILY 3 Days #3 tablet Guaifenesin [Mucinex Sr 600 mg Tablet.sa] 1,200 mg PO Q12 7 Days #28 tablet.sa Amlodipine Besylate [Norvasc 5 mg Tablet] 5 mg PO DAILY 30 Days #30 tablet Lisinopril [Prinivil] 20 mg PO DAILY 30 Days #30 tablet Home Medications: Lansoprazole [Prevacid 15 mg Odt Tablet] 15 mg PO DAILY 03/22/20 Metformin HCl 500 mg PO BID 03/22/20 Pravastatin Sodium 40 mg PO DAILY 03/22/20 Potassium Chloride 20 meq PO QAM 3 Days #3 tablet.er 07/13/20 Aspirin [Ecotrin 81 mg EC Tablet] 81 mg PO DAILY 07/16/20 Buspirone HCl [Buspar 10 mg Tablet] 10 mg PO Q12 30 Days #60 tablet 08/09/20 Ferrous Sulfate [Feosol 325 mg Tablet] 325 mg PO BIDPCBS 30 Days #60 tablet 08/09/20 Sertraline HCl [Zoloft 50 mg Tablet] 50 mg PO DAILY 30 Days #30 tablet 08/09/20 Loperamide HCl [Loperamide] 2 mg PO TIDP PRN 08/15/20 Amlodipine Besylate [Norvasc 5 mg Tablet] 5 mg PO DAILY 30 Days #30 tablet 08/20/20 Fluticasone Propionate [Flonase Nasal [place] 50 Mcg/[place] 16 gm] 1 spray NASL Q12 30 Days #1 spray.pump 08/20/20 Guaifenesin [Mucinex Sr 600 mg Tablet.sa] 1,200 mg PO Q12 7 Days #28 tablet.sa 08/20/20 Ipratropium/Albuterol Sulfate [Duoneb 3 ml Ampul] 3 ml NEB RTQ6HP PRN 30 Days #3 vial.neb 08/20/20 Levofloxacin [Levaquin 500 mg Tablet] 500 mg PO DAILY 3 Days #3 tablet 08/20/20 Lisinopril [Prinivil] 20 mg PO DAILY 30 Days #30 tablet 08/20/20 Prednisone [Deltasone 20 mg Tablet] 20 mg PO DAILY 5 Days #5 tablet 08/20/20 History of Present Illiness History of Present Illness: BRETT SIDDIQI is a 49 year old male with past medical history of diabetes, hypertension, hyperlipidemia, DORA, recently diagnosed with COVID-19 have had a complicated hospital course, initially admitted on 07/16/2020 had a prolonged hospitalization, again admitted on 08/09/2020 for worsening shortness of breath and discharged on 08/10/2020 home with supplemental oxygen, patient stating he was doing fine on 4 L nasal cannula however yesterday night he noticed sudden onset worsening shortness of breath and presented to ED. Patient is also complaining of persistent productive cough otherwise denies any fever, chest pain, chills, nausea, vomiting, diarrhea, constipation or any urinary symptoms. In ED he was noted to be saturating in the high 80s and noted to be tachypneic, was started on BiPAP with improvement of hypoxia, noted to have leukocytosis on CBC and chest x-ray positive for increased bilateral interstitial and alveolar opacities concerning for pneumonia. Patient was also tested for COVID-19 which came back negative. Hospital was consulted for admission for possible healthcare associated pneumonia. Hospital Course Hospital Course: (1) Pneumonia Moderate improvement. Duration of hypoxemia on repeat ABG. WBC WNL. Likely healthcare associated pneumonia given history of recent hospitalization and COVID-19 infection. On admission noted to be hypoxic on room air, elevated WBC and chest x-ray positive for bilateral pneumonia. COVID-19 negative. Received 6 days of IV antibiotics. Received 6 days of IV cefepime. Received 6 days of IV vancomycin. Was discharged on levofloxacin 500 mg p.o. daily for another 3 days. Patient is strongly encouraged on continuing to use his flutter valve and incentive spirometry and to stay active. Advised to come back to ED if his symptoms got worse. Patient already has home oxygen supplies from previous admission. Advised to follow-up with PCP as soon as possible. (2) Acute respiratory failure with hypoxia Due to #1. Plan as per #1. (3) Anxiety and depression Denie any suicidal or homicidal ideation. Resume home meds. Outpatient PCP and psychiatry follow-up. (4) Hypertension Euvolemic. Normotensive. Resumed home meds. Adjust meds as needed. Outpatient PCP follow-up. (5) Type 2 diabetes mellitus Diabetic diet, sliding scale insulin, Accu-Chek, hypoglycemia protocol, adjust insulin dosage as needed. Resumed home meds upon discharge. Outpatient PCP follow-up. (6) Obstructive sleep apnea Has CPAP at home. Nocturnal CPAP. Weight loss recommended. (7) Obesity BMI 38.0. Diet and lifestyle modification recommended. (8) Physical deconditioning Moderate improvement. Likely due to Covid pneumonia and prolonged hospitalization. Patient was diagnosed with COVID-19 over a month ago and has been hospitalized for recurrent pneumonia. Patient complains of fatigue and easily getting winded upon exertion. Admission is stating that prefers to stay in bed is not very physically active. Patient highly encouraged to try to be active. Pt was consulted. Physical Exam Vital Signs: Temp Pulse Resp BP Pulse Ox 97.3 F 96 22 H 113/84 98 08/20/20 10:27 08/20/20 10:27 08/20/20 10:27 08/20/20 10:27 08/20/20 10:27 Intake & Output 08/19/20 08/20/2021 06:59 06:59 06:59 Intake Total 3210 2430 1000 Output Total 5446 0299 550 Balance -15 105 450 Weight 117.6 kg 118.9 kg General appearance: PRESENT: no acute distress, obese, well-developed, well- nourished Respiratory exam: PRESENT: clear to auscultation lorena, other - Shallow breathing.. ABSENT: rales, rhonchi, wheezes Pulses: PRESENT: normal dorsalis pedis pul GI/Abdominal exam: PRESENT: normal bowel sounds, soft. ABSENT: distended, guarding, mass, organolmegaly, rebound, tenderness Extremities exam: PRESENT: full ROM. ABSENT: calf tenderness, clubbing, pedal edema Neurological exam: PRESENT: alert, awake, oriented to person, oriented to place, oriented to time, oriented to situation, CN II-XII grossly intact. ABSENT: motor sensory deficit Results Laboratory Results: WBC 8.1 10^3/uL (4.0-10.5) 08/19/20 05:08 RBC 3.55 10^6/uL (4.35-5.55) L 08/19/20 05:08 Hgb 9.1 g/dL (13.5-17.0) L 08/19/20 05:08 Hct 28.7 % (37.9-51.0) L 08/19/20 05:08 MCV 81 fl (80-97) 08/19/20 05:08 MCH 25.6 pg (27.0-33.4) L 08/19/20 05:08 MCHC 31.7 g/dL (32.0-36.0) L 08/19/20 05:08 RDW 16.0 % (11.5-14.0) H 08/19/20 05:08 Plt Count 359 10^3/uL (150-450) 08/19/20 05:08 Lymph % (Auto) 7.1 % (13-45) L 08/17/20 05:49 [place] % (Auto) 4.4 % (3-13) 08/17/20 05:49 Eos % (Auto) 0.1 % (0-6) 08/17/20 05:49 Baso % (Auto) 1.3 % (0-2) 08/17/20 05:49 Absolute Neuts (auto) 8.4 10^3/uL (1.7-8.2) H 08/17/20 05:49 Absolute Lymphs (auto) 0.7 10^3/uL (0.5-4.7) 08/17/20 05:49 Absolute Monos (auto) 0.4 10^3/uL (0.1-1.4) 08/17/20 05:49 Absolute Eos (auto) 0.0 10^3/uL (0.0-0.6) 08/17/20 05:49 Absolute Basos (auto) 0.1 10^3/uL (0.0-0.2) 08/17/20 05:49 Total Counted 100 08/15/20 05:40 Seg Neutrophils % 87.1 % (42-78) H 08/17/20 05:49 Seg Neuts % (Manual) 86 % (42-78) H 08/15/20 05:40 Lymphocytes % (Manual) 9 % (13-45) L 08/15/20 05:40 Monocytes % (Manual) 5 % (3-13) 08/15/20 05:40 Eosinophils % (Manual) 0 % (0-6) 08/15/20 05:40 Basophils % (Manual) 0 % (0-2) 08/15/20 05:40 Abs Neuts (Manual) 19.4 10^3/uL (1.7-8.2) H 08/15/20 05:40 Abs Lymphs (Manual) 2.0 10^3/uL (0.5-4.7) 08/15/20 05:40 Abs Monocytes (Manual) 1.1 10^3/uL (0.1-1.4) 08/15/20 05:40 Absolute Eos (Manual) 0.0 10^3/uL (0.0-0.6) 08/15/20 05:40 Abs Basophils (Manual) 0.0 10^3/uL (0.0-0.2) 08/15/20 05:40 Toxic Granulation 1+ 08/15/20 05:40 Platelet Comment ADEQUATE 08/15/20 05:40 Polychromasia SLIGHT 08/15/20 05:40 Anisocytosis 1+ 08/15/20 05:40 Carbonic Acid 1.40 mmol/L (1.05-1.35) H 08/20/20 06:25 HCO3/H2CO3 Ratio 20:1 08/20/20 06:25 ABG pH 7.41 (7.35-7.45) 08/20/20 06:25 ABG pCO2 46.5 mmHg (35-45) H 08/20/20 06:25 ABG pO2 97.4 mmHg (80-100) 08/20/20 06:25 ABG HCO3 29.0 mmol/L (20-24) H 08/20/20 06:25 ABG Total CO2 30.4 mmol/L (23-27) H 08/20/20 06:25 ABG O2 Saturation 97.4 % (94-98) 08/20/20 06:25 ABG Base Excess 3.9 mmol/L 08/20/20 06:25 VBG pH 7.43 (7.30-7.42) H 08/15/20 05:40 VBG pCO2 42.1 mmHg (35-63) 08/15/20 05:40 VBG HCO3 27.1 mmol/L (20-32) 08/15/20 05:40 VBG Base Excess 2.4 mmol/L 08/15/20 05:40 FiO2 35% 08/20/20 06:25 Sodium 135.0 mmol/L (137-145) L 08/19/20 05:08 Potassium 4.4 mmol/L (3.6-5.0) 08/19/20 05:08 Chloride 103 mmol/L (98-107) 08/19/20 05:08 Carbon Dioxide 31 mmol/L (22-30) H 08/19/20 05:08 Anion Gap 1 (5-19) L 08/19/20 05:08 BUN 13 mg/dL (7-20) 08/19/20 05:08 Creatinine 0.44 mg/dL (0.52-1.25) L 08/19/20 05:08 Est GFR ( Amer) > 60 (>60) 08/19/20 05:08 Est GFR (MDRD) Non-Af > 60 (>60) 08/19/20 05:08 Glucose 157 mg/dL (75-110) H 08/19/20 05:08 POC Glucose 160 mg/dL (70-110) H 08/20/20 06:38 Calcium 8.4 mg/dL (8.4-10.2) 08/19/20 05:08 Magnesium 2.0 mg/dL (1.6-2.3) 08/19/20 05:08 Total Bilirubin 0.5 mg/dL (0.2-1.3) 08/19/20 05:08 Direct Bilirubin 0.2 mg/dL (0.0-0.4) 08/19/20 05:08 Neonat Total Bilirubin Not Reportable 08/19/20 05:08 Neonat Direct Bilirubin Not Reportable 08/19/20 05:08 Neonat Indirect Bili Not Reportable 08/19/20 05:08 AST 24 U/L (17-59) 08/19/20 05:08 ALT 37 U/L (<50) 08/19/20 05:08 Alkaline Phosphatase 64 U/L (38-126) 08/19/20 05:08 Troponin I < 0.012 ng/mL 08/15/20 05:40 NT-Pro-B Natriuret Pep 64 pg/mL (<125) 08/15/20 05:40 Total Protein 5.4 g/dL (6.3-8.2) L 08/19/20 05:08 Albumin 2.6 g/dL (3.5-5.0) L 08/19/20 05:08 Time Trough Drawn 2145 08/16/20 21:45 Vancomycin Trough 14.2 ug/mL (5.0-20.0) 08/16/20 21:45 Influenza A (RT-PCR) NEGATIVE (NEGATIVE) 08/15/20 09:04 Influenza B (RT-PCR) NEGATIVE (NEGATIVE) 08/15/20 09:04 RSV (RT-PCR) NEGATIVE (NEGATIVE) 08/15/20 09:04 SARS-CoV-2 Rap RNA(RT-PCR) NEGATIVE (NEGATIVE) 08/15/20 09:04 08/15/20 05:40 Troponin I < 0.012 NT-Pro-B Natriuret Pep 64 Impressions: Chest X-Ray 08/15/20 05:31 IMPRESSION: Increased bilateral interstitial and alveolar opacities concerning for pneumonia. Stroke Is this a Stroke Patient?: No Acute Heart Failure Is this a Heart Failure Patient?: No
== END 2020-08-20 11:20 | disposition home or self-care (01) | DRG 189 ==
LOC: ER 05:17 → EH 10:56 → INTOOBSV 10:56 → OBSVTOIN 11:11 → 4W 14:42
PROVIDERS: ADMIT Internal Medicine; ATTEND Internal Medicine
PROC: 5A09457 Assistance with Respiratory Ventilation, 24-96 Consecutive Hours, Continuous Positive Airway Pressure (ICD-10-PCS; principal; 2020-08-15)
DX: J96.01 Acute respiratory failure with hypoxia (principal); J18.9 Pneumonia, unspecified organism; I10 Essential (primary) hypertension; Y95 Nosocomial condition; Z86.16 Personal history of COVID-19; E11.9 Type 2 diabetes mellitus without complications; E78.5 Hyperlipidemia, unspecified; K21.9 Gastro-esophageal reflux disease without esophagitis; F31.9 Bipolar disorder, unspecified; G47.33 Obstructive sleep apnea (adult) (pediatric); M19.90 Unspecified osteoarthritis, unspecified site; F41.8 Other specified anxiety disorders; E66.9 Obesity, unspecified; Z99.81 Dependence on supplemental oxygen; Z79.84 Long term (current) use of oral hypoglycemic drugs; Z79.82 Long term (current) use of aspirin; Z79.899 Other long term (current) drug therapy; Z68.38 Body mass index [BMI] 38.0-38.9, adult
CPT/HCPCS: 36415; 36600; 71045; 80053; 80202; 82803; 82962; 83735; 83880; 84484; 85025; 85027; 87040; 93005; 93010; 94640; 94660; 94667; 94668; 94799; 0241U; C9803; J0692; J1100; J1644; J1815; J2920; J2930; J3370; J3490; J7030; J7060